=== PATIENT | male | born 1935 | race Two or more races ===

== ENCOUNTER → 2018-05-14 | Outpatient (CLI) | payer OTHER ==
[2018-01-17 15:00] VITALS: BP 114/70
[~2018-05-14] MED LIST: APIX5TAB PO; ATOR10TA60 PO; DIGO125T PO; ERGO500027 PO; FLUT9.9S NS; FURO-68 PO; FURO-69 PO; FURO40TA4 PO; LEVO25TA55 PO; LISI-338 PO; LORA10TA3 PO; METO-239 PO; METO-247 PO; METO50TA6 PO; POTA10TA12 PO; SACU1TAB PO
--- NOTE | 2018-05-14 10:28 | CARD ---
MR#: [id number] Date of Study: 05/14/2018 Ordering Physician: FARIDA THOMPSON, Referring Physician: FARIDA THOMPSON Tech: Annmarie Ogden RDCS APPROVED REPORT EXAM: Two-dimensional and M-mode echocardiogram with Doppler and color Doppler. Other Information Quality : Fair INDICATION Chronic Systolic Heart Failure 2D DIMENSIONS RVDd2.7 (2.9-3.5cm)Left Atrium(2D)4.0 (1.6-4.0cm) IVSd1.0 (0.7-1.1cm)Aortic Root(2D)3.0 (2.0-3.7cm) LVDd5.8 (3.9-5.9cm)LVOT Diameter2.4 (1.8-2.4cm) PWd1.0 (0.7-1.1cm)LVDs5.4 (2.5-4.0cm) FS (%) 7.8 %SV29.1 ml LVEF(%)17.1 (>50%) Aortic Valve AoV Peak Feliz.125.6cm/sAoV VTI17.6cm AO Peak GR.6.3mmHgLVOT Peak Feliz.81.9cm/s AO Mean GR.4mmHgAVA (VMAX)2.91cm2 RUDY (VTI)3.52uq7ZY P 1/2 Kqmd893kx Tricuspid Valve TR P. Wlrlpmuy252vq/sRAP SFFLOQBD7tgJi TR Peak Gr.45suYnYOZS17eqCh LEFT VENTRICLE The left ventricle is normal size. There is normal left ventricular wall thickness. Left ventricle ej ection fraction is severely impaired. The Ejection Fraction is 10-15%. There is severe global hypokin esis of the left ventricle. RIGHT VENTRICLE The right ventricle is normal size. The right ventricular systolic function is normal. ATRIA The left atrium is mildly dilated. The right atrium is mildly dilated. The interatrial septum is inta ct with no evidence for an atrial septal defect or patent foramen ovale as noted on 2-D or Doppler im aging. AORTIC VALVE The aortic valve is calcified but opens well. Doppler and Color Flow revealed mild aortic regurgitati on. There is no significant aortic valvular stenosis. MITRAL VALVE The mitral valve is calcified but opens well. There is no evidence of mitral valve prolapse. There is no mitral valve stenosis. Doppler and Color-flow revealed mild mitral regurgitation. TRICUSPID VALVE The tricuspid valve is normal in structure and function. Doppler and Color Flow revealed mild tricusp id regurgitation. There is moderate pulmonary hypertension. The PA pressure was estimated at 45 mmHg. There is no tricuspid valve stenosis. PULMONIC VALVE The pulmonic valve is not well visualized. Doppler and Color Flow revealed mild pulmonic valvular reg urgitation. There is no pulmonic valvular stenosis. GREAT VESSELS The aortic root is normal in size. The ascending aorta is not well seen. The IVC is normal in size an d collapses >50% with inspiration. PERICARDIAL EFFUSION There is no evidence of significant pericardial effusion. Critical Notification Critical Value: No <Conclusion> Left ventricle ejection fraction is severely impaired. The Ejection Fraction is 10-15%. Mild aortic regurgitation. Mild mitral regurgitation. Mild tricuspid regurgitation. There is moderate pulmonary hypertension. The PA pressure was estimated at 45 mmHg. There is no evidence of significant pericardial effusion. Signed by : Farida Thompson, Electronically Approved : 05/14/2018 10:27:05
== END | disposition home or self-care (01) ==
LOC: ECHO 08:53
PROVIDERS: ATTEND Internal Medicine Cardiovascular Disease
DX: I08.8 Other rheumatic multiple valve diseases (principal); I27.20 Pulmonary hypertension, unspecified; I11.0 Hypertensive heart disease with heart failure; I50.22 Chronic systolic (congestive) heart failure
CPT/HCPCS: 93306

== ENCOUNTER 2018-06-06 10:28 | Observation (INO) | payer OTHER ==
[~2018-06-06] VITALS: Ht 157.5 cm; Wt 76.4 kg
[~2018-06-06 10:28] MED LIST changes: +HYDROmorphone 2 MG/ML VIAL IV PRN; +IV RINGERS,LACTATED 1000ML 1,000 ML IV SCH; +LIDOCAINE 1% PF 2 ML VIAL. ID PRN; +MORPHINE SULFATE 4 MG/ML VIAL. IV PRN; +ONDANSETRON PF 4 MG/2 ML VIAL. IV PRN; +PROCHLORPERAZINE 10 MG/2 ML VIAL. IV PRN; +fentaNYL PF VIAL 100 MCG/2 ML VIAL IV PRN
[2018-06-06] MEDS ORDERED: BACITRACIN 50,000 UNIT in IV NORMAL SALINE 250ML 250 ML IRR ONE (10:45)
[2018-06-06 11:07] VITALS: BP 119/71
--- NOTE | 2018-06-06 11:20 | EKG ---
[facility] [address] [place] [address] Test Date: 2018-06-06 Test Time: 11:14:41 Pat Name: ELOY PHELPS Department: Patient ID: [facility]-[id number] Room: Gender: M Celluloid Trimmer: [facility] : 1935 Requested By: FARIDA THOMPSON Order Number: [id number] Reading MD: Farhan Liu Measurements Intervals [place] Rate: 95 P: [place]: QRS: -46 QRSD: 134 T: 112 QT: 364 QTc: 461 Interpretive Statements ATRIAL FIBRILLATION WITH rvr. VENTRICULAR PREMATURE COMPLEX(ES) ABNORMAL LEFT AXIS DEVIATION NON SPECIFIC INTRAVENTRICULAR BLOCK ABNORMAL ECG Electronically Signed On 06-09-2018 9:48:00 MORTAR MAKER by Farhan Liu
[2018-06-06] MEDS ORDERED: FURO40TA4 PO (11:21)
[2018-06-06] MEDS ORDERED: ERGO500027 PO (11:21)
[2018-06-06] MEDS ORDERED: LISI-338 PO ×2 (11:21→23:48)
[2018-06-06 11:26] LABS: HEMATOCRIT 47.7 % (39.0-53.0); HEMOGLOBIN 15.8 g/dL (13.0-17.5); RED BLOOD COUNT 5.92 x10^6/uL (4.30-5.70); RED CELL DISTRIBUTION WIDTH 15.5 % (11.5-14.5); WHITE BLOOD COUNT 9.2 x10^3/uL (4.0-11.0)
[2018-06-06 11:27] LABS: CALCIUM 8.9 mg/dL (8.5-10.1); CREATININE 1.1 mg/dL (0.7-1.3); GFR 64.4; POTASSIUM 4.1 mmol/L (3.5-5.1)
[2018-06-06 11:37] LABS: PROTHROMBIN TIME PATIENT 16.6 SEC (11.7-14.0)
[2018-06-06] MEDS ORDERED: PROPOFOL 20 ML IV ONE (11:42)
[2018-06-06] MEDS ORDERED: KETAMINE HCL IN NACL, ISO-OSM 50 MG/5 ML SYRINGE ONE (11:43)
[2018-06-06] MEDS ORDERED: MIDAZOLAM HCL/PF 2 MG/2 ML VIAL. ONE (11:43)
[2018-06-06] MEDS ORDERED: PROPOFOL 100 ML IV ONE (11:44)
[2018-06-06] MEDS ORDERED: IODIXANOL 320 MG/ML 100 ML VIAL. ONE (12:11)
[2018-06-06] MEDS ORDERED: LIDOCAINE 2%/EPI 1:100,000 20 ML VIAL. ONE (12:11)
[2018-06-06] MEDS ORDERED: LIDOCAINE 2%/EPI 1:100,000 20 ML VIAL. IJ ONE (13:00)
[2018-06-06] MEDS ORDERED: fentaNYL PF VIAL 100 MCG/2 ML VIAL ONE (13:21)
[2018-06-06] MEDS ORDERED: IODIXANOL 320 MG/ML 100 ML VIAL. IV ONE (14:00)
[2018-06-06] MEDS ORDERED: CONTRAST GIVEN. MC PRN (14:00)
[2018-06-06] MEDS ORDERED: oxyCODONE/APAP 5/325 1 TAB TABLET PO PRN (15:15)
[2018-06-06] MEDS ORDERED: NO ANTICOAGULANT THERAPY. MC PRN (15:15)
[2018-06-06] MEDS ORDERED: AMIODARONE 900 MG in IV DEXTROSE 5% 500 ML IV PRN (15:15)
[2018-06-06] MEDS ORDERED: AMIODARONE 150 MG in IV DEXTROSE 5% 100ML 100 ML IV ONE (15:15)
--- NOTE | 2018-06-06 15:57 | CARD ---
MR#: [id number] Date of Study: 06/06/2018 Ordering Physician: FARIDA ELIAS, Referring Physician: FARIDA ELIAS, Tech: APPROVED REPORT EXAM Successful implantation of Biotronik biventricular implantable cardioverter defibrillator/cardiac res ynchronization therapy-defibrillation Defibrillation threshold measurement of the time of implantation INDICATIONS Primary prevention of sudden cardiac and cardiac resynchronization therapy in a patient with se yazmin nonischemic cardio myopathy, LVEF 10-15% and cardiac dyssynchrony as evidenced by prolonged QRS interval of 144 ms. PROCEDURE After explaining the risks, benefits, and alternative options, informed consent was obtained from the patient. The patient was brought to the cardiac catheterization lab and the left chest and shoulder were prepp ed and draped in the usual fashion. 30 mL of 2% lidocaine was infiltrated into the skin and subcutaneous tissues for local anesthesia. An incision was made over the left infraclavicular fossa and using blunt dissection and cautery a pocke t was created. After initial attempts to obtain venous access using radiological landmarks were unsuc cessful, a venogram was obtained and venous access successfully obtained. A 9 Grenadian coronary sinus s theresa was inserted. Contrast injections were performed within the right atrium using CASS2 catheter and coronary sinus os tium was engaged. A 0.035 inch Glidewire was advanced followed by advancement of the CS sheath. With the balloontipped catheter inflated, a coronary sinus venogram was obtained to identify the appropria te posterolateral vein for left ventricular lead placement. A Biotronik quadripolar left ventricular lead model Sentus ProMRI QP L-85, serial #[id number] was advan alexy under fluoroscopy guidance and the tip was positioned in the posterolateral vein. Venous access w as again obtained in the left subclavian vein and 8 Grenadian sheath inserted. A Biotronik bipolar activ e fixation right ventricular lead with right atrial sensing capability model Plexa ProMRI DF-1 DX 65, serial #[id number] was positioned in the right ventricular apex under fluoroscopy guidance. The leads were secured into place and attached to a Biotronik biventricular ICD/HANDTOOLS REPAIRER-D generator model Intica 7 HF-T QP, serial #[id number]. This was placed in the pocket was subsequently closed in 3 layer s. Hemostasis was secured. Ventricular fibrillation was then induced to check the defibrillation thre shold. After initial unsuccessful attempt at converting with 25 J shock therapy, patient successfully converted with 30 J for defibrillation threshold. At the end of procedure, the left ventricular lead showed a sensing amplitude of 9.5 mV, impedance of 855 ohms and a threshold of 0.4 V. The right ventricular lead showed a sensing amplitude of 16.9 mV, impedance of 783 ohms and a threshold of 0.9 V. Of note, patient was thought to be having permanent atrial fibrillation successfully converted to sinus rhythm during the defibrillation threshold measur ement. The atrial sensing from the RV lead was at 3.0 mV. Patient tolerated the procedure well. There were no immediate complications. CONCLUSION Successful implantation of Biotronik biventricular ICD/HANDTOOLS REPAIRER-D for primary prevention of sudden cardiac and cardiac recent progression therapy in a patient with severe nonischemic artery myopathy wi th EF 10-15% and prolonged QRS interval of 144 ms. Defibrillation thresholds were measured at the lynnette e of implantation. Signed by : Farida Elias, Electronically Approved : 06/06/2018 15:54:59
[2018-06-06 16:00] VITALS: BP 126/71
--- NOTE | 2018-06-06 16:19 | RAD ---
Single view chest dated 06/06/2018. Comparison made to 05/16/2018. Clinical data indication: Post pacemaker placement. FINDINGS: Single upright exam performed. Heart size moderately enlarged, stable. Interval placement of a dual lead left subclavian pacer/AICD with leads projected to the right ventricle and coronary sinus. Lung volumes are low, limiting evaluation. No consolidation or pleural effusion. No pneumothorax. IMPRESSION: 1. Interval placement of dual lead left subclavian pacer with no evidence of pneumothorax. Electronically signed by: Vineet Sullivan MD (06/06/2018 4:15 PM) [facility]
[2018-06-06] MEDS: APIXABAN 5 MG TABLET. PO SCH (18:21)
[2018-06-06] MEDS: FUROSEMIDE 40 MG TABLET. PO SCH (18:30)
[2018-06-06] MEDS ORDERED: ANTI-COAG MONITOR BY PHARMACY. MC PRN (18:30)
[2018-06-06 19:00] VITALS: BP 108/67
[2018-06-06] MEDS: SACUBITRIL/VALSARTAN 24/26MG TABLET. PO SCH (20:47)
[2018-06-06] MEDS ORDERED: ATORVASTATIN CALCIUM 10 MG TABLET. PO SCH (21:00)
[2018-06-06 23:17] VITALS: BP 103/64
[2018-06-06] MEDS ORDERED: LEVO25TA4 PO (23:45)
[2018-06-07 03:02] VITALS: BP 107/67
[2018-06-07] MEDS: FUROSEMIDE 40 MG TABLET. PO SCH (05:32)
[2018-06-07] MEDS ORDERED: LEVOTHYROXINE 25 MCG TABLET. PO SCH (06:00)
[2018-06-07] MEDS ORDERED: POTASSIUM CHLORIDE 10 MEQ TABLET.ER. PO SCH (08:00)
[2018-06-07] MEDS: APIXABAN 5 MG TABLET. PO SCH (08:41)
[2018-06-07] MEDS ORDERED: METOPROLOL SUCC 24HR ER 100 MG TAB.ER.24H. PO SCH (09:00)
[2018-06-07] MEDS ORDERED: AMIODARONE HCL 200 MG TABLET. PO SCH (09:00)
[2018-06-07] MEDS ORDERED: NON FORMULARY ITEM (Lisinopril 1 TAB) PO SCH (09:00)
[2018-06-07] MEDS ORDERED: DIGOXIN 125 MCG TABLET. PO SCH (09:00)
--- NOTE | 2018-06-07 09:13 | RAD ---
EXAM: PA and Lateral Views of the Chest DATE: 06/07/2018 8:25 AM INDICATION: 1 DAY POST PACEMAKER COMPARISON: 06/06/2018, 05/16/2018 FINDINGS: Cardiac generator pack obscures a portion left chest with leads in stable position. Mild cardiomegaly. Aorta is tortuous. Patchy airspace opacities and interstitial prominence, may be seen with pulmonary edema. No pleural effusion or pneumothorax. IMPRESSION: 1. Pacemaker device is in stable position. No pneumothorax. 2. Patchy opacities bilaterally, nonspecific possibly pulmonary edema or regions of consolidation. Electronically signed by: Valente Trevizo MD (06/07/2018 9:08 AM) [facility]
[2018-06-07] MEDS: SACUBITRIL/VALSARTAN 24/26MG TABLET. PO SCH (09:16)
[2018-06-07 11:08] VITALS: BP 114/57
--- NOTE | 2018-06-07 11:25 | PDOC3 ---
Discharge Summary Visit Information Date of Admission: Jun 06, 2018 Date of Discharge: Jun 07, 2018 Admitting Diagnosis: severe nonischemic cardiomyopathy Final Diagnosis Severe nonischemic cardiomyopathy Chronic systolic heart failure Atrial fibrillation Brief Hospital Course Allergies Allergies Coded Allergies Type Severity Reaction Last Updated Verified No Known Drug Allergies 01/23/18 No Vital Signs Vital Signs Date Time Temp Pulse Resp B/P (MAP) Pulse Ox O2 Delivery O2 Flow Rate FiO2 06/07/18 11:08 97.6 69 32 114/57 (76) 97 Room Air 97.6 06/07/18 07:37 2.0 Lab Results Laboratory Tests Test 06/06/18 11:05 White Blood Count 9.2 x10^3/uL (4.0-11.0) Red Blood Count 5.92 x10^6/uL (4.30-5.70) Hemoglobin 15.8 g/dL (13.0-17.5) Hematocrit 47.7 % (39.0-53.0) Mean Corpuscular Volume 81 fL (79-100) Mean Corpuscular Hemoglobin 27 pg (25-35) Mean Corpuscular Hemoglobin Concent 33 g/dL (31-37) Red Cell Distribution Width 15.5 % (11.5-14.5) Platelet Count 209 x10^3/uL (140-400) Prothrombin Time 16.6 SEC (11.7-14.0) Prothromb Time International Ratio 1.4 (0.8-1.1) Sodium Level 136 mmol/L (136-145) Potassium Level 4.1 mmol/L (3.5-5.1) Chloride Level 101 mmol/L (98-107) Carbon Dioxide Level 24 mmol/L (21-32) Anion Gap 11 (6-14) Blood Urea Nitrogen 25 mg/dL (8-26) Creatinine 1.1 mg/dL (0.7-1.3) Estimated GFR (Cockcroft-Gault) 64.4 Glucose Level 147 mg/dL (70-99) Calcium Level 8.9 mg/dL (8.5-10.1) Brief Hospital Course Mr. Bergeron is a 82 old with severe nonischemic cardiomyopathy, LVEF 10-15% and prolonged QRS interval of 144 ms successfully underwent Biotronik biventricular ICD/[employer]ANT ENGINEER-D implantation 06/06/18 for primary prevention of sudden cardiac and cardiac resynchronization therapy. He converted to sinus rhythm during defibrillation threshold measurement. He was started on amiodarone infusion during his hospital stay for antiarrhythmic therapy. His incision looked good. Chest x-ray did not show any pneumothorax. Device interrogation prior to discharge showed normal function. He was hemodynamically stable during his hospital stay. He will follow-up with our office for wound check in 2 weeks. Discharge Information Condition at Discharge: Stable Follow Up: Weeks (2) Disposition/Orders: D/C to Home Scheduled Apixaban (Eliquis) 5 Mg Tablet, 5 MG PO BID for a fib for 30 Days, #60 Prescribed by: HO TREJO MD on 05/16/18 1410 Last Taken: Unknown Dose on 06/05/18 Last Action: Continued on 06/06/181753 by HENRIQUE MULLER Atorvastatin Calcium (Atorvastatin Calcium) 10 Mg Tablet, 10 MG PO HS for FOR CHOLESTEROL, #30 Ref 0 (Reported) Entered as Reported by: ELIZA UMAÑA on 01/15/18 0853 Last Taken: Unknown Dose on 06/05/18 Last Action: Continued on 06/06/181753 by HENRIQUE MULLER Digoxin (Digoxin) 125 Mcg Tablet, 1 TAB PO DAILY, #30 Ref 5 (Reported) Entered as Reported by: CAREN SANTOS on 01/17/18 1704 Last Taken: Unknown Dose on 06/05/18 Last Action: Continued on 06/06/181753 by HENRIQUE MULLER Ergocalciferol (Vitamin D2) (Vitamin D2) 50,000 Unit Capsule, 1 CAP PO WEEKLY for supplement, #4 Ref 5 (Reported) Entered as Reported by: FLOR HARLEY on 06/06/181120 Last Taken: Unknown Dose on Unknown Date & Time Last Action: Continued on 06/06/181753 by HENRIQUE MULLER Furosemide (Furosemide) 40 Mg Tablet, 1 TAB PO BID for fluid retention, #30 Ref 5 (Reported) Entered as Reported by: FLOR HARLEY on 06/06/181120 Last Taken: Unknown Dose on 06/05/18 Last Action: Continued on 06/06/181753 by HENRIQUE MULLER Levothyroxine Sodium (Synthroid) 25 Mcg Tablet, 1 TAB PO DAILY for thyroid dz for 30 Days, #30 Ref 5 Prescribed by: HO TREJO MD on 05/16/18 160 Last Taken: Unknown Dose on 06/05/18 Last Action: Converted on 06/06/181753 by HENRIQUE MULLER Levothyroxine Sodium (Levothyroxine Sodium) 25 Mcg Tablet, 1 TAB PO DAILY, #30 Ref 5 (Reported) Entered as Reported by: Belle Nunez on 06/06/182344 Last Action: New Order on 06/06/182344 by Belle Nunez Lisinopril (Lisinopril) 5 Mg Tablet, 1 TAB PO DAILY, #30 Ref 5 (Reported) Entered as Reported by: Belle Nunez on 06/06/182347 Last Action: New Order on 06/06/182347 by Belle Nunez Metoprolol Succinate (Metoprolol Succinate ( Xl )) 100 Mg Tab.er.24h, 100 MG PO DAILY for chf for 30 Days, #30 Prescribed by: HO TREJO MD on 05/16/181605 Last Taken: Unknown Dose on 06/05/18 Last Action: Continued on 06/06/181753 by HENRIQUE MULLER Potassium Chloride (Klor-Con 10) 10 Meq Tablet.er, 10 MEQ PO DAILYWBKFT for chf for 30 Days, #30 Prescribed by: HO TREJO MD on 05/16/181605 Last Taken: Unknown Dose on 06/05/18 Last Action: Continued on 06/06/181753 by HENRIQUE MULLER Sacubitril/Valsartan (Entresto 24 mg-26 mg Tablet) 1 Each Tablet, 1 TAB PO BID for chf for 30 Days, #60 Prescribed by: HO TREJO MD on 05/16/181605 Last Taken: Unknown Dose on 06/05/18 Last Action: Converted on 06/06/181753 by HENRIQUE MULLER Discontinued Medications Lisinopril (Lisinopril) 5 Mg Tablet, 1 TAB PO DAILY for blood pressure, #30 Ref 5 (Reported) Discontinued Reason: DC Entered as Reported by: FLOR HARLEY on 06/06/18 112 Last Taken: Unknown Dose on 06/05/18 Last Action: Discontinued on 06/06/181819 by OLY HERNANDEZ, [facility] FARIDA THOMPSON MD Jun 07, 2018 11:25
[2018-06-07] MEDS ORDERED: AMIO200T4 PO (12:26)
--- NOTE | 2018-06-07 15:13 | NUR ---
Pt discharged to home with family. Incision to Left upper chest with steri-strips intact. Family and pt education, precautions, new medications reviewed. Family/pt deny any further questions. IV x2 d/c'd without complications, tele monitor off.
--- NOTE | 2018-06-07 16:07 | NUR ---
Robin called to notify this nurse that pt taking PO Amiodarone and PO digoxin increases chance of toxicity, Dr. Elias notified, Digoxin d/c'd, family and pt aware, state understanding.
[2018-06-13] MEDS ORDERED: ERGOCALCIFEROL (VITAMIN D2) 50,000 UNIT CAPSULE. PO SCH (09:00)
== END 2018-06-07 16:08 | disposition home or self-care (01) ==
LOC: SURG 10:28 → 2 NORTH 11:00
PROVIDERS: ADMIT Internal Medicine Cardiovascular Disease; ATTEND Internal Medicine Cardiovascular Disease
DX: I42.9 Cardiomyopathy, unspecified (principal); I48.91 Unspecified atrial fibrillation; I50.22 Chronic systolic (congestive) heart failure
CPT/HCPCS: 33225; 33249; 36415; 71045; 71046; 80048; 85027; 85610; 93005; 93566; 93641; 96365; 96366; 96368; C1769; C1882; C1895; C1900; G0378; G0379; J0282; J0690; J0696; J2250; J2704; J3490; J7050; 96367; J7030

== ENCOUNTER 2018-09-04 01:26 | Inpatient (IN) | payer OTHER ==
[~2018-09-04] VITALS: Ht 165.1 cm; Wt 77.8 kg
[2018-09-04] VITALS (10 sets, daily range): BP systolic 80–111; BP diastolic 54–82
[~2018-09-04 01:26] MED LIST changes: +AMIO200T4 PO; -HYDROmorphone 2 MG/ML VIAL IV PRN; -IV RINGERS,LACTATED 1000ML 1,000 ML IV SCH; +LEVO25TA4 PO; -LIDOCAINE 1% PF 2 ML VIAL. ID PRN; -MORPHINE SULFATE 4 MG/ML VIAL. IV PRN; -ONDANSETRON PF 4 MG/2 ML VIAL. IV PRN; -PROCHLORPERAZINE 10 MG/2 ML VIAL. IV PRN; -fentaNYL PF VIAL 100 MCG/2 ML VIAL IV PRN
[2018-09-04] MEDS ORDERED: IPRATRPIUM/ALBUTEROL 0.5/2.5MG 3 ML NEBU. ONE (01:30)
[2018-09-04] MEDS ORDERED: ALBUTEROL SULFATE 2.5 MG/3 ML NEBU. ONE (01:30)
[2018-09-04] MEDS ORDERED: IPRATRPIUM/ALBUTEROL 0.5/2.5MG 3 ML NEBU. NEB ONE (01:45)
[2018-09-04 01:46] LABS: BASO # 0.1 x10^3/uL (0.0-0.2); BASO % 1 % (0-3); EOS # 0.4 x10^3/uL (0.0-0.7); EOS % 3 % (0-3); HEMATOCRIT 50.8 % (39.0-53.0); HEMOGLOBIN 16.8 g/dL (13.0-17.5); LYMPH # 6.3 x10^3/uL (1.0-4.8); LYMPH % 55 % (24-48); MEAN CORPUSCULAR HEMOGLOBIN 28 pg (25-35); MEAN CORPUSCULAR HGB CONC 33 g/dL (31-37); MEAN CORPUSCULAR VOLUME 83 fL (79-100); MONO % 8 % (0-9); NEUT # 3.7 x10^3uL (1.8-7.7); NEUT % 33 % (31-73); PLATELET COUNT 228 x10^3/uL (140-400); RED BLOOD COUNT 6.11 x10^6/uL (4.30-5.70); RED CELL DISTRIBUTION WIDTH 16.2 % (11.5-14.5); WHITE BLOOD COUNT 11.4 x10^3/uL (4.0-11.0)
[2018-09-04] MEDS ORDERED: ENALAPRILAT 1.25 MG/ML VIAL. IVP ONE ×2 (01:58→02:00)
[2018-09-04 02:00] LABS: CALCIUM 9.3 mg/dL (8.5-10.1); CREATININE 1.3 mg/dL (0.7-1.3); POTASSIUM 3.3 mmol/L (3.5-5.1)
[2018-09-04] MEDS ORDERED: FUROSEMIDE 40 MG/4 ML VIAL. IVP ONE (02:00)
[2018-09-04] MEDS ORDERED: FUROSEMIDE 40 MG TABLET. PO ONE (02:00)
[2018-09-04 02:05] LABS: ALBUMIN/GLOBULIN RATIO 0.9 (1.0-1.7); TOTAL BILIRUBIN 0.5 mg/dL (0.2-1.0); TOTAL PROTEIN 8.4 g/dL (6.4-8.2)
[2018-09-04 02:18] LABS: % EOS 1 % (0-5); % LYMPHS 47 % (24-48); % MONOS 7 % (0-10); % SEGS 45 % (35-66); PLT ESTIMATE ADEQUATE (ADEQUATE)
[2018-09-04] MEDS ORDERED: PIPERACILLIN/TAZOBACTAM 3.375 GM in IV NORMAL SALINE 50ML 50 ML IV ONE (03:15)
--- NOTE | 2018-09-04 03:18 | PHYS DOC ---
Past Medical History Past Medical History: A-Fib, CHF, High Cholesterol, Hypertension, Hypothyroid Past Surgical History: Other Additional Past Surgical Histo: "head" , PACEMAKER Alcohol Use: Occasionally Drug Use: None Adult General Chief Complaint Chief Complaint: SHORTNESS OF BREATH HPI HPI Patient is a 83 year old who presents to the ED with a chief complaint of shortness of breath. Son states that the symptoms started 1-2 hours prior to arrival. Stone states that patient had pacemaker placed in June 2018.Pt denies cough, fever, chills, nausea, vomiting, diarrhea, chest pain, dysuria. Review of Systems Review of Systems Patient denies fever, chills, nausea, vomiting, diarrhea, dysuria, chest pain. Patient complains assurance of breath. Current Medications Current Medications Current Medications Medications (Trade) Dose Ordered Sig/Arthur Start Time Stop Time Status Last Admin Dose Admin Albuterol Sulfate (Ventolin Neb Soln) 2.5 mg STK-MED ONCE 09/04/18 01:30 09/04/18 01:31 DC Albuterol/ Ipratropium (Duoneb) 3 ml 1X ONCE 09/04/18 01:45 09/04/18 01:47 DC 09/04/18 01:45 3 ML Enalaprilat (Vasotec Inj) 1.25 mg STK-MED ONCE 09/04/18 01:58 09/04/18 01:59 DC Furosemide (Lasix) 40 mg 1X ONCE 09/04/18 02:00 09/04/18 02:01 Cancel Piperacillin Sod/ Tazobactam Sod 3.375 gm/Sodium Chloride 50 ml @ 100 mls/hr 1X ONCE 09/04/18 03:15 09/04/18 03:44 DC 09/04/18 03:11 100 MLS/HR Allergies Allergies Allergies Coded Allergies Type Severity Reaction Last Updated Verified No Known Drug Allergies 01/23/18 No Physical Exam Physical Exam Constitutional: Well developed, well nourished, no acute distress, non-toxic appearance. HENT: Normocephalic, atraumatic, normocaphalic Eyes: EOMI Neck: Normal range of motion, no tenderness, supple Cardiovascular:Heart rate regular rhythm, no murmur Resp: Mild respiratory distress, bilateral rales Abdomen: Soft, no tenderness, no distension Skin: Warm, dry, no erythema, no rash. Back: No tenderness, no CVA tenderness. Extremities: No tenderness, ROM intact, no edema. Psychologic: Affect normal, judgement normal, mood normal. Current Patient Data Vital Signs Vital Signs Date Time Temp Pulse Resp B/P (MAP) Pulse Ox O2 Delivery O2 Flow Rate FiO2 09/04/18 04:39 62 18 109/49 (69) 100 NonRebreather Mask 15.0 09/04/18 01:30 96.8 96.8 Lab Values Laboratory Tests Test 09/04/18 01:30 09/04/18 02:54 White Blood Count 11.4 x10^3/uL (4.0-11.0) H Red Blood Count 6.11 x10^6/uL (4.30-5.70) H Hemoglobin 16.8 g/dL (13.0-17.5) Hematocrit 50.8 % (39.0-53.0) Mean Corpuscular Volume 83 fL (79-100) Mean Corpuscular Hemoglobin 28 pg (25-35) Mean Corpuscular Hemoglobin Concent 33 g/dL (31-37) Red Cell Distribution Width 16.2 % (11.5-14.5) H Platelet Count 228 x10^3/uL (140-400) Neutrophils (%) (Auto) 33 % (31-73) Lymphocytes (%) (Auto) 55 % (24-48) H Monocytes (%) (Auto) 8 % (0-9) Eosinophils (%) (Auto) 3 % (0-3) Basophils (%) (Auto) 1 % (0-3) Neutrophils # (Auto) 3.7 x10^3uL (1.8-7.7) Lymphocytes # (Auto) 6.3 x10^3/uL (1.0-4.8) H Monocytes # (Auto) 1.0 x10^3/uL (0.0-1.1) Eosinophils # (Auto) 0.4 x10^3/uL (0.0-0.7) Basophils # (Auto) 0.1 x10^3/uL (0.0-0.2) Segmented Neutrophils % 45 % (35-66) Lymphocytes % 47 % (24-48) Monocytes % 7 % (0-10) Eosinophils % 1 % (0-5) Platelet Estimate Adequate (ADEQUATE) Sodium Level 140 mmol/L (136-145) Potassium Level 3.3 mmol/L (3.5-5.1) L Chloride Level 102 mmol/L (98-107) Carbon Dioxide Level 27 mmol/L (21-32) Anion Gap 11 (6-14) Blood Urea Nitrogen 13 mg/dL (8-26) Creatinine 1.3 mg/dL (0.7-1.3) Estimated GFR (Cockcroft-Gault) 53.0 BUN/Creatinine Ratio 10 (6-20) Glucose Level 196 mg/dL (70-99) H Lactic Acid Level 2.9 mmol/L (0.4-2.0) H Calcium Level 9.3 mg/dL (8.5-10.1) Total Bilirubin 0.5 mg/dL (0.2-1.0) Aspartate Amino Transferase (AST) 17 U/L (15-37) Alanine Aminotransferase (ALT) 17 U/L (16-63) Alkaline Phosphatase 101 U/L (46-116) Troponin I Quantitative < 0.017 ng/mL (0.000-0.055) RZ-Bdc-N-Type Natriuretic Peptide 2529 pg/mL (0-449) H Total Protein 8.4 g/dL (6.4-8.2) H Albumin 4.0 g/dL (3.4-5.0) Albumin/Globulin Ratio 0.9 (1.0-1.7) L Glucose (Fingerstick) 228 mg/dL (70-99) H Laboratory Tests 09/04/18 01:30 Laboratory Tests 09/04/18 01:30 EKG EKG EKG interpretation: 1:35 AM on 09/04/2018 HR: 85 Sinus rhythm with aberrant IV conduction Regular intervals Normal axis Nonspecific ST changes No STEMI No acute changes from 06/06/2018 Repeat EKG interpretation: 2:55 AM on 09/04/2018 HR: 67 Sinus rhythm with nonspecific IV lock Regular intervals Left axis deviation nonspecific ST changes No STEMI No acute changes from previous EKG Radiology/Procedures Radiology/Procedures Chest x-ray one view portable Increased vascular congestion and bilateral lungs. Underlying opacity is not ruled out. Course & Med Decision Making Course & Med Decision Making Pertinent Labs and Imaging studies reviewed. (See chart for details) Ordered labs, chest x-ray, EKG, the, BiPAP. Most likely fluid overload so patient will be placed on BiPAP. Patient states that he takes Lasix by mouth Patient is doing better on the BiPAP. Patient was also given a DuoNeb breathing treatment. Labs are within normal limits. Troponin is negative. EKG shows no acute changes. BNP is 2500 Ordered 4 mg IV Lasix. Also ordered 0.625 mg IV Vasotec Patient will be admitted to the ICU for further evaluation and treatment for acute CHF exacerbation. I also started patient on aggressive IV antibiotics in case there is opacity in the lungs. Nurse, to the room as patient became diaphoretic. Patient's blood pressure dropped to 98/60. I ordered 250 mL of IV fluids. After IV fluids and given patient is feeling much better. Patient states that his breathing is improved on BiPAP. Dose of IV abx given in ED. he was able to speak in full sentences. Pt requests that he be taken off BiPAP. Will place him on 15 L non-rebreather. Discussed case with Dr Silvestre who accepts admission. Pt will be placed in ICU. Dragon Disclaimer Dragon Disclaimer This electronic medical record was generated, in whole or in part, using a voice recognition dictation system. Departure Departure Referrals: NARESH HE MD (PCP) ROMMEL ANDINO DO September 04, 2018 03:17
--- NOTE | 2018-09-04 03:41 | RAD ---
Indication:cough, soa TECHNIQUE:Portable AP chest X-ray COMPARISON:06/07/2018 FINDINGS: Heart is moderately enlarged in size. Stable position of left chest wall cardiac pacer with leads projecting over the heart. Diffuse bilateral interstitial opacities are seen. No pneumothorax. Visualized bony thorax within normal limits. IMPRESSION: Pulmonary edema or multifocal infection. Electronically signed by: Cuauhtemoc Medina DO (09/04/2018 3:38 AM) [facility]
[2018-09-04] MEDS ORDERED: SACU1TAB7 PO (06:22)
[2018-09-04] MEDS ORDERED: LORA10TA3 PO (06:22)
--- NOTE | 2018-09-04 07:01 | EKG ---
[facility] [address] [place] [address] Test Date: 2018-09-04 Test Time: 01:35:39 Pat Name: ELOY PHELPS Department: Room: 102 1 Gender: M Summer Sessions Director: : 1935 Requested By: ROMMEL ANDINO Order Number: [id number] Reading MD: Farhan Liu Measurements Intervals [place] Rate: 85 P: 16 [place]: 162 QRS: -92 QRSD: 168 T: 43 QT: 434 QTc: 517 Interpretive Statements V PACED RHYTHM Electronically Signed On 09-05-2018 10:05:26 CDT by Farhan Liu
--- NOTE | 2018-09-04 07:47 | PDOC1 ---
History and Physical Date of Admission Date of Admission DATE: 09/04/18 TIME: 07:39 Identification/Chief Complaint Chief Complaint Shortness of breath History of Present Illness History of Present Illness 83 yo azeri-speaking only Male w/ PMHx Afib, reduced EF CHF s/p BiV AICD, chronic LBPwho presents to the ED with a chief complaint of shortness of breath. Son states that the symptoms started 1-2 hours prior to arrival. Pt denies cough, fever, chills, nausea, vomiting, diarrhea, chest pain, dysuria. No recent sick contacts. CXR reveals pulmonary edema vs multifocal infectious process. EKG - left axis deviation, aberrant AV harika conduction Past Medical History Cardiovascular: AFIB, CHF, HTN, Hyperlipidemia CENTRAL NERVOUS SYSTEM: Other Musculoskeletal: low back pain, Osteoarthritis Endocrine: Hyperthyroidism Past Surgical History Past Surgical History: Other Family History Family History: Family History Unknown Social History Smoke: No ALCOHOL: none Drugs: None Current Problem List Problem List Problems Medical Problems: (1) Acute exacerbation of CHF (congestive heart failure) Status: Acute Current Medications Current Medications Current Medications Albuterol Sulfate (Ventolin Neb Soln) 2.5 mg STK-MED ONCE .ROUTE ; Start 09/04/18 at 01:30; Stop 09/04/18 at 01:31; Status DC Albuterol/ Ipratropium (Duoneb) 3 ml STK-MED ONCE .ROUTE ; Start 09/04/18 at 01:30; Stop 09/04/18 at 01:31; Status DC Albuterol/ Ipratropium (Duoneb) 3 ml 1X ONCE NEB Last administered on 09/04/18at 01:45; Start 09/04/18 at 01:45; Stop 09/04/18 at 01:47; Status DC Furosemide (Lasix) 40 mg 1X ONCE IVP Last administered on 09/04/18at 02:01; Start 09/04/18 at 02:00; Stop 09/04/18 at 02:01; Status DC Furosemide (Lasix) 40 mg 1X ONCE PO ; Start 09/04/18 at 02:00; Stop 09/04/18 at 02:01; Status Cancel Enalaprilat (Vasotec Inj) 0.625 mg 1X ONCE IVP Last administered on 09/04/18at 02:05; Start 09/04/18 at 02:00; Stop 09/04/18 at 02:01; Status DC Enalaprilat (Vasotec Inj) 1.25 mg STK-MED ONCE IVP ; Start 09/04/18 at 01:58; Stop 09/04/18 at 01:59; Status DC Piperacillin Sod/ Tazobactam Sod 3.375 gm/Sodium Chloride 50 ml @ 100 mls/hr 1X ONCE IV Last administered on 09/04/18at 03:11; Start 09/04/18 at 03:15; Stop 09/04/18 at 03:44; Status DC Active Scripts Active Amiodarone Hcl 200 Mg Tablet 200 Mg PO DAILY 30 Days Metoprolol Succinate ( Xl ) (Metoprolol Succinate) 100 Mg Tab.er.24h 100 Mg PO DAILY 30 Days Eliquis (Apixaban) 5 Mg Tablet 5 Mg PO BID 30 Days Reported Loratadine 10 Mg Tablet 1 Tab PO DAILY Loratadine 10 Mg Tablet 1 Tab PO DAILY Entresto 49 mg-51 mg Tablet (Sacubitril/Valsartan) 1 Each Tablet 1 Each PO BID Levothyroxine Sodium 25 Mcg Tablet 1 Tab PO DAILY Furosemide 40 Mg Tablet 1 Tab PO BID Atorvastatin Calcium 10 Mg Tablet 10 Mg PO HS Allergies Allergies: Coded Allergies: No Known Drug Allergies (Unverified , 01/23/18) ROS General: YES: Fatigue, Malaise; No: Chills, Night Sweats, Appetite, Other PSYCHOLOGICAL ROS: No: Anxiety, Behavioral Disorder, Concentration difficultie, Decreased libido, Depression, Disorientation, Hallucinations, Hostility, Irritablity, Memory difficulties, Mood Swings, Obsessive thoughts, Physical abuse, Sexual abuse, Sleep disturbances, Suicidal ideation, Other Eyes: No Blurry vision, No Decreased vision, No Double vision, No Dry eyes, No Excessive tearing, No Eye Pain, No Itchy Eyes, No Loss of vision, No Photophobia, No Scotomata, No Uses contacts, No Uses glasses, No Other HEENT: No: Heacaches, Visual Changes, Hearing change, Nasal congestion, Nasal discharge, Oral lesions, Sinus pain, Sore Throat, Epistaxis, Sneezing, Snoring, Tinnitus, Vertigo, Vocal changes, Other ALLERGY AND IMMUNOLOGY: No: Hives, Insect Bite Sensitivity, Itchy/Watery Eyes, Nasal Congestion, Post Nasal Drip, Seasonal Allergies, Other Hematological and Lymphatic: No: Bleeding Problems, Blood Clots, Blood Transfusions, Brusing, Night Sweats, Pallor, Swollen Lymph Nodes, Other ENDOCRINE: No: Breast Changes, Galactorrhea, Hair Pattern Changes, Hot Flashes, Malaise/lethargy, Mood Swings, Palpitations, Polydipsia/polyuria, Skin Changes, Temperature Intolerance, Unexpected Weight Changes, Other Breast: No New/Changing Breast Lumps, No Nipple changes, No Nipple discharge, No Other Respiratory: YES: Cough, Orthopnea, Shortness of breath, SOB with excertion, Wheezing; No: Hemoptysis, Pleuritic Pain, Sputum Changes, Stridor, Tachypnea, Other Cardiovascular: yes Palpitations, yes Orthopnea, yes Paroxysmal Noc. Dyspnea, yes Edema; No Chest Pain, No Lt Headedness, No Other Gastrointestinal: No Nausea, No Vomiting, No Abdominal Pain, No Diarrhea, No Constipation, No Melena, No Hematochezia, No Other Genitourinary: No Dysuria, No Frequency, No Incontinence, No Hematuria, No Retention, No Discharge, No Urgency, No Pain, No Flank Pain, No Other, No , No , No , No , No , No , No Musculoskeletal: No Gait Disturbance, No Joint Pain, No Joint Stiffness, No Joint Swelling, No Muscle Pain, No Muscular Weakness, No Pain In:, No Swelling In:, No Other Neurological: No Behavorial Changes, No Bowel/Bladder ControlChng, No Confusion, No Dizziness, No Gait Disturbance, No Headaches, No Impaired Coord/balance, No Memory Loss, No Numbness/Tingling, No Seizures, No Speech Problems, No Tremors, No Visual Changes, No Weakness, No Other Skin: No Dry Skin, No Eczema, No Hair Changes, No Lumps, No Mole Changes, No Mottling, No Nail Changes, No Pruritus, No Rash, No Skin Lesion Changes, No Other, No Acne Physical Exam General: Alert, Cooperative, mild distress HEENT: Atraumatic, PERRLA, EOMI, Mucous membr. moist/pink Lungs: Other (Bilateral rales) Heart: S1S2, irregularly irregular Rectal Exam: not examined Extremities: No clubbing, No cyanosis, Normal pulses, No tenderness/swelling, Other (1+ edema) Neuro: Normal speech, Strength at 5/5 X4 ext, Normal tone, Sensation intact, Cranial nerves 3-12 NL, Reflexes 2+ Psych/Mental Status: Mental status NL, Mood NL Vitals Vitals Vital Signs Date Time Temp Pulse Resp B/P (MAP) Pulse Ox O2 Delivery O2 Flow Rate FiO2 09/04/18 07:30 95 Nasal Cannula 4.0 09/04/18 06:15 70 27 92/60 (71) 09/04/18 05:45 97.7 97.7 Labs Labs Laboratory Tests Test 09/04/18 01:30 09/04/18 02:54 White Blood Count 11.4 x10^3/uL (4.0-11.0) Red Blood Count 6.11 x10^6/uL (4.30-5.70) Hemoglobin 16.8 g/dL (13.0-17.5) Hematocrit 50.8 % (39.0-53.0) Mean Corpuscular Volume 83 fL (79-100) Mean Corpuscular Hemoglobin 28 pg (25-35) Mean Corpuscular Hemoglobin Concent 33 g/dL (31-37) Red Cell Distribution Width 16.2 % (11.5-14.5) Platelet Count 228 x10^3/uL (140-400) Neutrophils (%) (Auto) 33 % (31-73) Lymphocytes (%) (Auto) 55 % (24-48) Monocytes (%) (Auto) 8 % (0-9) Eosinophils (%) (Auto) 3 % (0-3) Basophils (%) (Auto) 1 % (0-3) Neutrophils # (Auto) 3.7 x10^3uL (1.8-7.7) Lymphocytes # (Auto) 6.3 x10^3/uL (1.0-4.8) Monocytes # (Auto) 1.0 x10^3/uL (0.0-1.1) Eosinophils # (Auto) 0.4 x10^3/uL (0.0-0.7) Basophils # (Auto) 0.1 x10^3/uL (0.0-0.2) Segmented Neutrophils % 45 % (35-66) Lymphocytes % 47 % (24-48) Monocytes % 7 % (0-10) Eosinophils % 1 % (0-5) Platelet Estimate Adequate (ADEQUATE) Sodium Level 140 mmol/L (136-145) Potassium Level 3.3 mmol/L (3.5-5.1) Chloride Level 102 mmol/L (98-107) Carbon Dioxide Level 27 mmol/L (21-32) Anion Gap 11 (6-14) Blood Urea Nitrogen 13 mg/dL (8-26) Creatinine 1.3 mg/dL (0.7-1.3) Estimated GFR (Cockcroft-Gault) 53.0 BUN/Creatinine Ratio 10 (6-20) Glucose Level 196 mg/dL (70-99) Lactic Acid Level 2.9 mmol/L (0.4-2.0) Calcium Level 9.3 mg/dL (8.5-10.1) Total Bilirubin 0.5 mg/dL (0.2-1.0) Aspartate Amino Transf (AST/SGOT) 17 U/L (15-37) Alanine Aminotransferase (ALT/SGPT) 17 U/L (16-63) Alkaline Phosphatase 101 U/L (46-116) Troponin I Quantitative < 0.017 ng/mL (0.000-0.055) GB-Vzb-G-Type Natriuretic Peptide 2529 pg/mL (0-449) Total Protein 8.4 g/dL (6.4-8.2) Albumin 4.0 g/dL (3.4-5.0) Albumin/Globulin Ratio 0.9 (1.0-1.7) Glucose (Fingerstick) 228 mg/dL (70-99) Laboratory Tests Test 09/04/18 01:30 09/04/18 02:54 White Blood Count 11.4 x10^3/uL (4.0-11.0) Red Blood Count 6.11 x10^6/uL (4.30-5.70) Hemoglobin 16.8 g/dL (13.0-17.5) Hematocrit 50.8 % (39.0-53.0) Mean Corpuscular Volume 83 fL (79-100) Mean Corpuscular Hemoglobin 28 pg (25-35) Mean Corpuscular Hemoglobin Concent 33 g/dL (31-37) Red Cell Distribution Width 16.2 % (11.5-14.5) Platelet Count 228 x10^3/uL (140-400) Neutrophils (%) (Auto) 33 % (31-73) Lymphocytes (%) (Auto) 55 % (24-48) Monocytes (%) (Auto) 8 % (0-9) Eosinophils (%) (Auto) 3 % (0-3) Basophils (%) (Auto) 1 % (0-3) Neutrophils # (Auto) 3.7 x10^3uL (1.8-7.7) Lymphocytes # (Auto) 6.3 x10^3/uL (1.0-4.8) Monocytes # (Auto) 1.0 x10^3/uL (0.0-1.1) Eosinophils # (Auto) 0.4 x10^3/uL (0.0-0.7) Basophils # (Auto) 0.1 x10^3/uL (0.0-0.2) Segmented Neutrophils % 45 % (35-66) Lymphocytes % 47 % (24-48) Monocytes % 7 % (0-10) Eosinophils % 1 % (0-5) Platelet Estimate Adequate (ADEQUATE) Sodium Level 140 mmol/L (136-145) Potassium Level 3.3 mmol/L (3.5-5.1) Chloride Level 102 mmol/L (98-107) Carbon Dioxide Level 27 mmol/L (21-32) Anion Gap 11 (6-14) Blood Urea Nitrogen 13 mg/dL (8-26) Creatinine 1.3 mg/dL (0.7-1.3) Estimated GFR (Cockcroft-Gault) 53.0 BUN/Creatinine Ratio 10 (6-20) Glucose Level 196 mg/dL (70-99) Lactic Acid Level 2.9 mmol/L (0.4-2.0) Calcium Level 9.3 mg/dL (8.5-10.1) Total Bilirubin 0.5 mg/dL (0.2-1.0) Aspartate Amino Transf (AST/SGOT) 17 U/L (15-37) Alanine Aminotransferase (ALT/SGPT) 17 U/L (16-63) Alkaline Phosphatase 101 U/L (46-116) Troponin I Quantitative < 0.017 ng/mL (0.000-0.055) TL-Lmt-F-Type Natriuretic Peptide 2529 pg/mL (0-449) Total Protein 8.4 g/dL (6.4-8.2) Albumin 4.0 g/dL (3.4-5.0) Albumin/Globulin Ratio 0.9 (1.0-1.7) Glucose (Fingerstick) 228 mg/dL (70-99) Images Images CXR - Pulmonary edema or multifocal infection. VTE Prophylaxis Ordered VTE Prophylaxis Devices: Yes VTE Pharmacological Prophylaxi: Yes Assessment/Plan Assessment/Plan A/P: Shortness of breath - with Acute hypoxia - will wean O2 as tolerated. This looks to be a mixed picture of pulmonary infection, likely gram negative, will screen for MRSA as it is bilateral, definitely an element of CHF exacerbation as well Acute on chronic systolic CHF - possibly 2/2 underlying AFIB vs infectious etiology, has leukocytosis. Consulted cardiology. Cont toprol xl, entresto, statin AFIB - Paroxysmal by hx with chronic LBBB. Rate now controlled on toprol XL, stopped diltiazem a few visits ago NICM - ischemic w/u negative january 2018 on cath. EF currently at 10-15% s/p BiV AICD placement June 2018 HTN - controlled well HLD - needs statin for his CHF Hx of cranial bleed with craniotomy 7 yrs ago - was traumatic, should continue on eliquis, has no falls recently FEN - Cardiac diet PPX - eliquis FULL CODE Dispo - admit to [facility] for acute CHF exacerbation LESLY CASTANEDA MD September 04, 2018 07:47
--- NOTE | 2018-09-04 08:01 | EKG ---
[facility] [address] [place] [address] Test Date: 2018-09-04 Test Time: 02:55:49 Pat Name: ELOY PHELPS Department: Room: 102 1 Gender: M Financial Advisor: : 1935 Requested By: LESLY CASTANEDA Order Number: [id number] Reading MD: Farhan Liu Measurements Intervals [place] Rate: 67 P: 36 ID: [id number] QRS: -82 QRSD: 158 T: 42 QT: 492 QTc: 523 Interpretive Statements V PACED RHYTHM Electronically Signed On 09-05-2018 10:05:48 CDT by Farhan Liu
[2018-09-04] MEDS: LEVOTHYROXINE 25 MCG TABLET. PO SCH (08:40)
[2018-09-04] MEDS: APIXABAN 5 MG TABLET. PO SCH ×2 (08:40→21:09)
[2018-09-04] MEDS: CETIRIZINE HCL 10 MG TABLET. PO SCH (08:41)
[2018-09-04] MEDS: METOPROLOL SUCC 24HR ER 25 MG TAB.ER.24H. PO SCH (08:41)
[2018-09-04] MEDS: AMIODARONE HCL 200 MG TABLET. PO SCH (08:43)
--- NOTE | 2018-09-04 08:50 | PDOC2 ---
LEW MORRIS [employer] MANAGER 09/04/18 0850: CARDIAC CONSULT DATE OF CONSULT Date of Consult DATE: 09/04/18 TIME: 08:40 REASON FOR CONSULT Reason for Consult: CHF exac REFERRING PHYSICIAN Referring Physician: Konrad SOURCE Source: Caregiver (son), Chart review, Patient HISTORY OF PRESENT ILLNESS HISTORY OF PRESENT ILLNESS This is a pleasant 83 yo male admitted for complains of shortness of breath. Reports that in the last week, he has been coughing more, no productive cough. Since yesterday he has been feeling more SOA and last night noted with appears to be described as chills. Denies any chest pain but was having left subcostal ribcage pain last night. No recent pneumonia or any respiratory infection or any recent use of antibiotics. Denies any frequent dizziness or palpitations. No significant leg edema and has been compliant with his medications except that he is not compliant with salt restrictions. Presently he feels better. PAST MEDICAL HISTORY Cardiovascular: AFIB, CHF, HTN, Hyperlipidemia, Other (NICM) Pulmonary: No pertinent hx CENTRAL NERVOUS SYSTEM: Other (head trauma requiring craniotomy remotely) GI: No pertinent hx Heme/Onc: No pertinent hx, Other (chronic anticoagulation) Hepatobiliary: No pertinent hx Psych: No pertinent hx Musculoskeletal: Osteoarthritis Rheumatologic: No pertinent hx Infectious disease: No pertinent hx ENT: No pertinent hx Renal/: No pertinent hx Endocrine: Hypothyroidism Dermatology: No pertinent hx PAST SURGICAL HISTORY Past Surgical History: Pacemaker (G[employer] MATE M-d), Other (craniotomy) FAMILY HISTORY Family History noncontributory to CV SOCIAL HISTORY Smoke: No ALCOHOL: none Drugs: None Lives: with Family CURRENT MEDICATIONS CURRENT MEDICATIONS Current Medications Medications (Trade) Dose Ordered Sig/Arthur Route PRN Reason Start Time Stop Time Status Last Admin Dose Admin Albuterol/ Ipratropium (Duoneb) 3 ml 1X ONCE NEB 09/04/18 01:45 09/04/18 01:47 DC 09/04/18 01:45 Furosemide (Lasix) 40 mg 1X ONCE IVP 09/04/18 02:00 09/04/18 02:01 DC 09/04/18 02:01 Enalaprilat (Vasotec Inj) 0.625 mg 1X ONCE IVP 09/04/18 02:00 09/04/18 02:01 DC 09/04/18 02:05 Piperacillin Sod/ Tazobactam Sod 3.375 gm/Sodium Chloride 50 ml @ 100 mls/hr 1X ONCE IV 09/04/18 03:15 09/04/18 03:44 DC 09/04/18 03:11 ALLERGIES ALLERGIES: Coded Allergies: No Known Drug Allergies (Unverified , 01/23/18) ROS Review of System limited HPI, language barrier, discussed with son PHYSICAL EXAM General: Alert, Oriented X3, Cooperative, No acute distress HEENT: Atraumatic, Mucous membr. moist/pink Lungs: Other (basilar crackles) Heart: Regular rate (Paced), Other (2/6 systolic murmur to LLS border) Abdomen: Soft Extremities: No cyanosis, Other (trace LE edema) Skin: No breakdown, No significant lesion Neuro: Normal speech, Sensation intact Psych/Mental Status: Mental status NL, Mood NL MUSCULOSKELETAL: Osteoarthritic changes both hands VITALS VITALS Vital Signs Date Time Temp Pulse Resp B/P (MAP) Pulse Ox O2 Delivery O2 Flow Rate FiO2 09/04/18 08:00 98.0 69 21 102/60 (74) 95 Nasal Cannula 4.0 98.0 LABS Lab: Laboratory Tests Test 09/04/18 01:30 09/04/18 02:54 White Blood Count 11.4 x10^3/uL (4.0-11.0) Red Blood Count 6.11 x10^6/uL (4.30-5.70) Hemoglobin 16.8 g/dL (13.0-17.5) Hematocrit 50.8 % (39.0-53.0) Mean Corpuscular Volume 83 fL (79-100) Mean Corpuscular Hemoglobin 28 pg (25-35) Mean Corpuscular Hemoglobin Concent 33 g/dL (31-37) Red Cell Distribution Width 16.2 % (11.5-14.5) Platelet Count 228 x10^3/uL (140-400) Neutrophils (%) (Auto) 33 % (31-73) Lymphocytes (%) (Auto) 55 % (24-48) Monocytes (%) (Auto) 8 % (0-9) Eosinophils (%) (Auto) 3 % (0-3) Basophils (%) (Auto) 1 % (0-3) Neutrophils # (Auto) 3.7 x10^3uL (1.8-7.7) Lymphocytes # (Auto) 6.3 x10^3/uL (1.0-4.8) Monocytes # (Auto) 1.0 x10^3/uL (0.0-1.1) Eosinophils # (Auto) 0.4 x10^3/uL (0.0-0.7) Basophils # (Auto) 0.1 x10^3/uL (0.0-0.2) Segmented Neutrophils % 45 % (35-66) Lymphocytes % 47 % (24-48) Monocytes % 7 % (0-10) Eosinophils % 1 % (0-5) Platelet Estimate Adequate (ADEQUATE) Sodium Level 140 mmol/L (136-145) Potassium Level 3.3 mmol/L (3.5-5.1) Chloride Level 102 mmol/L (98-107) Carbon Dioxide Level 27 mmol/L (21-32) Anion Gap 11 (6-14) Blood Urea Nitrogen 13 mg/dL (8-26) Creatinine 1.3 mg/dL (0.7-1.3) Estimated GFR (Cockcroft-Gault) 53.0 BUN/Creatinine Ratio 10 (6-20) Glucose Level 196 mg/dL (70-99) Lactic Acid Level 2.9 mmol/L (0.4-2.0) Calcium Level 9.3 mg/dL (8.5-10.1) Total Bilirubin 0.5 mg/dL (0.2-1.0) Aspartate Amino Transf (AST/SGOT) 17 U/L (15-37) Alanine Aminotransferase (ALT/SGPT) 17 U/L (16-63) Alkaline Phosphatase 101 U/L (46-116) Troponin I Quantitative < 0.017 ng/mL (0.000-0.055) QW-Swv-J-Type Natriuretic Peptide 2529 pg/mL (0-449) Total Protein 8.4 g/dL (6.4-8.2) Albumin 4.0 g/dL (3.4-5.0) Albumin/Globulin Ratio 0.9 (1.0-1.7) Glucose (Fingerstick) 228 mg/dL (70-99) ECHOCARDIOGRAM ECHOCARDIOGRAM <Conclusion> Left ventricle ejection fraction is severely impaired. The Ejection Fraction is 10-15%. Mild aortic regurgitation. Mild mitral regurgitation. Mild tricuspid regurgitation. There is moderate pulmonary hypertension. The PA pressure was estimated at 45 mmHg. There is no evidence of significant pericardial effusion. DATE: 05/14/18 1027 STRESS TEST STRESS TEST Conclusion 1. Abnormal baseline EKG but no EKG evidence of stress-induced ischemia. 2. Nuclear imaging shows no reversible ischemia but does show a prior inferior infarct. 3. Left ventricular systolic function is severely decreased with global hypokinesis and inferior akinesis. Ejection fraction is 23%. 4. Moderate risk Lexiscan nuclear stress test with no reversible ischemia but a prior infarct and an ejection fraction of 23%. DATE: 01/16/18 1233 HEART CATH HEART CATH Conclusion No significant coronary artery disease Recommendations Optimization of medical therapy for severe nonischemic cardiomyopathy and repeat 2-D echo in 3 months to evaluate the need for AICD implantation. DATE: 01/17/18 0938 ASSESSMENT/PLAN ASSESSMENT/PLAN 1. Dyspnea: pneumonia? 2. NICM 3. PAFIB: currently Paced 4. HTN: Controlled 5. HLP 6. GUNNER[employer] MATE M-D: Biotronik, occasional NSVT but normal function othersie with 0 AFIB burden. Impedance revealed no fluid overload. 7. Hypothyroidism: TSH not on goal 8. Hyperglycemia: suspect DM2. Recommendations Limited TTE and note EF, CT chest noncontrast. Will check A1C. Continue home amiodarone, toprol, eliquis, statin, and entresto Lasix therapy Will need to clarify when he takes his thyroid replacement and will educate accordingly FARIDA THOMPSON MD 09/04/18 2004: CARDIAC CONSULT ASSESSMENT/PLAN ASSESSMENT/PLAN Patient seen and examined. Agree with SPIRITUAL CARE COORDINATOR's assessment and plan. Dyspnea probably secondary to combination of pneumonia and mild acute on chronic systolic HF Continue diuretics 2D echo showed EF 20%. Tele showed demand V pacing. Continue current meds including eliquis and entresto Thank you for your consultation LEW MORRIS APRN September 04, 2018 08:50 FARIDA THOMPSON MD September 04, 2018 20:04
[2018-09-04] MEDS ORDERED: SACUBITRIL/VALSARTAN 49/51MG TABLET. PO SCH (09:00)
[2018-09-04] MEDS ORDERED: FUROSEMIDE 40 MG/4 ML VIAL. IVP SCH (09:00)
[2018-09-04] MEDS ORDERED: DEXTROSE 50% 25 GM / 50ML DISP.SYRIN. IV PRN (09:15)
[2018-09-04] MEDS: ANTI-COAG MONITOR BY PHARMACY. MC PRN (10:19)
[2018-09-04] MEDS: cefTRIAXone IV Push 1 GM VIAL. IVP SCH (10:30)
[2018-09-04] MEDS: DOXYCYCLINE HYCLATE 100 MG TABLET PO SCH ×2 (10:30→21:09)
[2018-09-04] MEDS: INSULIN LISPRO 300 UNITS/3 ML INSULN.PEN. SQ SCH ×4 (10:32→21:00)
--- NOTE | 2018-09-04 10:37 | RAD ---
Examination: CT chest without contrast HISTORY: History of congestive heart failure, pneumonia COMPARISON: 09/04/2018 TECHNIQUE: Axial CT images of chest were performed without contrast. Coronal and sagittal reformats are performed Exposure: One or more of the following individualized dose reduction techniques were utilized for this examination: 1. Automated exposure control 2. Adjustment of the mA and/or kV according to patient size 3. Use of iterative reconstruction technique FINDINGS: The central airways are patent. Moderate cardiomegaly. Left-sided cardiac pacer is identified. Diffuse bilateral lung airspace opacities identified with prominent appearing diffuse interstitial lung markings. Small bilateral pleural effusions identified. Mild bibasilar lung airspace opacities. The visualized noncontrasted liver, spleen, adrenals grossly appears unremarkable Moderate degenerative changes thoracic spine. IMPRESSION: 1. Diffuse groundglass airspace opacities identified in the bilateral lungs could be diffuse infiltrates or edema with patchy bibasilar lung airspace opacities likely atelectasis or infiltrates. Other possibility includes hypersensitivity pneumonitis. 2. Minimal bilateral pleural effusions. Electronically signed by: Greg Colin MD (09/04/2018 10:34 AM) [facility]
--- NOTE | 2018-09-04 11:51 | CARD ---
MR#: [id number] Date of Study: 09/04/2018 Ordering Physician: LEW MORRIS, Referring Physician: LESLY CASTANEDA, Tech: Annmarie Ogden JERRY APPROVED REPORT EXAM: LIMITED Two-dimensional echocardiogram Other Information Quality : Good INDICATION NICM Surgery/Intervention ICD/Pacemaker: 2D DIMENSIONS RVDd3.3 (2.9-3.5cm)Left Atrium(2D)4.4 (1.6-4.0cm) IVSd1.3 (0.7-1.1cm)Aortic Root(2D)3.4 (2.0-3.7cm) LVDd5.6 (3.9-5.9cm)PWd1.2 (0.7-1.1cm) LVDs4.9 (2.5-4.0cm)FS (%) 11.5 % SV37.5 mlLVEF(%)20.0 (>50%) Tricuspid Valve TR P. [id number] TR Peak Gr.[id number] LEFT VENTRICLE Limited ECHO. The Left Ventricle is moderately dilated. There is mild concentric left ventricular hyp ertrophy. Left ventricular systolic function is severely impaired. LV ejection fraction is estimated at 20%. There is severe global hypokinesis of the left ventricle. RIGHT VENTRICLE The right ventricle is normal size. The right ventricular systolic function is normal. There are terrell ce leads in the right ventricle and atrium. ATRIA The left atrium is mildly dilated. The right atrium is mildly dilated. A device lead is seen in the r ight atrium consistent with history. The interatrial septum is intact with no evidence for an atrial septal defect or patent foramen ovale as noted on 2-D or Doppler imaging. TRICUSPID VALVE The tricuspid valve is normal in structure and function. Doppler and Color Flow revealed mild tricusp id regurgitation. The PA pressure was estimated at 40 mmHg. There is no tricuspid valve stenosis. GREAT VESSELS The aortic root is normal in size. The IVC is normal in size and collapses >50% with inspiration. PERICARDIAL EFFUSION There is no evidence of significant pericardial effusion. Critical Notification Critical Value: No <Conclusion> Limited ECHO. The Left Ventricle is moderately dilated. Left ventricular systolic function is severely impaired. LV ejection fraction is estimated at 20%. There is severe global hypokinesis of the left ventricle. There is mild concentric left ventricular hypertrophy. There are device leads in the right ventricle and atrium. Doppler and Color Flow revealed mild tricuspid regurgitation. The PA pressure was estimated at 40 mmHg. Signed by : Farhan Liu MD Electronically Approved : 09/04/2018 11:50:42
[2018-09-04] MEDS ORDERED: IV NORMAL SALINE 500ML BAG 250 ML IV ONE (15:30)
[2018-09-04] MEDS ORDERED: IV NORMAL SALINE 250ML 250 ML IV ONE (15:30)
--- NOTE | 2018-09-04 16:54 | NUR ---
SS following for discharge planning. SS reviewed pt chart. Pt is from home with spouse and is currently requiring oxygen. No discharge needs noted at this time. SS will continue to follow for discharge planning.
[2018-09-04] MEDS ORDERED: DOXYCYCLINE HYCLATE 100 MG in IV DEXTROSE 5% 100ML 100 ML IV SCH (21:00)
[2018-09-04] MEDS: LACTOBACILLUS RHAMNOSUS GG 1 CAPSULE. PO SCH (21:09)
[2018-09-04] MEDS: ATORVASTATIN CALCIUM 10 MG TABLET. PO SCH (21:09)
[2018-09-05 03:00] VITALS: BP 93/70
[2018-09-05] MEDS: LEVOTHYROXINE 25 MCG TABLET. PO SCH (05:33)
[2018-09-05] MEDS: INSULIN LISPRO 300 UNITS/3 ML INSULN.PEN. SQ SCH ×4 (08:00→21:03)
[2018-09-05 08:10] VITALS: BP 156/90
[2018-09-05 08:10] LABS: BASO # 0.1 x10^3/uL (0.0-0.2); BASO % 1 % (0-3); EOS # 0.2 x10^3/uL (0.0-0.7); EOS % 2 % (0-3); HEMATOCRIT 43.4 % (39.0-53.0); HEMOGLOBIN 14.7 g/dL (13.0-17.5); LYMPH # 2.5 x10^3/uL (1.0-4.8); LYMPH % 25 % (24-48); MEAN CORPUSCULAR HEMOGLOBIN 28 pg (25-35); MEAN CORPUSCULAR HGB CONC 34 g/dL (31-37); MEAN CORPUSCULAR VOLUME 82 fL (79-100); MONO % 10 % (0-9); NEUT # 6.3 x10^3uL (1.8-7.7); NEUT % 63 % (31-73); PLATELET COUNT 157 x10^3/uL (140-400); RED BLOOD COUNT 5.28 x10^6/uL (4.30-5.70)
[2018-09-05 08:17] LABS: CALCIUM 9.2 mg/dL (8.5-10.1); CREATININE 1.1 mg/dL (0.7-1.3); GFR 64.2; POTASSIUM 3.5 mmol/L (3.5-5.1)
[2018-09-05] MEDS: APIXABAN 5 MG TABLET. PO SCH ×2 (08:23→21:03)
[2018-09-05] MEDS: DOXYCYCLINE HYCLATE 100 MG TABLET PO SCH ×2 (08:23→21:03)
[2018-09-05] MEDS: FUROSEMIDE 40 MG TABLET. PO SCH (08:23)
[2018-09-05] MEDS: LACTOBACILLUS RHAMNOSUS GG 1 CAPSULE. PO SCH ×2 (08:23→21:03)
[2018-09-05] MEDS: AMIODARONE HCL 200 MG TABLET. PO SCH (08:23)
[2018-09-05] MEDS: CETIRIZINE HCL 10 MG TABLET. PO SCH (08:23)
[2018-09-05] MEDS: METOPROLOL SUCC 24HR ER 25 MG TAB.ER.24H. PO SCH (08:24)
--- NOTE | 2018-09-05 08:44 | PDOC ---
PROGRESS NOTES Chief Complaint Chief Complaint A/P: Shortness of breath - with Acute hypoxia - weaned O2 as tolerated. This looks to be a mixed picture of pulmonary infection, likely gram negative, will screen for MRSA as it is bilateral, definitely an element of CHF exacerbation as well - likely can transition to doxycycline oral. Hypersensitivity pneumonitis is on the read as well, could be 2/2 amiodarone use, will consult pulmonology Acute on chronic systolic CHF - possibly 2/2 underlying AFIB vs infectious etiology, has leukocytosis. Consulted cardiology. Cont toprol xl, entresto, stat in AFIB - Paroxysmal by hx with chronic LBBB. Rate now controlled on toprol XL, stopped diltiazem a few visits ago NICM - ischemic w/u negative January 2018 on cath. EF currently at 10-15% s/p BiV AICD placement June 2018 HTN - controlled well HLD - needs statin for his CHF Hx of cranial bleed with craniotomy 7 yrs ago - was traumatic, should continue on eliquis, has no falls recently Elevated TSH - possibly 2/2 amio toxicity, states he has been compliant with thyroid meds FEN - Cardiac diet PPX - eliquis FULL CODE Dispo - admitted to [facility] for acute CHF exacerbation - feeling much better, can likely d/c home if ok with cardiology History of Present Illness History of Present Illness 83 yo , fijian-speaking only Male w/ PMHx Afib, reduced EF CHF s/p BiV AICD, chronic LBPwho presents to the ED with a chief complaint of shortness of breath. Son states that the symptoms started 1-2 hours prior to arrival. Pt denies cough, fever, chills, nausea, vomiting, diarrhea, chest pain, dysuria. No recent sick contacts. CXR reveals pulmonary edema vs multifocal infectious process. EKG - left axis deviation, aberrant AV harika conduction. CT Chest - diffuse groundglass airspace opacities and minimal bilateral pleural effusions He is feeling much better today, eating well. Wishes to go home soon. Vitals Vitals Vital Signs Date Time Temp Pulse Resp B/P (MAP) Pulse Ox O2 Delivery O2 Flow Rate FiO2 09/05/18 08:24 68 156/90 09/05/18 03:00 98.6 20 95 Nasal Cannula 2.0 98.6 Physical Exam General: Alert, Oriented X3, Cooperative, No acute distress Heart: Regular rate (Paced), Other (2/6 systolic murmur to LLS border) Lungs: Crackles Abdomen: Soft Extremities: No cyanosis, Other (trace LE edema) Skin: No breakdown, No significant lesion Labs LABS Laboratory Tests Test 09/04/18 10:29 09/04/18 17:11 09/04/18 21:08 09/05/18 08:00 Glucose (Fingerstick) 235 mg/dL (70-99) 123 mg/dL (70-99) 157 mg/dL (70-99) White Blood Count 10.0 x10^3/uL (4.0-11.0) Red Blood Count 5.28 x10^6/uL (4.30-5.70) Hemoglobin 14.7 g/dL (13.0-17.5) Hematocrit 43.4 % (39.0-53.0) Mean Corpuscular Volume 82 fL (79-100) Mean Corpuscular Hemoglobin 28 pg (25-35) Mean Corpuscular Hemoglobin Concent 34 g/dL (31-37) Red Cell Distribution Width 16.0 % (11.5-14.5) Platelet Count 157 x10^3/uL (140-400) Neutrophils (%) (Auto) 63 % (31-73) Lymphocytes (%) (Auto) 25 % (24-48) Monocytes (%) (Auto) 10 % (0-9) Eosinophils (%) (Auto) 2 % (0-3) Basophils (%) (Auto) 1 % (0-3) Neutrophils # (Auto) 6.3 x10^3uL (1.8-7.7) Lymphocytes # (Auto) 2.5 x10^3/uL (1.0-4.8) Monocytes # (Auto) 1.0 x10^3/uL (0.0-1.1) Eosinophils # (Auto) 0.2 x10^3/uL (0.0-0.7) Basophils # (Auto) 0.1 x10^3/uL (0.0-0.2) Sodium Level 140 mmol/L (136-145) Potassium Level 3.5 mmol/L (3.5-5.1) Chloride Level 104 mmol/L (98-107) Carbon Dioxide Level 26 mmol/L (21-32) Anion Gap 10 (6-14) Blood Urea Nitrogen 15 mg/dL (8-26) Creatinine 1.1 mg/dL (0.7-1.3) Estimated GFR (Cockcroft-Gault) 64.2 Glucose Level 152 mg/dL (70-99) Calcium Level 9.2 mg/dL (8.5-10.1) Magnesium Level 1.9 mg/dL (1.8-2.4) Test 09/05/18 08:13 Glucose (Fingerstick) 137 mg/dL (70-99) Assessment and Plan Assessmemt and Plan Problems Medical Problems: (1) Acute exacerbation of CHF (congestive heart failure) Status: Acute Comment Review of Relevant I have reviewed the following items issa (where applicable) has been applied. Labs Laboratory Tests Test 09/04/18 01:30 09/04/18 02:54 09/04/18 08:10 09/04/18 10:29 White Blood Count 11.4 x10^3/uL (4.0-11.0) Red Blood Count 6.11 x10^6/uL (4.30-5.70) Hemoglobin 16.8 g/dL (13.0-17.5) Hematocrit 50.8 % (39.0-53.0) Mean Corpuscular Volume 83 fL (79-100) Mean Corpuscular Hemoglobin 28 pg (25-35) Mean Corpuscular Hemoglobin Concent 33 g/dL (31-37) Red Cell Distribution Width 16.2 % (11.5-14.5) Platelet Count 228 x10^3/uL (140-400) Neutrophils (%) (Auto) 33 % (31-73) Lymphocytes (%) (Auto) 55 % (24-48) Monocytes (%) (Auto) 8 % (0-9) Eosinophils (%) (Auto) 3 % (0-3) Basophils (%) (Auto) 1 % (0-3) Neutrophils # (Auto) 3.7 x10^3uL (1.8-7.7) Lymphocytes # (Auto) 6.3 x10^3/uL (1.0-4.8) Monocytes # (Auto) 1.0 x10^3/uL (0.0-1.1) Eosinophils # (Auto) 0.4 x10^3/uL (0.0-0.7) Basophils # (Auto) 0.1 x10^3/uL (0.0-0.2) Segmented Neutrophils % 45 % (35-66) Lymphocytes % 47 % (24-48) Monocytes % 7 % (0-10) Eosinophils % 1 % (0-5) Platelet Estimate Adequate (ADEQUATE) Sodium Level 140 mmol/L (136-145) Potassium Level 3.3 mmol/L (3.5-5.1) Chloride Level 102 mmol/L (98-107) Carbon Dioxide Level 27 mmol/L (21-32) Anion Gap 11 (6-14) Blood Urea Nitrogen 13 mg/dL (8-26) Creatinine 1.3 mg/dL (0.7-1.3) Estimated GFR (Cockcroft-Gault) 53.0 BUN/Creatinine Ratio 10 (6-20) Glucose Level 196 mg/dL (70-99) Hemoglobin A1c 7.0 % (4.8-5.6) Lactic Acid Level 2.9 mmol/L (0.4-2.0) 1.9 mmol/L (0.4-2.0) Calcium Level 9.3 mg/dL (8.5-10.1) Total Bilirubin 0.5 mg/dL (0.2-1.0) Aspartate Amino Transf (AST/SGOT) 17 U/L (15-37) Alanine Aminotransferase (ALT/SGPT) 17 U/L (16-63) Alkaline Phosphatase 101 U/L (46-116) Troponin I Quantitative < 0.017 ng/mL (0.000-0.055) LV-Lxh-V-Type Natriuretic Peptide 2529 pg/mL (0-449) Total Protein 8.4 g/dL (6.4-8.2) Albumin 4.0 g/dL (3.4-5.0) Albumin/Globulin Ratio 0.9 (1.0-1.7) Glucose (Fingerstick) 228 mg/dL (70-99) 235 mg/dL (70-99) Procalcitonin < 0.10 ng/mL (0.00-0.10) Thyroid Stimulating Hormone (TSH) 8.684 uIU/mL (0.358-3.74) Test 09/04/18 17:11 09/04/18 21:08 09/05/18 08:00 09/05/18 08:13 Glucose (Fingerstick) 123 mg/dL (70-99) 157 mg/dL (70-99) 137 mg/dL (70-99) White Blood Count 10.0 x10^3/uL (4.0-11.0) Red Blood Count 5.28 x10^6/uL (4.30-5.70) Hemoglobin 14.7 g/dL (13.0-17.5) Hematocrit 43.4 % (39.0-53.0) Mean Corpuscular Volume 82 fL (79-100) Mean Corpuscular Hemoglobin 28 pg (25-35) Mean Corpuscular Hemoglobin Concent 34 g/dL (31-37) Red Cell Distribution Width 16.0 % (11.5-14.5) Platelet Count 157 x10^3/uL (140-400) Neutrophils (%) (Auto) 63 % (31-73) Lymphocytes (%) (Auto) 25 % (24-48) Monocytes (%) (Auto) 10 % (0-9) Eosinophils (%) (Auto) 2 % (0-3) Basophils (%) (Auto) 1 % (0-3) Neutrophils # (Auto) 6.3 x10^3uL (1.8-7.7) Lymphocytes # (Auto) 2.5 x10^3/uL (1.0-4.8) Monocytes # (Auto) 1.0 x10^3/uL (0.0-1.1) Eosinophils # (Auto) 0.2 x10^3/uL (0.0-0.7) Basophils # (Auto) 0.1 x10^3/uL (0.0-0.2) Sodium Level 140 mmol/L (136-145) Potassium Level 3.5 mmol/L (3.5-5.1) Chloride Level 104 mmol/L (98-107) Carbon Dioxide Level 26 mmol/L (21-32) Anion Gap 10 (6-14) Blood Urea Nitrogen 15 mg/dL (8-26) Creatinine 1.1 mg/dL (0.7-1.3) Estimated GFR (Cockcroft-Gault) 64.2 Glucose Level 152 mg/dL (70-99) Calcium Level 9.2 mg/dL (8.5-10.1) Magnesium Level 1.9 mg/dL (1.8-2.4) Laboratory Tests Test 09/04/18 10:29 09/04/18 17:11 09/04/18 21:08 09/05/18 08:00 Glucose (Fingerstick) 235 mg/dL (70-99) 123 mg/dL (70-99) 157 mg/dL (70-99) White Blood Count 10.0 x10^3/uL (4.0-11.0) Red Blood Count 5.28 x10^6/uL (4.30-5.70) Hemoglobin 14.7 g/dL (13.0-17.5) Hematocrit 43.4 % (39.0-53.0) Mean Corpuscular Volume 82 fL (79-100) Mean Corpuscular Hemoglobin 28 pg (25-35) Mean Corpuscular Hemoglobin Concent 34 g/dL (31-37) Red Cell Distribution Width 16.0 % (11.5-14.5) Platelet Count 157 x10^3/uL (140-400) Neutrophils (%) (Auto) 63 % (31-73) Lymphocytes (%) (Auto) 25 % (24-48) Monocytes (%) (Auto) 10 % (0-9) Eosinophils (%) (Auto) 2 % (0-3) Basophils (%) (Auto) 1 % (0-3) Neutrophils # (Auto) 6.3 x10^3uL (1.8-7.7) Lymphocytes # (Auto) 2.5 x10^3/uL (1.0-4.8) Monocytes # (Auto) 1.0 x10^3/uL (0.0-1.1) Eosinophils # (Auto) 0.2 x10^3/uL (0.0-0.7) Basophils # (Auto) 0.1 x10^3/uL (0.0-0.2) Sodium Level 140 mmol/L (136-145) Potassium Level 3.5 mmol/L (3.5-5.1) Chloride Level 104 mmol/L (98-107) Carbon Dioxide Level 26 mmol/L (21-32) Anion Gap 10 (6-14) Blood Urea Nitrogen 15 mg/dL (8-26) Creatinine 1.1 mg/dL (0.7-1.3) Estimated GFR (Cockcroft-Gault) 64.2 Glucose Level 152 mg/dL (70-99) Calcium Level 9.2 mg/dL (8.5-10.1) Magnesium Level 1.9 mg/dL (1.8-2.4) Test 09/05/18 08:13 Glucose (Fingerstick) 137 mg/dL (70-99) Microbiology 09/04/18 Blood Culture - Preliminary, Resulted NO GROWTH AFTER 1 DAY Medications Current Medications Albuterol Sulfate (Ventolin Neb Soln) 2.5 mg STK-MED ONCE .ROUTE ; Start 09/04/18 at 01:30; Stop 09/04/18 at 01:31; Status DC Albuterol/ Ipratropium (Duoneb) 3 ml STK-MED ONCE .ROUTE ; Start 09/04/18 at 01:30; Stop 09/04/18 at 01:31; Status DC Albuterol/ Ipratropium (Duoneb) 3 ml 1X ONCE NEB Last administered on 09/04/18at 01:45; Start 09/04/18 at 01:45; Stop 09/04/18 at 01:47; Status DC Furosemide (Lasix) 40 mg 1X ONCE IVP Last administered on 09/04/18at 02:01; Start 09/04/18 at 02:00; Stop 09/04/18 at 02:01; Status DC Furosemide (Lasix) 40 mg 1X ONCE PO ; Start 09/04/18 at 02:00; Stop 09/04/18 at 02:01; Status Cancel Enalaprilat (Vasotec Inj) 0.625 mg 1X ONCE IVP Last administered on 09/04/18at 02:05; Start 09/04/18 at 02:00; Stop 09/04/18 at 02:01; Status DC Enalaprilat (Vasotec Inj) 1.25 mg STK-MED ONCE IVP ; Start 09/04/18 at 01:58; Stop 09/04/18 at 01:59; Status DC Piperacillin Sod/ Tazobactam Sod 3.375 gm/Sodium Chloride 50 ml @ 100 mls/hr 1X ONCE IV Last administered on 09/04/18at 03:11; Start 09/04/18 at 03:15; Stop at 03:44; Status DC Amiodarone HCl (Cordarone) 200 mg DAILY PO Last administered on 09/05/18 08:23; Start 09/04/18 at 09:00 Apixaban (Eliquis) 5 mg BID PO Last administered on 09/05/18 08:23; Start 09/04/18 at 09:00 Atorvastatin Calcium (Lipitor) 10 mg HS PO Last administered on 09/04/18 21:09; Start 09/04/18 at 21:00 Metoprolol Succinate (Toprol Xl) 25 mg DAILY PO Last administered on 09/05/18 08:24; Start 09/04/18 at 09:00 Levothyroxine Sodium (Synthroid) 25 mcg DAILY06 PO Last administered on 09/05 05:33; Start 09/04/18 at 08:00 Cetirizine HCl (ZyrTEC) 10 mg DAILY PO Last administered on 09/05/18 08:23; Start 09/04/18 at 09:00 Sacubitril/ Valsartan (Entresto 49 Mg-51 Mg) 1 tab BID PO Last administered on 09/04/18 08:41; Start 09/04/18 at 09:00; Stop 09/04/18 at 15:45; Status DC Furosemide (Lasix) 40 mg DAILY IVP Last administered on 09/04/18 08:42; Start 09/04/18 at 09:00; Stop 09/04/18 at 15:19; Status DC Ceftriaxone Sodium (Rocephin) 1 gm Q24H IVP Last administered on 09/04/18 10:30; Start 09/04/18 at 10:00 Doxycycline Hyclate 100 mg/ Dextrose 100 ml @ 50 mls/hr Q12HR IV ; Start 09/04/18 at 21:00; Status UNV Insulin Human Lispro (HumaLOG) 0-5 UNITS [id number] SQ Last administered on 09/04/18 10:32; Start 09/04/18 at 09:30 Dextrose (Dextrose 50%-Water Syringe) 12.5 gm PRN Q15MIN PRN IV SEE COMMENTS; Start 09/04/18 at 09:15 Doxycycline Hyclate (Vibra-Tab) 100 mg BID PO Last administered on 09/05/18 08:23; Start 09/04/18 at 10:00 Info (Anti-Coagulation Monitoring By Pharmacy) 1 each PRN DAILY PRN MC SEE COMMENTS Last administered on 09/04/18at 10:19; Start 09/04/18 at 10:15 Lactobacillus Rhamnosus (Culturelle) 1 cap BID PO Last administered on 09/05/18 08:23; Start 09/04/18 at 21:00 Sodium Chloride 250 ml @ 250 mls/hr 1X ONCE IV Last administered on 09/04/18at 17:09; Start 09/04/18 at 15:30; Stop 09/04/18 at 16:29; Status DC Furosemide (Lasix) 40 mg DAILY PO Last administered on 09/05/18at 08:23; Start 09/05/18 at 09:00 Sodium Chloride 250 ml @ 500 mls/hr 1X ONCE IV ; Start 09/04/18 at 15:30; Stop 09/04/18 at 15:59; Status DC Sacubitril/ Valsartan (Entresto 49 Mg-51 Mg) 1 tab BID PO ; Start 09/05/18 at 09:00; Stop 09/05/18 at 09:00; Status DC Sacubitril/ Valsartan (Entresto 49 Mg-51 Mg) 1 tab BID PO ; Start 09/06/18 at 09:00 Active Scripts Active Amiodarone Hcl 200 Mg Tablet 200 Mg PO DAILY 30 Days Metoprolol Succinate ( Xl ) (Metoprolol Succinate) 100 Mg Tab.er.24h 100 Mg PO DAILY 30 Days Eliquis (Apixaban) 5 Mg Tablet 5 Mg PO BID 30 Days Reported Loratadine 10 Mg Tablet 1 Tab PO DAILY Loratadine 10 Mg Tablet 1 Tab PO DAILY Entresto 49 mg-51 mg Tablet (Sacubitril/Valsartan) 1 Each Tablet 1 Each PO BID Levothyroxine Sodium 25 Mcg Tablet 1 Tab PO DAILY Furosemide 40 Mg Tablet 1 Tab PO BID Atorvastatin Calcium 10 Mg Tablet 10 Mg PO HS Vitals/I & O Vital Sign - Last 24 Hours 09/04/18 09/04/18 09/04/18 09/04/18 08:41 08:41 08:43 09:00 Pulse 76 76 76 68 Resp 29 B/P (MAP) 146/83 146/83 146/83 105/63 (77) Pulse Ox 96 O2 Delivery Nasal Cannula O2 Flow Rate 3.0 09/04/18 09/04/18 09/04/18 09/04/18 11:00 12:00 12:00 16:00 Temp 97.8 98.2 97.8 98.2 Pulse 60 76 76 Resp 26 20 21 B/P (MAP) 98/54 (69) 107/82 (90) 80/56 (64) Pulse Ox 92 95 96 O2 Delivery Nasal Cannula Nasal Cannula Nasal Cannula Nasal Cannula O2 Flow Rate 3.0 3.0 3.0 3.0 09/04/18 09/04/18 09/04/18 09/04/18 16:00 17:00 20:00 20:00 Temp 98.7 98.7 Pulse 75 60 Resp 25 20 B/P (MAP) 86/58 (67) 100/56 (71) Pulse Ox 94 95 O2 Delivery Nasal Cannula Nasal Cannula Nasal Cannula Nasal Cannula O2 Flow Rate 3.0 3.0 3.0 3.0 09/04/18 09/05/18 09/05/18 09/05/18 23:00 03:00 08:23 08:24 Temp 98.4 98.6 98.4 98.6 Pulse 61 63 68 68 Resp 22 20 B/P (MAP) 91/58 (69) 93/70 (78) 156/90 156/90 Pulse Ox 93 95 O2 Delivery Nasal Cannula Nasal Cannula O2 Flow Rate 2.0 2.0 Intake and Output 09/04/18 09/04/18 09/05/18 15:00 23:00 07:00 Intake Total 900 ml Output Total 200 ml 150 ml 300 ml Balance -200 ml 750 ml -[address] Chest - 1. Diffuse groundglass airspace opacities identified in the bilateral lungs could be diffuse infiltrates or edema with patchy bibasilar lung airspace opacities likely atelectasis or infiltrates. Other possibility includes hypersensitivity pneumonitis. 2. Minimal bilateral pleural effusions. LESLY CASTANEDA MD September 05, 2018 08:44
[2018-09-05] MEDS ORDERED: SACUBITRIL/VALSARTAN 49/51MG TABLET. PO SCH (09:00)
[2018-09-05] MEDS: cefTRIAXone IV Push 1 GM VIAL. IVP SCH (10:24)
[2018-09-05 11:00] VITALS: BP 119/76
[2018-09-05] MEDS: ANTI-COAG MONITOR BY PHARMACY. MC PRN (13:48)
--- NOTE | 2018-09-05 14:05 | PDOC ---
CARDIO Progress Notes Date and Time Date of Service 09/05/2018 Time of Evaluation 1340 Subjective Subjective: No Chest Pain, No shortness of breath, No Palpitations Vitals Vitals Vital Signs Date Time Temp Pulse Resp B/P (MAP) Pulse Ox O2 Delivery O2 Flow Rate FiO2 09/05/18 11:00 97.6 68 18 119/76 (90) 94 Nasal Cannula 2.0 97.6 Weight Weight [ ] Input and Output Intake and Output Intake and Output0 09/05/18 06:59 Intake Total 900 ml Output Total 850 ml Balance 50 ml Intake Oral 900 ml Output Urine Total 850 ml # Bowel Movements 3 Laboratory Labs Laboratory Tests Test 09/04/18 17:11 09/04/18 21:08 09/05/18 08:00 09/05/18 08:13 Glucose (Fingerstick) 123 mg/dL (70-99) 157 mg/dL (70-99) 137 mg/dL (70-99) White Blood Count 10.0 x10^3/uL (4.0-11.0) Red Blood Count 5.28 x10^6/uL (4.30-5.70) Hemoglobin 14.7 g/dL (13.0-17.5) Hematocrit 43.4 % (39.0-53.0) Mean Corpuscular Volume 82 fL (79-100) Mean Corpuscular Hemoglobin 28 pg (25-35) Mean Corpuscular Hemoglobin Concent 34 g/dL (31-37) Red Cell Distribution Width 16.0 % (11.5-14.5) Platelet Count 157 x10^3/uL (140-400) Neutrophils (%) (Auto) 63 % (31-73) Lymphocytes (%) (Auto) 25 % (24-48) Monocytes (%) (Auto) 10 % (0-9) Eosinophils (%) (Auto) 2 % (0-3) Basophils (%) (Auto) 1 % (0-3) Neutrophils # (Auto) 6.3 x10^3uL (1.8-7.7) Lymphocytes # (Auto) 2.5 x10^3/uL (1.0-4.8) Monocytes # (Auto) 1.0 x10^3/uL (0.0-1.1) Eosinophils # (Auto) 0.2 x10^3/uL (0.0-0.7) Basophils # (Auto) 0.1 x10^3/uL (0.0-0.2) Sodium Level 140 mmol/L (136-145) Potassium Level 3.5 mmol/L (3.5-5.1) Chloride Level 104 mmol/L (98-107) Carbon Dioxide Level 26 mmol/L (21-32) Anion Gap 10 (6-14) Blood Urea Nitrogen 15 mg/dL (8-26) Creatinine 1.1 mg/dL (0.7-1.3) Estimated GFR (Cockcroft-Gault) 64.2 Glucose Level 152 mg/dL (70-99) Calcium Level 9.2 mg/dL (8.5-10.1) Magnesium Level 1.9 mg/dL (1.8-2.4) Test 09/05/18 11:16 Glucose (Fingerstick) 161 mg/dL (70-99) Microbiology Micro Microbiology 09/04/18 Blood Culture - Preliminary, Resulted NO GROWTH AFTER 1 DAY Physical Exam HEENT: Neck Supple W Full Motion Chest: Symmetric LUNGS: Other (basilar crackles) Heart: RRR (V paced) Abdomen: Soft N/T Extremities: No Edema, No Calf Tenderness Neurology: alert, oriented, follow commands Assessment Assessment 1. Dyspnea: likely atypical PNA vs amiodarone induced pneumonitis 2. NICM/chronic systolic CHF: EF at 20%, compensated 3. PAFIB: currently V paced, no AFIB 4. HTN: Controlled. Hypotension episode yesterday but better overnight with fluid bolus. 5. HLP 6. [employer]-D: Biotronik, occasional NSVT but normal function othersie with 0 AFIB burden. Impedance revealed no fluid overload. 7. Hypothyroidism: TSH not on goal 8. DM2: new A1C 7.0 defer to PCP Recommendations Continue home amiodarone, toprol, eliquis, statin, and restart entresto tomorrow pending BP trend Lasix therapy. Consider pulmonary consult. Follow up in office in 4 weeks. LEW MORRIS APRN September 05, 2018 14:05
[2018-09-05 15:00] VITALS: BP 119/68
[2018-09-05] MEDS ORDERED: FUROSEMIDE 40 MG/4 ML VIAL. IVP ONE (15:30)
--- NOTE | 2018-09-05 15:36 | CONS ---
DATE OF CONSULTATION: ATTENDING PHYSICIAN: Dr. Silvestre. REASON FOR CONSULTATION: Possible amiodarone toxicity, dyspnea. HISTORY OF PRESENT ILLNESS: The patient is an 83-year-old male who does not speak Occitan, but his son was available for interpretation. He has history of severe cardiomyopathy with an EF of 20%, history of chronic systolic heart failure, history of AICD. The patient came to the hospital with rather sudden onset of shortness of breath. Symptoms were 1-2 hours prior to arrival. He has no cough, no fever, no chills, no chest pains. No nausea or vomiting, no diarrhea. He has no chronicity of dyspnea. His chest x-ray was reviewed dated 09/04/2018 and it shows diffuse interstitial infiltrates, more of them appear to be peripheral in location, but they were central as well. He had a CT chest, which was also reviewed by me. He has diffuse ground glass and interstitial infiltrates. They were more peripheral appearing in the upper lobes and then diffuse in the lower lobes. There were small bilateral pleural effusions. After review of the records, it seems like he was started on amiodarone in June. However, his chest x-ray in May looked pretty much the same as the one from yesterday. PAST MEDICAL HISTORY: Significant for atrial fibrillation, history of severe cardiomyopathy, history of chronic systolic heart failure, history of hypertension, hyperlipidemia, osteoarthritis, low back pain, hyperthyroidism. PAST SURGICAL HISTORY: No recent surgery. ALLERGIES: None. MEDICATIONS: Reviewed as listed in the MRAD including Lasix. REVIEW OF SYSTEMS: Twelve-point system obtained. Pertinent positives discussed in my history of present illness, otherwise noncontributory. All systems that were negative were reviewed as well. SOCIAL HISTORY: Nonsmoker. PHYSICAL EXAMINATION: VITAL SIGNS: Reviewed. Blood pressure was on the high side earlier today, but it is stable. It was low on admission. Afebrile, pulse ox 94% on 2 liters. HEENT: Sclerae nonicteric. NECK: Supple. LUNGS: With crackles prison up both the lungs. CARDIOVASCULAR: Regular rate. ABDOMEN: Soft, nontender. EXTREMITIES: With trace pitting edema. LABORATORY DATA: Reviewed. His BUN 15, creatinine 1.1. Magnesium 1.9. His TSH is 8.6. ProBNP is 2529. Lactic acid was 2.9. IMPRESSION: 1. Acute onset of dyspnea with development of bilateral worsening interstitial infiltrates, which were predominantly in the periphery. The patient has been taking amiodarone since June according to our records. His chest x-ray in May appeared to be similar than the one from yesterday, which suggests that he probably has ongoing congestive heart failure. His chest x-ray did look better in June. His CT chest shows diffuse ground glass and interstitial infiltrates, again suggesting congestive heart failure. Overall, my impression is that this radiographic and clinical presentation is more suggestive of congestive heart failure; however, the possibility of amiodarone toxicity cannot be completely ruled out .If the patient does not respond radiographically with diuresis, then one has to consider that etiology. 2. No significant history of tobacco use. 3. Acute hypoxic respiratory failure related to acute on chronic systolic heart failure. RECOMMENDATIONS: 1. Continue diuresis. 2. Follow up chest x-ray in 24-48 hours post-aggressive diuresis. 3. Obtain sedimentation rate. 4. If chest x-ray does not improve, then consider possible amiodarone inducing lung injury. 5. Discussed with RN and discussed with the patient's son. SHARYN MACE MD DR: BERTRAND/betty JOB#: [id number] / [id number] ANNABELLA
[2018-09-05 19:00] VITALS: BP 129/79
--- NOTE | 2018-09-05 19:10 | NUR ---
Pt family at bedside, assessment completed vss poc explained to son. Pt denies pain call light placed in reach bed alarm in place will resume care and continue to monitor pt.
[2018-09-05] MEDS: ATORVASTATIN CALCIUM 10 MG TABLET. PO SCH (21:03)
[2018-09-05 22:43] VITALS: BP 97/53
[2018-09-06 03:00] VITALS: BP 102/46
[2018-09-06] MEDS: LEVOTHYROXINE 25 MCG TABLET. PO SCH (05:50)
[2018-09-06 07:02] VITALS: BP 119/69
[2018-09-06] MEDS: INSULIN LISPRO 300 UNITS/3 ML INSULN.PEN. SQ SCH ×2 (07:57→13:14)
[2018-09-06] MEDS: FUROSEMIDE 40 MG TABLET. PO SCH (08:52)
[2018-09-06] MEDS: LACTOBACILLUS RHAMNOSUS GG 1 CAPSULE. PO SCH (08:52)
[2018-09-06] MEDS: APIXABAN 5 MG TABLET. PO SCH (08:52)
[2018-09-06] MEDS: DOXYCYCLINE HYCLATE 100 MG TABLET PO SCH (08:52)
[2018-09-06 08:53] VITALS: BP 119/69
[2018-09-06] MEDS: METOPROLOL SUCC 24HR ER 25 MG TAB.ER.24H. PO SCH (08:53)
[2018-09-06] MEDS: CETIRIZINE HCL 10 MG TABLET. PO SCH (08:53)
[2018-09-06] MEDS: cefTRIAXone IV Push 1 GM VIAL. IVP SCH (08:53)
[2018-09-06] MEDS: AMIODARONE HCL 200 MG TABLET. PO SCH (08:53)
[2018-09-06] MEDS ORDERED: SACUBITRIL/VALSARTAN 49/51MG TABLET. PO SCH (09:00)
--- NOTE | 2018-09-06 10:18 | PDOC ---
PULMONARY PROGRESS NOTES Subjective FEELS MUCH BETTER Vitals Vital Signs Date Time Temp Pulse Resp B/P (MAP) Pulse Ox O2 Delivery O2 Flow Rate FiO2 09/06/18 08:53 119/69 09/06/18 07:59 Room Air 09/06/18 07:02 97.8 62 18 98 2.0 97.8 General: Alert, No acute distress Lungs: Crackles (much better) Cardiovascular: S1, S2 Abdomen: Soft Neuro Exam: Alert Extremities: No Edema Skin: Warm Labs Laboratory Tests Test 09/04/18 10:29 09/04/18 16:30 09/04/18 17:11 09/04/18 21:08 Glucose (Fingerstick) 235 mg/dL (70-99) 123 mg/dL (70-99) 157 mg/dL (70-99) Nasal Screen MRSA (PCR) Negative (Negative) Test 09/05/18 08:00 09/05/18 08:13 09/05/18 11:16 09/05/18 16:24 White Blood Count 10.0 x10^3/uL (4.0-11.0) Red Blood Count 5.28 x10^6/uL (4.30-5.70) Hemoglobin 14.7 g/dL (13.0-17.5) Hematocrit 43.4 % (39.0-53.0) Mean Corpuscular Volume 82 fL (79-100) Mean Corpuscular Hemoglobin 28 pg (25-35) Mean Corpuscular Hemoglobin Concent 34 g/dL (31-37) Red Cell Distribution Width 16.0 % (11.5-14.5) Platelet Count 157 x10^3/uL (140-400) Neutrophils (%) (Auto) 63 % (31-73) Lymphocytes (%) (Auto) 25 % (24-48) Monocytes (%) (Auto) 10 % (0-9) Eosinophils (%) (Auto) 2 % (0-3) Basophils (%) (Auto) 1 % (0-3) Neutrophils # (Auto) 6.3 x10^3uL (1.8-7.7) Lymphocytes # (Auto) 2.5 x10^3/uL (1.0-4.8) Monocytes # (Auto) 1.0 x10^3/uL (0.0-1.1) Eosinophils # (Auto) 0.2 x10^3/uL (0.0-0.7) Basophils # (Auto) 0.1 x10^3/uL (0.0-0.2) Sodium Level 140 mmol/L (136-145) Potassium Level 3.5 mmol/L (3.5-5.1) Chloride Level 104 mmol/L (98-107) Carbon Dioxide Level 26 mmol/L (21-32) Anion Gap 10 (6-14) Blood Urea Nitrogen 15 mg/dL (8-26) Creatinine 1.1 mg/dL (0.7-1.3) Estimated GFR (Cockcroft-Gault) 64.2 Glucose Level 152 mg/dL (70-99) Calcium Level 9.2 mg/dL (8.5-10.1) Magnesium Level 1.9 mg/dL (1.8-2.4) Glucose (Fingerstick) 137 mg/dL (70-99) 161 mg/dL (70-99) 117 mg/dL (70-99) Test 09/05/18 20:38 09/06/18 07:05 Glucose (Fingerstick) 130 mg/dL (70-99) 137 mg/dL (70-99) Laboratory Tests Test 09/05/18 11:16 09/05/18 16:24 09/05/18 20:38 09/06/18 07:05 Glucose (Fingerstick) 161 mg/dL (70-99) 117 mg/dL (70-99) 130 mg/dL (70-99) 137 mg/dL (70-99) Medications Active Scripts Medications Dose Route/Sig Max Daily Dose Days Date Category Loratadine 10 Mg Tablet 1 Tab PO DAILY 09/04/18 Reported Loratadine 10 Mg Tablet 1 Tab PO DAILY 09/04/18 Reported Entresto 49 mg-51 mg Tablet (Sacubitril/Valsartan) 1 Each Tablet 1 Each PO BID 09/04/18 Reported Amiodarone Hcl 200 Mg Tablet 200 Mg PO DAILY 30 06/07/18 Rx Levothyroxine Sodium 25 Mcg Tablet 1 Tab PO DAILY 06/06/18 Reported Furosemide 40 Mg Tablet 1 Tab PO BID 06/06/18 Reported Metoprolol Succinate ( Xl ) (Metoprolol Succinate) 100 Mg Tab.er.24h 100 Mg PO DAILY 30 05/16/18 Rx Eliquis (Apixaban) 5 Mg Tablet 5 Mg PO BID 30 05/16/18 Rx Atorvastatin Calcium 10 Mg Tablet 10 Mg PO HS 01/15/18 Reported Impression . 1. Acute onset of dyspnea with development of bilateral worsening interstitial infiltrates, which were predominantly in the periphery. The patient has been taking amiodarone since June according to our records. His chest x-ray in May appeared to be similar than the one from yesterday, which suggests that he probably has ongoing congestive heart failure. His CT chest shows diffuse ground glass and interstitial infiltrates, again suggesting congestive heart failure. Overall, my impression is that this radiographic and clinical presentation is more suggestive of congestive heart failure; however, the possibility of amiodarone toxicity cannot be completely ruled out and if the patient does not respond radiographically with diuresis, 2. No significant history of tobacco use. 3. Acute hypoxic respiratory failure related to acute on chronic systolic heart failure. Plan . 1. Continue diuresis. 2. Follow up chest x-ray today shows complete clearing of CHF. post diuresis. 3. dc home today 5. Discussed with RN and discussed with the patient's family SHARYN MACE MD September 06, 2018 10:18
[2018-09-06] MEDS: ANTI-COAG MONITOR BY PHARMACY. MC PRN (10:27)
--- NOTE | 2018-09-06 10:32 | RAD ---
EXAM: Chest, single view. HISTORY: Congestive heart failure. COMPARISON: CT dated 09/04/2018. FINDINGS: A frontal view of the chest obtained. There is mild diffuse increased interstitial opacity likely due to interstitial infiltrate. There is cardiomegaly. There is a cardiac pacemaker with leads overlying expected position. No pleural effusion or pneumothorax is seen. There is a small nodular opacity overlying the right mid thorax. IMPRESSION: 1. Diffuse interstitial infiltrate. 2. Cardiomegaly. 3. Small nodular opacity overlying the right mid thorax. Radiographic follow-up is recommended to exclude a noncalcified nodule in this location. There is no clear correlate for this finding on the prior CT. Electronically signed by: Trudy Love MD (09/06/2018 10:29 AM) [facility]
[2018-09-06] MEDS ORDERED: DOXY100T PO (13:16)
--- NOTE | 2018-09-06 13:18 | PDOC3 ---
Discharge Summary Visit Information Date of Admission: September 04, 2018 Date of Discharge: September 06, 2018 Admitting Diagnosis: Acute CHF exacerbation Final Diagnosis Problems Medical Problems: (1) Acute exacerbation of CHF (congestive heart failure) Status: Acute Brief Hospital Course Allergies Allergies Coded Allergies Type Severity Reaction Last Updated Verified No Known Drug Allergies 01/23/18 No Vital Signs Vital Signs Date Time Temp Pulse Resp B/P (MAP) Pulse Ox O2 Delivery O2 Flow Rate FiO2 09/06/18 08:53 119/69 09/06/18 07:59 Room Air 09/06/18 07:02 97.8 62 18 98 2.0 97.8 Lab Results Laboratory Tests Test 09/04/18 16:30 09/04/18 17:11 09/04/18 21:08 09/05/18 08:00 Nasal Screen MRSA (PCR) Negative (Negative) Glucose (Fingerstick) 123 mg/dL (70-99) 157 mg/dL (70-99) White Blood Count 10.0 x10^3/uL (4.0-11.0) Red Blood Count 5.28 x10^6/uL (4.30-5.70) Hemoglobin 14.7 g/dL (13.0-17.5) Hematocrit 43.4 % (39.0-53.0) Mean Corpuscular Volume 82 fL (79-100) Mean Corpuscular Hemoglobin 28 pg (25-35) Mean Corpuscular Hemoglobin Concent 34 g/dL (31-37) Red Cell Distribution Width 16.0 % (11.5-14.5) Platelet Count 157 x10^3/uL (140-400) Neutrophils (%) (Auto) 63 % (31-73) Lymphocytes (%) (Auto) 25 % (24-48) Monocytes (%) (Auto) 10 % (0-9) Eosinophils (%) (Auto) 2 % (0-3) Basophils (%) (Auto) 1 % (0-3) Neutrophils # (Auto) 6.3 x10^3uL (1.8-7.7) Lymphocytes # (Auto) 2.5 x10^3/uL (1.0-4.8) Monocytes # (Auto) 1.0 x10^3/uL (0.0-1.1) Eosinophils # (Auto) 0.2 x10^3/uL (0.0-0.7) Basophils # (Auto) 0.1 x10^3/uL (0.0-0.2) Sodium Level 140 mmol/L (136-145) Potassium Level 3.5 mmol/L (3.5-5.1) Chloride Level 104 mmol/L (98-107) Carbon Dioxide Level 26 mmol/L (21-32) Anion Gap 10 (6-14) Blood Urea Nitrogen 15 mg/dL (8-26) Creatinine 1.1 mg/dL (0.7-1.3) Estimated GFR (Cockcroft-Gault) 64.2 Glucose Level 152 mg/dL (70-99) Calcium Level 9.2 mg/dL (8.5-10.1) Magnesium Level 1.9 mg/dL (1.8-2.4) Test 09/05/18 08:13 09/05/18 11:16 09/05/18 16:24 09/05/18 20:38 Glucose (Fingerstick) 137 mg/dL (70-99) 161 mg/dL (70-99) 117 mg/dL (70-99) 130 mg/dL (70-99) Test 09/06/18 07:05 09/06/18 11:51 Glucose (Fingerstick) 137 mg/dL (70-99) 162 mg/dL (70-99) Laboratory Tests Test 09/05/18 16:24 09/05/18 20:38 09/06/18 07:05 09/06/18 11:51 Glucose (Fingerstick) 117 mg/dL (70-99) 130 mg/dL (70-99) 137 mg/dL (70-99) 162 mg/dL (70-99) Brief Hospital Course 83 yo , burkinan-speaking only Male w/ PMHx Afib, reduced EF CHF s/p BiV AICD, chronic LBP who presents to the ED with a chief complaint of shortness of breath. Son states that the symptoms started 1-2 hours prior to arrival. Pt denies cough, fever, chills, nausea, vomiting, diarrhea, chest pain, dysuria. No recent sick contacts. CXR reveals pulmonary edema vs multifocal infectious process. EKG - left axis deviation, aberrant AV harika conduction. CT Chest - diffuse gr oundglass airspace opacities and minimal bilateral pleural effusions Seen by cardiology, started on aggressive diuresis. He is feeling much better today, eating well. Wishes to go home soon. CXR improved by Day 3, seen by pulmonology initially for possible concern for amio toxicity, but his CXR looked the same prior to Amio dosing, and it improved with diuresis, so less concern for Amio as cause. He was seen bedside with family prior to d/c feeling much better. A/P: Shortness of breath - with Acute hypoxia - weaned O2 as tolerated. This looks to be a mixed picture of pulmonary infection, likely gram negative, will screen for MRSA as it is bilateral, definitely an element of CHF exacerbation as well - likely can transition to doxycycline oral. Hypersensitivity pneumonitis is ruled out after consult from pulmonology Acute on chronic systolic CHF - possibly 2/2 underlying AFIB vs infectious etiology, has leukocytosis. Consulted cardiology. Cont toprol xl, entresto, statin AFIB - Paroxysmal by hx with chronic LBBB. Rate now controlled on toprol XL, stopped diltiazem a few visits ago NICM - ischemic w/u negative January 2018 on cath. EF currently at 10-15% s/p BiV AICD placement June 2018 HTN - controlled well HLD - needs statin for his CHF Hx of cranial bleed with craniotomy 7 yrs ago - was traumatic, should continue on eliquis, has no falls recently Elevated TSH - possibly 2/2 compliance issues, not amio toxicity, states he has been compliant with thyroid meds FEN - Cardiac diet PPX - eliquis FULL CODE Dispo - admitted to [facility] for acute CHF exacerbation - feeling much better, can likely d/c home if ok with cardiology Greater than 30 minutes spent on discharge. Vitals Vitals Vital Signs Date Time Temp Pulse Resp B/P (MAP) Pulse Ox O2 Delivery O2 Flow Rate FiO2 09/05/18 08:24 68 156/90 09/05/18 03:00 98.6 20 95 Nasal Cannula 2.0 98.6 Physical Exam General: Alert, Oriented X3, Cooperative, No acute distress Heart: Regular rate (Paced), Other (2/6 systolic murmur to LLS border) Lungs: Crackles Abdomen: Soft Extremities: No cyanosis, Other (trace LE edema) Skin: No breakdown, No significant lesion Discharge Information Condition at Discharge: Improved Follow Up: Weeks (2) Disposition/Orders: D/C to Home Scheduled Amiodarone Hcl (Amiodarone Hcl) 200 Mg Tablet, 200 MG PO DAILY for atrial fib for 30 Days, #30 Ref 3 Prescribed by: FARIDA THOMPSON on 06/07/18 1226 Last Action: Continued on 09/04/18745 by LESLY CASTANEDA MD Apixaban (Eliquis) 5 Mg Tablet, 5 MG PO BID for a fib for 30 Days, #60 Prescribed by: HO TREJO MD on 05/16/18 1410 Last Action: Continued on 09/04/18745 by LESLY CASTANEDA MD Atorvastatin Calcium (Atorvastatin Calcium) 10 Mg Tablet, 10 MG PO HS for FOR CHOLESTEROL, #30 Ref 0 (Reported) Entered as Reported by: ELIZA UMAÑA on 01/15/18 0853 Last Action: Continued on 09/04/18745 by LESLY CASTANEDA MD Furosemide (Furosemide) 40 Mg Tablet, 1 TAB PO BID for fluid retention, #30 Ref 5 (Reported) Entered as Reported by: FLOR HARLEY on 06/06/18 1121 Last Action: Reviewed on 09/04/18621 by RIVKA WALLACE Levothyroxine Sodium (Levothyroxine Sodium) 25 Mcg Tablet, 1 TAB PO DAILY, #30 Ref 5 (Reported) Entered as Reported by: Belle Nunez on 06/06/18 2345 Last Action: Converted on 09/04/18745 by LESLY CASTANEDA MD Loratadine (Loratadine) 10 Mg Tablet, 1 TAB PO DAILY for allergies, #30 Ref 5 (Reported) Entered as Reported by: RIVKA WALLACE on 09/04/18621 Last Action: Converted on 09/04/18745 by LESLY CASTANEDA MD Loratadine (Loratadine) 10 Mg Tablet, 1 TAB PO DAILY for allergies, #30 Ref 5 (Reported) Entered as Reported by: RIVKA WALLACE on 09/04/18621 Last Action: New Order on 09/04/18621 by RIVKA WALLACE Metoprolol Succinate (Metoprolol Succinate ( Xl )) 100 Mg Tab.er.24h, 100 MG PO DAILY for chf for 30 Days, #30 Prescribed by: HO TREJO MD on 05/16/18 1606 Last Action: Continued on 09/04/18745 by LESLY CASTANEDA MD Sacubitril/Valsartan (Entresto 49 mg-51 mg Tablet) 1 Each Tablet, 1 EACH PO BID for unknown, (Reported) Entered as Reported by: RIVKA WALLACE on 09/04/18621 Last Action: Converted on 09/04/18745 by LESLY CATSANEDA MD Discontinued Medications Ergocalciferol (Vitamin D2) (Vitamin D2) 50,000 Unit Capsule, 1 CAP PO WEEKLY for supplement, #4 Ref 5 (Reported) Entered as Reported by: FLOR HARLEY on 06/06/18 1121 Last Action: Discontinued on 09/04/18621 by RIVKA WALLACE Lisinopril (Lisinopril) 5 Mg Tablet, 1 TAB PO DAILY, #30 Ref 5 (Reported) Entered as Reported by: Belle Nunez on 06/06/18 2348 Last Action: Discontinued on 09/04/18621 by LESLY DURAN MD September 06, 2018 13:18
--- NOTE | 2018-09-06 15:02 | NUR ---
Pt discharge reviewed with pt and family, all education, scripts, follow ups reviewed-printed in bhutanese. Pt and family state understanding. IV d/c'd x2 without complications. Pt denies further needs. Assisted to car via wheelchair with staff and family.
== END 2018-09-06 15:03 | disposition home or self-care (01) | DRG 177 ==
LOC: ER 01:26 → 1 WEST ICU 04:50 → 2 NORTH 09-05 08:15
PROVIDERS: ADMIT Internal Medicine; ATTEND Internal Medicine
PROC: 5A09357 Assistance with Respiratory Ventilation, Less than 24 Consecutive Hours, Continuous Positive Airway Pressure (ICD-10-PCS; principal; 2018-09-04)
DX: J15.6 Pneumonia due to other Gram-negative bacteria (principal); J96.01 Acute respiratory failure with hypoxia; I50.23 Acute on chronic systolic (congestive) heart failure; I47.2 Ventricular tachycardia; I42.9 Cardiomyopathy, unspecified; I11.0 Hypertensive heart disease with heart failure; E78.00 Pure hypercholesterolemia, unspecified; E03.9 Hypothyroidism, unspecified; G89.29 Other chronic pain; E78.5 Hyperlipidemia, unspecified; M19.90 Unspecified osteoarthritis, unspecified site; I48.0 Paroxysmal atrial fibrillation; I44.7 Left bundle-branch block, unspecified; E11.65 Type 2 diabetes mellitus with hyperglycemia; Z95.0 Presence of cardiac pacemaker; Z79.01 Long term (current) use of anticoagulants
CPT/HCPCS: 36415; 71045; 71250; 80048; 80053; 82962; 83036; 83605; 83735; 83880; 84145; 84443; 84484; 85007; 85025; 87040; 87641; 93005; 93308; 93320; 93325; 94640; 94660; 96361; 96374; 96375; J0696; J1815; J1940; J2543; J7050; J7620; 99285-25; J7030

== ENCOUNTER 2019-03-04 02:40 | Inpatient (IN) | payer OTHER, MEDICAID ==
[~2019-03-04] VITALS: Ht 165.1 cm; Wt 77.2 kg
[2019-03-04] VITALS (17 sets, daily range): BP systolic 83–119; BP diastolic 54–85
[~2019-03-04 02:40] MED LIST changes: +DOXY100T PO; +SACU1TAB7 PO
[2019-03-04] MEDS ORDERED: FUROSEMIDE 40 MG/4 ML VIAL. ONE (02:45)
[2019-03-04 02:57] LABS: BASO # 0.1 x10^3/uL (0.0-0.2); BASO % 1 % (0-3); EOS # 0.2 x10^3/uL (0.0-0.7); EOS % 2 % (0-3); HEMATOCRIT 46.7 % (39.0-53.0); HEMOGLOBIN 15.5 g/dL (13.0-17.5); LYMPH # 3.4 x10^3/uL (1.0-4.8); LYMPH % 35 % (24-48); MEAN CORPUSCULAR HEMOGLOBIN 28 pg (25-35); MEAN CORPUSCULAR HGB CONC 33 g/dL (31-37); MEAN CORPUSCULAR VOLUME 84 fL (79-100); MONO # 0.7 x10^3/uL (0.0-1.1); MONO % 8 % (0-9); NEUT # 5.4 x10^3/uL (1.8-7.7); NEUT % 55 % (31-73); PLATELET COUNT 183 x10^3/uL (140-400); RED BLOOD COUNT 5.56 x10^6/uL (4.30-5.70); RED CELL DISTRIBUTION WIDTH 16.9 % (11.5-14.5); WHITE BLOOD COUNT 9.9 x10^3/uL (4.0-11.0)
[2019-03-04 03:06] LABS: CALCIUM 9.3 mg/dL (8.5-10.1); CREATININE 1.1 mg/dL (0.7-1.3); GFR 64.2; POTASSIUM 3.8 mmol/L (3.5-5.1)
[2019-03-04 03:11] LABS: ALBUMIN 3.9 g/dL (3.4-5.0); ALBUMIN/GLOBULIN RATIO 0.8 (1.0-1.7); TOTAL BILIRUBIN 0.8 mg/dL (0.2-1.0); TOTAL PROTEIN 8.5 g/dL (6.4-8.2)
--- NOTE | 2019-03-04 03:11 | RAD ---
PORTABLE CHEST 1V Clinical History: Technique: AP view of the chest was obtained at 03/04/2019 2:46 AM. Comparison: September 06, 2018. Findings: The heart is moderately enlarged. There is linear and reticular opacities in the peripheral lungs. There is blunting of left costophrenic angle. Left-sided pacemaker is again seen. Impression: 1. Mild left effusion. 2. Bilateral infiltrates likely atypical pneumonia. Electronically signed by: Fidel Mcclure III, MD (03/04/2019 3:08 AM) [id number]
[2019-03-04] MEDS ORDERED: FUROSEMIDE 40 MG/4 ML VIAL. IVP ONE (03:15)
[2019-03-04 03:31] LABS: BASE EXCESS COOX -2 mmol/L (-3-3); HCO3 COOX 22 mmol/L (21-28); METHEMOGLOBIN 0.6 % (0.0-1.9); OXYHEMOGLOBIN 94.8 %; PCO2 COOX 35 mmHg (35-46); PO2 COOX 82 mmHg (65-108); SAT O2 COOX 96 % (92-99)
[2019-03-04] MEDS ORDERED: AZITHROMYCIN 500 MG in IV NORMAL SALINE 250ML 250 ML IV SCH (04:00)
[2019-03-04] MEDS ORDERED: cefTRIAXone IV Push 1 GM VIAL. IVP ONE (04:00)
[2019-03-04] MEDS ORDERED: AZITHRMYCN 500MG IVPB FOR OMNI 250 ML IV ONE (04:00)
--- NOTE | 2019-03-04 04:19 | PHYS DOC ---
Past Medical History Past Medical History: CAD, CHF, Heart Disease, Hypertension Past Surgical History: Pacemaker Additional Past Surgical Histo: "head" , PACEMAKER Alcohol Use: None Drug Use: None Adult General Chief Complaint Chief Complaint: SHORTNESS OF BREATH HPI HPI Patient is a 83 year old male presenting to the due to chief complaint of shortness of breath. Family states that the patient had a cough for the last 1 week but got worse last night. Family states that patient was gasping for air tonight and so they brought him to the ED. Patient denies chest pain. Family states that patient took his medications today. They also stated that patient uses 2 L of oxygen at home. Review of Systems Review of Systems Constitutional: Denies fever or chills [] Eyes: Denies change in visual acuity, redness, or eye pain [] HENT: Denies nasal congestion or sore throat [] Respiratory: Complains of shortness of breath[] Cardiovascular: Patient denies chest pain[] GI: Denies abdominal pain, nausea, vomiting, bloody stools or diarrhea [] : Denies dysuria or hematuria [] Musculoskeletal: Denies back pain or joint pain [] All other systems were reviewed and found to be within normal limits, except as documented in this note. Current Medications Current Medications Current Medications Medications (Trade) Dose Ordered Sig/Arthur Start Time Stop Time Status Last Admin Dose Admin Azithromycin 250 ml @ 250 mls/hr 1X ONCE 03/04/19 04:00 03/04/19 04:59 03/04/19 04:05 250 MLS/HR Azithromycin 500 mg/Sodium Chloride 250 ml @ 250 mls/hr Q24H 03/04/19 04:00 Cancel Ceftriaxone Sodium (Rocephin) 1 gm 1X ONCE 03/04/19 04:00 03/04/19 04:01 DC 03/04/19 03:59 1 GM Furosemide (Lasix) 40 mg 1X ONCE 03/04/19 03:15 03/04/19 03:16 DC 03/04/19 03:15 40 MG Allergies Allergies Allergies Coded Allergies Type Severity Reaction Last Updated Verified No Known Drug Allergies 01/23/18 No Physical Exam Physical Exam Constitutional: Patient is in mild respiratory distress. [] HENT: Normocephalic, atraumatic, bilateral external ears normal, oropharynx moist, no oral exudates, nose normal. [] Neck: Normal range of motion, no tenderness, supple [] Cardiovascular:Heart rate regular rhythm[] Lungs & Thorax: Bilateral rales patient has mild respiratory distress[] Abdomen: Bowel sounds normal, soft, no tenderness [] Extremities: No tenderness, ROM intact[] Neurologic: Alert and oriented X 3 [] Current Patient Data Vital Signs Vital Signs Date Time Temp Pulse Resp B/P (MAP) Pulse Ox O2 Delivery O2 Flow Rate FiO2 03/04/19 04:00 98 38 137/83 (101) 96 BiPAP/CPAP 03/04/19 02:52 97.8 5.0 97.8 Lab Values Laboratory Tests Test 03/04/19 02:45 03/04/19 03:32 White Blood Count 9.9 x10^3/uL (4.0-11.0) Red Blood Count 5.56 x10^6/uL (4.30-5.70) Hemoglobin 15.5 g/dL (13.0-17.5) Hematocrit 46.7 % (39.0-53.0) Mean Corpuscular Volume 84 fL (79-100) Mean Corpuscular Hemoglobin 28 pg (25-35) Mean Corpuscular Hemoglobin Concent 33 g/dL (31-37) Red Cell Distribution Width 16.9 % (11.5-14.5) H Platelet Count 183 x10^3/uL (140-400) Neutrophils (%) (Auto) 55 % (31-73) Lymphocytes (%) (Auto) 35 % (24-48) Monocytes (%) (Auto) 8 % (0-9) Eosinophils (%) (Auto) 2 % (0-3) Basophils (%) (Auto) 1 % (0-3) Neutrophils # (Auto) 5.4 x10^3/uL (1.8-7.7) Lymphocytes # (Auto) 3.4 x10^3/uL (1.0-4.8) Monocytes # (Auto) 0.7 x10^3/uL (0.0-1.1) Eosinophils # (Auto) 0.2 x10^3/uL (0.0-0.7) Basophils # (Auto) 0.1 x10^3/uL (0.0-0.2) Sodium Level 143 mmol/L (136-145) Potassium Level 3.8 mmol/L (3.5-5.1) Chloride Level 108 mmol/L (98-107) H Carbon Dioxide Level 24 mmol/L (21-32) Anion Gap 11 (6-14) Blood Urea Nitrogen 19 mg/dL (8-26) Creatinine 1.1 mg/dL (0.7-1.3) Estimated GFR (Cockcroft-Gault) 64.2 BUN/Creatinine Ratio 17 (6-20) Glucose Level 176 mg/dL (70-99) H Lactic Acid Level 2.8 mmol/L (0.4-2.0) H Calcium Level 9.3 mg/dL (8.5-10.1) Total Bilirubin 0.8 mg/dL (0.2-1.0) Aspartate Amino Transferase (AST) 16 U/L (15-37) Alanine Aminotransferase (ALT) 14 U/L (16-63) L Alkaline Phosphatase 95 U/L (46-116) Troponin I Quantitative < 0.017 ng/mL (0.000-0.055) RG-Bbd-U-Type Natriuretic Peptide 7337 pg/mL (0-449) H Total Protein 8.5 g/dL (6.4-8.2) H Albumin 3.9 g/dL (3.4-5.0) Albumin/Globulin Ratio 0.8 (1.0-1.7) L O2 Saturation 96 % (92-99) Arterial Blood pH 7.41 (7.35-7.45) Arterial Blood pCO2 at Patient Temp 35 mmHg (35-46) Arterial Blood pO2 at Patient Temp 82 mmHg (65-108) Arterial Blood HCO3 22 mmol/L (21-28) Arterial Blood Base Excess -2 mmol/L (-3-3) Oxyhemoglobin 94.8 % Methemoglobin 0.6 % (0.0-1.9) Carbon Monoxide, Quantitative 0.5 % (0.0-1.9) FiO2 40 Laboratory Tests 03/04/19 02:45 Laboratory Tests 03/04/19 02:45 EKG EKG EKG #1 interpretation HR: 112 Sinus tachycardia Regular intervals Normal axis Nonspecific ST changes EKG #2 interpretation HR: 117 Wide-complex supraventricular rhythm Regular intervals Normal axis Nonspecific ST changes Radiology/Procedures Radiology/Procedures Ordered chest x-ray Impressions: Chest x-ray shows pulmonary vascular congestion. Also bilateral infiltrates are seen Course & Med Decision Making Course & Med Decision Making Pertinent Labs and Imaging studies reviewed. (See chart for details) Patient has rails on the physical examination. Initially patient was placed on nonrebreather. Decision was made to place patient on BiPAP. Ordered 40 mg IV Lasix. Ordered labs and chest x-ray. Chest x-ray shows pulmonary vascular congestion with bilateral infiltrates IV antibiotic started in the ED. BNP is elevated. Patient states that breathing is much better on the BiPAP. Patient had a very short duration of supraventricular tachycardia on his cardiac rhythm. Once patient's oxygenation was getting better his heart rhythm showed a sinus rhythm. Discussed results and plan of care patient and family. Due to the change in rhythm I have admitted the patient to the ICU. We'll discuss with hospitalist service as patient will be admitted for further evaluation and treatment. Dragon Disclaimer Dragon Disclaimer This electronic medical record was generated, in whole or in part, using a voice recognition dictation system. Departure Departure Impression: Primary Impression: Acute CHF Additional Impression: Pneumonia Disposition: ADMITTED INPATIENT Condition: GUARDED Referrals: NARESH HE MD (PCP) Problem Qualifiers ROMMEL ANDINO DO Mar 04, 2019 04:19
--- NOTE | 2019-03-04 05:28 | NUR ---
Patient arrived to ICU via gurney accompanied by ED RN and RT at 0450. Patient attached to ICU monitors. Patient central african speaking only, A&Ox4, pacing on monitor, currently on NC but will be placed on bipap once settled, urinal placed at bedside, IVx2 patent with abx running, and son is in waiting room. Patient not complaining of any pain at the moment and states he has felt like this for a couple of days. Patient oriented to unit routines, call light, tv controls, bed controls, visiting policies, and bipap. VSS at this time, will continue to monitor. Reassessment of antibiotic not completed by ED RN. Documented as "not done" by this RN.
--- NOTE | 2019-03-04 06:49 | EKG ---
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
--- NOTE | 2019-03-04 08:51 | PDOC1 ---
History and Physical Date of Admission Date of Admission DATE: 03/04/19 TIME: 08:42 Source Source: Patient History of Present Illness History of Present Illness Mr Mistry is an 83 year old male w/ PMHx CAD, CHF, S/p PPM, Hypertension who came to ED c/o shortness of breath. Family states that the patient had a cough for the last 1 week but got worse last night. Family states that patient was ga sping for air tonight and so they brought him to the ED. Patient denies chest pain. Family states that patient took his medications today. They also stated that patient uses 2 L of oxygen at home, though he denies this on ammonia distiller phone. He was hypoxic into the low 80s, placed on 5L NCO2 but continued to have respiratory distress and was then noted with HR was 114, RR 33. CXR reveals pulmonary edema vs multifocal infectious process. He was given 40mg IV lasix and placed on BIPAP for his respiratory distress and admitted to ICU. Pt denies cough, fever, chills, nausea, vomiting, diarrhea, chest pain, dysuria. No recent sick contacts. Feels improved after BIPAP for a few hours. EKG showed wide complex SVT, left axis deviation, aberrant AV harika conduction BNP notably 7337, lactate 2.8, ABG 7.41/35/82 after BIPAP. Past Medical History Cardiovascular: AFIB, CHF, HTN, Hyperlipidemia, Other Pulmonary: No pertinent hx CENTRAL NERVOUS SYSTEM: Other GI: No pertinent hx Heme/Onc: No pertinent hx, Other Hepatobiliary: No pertinent hx Psych: No pertinent hx Musculoskeletal: Osteoarthritis Rheumatologic: No pertinent hx Infectious disease: No pertinent hx Renal/: No pertinent hx Endocrine: Hypothyroidism Past Surgical History Past Surgical History: Pacemaker, Other Social History ALCOHOL: none Drugs: None Current Medications Current Medications Current Medications Furosemide (Lasix) 40 mg STK-MED ONCE .ROUTE ; Start 03/04/19 at 02:45; Stop 03/04/19 at 02:45; Status DC Furosemide (Lasix) 40 mg 1X ONCE IVP Last administered on 03/04/19at 03:15; Start 03/04/19 at 03:15; Stop 03/04/19 at 03:16; Status DC Ceftriaxone Sodium (Rocephin) 1 gm 1X ONCE IVP Last administered on 03/04/19at 03:59; Start 03/04/19 at 04:00; Stop 03/04/19 at 04:01; Status DC Azithromycin 500 mg/Sodium Chloride 250 ml @ 250 mls/hr Q24H IV ; Start 03/04/19 at 04:00; Status Cancel Azithromycin 250 ml @ 250 mls/hr 1X ONCE IV Last administered on 03/04/19at 04:05; Start 03/04/19 at 04:00; Stop 03/04/19 at 04:59; Status DC Active Scripts Active Doxycycline Hyclate 100 Mg Tablet 100 Mg PO BID 7 Days Amiodarone Hcl 200 Mg Tablet 200 Mg PO DAILY 30 Days Metoprolol Succinate ( Xl ) (Metoprolol Succinate) 100 Mg Tab.er.24h 100 Mg PO DAILY 30 Days Eliquis (Apixaban) 5 Mg Tablet 5 Mg PO BID 30 Days Reported Loratadine 10 Mg Tablet 1 Tab PO DAILY Entresto 49 mg-51 mg Tablet (Sacubitril/Valsartan) 1 Each Tablet 1 Each PO BID Levothyroxine Sodium 25 Mcg Tablet 1 Tab PO DAILY Furosemide 40 Mg Tablet 1 Tab PO BID Atorvastatin Calcium 10 Mg Tablet 10 Mg PO HS Allergies Allergies: Coded Allergies: No Known Drug Allergies (Unverified , 01/23/18) Vitals Vitals Vital Signs Date Time Temp Pulse Resp B/P (MAP) Pulse Ox O2 Delivery O2 Flow Rate FiO2 03/04/19 08:00 83 20 113/70 (84) 94 BiPAP/CPAP 03/04/19 07:00 98.1 2.0 98.1 Labs Labs Laboratory Tests Test 03/04/19 02:45 03/04/19 03:32 03/04/19 07:06 White Blood Count 9.9 x10^3/uL (4.0-11.0) Red Blood Count 5.56 x10^6/uL (4.30-5.70) Hemoglobin 15.5 g/dL (13.0-17.5) Hematocrit 46.7 % (39.0-53.0) Mean Corpuscular Volume 84 fL (79-100) Mean Corpuscular Hemoglobin 28 pg (25-35) Mean Corpuscular Hemoglobin Concent 33 g/dL (31-37) Red Cell Distribution Width 16.9 % (11.5-14.5) Platelet Count 183 x10^3/uL (140-400) Neutrophils (%) (Auto) 55 % (31-73) Lymphocytes (%) (Auto) 35 % (24-48) Monocytes (%) (Auto) 8 % (0-9) Eosinophils (%) (Auto) 2 % (0-3) Basophils (%) (Auto) 1 % (0-3) Neutrophils # (Auto) 5.4 x10^3/uL (1.8-7.7) Lymphocytes # (Auto) 3.4 x10^3/uL (1.0-4.8) Monocytes # (Auto) 0.7 x10^3/uL (0.0-1.1) Eosinophils # (Auto) 0.2 x10^3/uL (0.0-0.7) Basophils # (Auto) 0.1 x10^3/uL (0.0-0.2) Sodium Level 143 mmol/L (136-145) Potassium Level 3.8 mmol/L (3.5-5.1) Chloride Level 108 mmol/L (98-107) Carbon Dioxide Level 24 mmol/L (21-32) Anion Gap 11 (6-14) Blood Urea Nitrogen 19 mg/dL (8-26) Creatinine 1.1 mg/dL (0.7-1.3) Estimated GFR (Cockcroft-Gault) 64.2 BUN/Creatinine Ratio 17 (6-20) Glucose Level 176 mg/dL (70-99) Lactic Acid Level 2.8 mmol/L (0.4-2.0) 2.1 mmol/L (0.4-2.0) Calcium Level 9.3 mg/dL (8.5-10.1) Total Bilirubin 0.8 mg/dL (0.2-1.0) Aspartate Amino Transf (AST/SGOT) 16 U/L (15-37) Alanine Aminotransferase (ALT/SGPT) 14 U/L (16-63) Alkaline Phosphatase 95 U/L (46-116) Troponin I Quantitative < 0.017 ng/mL (0.000-0.055) FZ-Zjt-E-Type Natriuretic Peptide 7337 pg/mL (0-449) Total Protein 8.5 g/dL (6.4-8.2) Albumin 3.9 g/dL (3.4-5.0) Albumin/Globulin Ratio 0.8 (1.0-1.7) O2 Saturation 96 % (92-99) Arterial Blood pH 7.41 (7.35-7.45) Arterial Blood pCO2 at Patient Temp 35 mmHg (35-46) Arterial Blood pO2 at Patient Temp 82 mmHg (65-108) Arterial Blood HCO3 22 mmol/L (21-28) Arterial Blood Base Excess -2 mmol/L (-3-3) Oxyhemoglobin 94.8 % Methemoglobin 0.6 % (0.0-1.9) Carbon Monoxide, Quantitative 0.5 % (0.0-1.9) FiO2 40 Laboratory Tests Test 03/04/19 02:45 03/04/19 03:32 03/04/19 07:06 White Blood Count 9.9 x10^3/uL (4.0-11.0) Red Blood Count 5.56 x10^6/uL (4.30-5.70) Hemoglobin 15.5 g/dL (13.0-17.5) Hematocrit 46.7 % (39.0-53.0) Mean Corpuscular Volume 84 fL (79-100) Mean Corpuscular Hemoglobin 28 pg (25-35) Mean Corpuscular Hemoglobin Concent 33 g/dL (31-37) Red Cell Distribution Width 16.9 % (11.5-14.5) Platelet Count 183 x10^3/uL (140-400) Neutrophils (%) (Auto) 55 % (31-73) Lymphocytes (%) (Auto) 35 % (24-48) Monocytes (%) (Auto) 8 % (0-9) Eosinophils (%) (Auto) 2 % (0-3) Basophils (%) (Auto) 1 % (0-3) Neutrophils # (Auto) 5.4 x10^3/uL (1.8-7.7) Lymphocytes # (Auto) 3.4 x10^3/uL (1.0-4.8) Monocytes # (Auto) 0.7 x10^3/uL (0.0-1.1) Eosinophils # (Auto) 0.2 x10^3/uL (0.0-0.7) Basophils # (Auto) 0.1 x10^3/uL (0.0-0.2) Sodium Level 143 mmol/L (136-145) Potassium Level 3.8 mmol/L (3.5-5.1) Chloride Level 108 mmol/L (98-107) Carbon Dioxide Level 24 mmol/L (21-32) Anion Gap 11 (6-14) Blood Urea Nitrogen 19 mg/dL (8-26) Creatinine 1.1 mg/dL (0.7-1.3) Estimated GFR (Cockcroft-Gault) 64.2 BUN/Creatinine Ratio 17 (6-20) Glucose Level 176 mg/dL (70-99) Lactic Acid Level 2.8 mmol/L (0.4-2.0) 2.1 mmol/L (0.4-2.0) Calcium Level 9.3 mg/dL (8.5-10.1) Total Bilirubin 0.8 mg/dL (0.2-1.0) Aspartate Amino Transf (AST/SGOT) 16 U/L (15-37) Alanine Aminotransferase (ALT/SGPT) 14 U/L (16-63) Alkaline Phosphatase 95 U/L (46-116) Troponin I Quantitative < 0.017 ng/mL (0.000-0.055) IM-Zfx-V-Type Natriuretic Peptide 7337 pg/mL (0-449) Total Protein 8.5 g/dL (6.4-8.2) Albumin 3.9 g/dL (3.4-5.0) Albumin/Globulin Ratio 0.8 (1.0-1.7) O2 Saturation 96 % (92-99) Arterial Blood pH 7.41 (7.35-7.45) Arterial Blood pCO2 at Patient Temp 35 mmHg (35-46) Arterial Blood pO2 at Patient Temp 82 mmHg (65-108) Arterial Blood HCO3 22 mmol/L (21-28) Arterial Blood Base Excess -2 mmol/L (-3-3) Oxyhemoglobin 94.8 % Methemoglobin 0.6 % (0.0-1.9) Carbon Monoxide, Quantitative 0.5 % (0.0-1.9) FiO2 40 Images Images CXR - The heart is moderately enlarged. There is linear and reticular opacities in the peripheral lungs. There is blunting of left costophrenic angle. Left- sided pacemaker is again seen. Impression: 1. Mild left effusion. 2. Bilateral infiltrates likely atypical pneumonia. VTE Prophylaxis Ordered VTE Prophylaxis Devices: No VTE Pharmacological Prophylaxi: Yes Assessment/Plan Assessment/Plan A/P: Shortness of breath - with Acute hypoxia - will wean O2 as tolerated. This looks to be a mixed picture of pulmonary infection, likely gram negative, will treat as it is bilateral, definitely an element of CHF exacerbation as well Acute on chronic systolic CHF - possibly 2/2 underlying AFIB vs infectious etiology. Consulted cardiology. Cont toprol xl, entresto, statin AFIB - Paroxysmal by hx with chronic LBBB. Rate now controlled on toprol XL, stopped diltiazem a few visits ago SIRS - unclear if there is infection, though empirically treating for pneumonia. Check procalcitonin NICM - ischemic w/u negative january 2018 on cath. EF currently at 10-15% s/p BiV AICD placement June 2018 HTN - controlled well HLD - needs statin for his CHF Hx of cranial bleed with craniotomy 7 yrs ago - was traumatic, should continue on eliquis, has no falls recently DM2 - A1c 7 in September 2018. basal bolus plus insulin while in house. With his age metformin is contraindicated to initiate. FEN - Cardiac diet PPX - eliquis FULL CODE Dispo - admit to [facility] for acute CHF exacerbation LESLY CASTANEDA MD Mar 04, 2019 08:51
[2019-03-04] MEDS: IPRATRPIUM/ALBUTEROL 0.5/2.5MG 3 ML NEBU. NEB SCH ×3 (11:00→19:59)
[2019-03-04] MEDS ORDERED: DOXYCYCLINE HYCLATE 100 MG TABLET PO SCH (11:00)
[2019-03-04] MEDS ORDERED: DEXTROSE 50% 25 GM / 50ML DISP.SYRIN. IV PRN (11:00)
[2019-03-04] MEDS: SACUBITRIL/VALSARTAN 49/51MG TABLET. PO SCH ×2 (11:57→21:43)
[2019-03-04] MEDS: FUROSEMIDE 40 MG/4 ML VIAL. IVP SCH (11:57)
[2019-03-04] MEDS: METOPROLOL SUCC 24HR ER 100 MG TAB.ER.24H. PO SCH (11:58)
[2019-03-04] MEDS: CETIRIZINE HCL 10 MG TABLET. PO SCH (11:58)
[2019-03-04] MEDS: AMIODARONE HCL 200 MG TABLET. PO SCH (11:58)
[2019-03-04] MEDS: APIXABAN 5 MG TABLET. PO SCH ×2 (11:58→21:43)
[2019-03-04] MEDS: LEVOTHYROXINE 25 MCG TABLET. PO SCH (11:59)
[2019-03-04] MEDS: INSULIN LISPRO 300 UNITS/3 ML VIAL. SQ SCH ×3 (12:13→21:00)
--- NOTE | 2019-03-04 12:41 | PDOC2 ---
LEW MORRIS FIELD SERVICE ENGINEER 03/04/19 1241: CARDIAC CONSULT DATE OF CONSULT Date of Consult DATE: 03/04/19 TIME: 12:33 REASON FOR CONSULT Reason for Consult: CHF exacerbation REFERRING PHYSICIAN Referring Physician: Konrad SOURCE Source: Chart review, Patient HISTORY OF PRESENT ILLNESS HISTORY OF PRESENT ILLNESS This is a pleasant 83 yo male admitted for complains of shortness of breath. Reports that this has been going on in the last 2-3 days. He was seen in our office on 02/25 and was doing well at that time He has been coughing and has been expectorating whitish sputum. Has been having some shaking but no recorded fever. No complains of chest pain or palpitations. Reports that his wt has been stable per his son being weighed everyday. Also he has been complaint with his fluid intake 1-1.5 L daily. No leg edema, denies any orthopnea. He does not use O2 at home. He continues to use eliquis, entresto and amiodarone. PAST MEDICAL HISTORY Past Medical History Cardiovascular: AFIB, CHF, HTN, Hyperlipidemia, Other (NICM) Pulmonary: No pertinent hx CENTRAL NERVOUS SYSTEM: Other (head trauma requiring craniotomy remotely) GI: No pertinent hx Heme/Onc: No pertinent hx, Other (chronic anticoagulation) Hepatobiliary: No pertinent hx Psych: No pertinent hx Musculoskeletal: Osteoarthritis, osteoporosis Rheumatologic: No pertinent hx Infectious disease: No pertinent hx ENT: No pertinent hx Renal/: No pertinent hx Endocrine: Hypothyroidism, DM2 Dermatology: No pertinent hx PAST SURGICAL HISTORY Past Surgical History Pacemaker (PRODUCTION CONTROL COORDINATING CLERK-d), Other (craniotomy) FAMILY HISTORY Family History noncontributory to CV SOCIAL HISTORY Smoke: No ALCOHOL: none Drugs: None Lives: with Family CURRENT MEDICATIONS CURRENT MEDICATIONS Current Medications Medications (Trade) Dose Ordered Sig/Arthur Route PRN Reason Start Time Stop Time Status Last Admin Dose Admin Furosemide (Lasix) 40 mg 1X ONCE IVP 03/04/19 03:15 03/04/19 03:16 DC 03/04/19 03:15 Ceftriaxone Sodium (Rocephin) 1 gm 1X ONCE IVP 03/04/19 04:00 03/04/19 04:01 DC 03/04/19 03:59 Azithromycin 250 ml @ 250 mls/hr 1X ONCE IV 03/04/19 04:00 03/04/19 04:59 DC 03/04/19 04:05 Amiodarone HCl (Cordarone) 200 mg DAILY PO 03/04/19 11:00 03/04/19 11:58 Apixaban (Eliquis) 5 mg BID PO 03/04/19 11:00 03/04/19 11:58 Doxycycline Hyclate (Vibra-Tab) 100 mg BID PO 03/04/19 11:00 03/04/19 11:58 Levothyroxine Sodium (Synthroid) 25 mcg DAILY06 PO 03/04/19 11:00 03/04/19 11:59 Metoprolol Succinate (Toprol Xl) 100 mg DAILY PO 03/04/19 11:00 03/04/19 11:58 Sacubitril/ Valsartan (Entresto 49 Mg-51 Mg) 1 tab BID PO 03/04/19 11:00 03/04/19 11:57 Cetirizine HCl (ZyrTEC) 10 mg DAILY PO 03/04/19 11:00 03/04/19 11:58 Furosemide (Lasix) 40 mg DAILY IVP 03/04/19 11:00 03/04/19 11:57 Insulin Human Lispro (HumaLOG) 0-7 UNITS TIDACHC SQ 03/04/19 11:30 03/04/19 12:13 ALLERGIES ALLERGIES: Coded Allergies: No Known Drug Allergies (Unverified , 01/23/18) ROS Review of System 14 point ROS evaluated with pertinent positives noted per HPI PHYSICAL EXAM General: Alert, Oriented X3, Cooperative, No acute distress HEENT: Atraumatic, Mucous membr. moist/pink Lungs: Other (diffuse faint wheeze, bibasilar crackles) Heart: Regular rate (Paced), Normal S1, Normal S2, Other (2/6 systolic murmur to LLS border) Abdomen: Soft, No tenderness Extremities: No cyanosis, No edema Skin: No breakdown, No significant lesion Neuro: Normal speech, Sensation intact Psych/Mental Status: Mental status NL, Mood NL MUSCULOSKELETAL: Osteoarthritic changes both hands VITALS/I&O VITALS/I&O: Vital Signs Date Time Temp Pulse Resp B/P (MAP) Pulse Ox O2 Delivery O2 Flow Rate FiO2 03/04/19 11:58 76 102/61 03/04/19 10:00 24 96 Nasal Cannula 2.0 03/04/19 07:00 98.1 98.1 I & O 03/03/19 03/03/19 03/04/19 15:00 23:00 07:00 Intake Total 250 ml Output Total 1050 ml Balance -800 ml LABS Lab: Laboratory Tests Test 03/04/19 02:45 03/04/19 03:32 03/04/19 07:06 White Blood Count 9.9 x10^3/uL (4.0-11.0) Red Blood Count 5.56 x10^6/uL (4.30-5.70) Hemoglobin 15.5 g/dL (13.0-17.5) Hematocrit 46.7 % (39.0-53.0) Mean Corpuscular Volume 84 fL (79-100) Mean Corpuscular Hemoglobin 28 pg (25-35) Mean Corpuscular Hemoglobin Concent 33 g/dL (31-37) Red Cell Distribution Width 16.9 % (11.5-14.5) H Platelet Count 183 x10^3/uL (140-400) Neutrophils (%) (Auto) 55 % (31-73) Lymphocytes (%) (Auto) 35 % (24-48) Monocytes (%) (Auto) 8 % (0-9) Eosinophils (%) (Auto) 2 % (0-3) Basophils (%) (Auto) 1 % (0-3) Neutrophils # (Auto) 5.4 x10^3/uL (1.8-7.7) Lymphocytes # (Auto) 3.4 x10^3/uL (1.0-4.8) Monocytes # (Auto) 0.7 x10^3/uL (0.0-1.1) Eosinophils # (Auto) 0.2 x10^3/uL (0.0-0.7) Basophils # (Auto) 0.1 x10^3/uL (0.0-0.2) Sodium Level 143 mmol/L (136-145) Potassium Level 3.8 mmol/L (3.5-5.1) Chloride Level 108 mmol/L (98-107) H Carbon Dioxide Level 24 mmol/L (21-32) Anion Gap 11 (6-14) Blood Urea Nitrogen 19 mg/dL (8-26) Creatinine 1.1 mg/dL (0.7-1.3) Estimated GFR (Cockcroft-Gault) 64.2 BUN/Creatinine Ratio 17 (6-20) Glucose Level 176 mg/dL (70-99) H Lactic Acid Level 2.8 mmol/L (0.4-2.0) H 2.1 mmol/L (0.4-2.0) H Calcium Level 9.3 mg/dL (8.5-10.1) Total Bilirubin 0.8 mg/dL (0.2-1.0) Aspartate Amino Transferase (AST) 16 U/L (15-37) Alanine Aminotransferase (ALT) 14 U/L (16-63) L Alkaline Phosphatase 95 U/L (46-116) Troponin I Quantitative < 0.017 ng/mL (0.000-0.055) TV-Nuu-O-Type Natriuretic Peptide 7337 pg/mL (0-449) H Total Protein 8.5 g/dL (6.4-8.2) H Albumin 3.9 g/dL (3.4-5.0) Albumin/Globulin Ratio 0.8 (1.0-1.7) L Procalcitonin < 0.10 ng/mL (0.00-0.10) O2 Saturation 96 % (92-99) Arterial Blood pH 7.41 (7.35-7.45) Arterial Blood pCO2 at Patient Temp 35 mmHg (35-46) Arterial Blood pO2 at Patient Temp 82 mmHg (65-108) Arterial Blood HCO3 22 mmol/L (21-28) Arterial Blood Base Excess -2 mmol/L (-3-3) Oxyhemoglobin 94.8 % Methemoglobin 0.6 % (0.0-1.9) Carbon Monoxide, Quantitative 0.5 % (0.0-1.9) FiO2 40 Laboratory Tests 03/04/19 02:45 Laboratory Tests 03/04/19 02:45 ECHOCARDIOGRAM ECHOCARDIOGRAM <Conclusion> Limited ECHO. The Left Ventricle is moderately dilated. Left ventricular systolic function is severely impaired. LV ejection fraction is estimated at 20%. There is severe global hypokinesis of the left ventricle. There is mild concentric left ventricular hypertrophy. There are device leads in the right ventricle and atrium. Doppler and Color Flow revealed mild tricuspid regurgitation. The PA pressure was estimated at 40 mmHg. DATE: 09/04/18 1150 ASSESSMENT/PLAN ASSESSMENT/PLAN 1. Dyspnea: differentials are pneumonia, pneumonitis with associated CHF 2. Acute on chronic systolic CHF: Possibly induced by pulmonary issues 3. PAFIB: currently V paced. on eliquis 4. HTN: Controlled 5. HLP 6. PRODUCTION CONTROL COORDINATING CLERK-D: Biotronik. Recent device interrogation showed normal function, AFIB burden 0 and impedances is trending towards fluid overload. Adequate battery life and 100% BiV pacing. No episodes of VT/VF recorded. 7. Hypothyroidism 8. DM2 9. NICM: EF at 20% on entresto. Recommendations 1. Continue current CHF regimen. Lasix therapy 2. Consult pulmonary. May stop amiodarone if strong suspicion for pulmonary toxicity 3. Supportive care. FARIDA THOMPSON MD 03/04/19 1638: CARDIAC CONSULT ASSESSMENT/PLAN ASSESSMENT/PLAN Patient seen and examined. Agree with CONCRETER's assessment and plan. Continue diuresis for mild acute on chronic systolic heart failure Recent device check showed normal function PAF currently V paced Agree with HRCT to rule out amiodarone-induced pulmonary toxicity Pulmonary team following Thank you for your consultation LEW MORRIS APRN Mar 04, 2019 12:41 FARIDA THOMPSON MD Mar 04, 2019 16:38
--- NOTE | 2019-03-04 13:56 | PDOC ---
PULMONARY PROGRESS NOTES Vitals Vital Signs Date Time Temp Pulse Resp B/P (MAP) Pulse Ox O2 Delivery O2 Flow Rate FiO2 03/04/19 11:58 76 102/61 03/04/19 10:00 24 96 Nasal Cannula 2.0 03/04/19 07:00 98.1 98.1 General: Alert, No acute distress Lungs: Crackles Cardiovascular: S1, S2 Abdomen: Soft Extremities: No Edema Labs Laboratory Tests Test 03/04/19 02:45 03/04/19 03:32 03/04/19 07:06 03/04/19 12:06 White Blood Count 9.9 x10^3/uL (4.0-11.0) Red Blood Count 5.56 x10^6/uL (4.30-5.70) Hemoglobin 15.5 g/dL (13.0-17.5) Hematocrit 46.7 % (39.0-53.0) Mean Corpuscular Volume 84 fL (79-100) Mean Corpuscular Hemoglobin 28 pg (25-35) Mean Corpuscular Hemoglobin Concent 33 g/dL (31-37) Red Cell Distribution Width 16.9 % (11.5-14.5) Platelet Count 183 x10^3/uL (140-400) Neutrophils (%) (Auto) 55 % (31-73) Lymphocytes (%) (Auto) 35 % (24-48) Monocytes (%) (Auto) 8 % (0-9) Eosinophils (%) (Auto) 2 % (0-3) Basophils (%) (Auto) 1 % (0-3) Neutrophils # (Auto) 5.4 x10^3/uL (1.8-7.7) Lymphocytes # (Auto) 3.4 x10^3/uL (1.0-4.8) Monocytes # (Auto) 0.7 x10^3/uL (0.0-1.1) Eosinophils # (Auto) 0.2 x10^3/uL (0.0-0.7) Basophils # (Auto) 0.1 x10^3/uL (0.0-0.2) Sodium Level 143 mmol/L (136-145) Potassium Level 3.8 mmol/L (3.5-5.1) Chloride Level 108 mmol/L (98-107) Carbon Dioxide Level 24 mmol/L (21-32) Anion Gap 11 (6-14) Blood Urea Nitrogen 19 mg/dL (8-26) Creatinine 1.1 mg/dL (0.7-1.3) Estimated GFR (Cockcroft-Gault) 64.2 BUN/Creatinine Ratio 17 (6-20) Glucose Level 176 mg/dL (70-99) Lactic Acid Level 2.8 mmol/L (0.4-2.0) 2.1 mmol/L (0.4-2.0) Calcium Level 9.3 mg/dL (8.5-10.1) Total Bilirubin 0.8 mg/dL (0.2-1.0) Aspartate Amino Transf (AST/SGOT) 16 U/L (15-37) Alanine Aminotransferase (ALT/SGPT) 14 U/L (16-63) Alkaline Phosphatase 95 U/L (46-116) Troponin I Quantitative < 0.017 ng/mL (0.000-0.055) FB-Yux-X-Type Natriuretic Peptide 7337 pg/mL (0-449) Total Protein 8.5 g/dL (6.4-8.2) Albumin 3.9 g/dL (3.4-5.0) Albumin/Globulin Ratio 0.8 (1.0-1.7) Procalcitonin < 0.10 ng/mL (0.00-0.10) O2 Saturation 96 % (92-99) Arterial Blood pH 7.41 (7.35-7.45) Arterial Blood pCO2 at Patient Temp 35 mmHg (35-46) Arterial Blood pO2 at Patient Temp 82 mmHg (65-108) Arterial Blood HCO3 22 mmol/L (21-28) Arterial Blood Base Excess -2 mmol/L (-3-3) Oxyhemoglobin 94.8 % Methemoglobin 0.6 % (0.0-1.9) Carbon Monoxide, Quantitative 0.5 % (0.0-1.9) FiO2 40 Glucose (Fingerstick) 186 mg/dL (70-99) Laboratory Tests Test 03/04/19 02:45 03/04/19 03:32 03/04/19 07:06 03/04/19 12:06 White Blood Count 9.9 x10^3/uL (4.0-11.0) Red Blood Count 5.56 x10^6/uL (4.30-5.70) Hemoglobin 15.5 g/dL (13.0-17.5) Hematocrit 46.7 % (39.0-53.0) Mean Corpuscular Volume 84 fL (79-100) Mean Corpuscular Hemoglobin 28 pg (25-35) Mean Corpuscular Hemoglobin Concent 33 g/dL (31-37) Red Cell Distribution Width 16.9 % (11.5-14.5) Platelet Count 183 x10^3/uL (140-400) Neutrophils (%) (Auto) 55 % (31-73) Lymphocytes (%) (Auto) 35 % (24-48) Monocytes (%) (Auto) 8 % (0-9) Eosinophils (%) (Auto) 2 % (0-3) Basophils (%) (Auto) 1 % (0-3) Neutrophils # (Auto) 5.4 x10^3/uL (1.8-7.7) Lymphocytes # (Auto) 3.4 x10^3/uL (1.0-4.8) Monocytes # (Auto) 0.7 x10^3/uL (0.0-1.1) Eosinophils # (Auto) 0.2 x10^3/uL (0.0-0.7) Basophils # (Auto) 0.1 x10^3/uL (0.0-0.2) Sodium Level 143 mmol/L (136-145) Potassium Level 3.8 mmol/L (3.5-5.1) Chloride Level 108 mmol/L (98-107) Carbon Dioxide Level 24 mmol/L (21-32) Anion Gap 11 (6-14) Blood Urea Nitrogen 19 mg/dL (8-26) Creatinine 1.1 mg/dL (0.7-1.3) Estimated GFR (Cockcroft-Gault) 64.2 BUN/Creatinine Ratio 17 (6-20) Glucose Level 176 mg/dL (70-99) Lactic Acid Level 2.8 mmol/L (0.4-2.0) 2.1 mmol/L (0.4-2.0) Calcium Level 9.3 mg/dL (8.5-10.1) Total Bilirubin 0.8 mg/dL (0.2-1.0) Aspartate Amino Transf (AST/SGOT) 16 U/L (15-37) Alanine Aminotransferase (ALT/SGPT) 14 U/L (16-63) Alkaline Phosphatase 95 U/L (46-116) Troponin I Quantitative < 0.017 ng/mL (0.000-0.055) WT-Jpd-G-Type Natriuretic Peptide 7337 pg/mL (0-449) Total Protein 8.5 g/dL (6.4-8.2) Albumin 3.9 g/dL (3.4-5.0) Albumin/Globulin Ratio 0.8 (1.0-1.7) Procalcitonin < 0.10 ng/mL (0.00-0.10) O2 Saturation 96 % (92-99) Arterial Blood pH 7.41 (7.35-7.45) Arterial Blood pCO2 at Patient Temp 35 mmHg (35-46) Arterial Blood pO2 at Patient Temp 82 mmHg (65-108) Arterial Blood HCO3 22 mmol/L (21-28) Arterial Blood Base Excess -2 mmol/L (-3-3) Oxyhemoglobin 94.8 % Methemoglobin 0.6 % (0.0-1.9) Carbon Monoxide, Quantitative 0.5 % (0.0-1.9) FiO2 40 Glucose (Fingerstick) 186 mg/dL (70-99) Medications Active Scripts Medications Dose Route/Sig Max Daily Dose Days Date Category Doxycycline Hyclate 100 Mg Tablet 100 Mg PO BID 7 09/06/18 Rx Loratadine 10 Mg Tablet 1 Tab PO DAILY 09/04/18 Reported Entresto 49 mg-51 mg Tablet (Sacubitril/Valsartan) 1 Each Tablet 1 Each PO BID 09/04/18 Reported Amiodarone Hcl 200 Mg Tablet 200 Mg PO DAILY 30 06/07/18 Rx Levothyroxine Sodium 25 Mcg Tablet 1 Tab PO DAILY 06/06/18 Reported Furosemide 40 Mg Tablet 1 Tab PO BID 06/06/18 Reported Metoprolol Succinate ( Xl ) (Metoprolol Succinate) 100 Mg Tab.er.24h 100 Mg PO DAILY 30 05/16/18 Rx Eliquis (Apixaban) 5 Mg Tablet 5 Mg PO BID 30 05/16/18 Rx Atorvastatin Calcium 10 Mg Tablet 10 Mg PO HS 01/15/18 Reported Impression . full note dictated will check HRCT FOR POSSIBLE AMIO INDUCED LUNG INJURY CONTINUE TO DIURESE TREAT ACUTE BRONCHITIS DASH GARRETT MD Mar 04, 2019 13:56
--- NOTE | 2019-03-04 13:57 | NUR ---
SS following for discharge planning. SS reviewed pt chart. Pt is from home with family and is currently requiring oxygen. SS will continue to follow for discharge planning.
--- NOTE | 2019-03-04 14:38 | NUR ---
Patient to CT scan via wheelchair accompanied by transportation.
--- NOTE | 2019-03-04 15:15 | CONS ---
DATE OF CONSULTATION: 03/04/2019 ATTENDING PHYSICIAN: Dr. Silvestre REASON FOR CONSULTATION: The patient seen in pulmonary consultation at the request of Dr. Silvestre for acute hypoxemic respiratory failure, abnormal chest x-ray. HISTORY OF PRESENT ILLNESS: The patient is an 83-year-old with underlying cardiomyopathy, ejection fraction 30%. At home, he was being treated with Entresto. He has a prior history of coronary artery disease, CHF, he is status post pacemaker implantation, presented with shortness of air to the Emergency Room, had a cough, mostly nonproductive for approximately a week. I spoke with his . He has had a cough, mostly nonproductive. No fever, chills or night sweats. He does not utilize oxygen at home. In the Emergency Room, he had O2 saturations in the 80s. He was placed on 5 liters of oxygen supplementation. Chest x-ray was reviewed by me, revealing bilateral pulmonary infiltrates compatible with acute pulmonary edema. The patient was placed on noninvasive ventilation, was given IV Lasix and placed in the intensive care unit. He denies nausea, vomiting, diarrhea. He has been seen in consultation by extruder operator multiple. He is currently being treated for CHF and acute bronchitis. PAST MEDICAL HISTORY: Remarkable for cardiomyopathy, ejection fraction 20-30%, AFib, history of hypertension, chronic systolic heart failure, hyperlipidemia, osteoarthritis, low back pain. No history of COPD. Status post defibrillator. He has had no other surgeries. ALLERGIES: None. SOCIAL HISTORY: He has never smoked. REVIEW OF SYSTEMS: As indicated above, otherwise, a 10-point system was reviewed and negative. MEDICATIONS: List was reviewed at home. He was utilizing amiodarone, atorvastatin, apixaban, doxycycline, loratadine, Entresto, furosemide and levothyroxine along with metoprolol. PHYSICAL EXAMINATION: VITAL SIGNS: On examination, the patient was in the intensive care unit, currently on 2 liters of oxygen supplementation. Since admission, his T-max is 97.1. HEENT: Eyes, the sclerae were nonicteric. NECK: Jugular venous distention was not elevated. No lymphadenopathy. CHEST: Full expansion. LUNGS: Crackles throughout both lung gómez. CARDIOVASCULAR: Regular rate and rhythm with S1, S2. No S3. ABDOMEN: Soft, nontender, nondistended. EXTREMITIES: No clubbing, cyanosis or edema. NEUROLOGIC: The patient was awake, alert, following commands. A detailed neuro exam was not performed. LABORATORY DATA: Reviewed. White count was normal. Hemoglobin and hematocrit were noted. Electrolytes were noted. BNP was elevated. Troponin was not elevated. Blood gas: pH is 7.41, PaCO2 of 35, pO2 of 82. IMPRESSION: 1. Acute hypoxemic respiratory failure. 2. [id number] systolic heart failure. 3. Abnormal chest x-ray revealing bilateral pulmonary infiltrates. 4. Previously abnormal CT chest dated 09/04/2018 revealing evidence of ground glass opacities. 5. Ischemic cardiomyopathy. 6. Chronic atrial fibrillation. 7. Other comorbidities including hyperlipidemia, osteoarthritis. PLAN: 1. Recommend to continue p.r.n. BiPAP. 2. Diurese. 3. Treat acute bronchitis. 4. Repeat CT chest. Consider possibility of amiodarone-induced lung injury/hypersensitivity pneumonitis. I do appreciate the privilege in sharing in the patient's care. DASH GARRETT MD DR: DEMETRI/betty JOB#: [id number] / [id number]
--- NOTE | 2019-03-04 17:28 | RAD ---
High-resolution chest CT without contrast Clinical indications: Shortness of breath. History of lung infiltrates seen on chest x-ray. Possible hypersensitivity pneumonitis. TECHNIQUE: High-resolution noncontrast CT scanning of the chest was performed including inspiration and expiration. PQRS compliance Statement One or more of the following individualized dose reduction techniques were utilized for this study: 1. Automated exposure control 2. Adjustment of the mA and/or kV according to patient size 3. Use of iterative reconstruction technique COMPARISON: September 04, 2018. FINDINGS: Small mediastinal lymph nodes are stable. No enlarging mediastinal lymphadenopathy is evident. Evaluation for hilar lymphadenopathy is difficult without IV contrast but the morphologic appearance of both andres is stable. No enlarged axillary lymphadenopathy is seen. No focal aneurysmal dilatation of the thoracic aorta is seen. The heart size is mildly enlarged. No pericardial effusion is seen. Small bilateral pleural effusions are seen which are chronic and have increased from the prior study. No pneumothorax is evident. The proximal bronchial tree is patent. No bronchiectasis is evident. Chronic groundglass lung infiltrates are seen bilaterally. These have not improved and if anything there has been an increase in groundglass infiltrate within the left upper lobe. There are lower lobe small nodular lung infiltrates which appear more prominent than the previous study. No air trapping is evident. No adrenal mass is evident. Old healed posterior right rib cage fractures are evident. No new compression fracture is evident. No lytic process is evident. IMPRESSION: Chronic bilateral groundglass lung infiltrates and nodular lung infiltrates. There has been an increase in groundglass lung infiltrates within the left upper lobe and an increase in nodular lung infiltrates within both lower lobes. This has occurred in association with a mild increase in chronic bilateral pleural effusions. Findings could reflect pulmonary edema and CHF or could also be seen with distal airway infectious or inflammatory disease. Electronically signed by: Jesús Marrero MD (03/04/2019 5:25 PM) [id number]
[2019-03-04] MEDS: ATORVASTATIN CALCIUM 10 MG TABLET. PO SCH (21:43)
[2019-03-04] MEDS: DOXYCYCLINE HYCLATE 100 MG TABLET PO SCH (21:44)
[2019-03-04] MEDS: LACTOBACILLUS RHAMNOSUS GG 1 CAPSULE. PO SCH (21:44)
[2019-03-04] MEDS: INSULIN GLARGINE SYRINGE. SQ SCH (21:45)
[2019-03-05] VITALS (7 sets, daily range): BP systolic 83–115; BP diastolic 55–71
[2019-03-05] MEDS: LEVOTHYROXINE 25 MCG TABLET. PO SCH (05:48)
[2019-03-05] MEDS: cefTRIAXone IV Push 1 GM VIAL. IVP SCH (05:48)
[2019-03-05] MEDS: INSULIN LISPRO 300 UNITS/3 ML VIAL. SQ SCH ×4 (07:30→21:00)
--- NOTE | 2019-03-05 07:33 | NUR ---
PATIENT ARRIVED ON UNIT PER BED, PRIMARILY SPEAKS TAJIK BUT RESPONDS TO COMMANDS APPROIPATLY, COMFORT MEASURES GIVEN, VITALS TO BE OBTAINED PER FIRST LINE PRODUCTION SUPERVISOR., WILL MONITOR.
[2019-03-05 07:51] LABS: CALCIUM 8.5 mg/dL (8.5-10.1); GFR 71.7; MAGNESIUM 1.9 mg/dL (1.8-2.4); POTASSIUM 3.6 mmol/L (3.5-5.1)
[2019-03-05] MEDS: IPRATRPIUM/ALBUTEROL 0.5/2.5MG 3 ML NEBU. NEB SCH ×4 (08:34→19:49)
[2019-03-05] MEDS: FUROSEMIDE 40 MG/4 ML VIAL. IVP SCH (10:00)
[2019-03-05] MEDS: SACUBITRIL/VALSARTAN 49/51MG TABLET. PO SCH ×2 (10:00→21:09)
[2019-03-05] MEDS: CETIRIZINE HCL 10 MG TABLET. PO SCH (10:01)
[2019-03-05] MEDS: APIXABAN 5 MG TABLET. PO SCH ×2 (10:01→21:08)
[2019-03-05] MEDS: DOXYCYCLINE HYCLATE 100 MG TABLET PO SCH ×2 (10:01→21:08)
[2019-03-05] MEDS: LACTOBACILLUS RHAMNOSUS GG 1 CAPSULE. PO SCH ×2 (10:01→21:08)
[2019-03-05] MEDS: METOPROLOL SUCC 24HR ER 100 MG TAB.ER.24H. PO SCH (10:01)
[2019-03-05] MEDS: AMIODARONE HCL 200 MG TABLET. PO SCH (10:02)
--- NOTE | 2019-03-05 10:50 | PDOC ---
PULMONARY PROGRESS NOTES Subjective PT FELLS BETTER LESS SOA Vitals Vital Signs Date Time Temp Pulse Resp B/P (MAP) Pulse Ox O2 Delivery O2 Flow Rate FiO2 03/05/19 10:02 61 115/61 03/05/19 08:35 98 Nasal Cannula 3.0 03/05/19 08:00 97.4 26 97.4 ROS: No Nausea, No Chest Pain, No Abdominal Pain, No Increase Cough General: Alert, No acute distress Lungs: Crackles Cardiovascular: S1, S2 Abdomen: Soft Neuro Exam: Alert Extremities: No Edema Skin: Warm Labs Laboratory Tests Test 03/04/19 02:45 03/04/19 03:32 03/04/19 07:06 03/04/19 12:06 White Blood Count 9.9 x10^3/uL (4.0-11.0) Red Blood Count 5.56 x10^6/uL (4.30-5.70) Hemoglobin 15.5 g/dL (13.0-17.5) Hematocrit 46.7 % (39.0-53.0) Mean Corpuscular Volume 84 fL (79-100) Mean Corpuscular Hemoglobin 28 pg (25-35) Mean Corpuscular Hemoglobin Concent 33 g/dL (31-37) Red Cell Distribution Width 16.9 % (11.5-14.5) Platelet Count 183 x10^3/uL (140-400) Neutrophils (%) (Auto) 55 % (31-73) Lymphocytes (%) (Auto) 35 % (24-48) Monocytes (%) (Auto) 8 % (0-9) Eosinophils (%) (Auto) 2 % (0-3) Basophils (%) (Auto) 1 % (0-3) Neutrophils # (Auto) 5.4 x10^3/uL (1.8-7.7) Lymphocytes # (Auto) 3.4 x10^3/uL (1.0-4.8) Monocytes # (Auto) 0.7 x10^3/uL (0.0-1.1) Eosinophils # (Auto) 0.2 x10^3/uL (0.0-0.7) Basophils # (Auto) 0.1 x10^3/uL (0.0-0.2) Sodium Level 143 mmol/L (136-145) Potassium Level 3.8 mmol/L (3.5-5.1) Chloride Level 108 mmol/L (98-107) Carbon Dioxide Level 24 mmol/L (21-32) Anion Gap 11 (6-14) Blood Urea Nitrogen 19 mg/dL (8-26) Creatinine 1.1 mg/dL (0.7-1.3) Estimated GFR (Cockcroft-Gault) 64.2 BUN/Creatinine Ratio 17 (6-20) Glucose Level 176 mg/dL (70-99) Lactic Acid Level 2.8 mmol/L (0.4-2.0) 2.1 mmol/L (0.4-2.0) Calcium Level 9.3 mg/dL (8.5-10.1) Total Bilirubin 0.8 mg/dL (0.2-1.0) Aspartate Amino Transf (AST/SGOT) 16 U/L (15-37) Alanine Aminotransferase (ALT/SGPT) 14 U/L (16-63) Alkaline Phosphatase 95 U/L (46-116) Troponin I Quantitative < 0.017 ng/mL (0.000-0.055) C-Reactive Protein, Quantitative 5.8 mg/L (0-3.3) QD-Lrw-Q-Type Natriuretic Peptide 7337 pg/mL (0-449) Total Protein 8.5 g/dL (6.4-8.2) Albumin 3.9 g/dL (3.4-5.0) Albumin/Globulin Ratio 0.8 (1.0-1.7) Procalcitonin < 0.10 ng/mL (0.00-0.10) O2 Saturation 96 % (92-99) Arterial Blood pH 7.41 (7.35-7.45) Arterial Blood pCO2 at Patient Temp 35 mmHg (35-46) Arterial Blood pO2 at Patient Temp 82 mmHg (65-108) Arterial Blood HCO3 22 mmol/L (21-28) Arterial Blood Base Excess -2 mmol/L (-3-3) Oxyhemoglobin 94.8 % Methemoglobin 0.6 % (0.0-1.9) Carbon Monoxide, Quantitative 0.5 % (0.0-1.9) FiO2 40 Glucose (Fingerstick) 186 mg/dL (70-99) Test 03/04/19 15:10 03/04/19 16:00 03/04/19 21:43 03/05/19 07:20 Erythrocyte Sedimentation Rate 0 (0-15) Glucose (Fingerstick) 156 mg/dL (70-99) 137 mg/dL (70-99) Sodium Level 144 mmol/L (136-145) Potassium Level 3.6 mmol/L (3.5-5.1) Chloride Level 107 mmol/L (98-107) Carbon Dioxide Level 27 mmol/L (21-32) Anion Gap 10 (6-14) Blood Urea Nitrogen 17 mg/dL (8-26) Creatinine 1.0 mg/dL (0.7-1.3) Estimated GFR (Cockcroft-Gault) 71.7 Glucose Level 118 mg/dL (70-99) Calcium Level 8.5 mg/dL (8.5-10.1) Magnesium Level 1.9 mg/dL (1.8-2.4) Test 03/05/19 08:05 Glucose (Fingerstick) 130 mg/dL (70-99) Laboratory Tests Test 03/04/19 12:06 03/04/19 15:10 03/04/19 16:00 03/04/19 21:43 Glucose (Fingerstick) 186 mg/dL (70-99) 156 mg/dL (70-99) 137 mg/dL (70-99) Erythrocyte Sedimentation Rate 0 (0-15) Test 03/05/19 07:20 03/05/19 08:05 Sodium Level 144 mmol/L (136-145) Potassium Level 3.6 mmol/L (3.5-5.1) Chloride Level 107 mmol/L (98-107) Carbon Dioxide Level 27 mmol/L (21-32) Anion Gap 10 (6-14) Blood Urea Nitrogen 17 mg/dL (8-26) Creatinine 1.0 mg/dL (0.7-1.3) Estimated GFR (Cockcroft-Gault) 71.7 Glucose Level 118 mg/dL (70-99) Calcium Level 8.5 mg/dL (8.5-10.1) Magnesium Level 1.9 mg/dL (1.8-2.4) Glucose (Fingerstick) 130 mg/dL (70-99) Medications Active Scripts Medications Dose Route/Sig Max Daily Dose Days Date Category Doxycycline Hyclate 100 Mg Tablet 100 Mg PO BID 7 09/06/18 Rx Loratadine 10 Mg Tablet 1 Tab PO DAILY 09/04/18 Reported Entresto 49 mg-51 mg Tablet (Sacubitril/Valsartan) 1 Each Tablet 1 Each PO BID 09/04/18 Reported Amiodarone Hcl 200 Mg Tablet 200 Mg PO DAILY 30 06/07/18 Rx Levothyroxine Sodium 25 Mcg Tablet 1 Tab PO DAILY 06/06/18 Reported Furosemide 40 Mg Tablet 1 Tab PO BID 06/06/18 Reported Metoprolol Succinate ( Xl ) (Metoprolol Succinate) 100 Mg Tab.er.24h 100 Mg PO DAILY 30 05/16/18 Rx Eliquis (Apixaban) 5 Mg Tablet 5 Mg PO BID 30 05/16/18 Rx Atorvastatin Calcium 10 Mg Tablet 10 Mg PO HS 01/15/18 Reported Impression . IMPRESSION: 1. Acute hypoxemic respiratory failure. 2. [id number] systolic heart failure. 3. Abnormal chest x-ray revealing bilateral pulmonary infiltrates. 4. Previously abnormal CT chest dated 09/04/2018 revealing evidence of ground glass opacities. 5. Ischemic cardiomyopathy. 6. Chronic atrial fibrillation. 7. Other comorbidities including hyperlipidemia, osteoarthritis. IMPRESSION: Chronic bilateral groundglass lung infiltrates and nodular lung infiltrates. There has been an increase in groundglass lung infiltrates within the left upper lobe and an increase in nodular lung infiltrates within both lower lobes. This has occurred in association with a mild increase in chronic bilateral pleural effusions. Findings could reflect pulmonary edema and CHF or could also be seen with distal airway infectious or inflammatory disease. Plan . HRCT REVIEWED SLIGHTLY WORSE WILL D/W CARD ON POSSIBILTY OF DC AMIODARONE 1. Recommend to continue p.r.n. BiPAP. 2. Diurese. 3. Treat acute bronchitis. 4. ct report noted DASH GARRETT MD Mar 05, 2019 10:50
--- NOTE | 2019-03-05 12:42 | PDOC ---
PROGRESS NOTES Chief Complaint Chief Complaint A/P: Shortness of breath - with Acute hypoxia - will wean O2 as tolerated. This looks to be a mixed picture of pulmonary infection, likely gram negative, will treat as it is bilateral, definitely an element of CHF exacerbation as well Acute on chronic systolic CHF - possibly 2/2 underlying AFIB vs infectious etiology. Consulted cardiology. Cont toprol xl, entresto, statin AFIB - Paroxysmal by hx with chronic LBBB. Rate now controlled on toprol XL, stopped diltiazem a few visits ago SIRS - unclear if there is infection, though empirically treating for pneumonia. Check procalcitonin NICM - ischemic w/u negative january 2018 on cath. EF currently at 10-15% s/p BiV AICD placement June 2018 HTN - controlled well HLD - needs statin for his CHF Hx of cranial bleed with craniotomy 7 yrs ago - was traumatic, should continue on eliquis, has no falls recently DM2 - A1c 7 in September 2018. basal bolus plus insulin while in house. With his age metformin is contraindicated to initiate. FEN - Cardiac diet PPX - eliquis FULL CODE Dispo - admit to [facility] for acute CHF exacerbation History of Present Illness History of Present Illness Mr Mistry is an 83 year old male w/ PMHx CAD, CHF, S/p PPM, Hypertension who came to ED c/o shortness of breath. Family states that the patient had a cough for the last 1 week but got worse last night. Family states that patient was gasping for air tonight and so they brought him to the ED. Patient denies chest pain. Family states that patient took his medications today. 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 He was hypoxic into the low 80s, placed on 5L NCO2 but continued to have respiratory distress and was then noted with HR was 114, RR 33. CXR reveals pulmonary edema vs multifocal infectious process. He was given 40mg IV lasix and placed on BIPAP for his respiratory distress and admitted to ICU. Pt denies cough, fever, chills, nausea, vomiting, diarrhea, chest pain, dysuria. No recent sick contacts. Feels improved after BIPAP for a few hours. EKG showed wide complex SVT, left axis deviation, aberrant AV hraika conduction BNP notably 7337, lactate 2.8, ABG 7.41/35/[address] chest shows - Chronic bilateral groundglass lung infiltrates and nodular lung infiltrates. There has been an increase in groundglass lung infiltrates within the left upper lobe and an increase in nodular lung infiltrates within both lower lobes. This has occurred in association with a mild increase in chronic bilateral pleural effusions. Findings could reflect pulmonary edema and CHF or could also be seen with distal airway infectious or inflammatory disease. He is eating a bit of lunch. Still on O2 currently. Denies CP or abdominal pain. Vitals Vitals Vital Signs Date Time Temp Pulse Resp B/P (MAP) Pulse Ox O2 Delivery O2 Flow Rate FiO2 03/05/19 12:01 98 Nasal Cannula 2.0 03/05/19 11:00 97.9 62 26 112/62 (79) 97.9 Physical Exam General: Alert, Oriented X3, Cooperative, No acute distress Heart: Regular rate (Paced), Normal S1, Normal S2, Other (2/6 systolic murmur to LLS border) Lungs: Crackles Abdomen: Soft, No tenderness Extremities: No cyanosis, No edema Skin: No breakdown, No significant lesion Labs LABS Laboratory Tests Test 03/04/19 15:10 03/04/19 16:00 03/04/19 21:43 03/05/19 07:20 Erythrocyte Sedimentation Rate 0 (0-15) Glucose (Fingerstick) 156 mg/dL (70-99) 137 mg/dL (70-99) Sodium Level 144 mmol/L (136-145) Potassium Level 3.6 mmol/L (3.5-5.1) Chloride Level 107 mmol/L (98-107) Carbon Dioxide Level 27 mmol/L (21-32) Anion Gap 10 (6-14) Blood Urea Nitrogen 17 mg/dL (8-26) Creatinine 1.0 mg/dL (0.7-1.3) Estimated GFR (Cockcroft-Gault) 71.7 Glucose Level 118 mg/dL (70-99) Calcium Level 8.5 mg/dL (8.5-10.1) Magnesium Level 1.9 mg/dL (1.8-2.4) Test 03/05/19 08:05 03/05/19 11:36 Glucose (Fingerstick) 130 mg/dL (70-99) 187 mg/dL (70-99) Assessment and Plan Assessmemt and Plan Problems Medical Problems: (1) Acute CHF Status: Acute (2) Acute on chronic systolic CHF (congestive heart failure) Status: Acute (3) Atrial fibrillation Status: Chronic (4) DM2 (diabetes mellitus, type 2) Status: Chronic (5) HLD (hyperlipidemia) Status: Chronic (6) HTN (hypertension) Status: Chronic (7) NICM (nonischemic cardiomyopathy) Status: Chronic (8) Non-ischemic cardiomyopathy Status: Chronic (9) Shortness of breath Status: Acute (10) SIRS (systemic inflammatory response syndrome) Status: Acute Comment Review of Relevant I have reviewed the following items issa (where applicable) has been applied. Labs Laboratory Tests Test 03/04/19 02:45 03/04/19 03:32 03/04/19 07:06 03/04/19 12:06 White Blood Count 9.9 x10^3/uL (4.0-11.0) Red Blood Count 5.56 x10^6/uL (4.30-5.70) Hemoglobin 15.5 g/dL (13.0-17.5) Hematocrit 46.7 % (39.0-53.0) Mean Corpuscular Volume 84 fL (79-100) Mean Corpuscular Hemoglobin 28 pg (25-35) Mean Corpuscular Hemoglobin Concent 33 g/dL (31-37) Red Cell Distribution Width 16.9 % (11.5-14.5) Platelet Count 183 x10^3/uL (140-400) Neutrophils (%) (Auto) 55 % (31-73) Lymphocytes (%) (Auto) 35 % (24-48) Monocytes (%) (Auto) 8 % (0-9) Eosinophils (%) (Auto) 2 % (0-3) Basophils (%) (Auto) 1 % (0-3) Neutrophils # (Auto) 5.4 x10^3/uL (1.8-7.7) Lymphocytes # (Auto) 3.4 x10^3/uL (1.0-4.8) Monocytes # (Auto) 0.7 x10^3/uL (0.0-1.1) Eosinophils # (Auto) 0.2 x10^3/uL (0.0-0.7) Basophils # (Auto) 0.1 x10^3/uL (0.0-0.2) Sodium Level 143 mmol/L (136-145) Potassium Level 3.8 mmol/L (3.5-5.1) Chloride Level 108 mmol/L (98-107) Carbon Dioxide Level 24 mmol/L (21-32) Anion Gap 11 (6-14) Blood Urea Nitrogen 19 mg/dL (8-26) Creatinine 1.1 mg/dL (0.7-1.3) Estimated GFR (Cockcroft-Gault) 64.2 BUN/Creatinine Ratio 17 (6-20) Glucose Level 176 mg/dL (70-99) Lactic Acid Level 2.8 mmol/L (0.4-2.0) 2.1 mmol/L (0.4-2.0) Calcium Level 9.3 mg/dL (8.5-10.1) Total Bilirubin 0.8 mg/dL (0.2-1.0) Aspartate Amino Transf (AST/SGOT) 16 U/L (15-37) Alanine Aminotransferase (ALT/SGPT) 14 U/L (16-63) Alkaline Phosphatase 95 U/L (46-116) Troponin I Quantitative < 0.017 ng/mL (0.000-0.055) C-Reactive Protein, Quantitative 5.8 mg/L (0-3.3) FM-Smb-J-Type Natriuretic Peptide 7337 pg/mL (0-449) Total Protein 8.5 g/dL (6.4-8.2) Albumin 3.9 g/dL (3.4-5.0) Albumin/Globulin Ratio 0.8 (1.0-1.7) Procalcitonin < 0.10 ng/mL (0.00-0.10) O2 Saturation 96 % (92-99) Arterial Blood pH 7.41 (7.35-7.45) Arterial Blood pCO2 at Patient Temp 35 mmHg (35-46) Arterial Blood pO2 at Patient Temp 82 mmHg (65-108) Arterial Blood HCO3 22 mmol/L (21-28) Arterial Blood Base Excess -2 mmol/L (-3-3) Oxyhemoglobin 94.8 % Methemoglobin 0.6 % (0.0-1.9) Carbon Monoxide, Quantitative 0.5 % (0.0-1.9) FiO2 40 Glucose (Fingerstick) 186 mg/dL (70-99) Test 03/04/19 15:10 03/04/19 16:00 03/04/19 21:43 03/05/19 07:20 Erythrocyte Sedimentation Rate 0 (0-15) Glucose (Fingerstick) 156 mg/dL (70-99) 137 mg/dL (70-99) Sodium Level 144 mmol/L (136-145) Potassium Level 3.6 mmol/L (3.5-5.1) Chloride Level 107 mmol/L (98-107) Carbon Dioxide Level 27 mmol/L (21-32) Anion Gap 10 (6-14) Blood Urea Nitrogen 17 mg/dL (8-26) Creatinine 1.0 mg/dL (0.7-1.3) Estimated GFR (Cockcroft-Gault) 71.7 Glucose Level 118 mg/dL (70-99) Calcium Level 8.5 mg/dL (8.5-10.1) Magnesium Level 1.9 mg/dL (1.8-2.4) Test 03/05/19 08:05 03/05/19 11:36 Glucose (Fingerstick) 130 mg/dL (70-99) 187 mg/dL (70-99) Laboratory Tests Test 03/04/19 15:10 03/04/19 16:00 03/04/19 21:43 03/05/19 07:20 Erythrocyte Sedimentation Rate 0 (0-15) Glucose (Fingerstick) 156 mg/dL (70-99) 137 mg/dL (70-99) Sodium Level 144 mmol/L (136-145) Potassium Level 3.6 mmol/L (3.5-5.1) Chloride Level 107 mmol/L (98-107) Carbon Dioxide Level 27 mmol/L (21-32) Anion Gap 10 (6-14) Blood Urea Nitrogen 17 mg/dL (8-26) Creatinine 1.0 mg/dL (0.7-1.3) Estimated GFR (Cockcroft-Gault) 71.7 Glucose Level 118 mg/dL (70-99) Calcium Level 8.5 mg/dL (8.5-10.1) Magnesium Level 1.9 mg/dL (1.8-2.4) Test 03/05/19 08:05 03/05/19 11:36 Glucose (Fingerstick) 130 mg/dL (70-99) 187 mg/dL (70-99) Microbiology 03/04/19 Blood Culture - Preliminary, Resulted NO GROWTH AFTER 1 DAY Medications Current Medications Furosemide (Lasix) 40 mg STK-MED ONCE .ROUTE ; Start 03/04/19 at 02:45; Stop 03/04/19 at 02:45; Status DC Furosemide (Lasix) 40 mg 1X ONCE IVP Last administered on 03/04/19at 03:15; Start 03/04/19 at 03:15; Stop 03/04/19 at 03:16; Status DC Ceftriaxone Sodium (Rocephin) 1 gm 1X ONCE IVP Last administered on 03/04/19at 03:59; Start 03/04/19 at 04:00; Stop 03/04/19 at 04:01; Status DC Azithromycin 500 mg/Sodium Chloride 250 ml @ 250 mls/hr Q24H IV ; Start 03/04/19 at 04:00; Status Cancel Azithromycin 250 ml @ 250 mls/hr 1X ONCE IV Last administered on 03/04/19at 04:05; Start 03/04/19 at 04:00; Stop 03/04/19 at 04:59; Status DC Amiodarone HCl (Cordarone) 200 mg DAILY PO Last administered on 03/05/19at 10:02; Start 03/04/19 at 11:00 Apixaban (Eliquis) 5 mg BID PO Last administered on 03/05/19at 10:01; Start 03/04/19 at 11:00 Atorvastatin Calcium (Lipitor) 10 mg HS PO Last administered on 03/04/19at 21:43; Start 03/04/19 at 21:00 Doxycycline Hyclate (Vibra-Tab) 100 mg BID PO Last administered on 03/04/19at 11:58; Start 03/04/19 at 11:00; Stop 03/04/19 at 13:59; Status DC Levothyroxine Sodium (Synthroid) 25 mcg DAILY06 PO Last administered on 03/05/19at 05:48; Start 03/04/19 at 11:00 Metoprolol Succinate (Toprol Xl) 100 mg DAILY PO Last administered on 03/05/19at 10:01; Start 03/04/19 at 11:00 Sacubitril/ Valsartan (Entresto 49 Mg-51 Mg) 1 tab BID PO Last administered on 03/05/19 10:00; Start 03/04/19 at 11:00 Cetirizine HCl (ZyrTEC) 10 mg DAILY PO Last administered on 03/05/19 10:01; Start 03/04/19 at 11:00 Furosemide (Lasix) 40 mg DAILY IVP Last administered on 03/05/19 10:00; Star t 03/04/19 at 11:00 Ceftriaxone Sodium (Rocephin) 1 gm Q24H IVP Last administered on 03/05/19 05:48; Start 03/05/19 at 05:00 Albuterol/ Ipratropium (Duoneb) 3 ml RTQID NEB Last administered on 03/05/19 12:01; Start 03/04/19 at 11:00 Insulin Glargine (Lantus Syringe) 5 unit QHS SQ Last administered on 03/04/19 21:45; Start 03/04/19 at 21:00 Insulin Human Lispro (HumaLOG) 0-7 UNITS TIDACHC SQ Last administered on 03/05/19 12:33; Start 03/04/19 at 11:30 Dextrose (Dextrose 50%-Water Syringe) 12.5 gm PRN Q15MIN PRN IV SEE COMMENTS; Start 03/04/19 at 11:00 Doxycycline Hyclate (Vibra-Tab) 100 mg BID PO Last administered on 03/05/19 10:01; Start 03/04/19 at 21:00 Lactobacillus Rhamnosus (Culturelle) 1 cap BID PO Last administered on 03/05/19at 10:01; Start 03/04/19 at 21:00 Active Scripts Active Doxycycline Hyclate 100 Mg Tablet 100 Mg PO BID 7 Days Amiodarone Hcl 200 Mg Tablet 200 Mg PO DAILY 30 Days Metoprolol Succinate ( Xl ) (Metoprolol Succinate) 100 Mg Tab.er.24h 100 Mg PO DAILY 30 Days Eliquis (Apixaban) 5 Mg Tablet 5 Mg PO BID 30 Days Reported Loratadine 10 Mg Tablet 1 Tab PO DAILY Entresto 49 mg-51 mg Tablet (Sacubitril/Valsartan) 1 Each Tablet 1 Each PO BID Levothyroxine Sodium 25 Mcg Tablet 1 Tab PO DAILY Furosemide 40 Mg Tablet 1 Tab PO BID Atorvastatin Calcium 10 Mg Tablet 10 Mg PO HS Vitals/I & O Vital Sign - Last 24 Hours 03/04/19 03/04/19 03/04/19 03/04/19 13:00 14:00 15:00 15:40 Pulse 67 64 64 Resp 24 24 22 B/P (MAP) 111/70 (84) 83/61 (68) 88/55 (66) Pulse Ox 96 98 97 95 O2 Delivery Nasal Cannula Nasal Cannula Nasal Cannula Nasal Cannula O2 Flow Rate 2.0 2.0 2.0 5.0 03/04/19 03/04/19 03/04/19 03/04/19 16:00 16:00 17:00 19:00 Temp 97.6 98.3 97.6 98.3 Pulse 65 75 64 Resp 18 24 35 B/P (MAP) 95/54 (68) 84/54 (64) 96/54 (68) Pulse Ox 98 95 95 O2 Delivery Nasal Cannula Nasal Cannula Nasal Cannula Nasal Cannula O2 Flow Rate 2.0 2.0 2.0 2.0 03/04/19 03/04/19 03/04/19 03/04/19 20:00 20:00 20:01 21:43 Pulse 60 B/P (MAP) 96/54 Pulse Ox 97 O2 Delivery Nasal Cannula Nasal Cannula O2 Flow Rate 2.0 2.0 5.0 03/05/19 03/05/19 03/05/19 03/05/19 00:00 00:00 04:00 04:00 Temp 98.1 97.9 98.1 97.9 Pulse 67 78 Resp 26 26 B/P (MAP) 83/62 (69) 85/57 (66) Pulse Ox 98 97 O2 Delivery Nasal Cannula Nasal Cannula O2 Flow Rate 2.0 2.0 2.0 2.0 03/05/19 03/05/19 03/05/19 03/05/19 08:00 08:00 08:35 10:00 Temp 97.4 97.4 Pulse 61 61 Resp 26 B/P (MAP) 115/61 (79) 115/61 Pulse Ox 99 98 O2 Delivery Nasal Cannula Nasal Cannula Nasal Cannula O2 Flow Rate 2.0 2.0 3.0 03/05/19 03/05/19 03/05/19 03/05/19 10:01 10:02 11:00 12:01 Temp 97.9 97.9 Pulse 61 61 62 Resp 26 B/P (MAP) 115/61 115/61 112/62 (79) Pulse Ox 96 98 O2 Delivery Nasal Cannula Nasal Cannula O2 Flow Rate 2.0 2.0 Intake and Output 03/04/19 03/04/19 03/05/19 15:00 23:00 07:00 Output Total 501 ml 200 ml 0 ml Balance -501 ml -200 ml 0 ml LESLY CASTANEDA MD Mar 05, 2019 12:42
[2019-03-05] MEDS: ATORVASTATIN CALCIUM 10 MG TABLET. PO SCH (21:08)
[2019-03-05] MEDS: INSULIN GLARGINE SYRINGE. SQ SCH (21:25)
[2019-03-06 03:00] VITALS: BP 104/61
[2019-03-06] MEDS: cefTRIAXone IV Push 1 GM VIAL. IVP SCH (05:37)
[2019-03-06] MEDS: LEVOTHYROXINE 25 MCG TABLET. PO SCH (05:37)
[2019-03-06] MEDS: INSULIN LISPRO 300 UNITS/3 ML VIAL. SQ SCH ×2 (07:30→11:30)
[2019-03-06] MEDS: IPRATRPIUM/ALBUTEROL 0.5/2.5MG 3 ML NEBU. NEB SCH ×3 (07:53→15:38)
[2019-03-06 08:00] VITALS: BP 94/66
--- NOTE | 2019-03-06 08:20 | PDOC ---
PROGRESS NOTES Chief Complaint Chief Complaint A/P: Shortness of breath - with Acute hypoxia - weaned O2 as tolerated. This looks to be a mixed picture of pulmonary toxicity, definitely an element of CHF exacerba tion as well. Stop amio on d/c Acute on chronic systolic CHF - possibly 2/2 underlying AFIB vs infectious etiology. Consulted cardiology. Cont toprol xl, entresto, statin AFIB - Paroxysmal by hx with chronic LBBB. Rate now controlled on toprol XL, stopped diltiazem a few visits ago SIRS - unclear if there is infection, though empirically treating for pneumonia. Check procalcitonin NICM - ischemic w/u negative january 2018 on cath. EF currently at 10-15% s/p BiV AICD placement June 2018 HTN - controlled well HLD - needs statin for his CHF Hx of cranial bleed with craniotomy 7 yrs ago - was traumatic, should continue on eliquis, has no falls recently DM2 - A1c 7 in September 2018. basal bolus plus insulin while in house. With his age metformin is contraindicated to initiate. FEN - Cardiac diet PPX - eliquis FULL CODE Dispo - admit to [facility] for acute CHF exacerbation History of Present Illness History of Present Illness Mr Mistry is an 83 year old male w/ PMHx CAD, CHF, S/p PPM, Hypertension who came to ED c/o shortness of breath. Family states that the patient had a cough for the last 1 week but got worse last night. Family states that patient was gasping for air tonight and so they brought him to the ED. Patient denies chest pain. Family states that patient took his medications today. 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 He was hypoxic into the low 80s, placed on 5L NCO2 but continued to have respiratory distress and was then noted with HR was 114, RR 33. CXR reveals pulmonary edema vs multifocal infectious process. He was given 40mg IV lasix and placed on BIPAP for his respiratory distress and admitted to ICU. Pt denies cough, fever, chills, nausea, vomiting, diarrhea, chest pain, dysuria. No recent sick contacts. Feels improved after BIPAP for a few hours. EKG showed wide complex SVT, left axis deviation, aberrant AV harika conduction BNP notably 7337, lactate 2.8, ABG 7.41/35/[address] chest shows - Chronic bilateral groundglass lung infiltrates and nodular lung infiltrates. There has been an increase in groundglass lung infiltrates within the left upper lobe and an increase in nodular lung infiltrates within both lower lobes. This has occurred in association with a mild increase in chronic bilateral pleural effusions. Findings could reflect pulmonary edema and CHF or could also be seen with distal airway infectious or inflammatory disease. Definite concern for amio toxicity He is eating a bit of breakfast. Off O2 currently. Denies CP or abdominal pain. plan for d/c home off amio. Vitals Vitals Vital Signs Date Time Temp Pulse Resp B/P (MAP) Pulse Ox O2 Delivery O2 Flow Rate FiO2 03/06/19 07:53 95 03/06/19 04:11 2.0 03/06/19 03:00 97.9 72 18 104/61 (75) Room Air 97.9 Physical Exam General: Alert, Oriented X3, Cooperative, No acute distress Heart: Regular rate (Paced), Normal S1, Normal S2, Other (2/6 systolic murmur to LLS border) Lungs: Crackles Abdomen: Soft, No tenderness Extremities: No cyanosis, No edema Skin: No breakdown, No significant lesion Labs LABS Laboratory Tests Test 03/05/19 11:36 03/05/19 16:42 03/05/19 20:48 03/06/19 07:20 Glucose (Fingerstick) 187 mg/dL (70-99) 97 mg/dL (70-99) 159 mg/dL (70-99) 103 mg/dL (70-99) Assessment and Plan Assessmemt and Plan Problems Medical Problems: (1) Acute CHF Status: Acute (2) Acute on chronic systolic CHF (congestive heart failure) Status: Acute (3) Afib Status: Acute (4) Atrial fibrillation Status: Chronic (5) DM2 (diabetes mellitus, type 2) Status: Chronic (6) HLD (hyperlipidemia) Status: Chronic (7) HTN (hypertension) Status: Chronic (8) NICM (nonischemic cardiomyopathy) Status: Chronic (9) Non-ischemic cardiomyopathy Status: Chronic (10) Shortness of breath Status: Acute (11) SIRS (systemic inflammatory response syndrome) Status: Acute Comment Review of Relevant I have reviewed the following items issa (where applicable) has been applied. Labs Laboratory Tests Test 03/04/19 12:06 03/04/19 15:10 03/04/19 16:00 03/04/19 21:43 Glucose (Fingerstick) 186 mg/dL (70-99) 156 mg/dL (70-99) 137 mg/dL (70-99) Erythrocyte Sedimentation Rate 0 (0-15) Test 03/05/19 07:20 03/05/19 08:05 03/05/19 11:36 03/05/19 16:42 Sodium Level 144 mmol/L (136-145) Potassium Level 3.6 mmol/L (3.5-5.1) Chloride Level 107 mmol/L (98-107) Carbon Dioxide Level 27 mmol/L (21-32) Anion Gap 10 (6-14) Blood Urea Nitrogen 17 mg/dL (8-26) Creatinine 1.0 mg/dL (0.7-1.3) Estimated GFR (Cockcroft-Gault) 71.7 Glucose Level 118 mg/dL (70-99) Calcium Level 8.5 mg/dL (8.5-10.1) Magnesium Level 1.9 mg/dL (1.8-2.4) Glucose (Fingerstick) 130 mg/dL (70-99) 187 mg/dL (70-99) 97 mg/dL (70-99) Test 03/05/19 20:48 03/06/19 07:20 Glucose (Fingerstick) 159 mg/dL (70-99) 103 mg/dL (70-99) Laboratory Tests Test 03/05/19 11:36 03/05/19 16:42 03/05/19 20:48 03/06/19 07:20 Glucose (Fingerstick) 187 mg/dL (70-99) 97 mg/dL (70-99) 159 mg/dL (70-99) 103 mg/dL (70-99) Microbiology 03/04/19 Blood Culture - Preliminary, Resulted NO GROWTH AFTER 2 DAYS Medications Current Medications Furosemide (Lasix) 40 mg STK-MED ONCE .ROUTE ; Start 03/04/19 at 02:45; Stop 03/04/19 at 02:45; Status DC Furosemide (Lasix) 40 mg 1X ONCE IVP Last administered on 03/04/19at 03:15; Start 03/04/19 at 03:15; Stop 03/04/19 at 03:16; Status DC Ceftriaxone Sodium (Rocephin) 1 gm 1X ONCE IVP Last administered on 03/04/19at 03:59; Start 03/04/19 at 04:00; Stop 03/04/19 at 04:01; Status DC Azithromycin 500 mg/Sodium Chloride 250 ml @ 250 mls/hr Q24H IV ; Start 03/04/19 at 04:00; Status Cancel Azithromycin 250 ml @ 250 mls/hr 1X ONCE IV Last administered on 03/04/19at 04:05; Start 03/04/19 at 04:00; Stop 03/04/19 at 04:59; Status DC Amiodarone HCl (Cordarone) 200 mg DAILY PO Last administered on 03/05/19at 10:02; Start 03/04/19 at 11:00; Stop 03/05/19 at 21:17; Status DC Apixaban (Eliquis) 5 mg BID PO Last administered on 03/05/19 21:08; Start 03/04/19 at 11:00 Atorvastatin Calcium (Lipitor) 10 mg HS PO Last administered on 03/05/19at 21:08; Start 03/04/19 at 21:00 Doxycycline Hyclate (Vibra-Tab) 100 mg BID PO Last administered on 03/04/19at 11:58; Start 03/04/19 at 11:00; Stop 03/04/19 at 13:59; Status DC Levothyroxine Sodium (Synthroid) 25 mcg DAILY06 PO Last administered on 03/06/19at 05:37; Start 03/04/19 at 11:00 Metoprolol Succinate (Toprol Xl) 100 mg DAILY PO Last administered on 03/05/19at 10:01; Start 03/04/19 at 11:00 Sacubitril/ Valsartan (Entresto 49 Mg-51 Mg) 1 tab BID PO Last administered on 03/05/19 21:09; Start 03/04/19 at 11:00 Cetirizine HCl (ZyrTEC) 10 mg DAILY PO Last administered on 03/05/19 10:01; Start 03/04/19 at 11:00 Furosemide (Lasix) 40 mg DAILY IVP Last administered on 03/05/19at 10:00; Start 03/04/19 at 11:00 Ceftriaxone Sodium (Rocephin) 1 gm Q24H IVP Last administered on 03/06/19at 05:37; Start 03/05/19 at 05:00 Albuterol/ Ipratropium (Duoneb) 3 ml RTQID NEB Last administered on 03/06/19at 07:53; Start 03/04/19 at 11:00 Insulin Glargine (Lantus Syringe) 5 unit QHS SQ Last administered on 03/05/19at 21:25; Start 03/04/19 at 21:00 Insulin Human Lispro (HumaLOG) 0-7 UNITS TIDACHC SQ Last administered on 03/05/19at 12:33; Start 03/04/19 at 11:30 Dextrose (Dextrose 50%-Water Syringe) 12.5 gm PRN Q15MIN PRN IV SEE COMMENTS; Start 03/04/19 at 11:00 Doxycycline Hyclate (Vibra-Tab) 100 mg BID PO Last administered on 03/05/19at 21:08; Start 03/04/19 at 21:00 Lactobacillus Rhamnosus (Culturelle) 1 cap BID PO Last administered on 03/05/19at 21:08; Start 03/04/19 at 21:00 Active Scripts Active Doxycycline Hyclate 100 Mg Tablet 100 Mg PO BID 7 Days Amiodarone Hcl 200 Mg Tablet 200 Mg PO DAILY 30 Days Metoprolol Succinate ( Xl ) (Metoprolol Succinate) 100 Mg Tab.er.24h 100 Mg PO DAILY 30 Days Eliquis (Apixaban) 5 Mg Tablet 5 Mg PO BID 30 Days Reported Loratadine 10 Mg Tablet 1 Tab PO DAILY Entresto 49 mg-51 mg Tablet (Sacubitril/Valsartan) 1 Each Tablet 1 Each PO BID Levothyroxine Sodium 25 Mcg Tablet 1 Tab PO DAILY Furosemide 40 Mg Tablet 1 Tab PO BID Atorvastatin Calcium 10 Mg Tablet 10 Mg PO HS Vitals/I & O Vital Sign - Last 24 Hours 03/05/19 03/05/19 03/05/19 03/05/19 08:35 10:00 10:01 10:02 Pulse 61 61 61 B/P (MAP) 115/61 115/61 115/61 Pulse Ox 98 O2 Delivery Nasal Cannula O2 Flow Rate 3.0 03/05/19 03/05/19 03/05/19 03/05/19 11:00 12:00 12:01 15:30 Temp 97.9 97.7 97.9 97.7 Pulse 62 76 Resp 26 26 B/P (MAP) 112/62 (79) 93/55 (68) Pulse Ox 96 98 95 O2 Delivery Nasal Cannula Nasal Cannula Nasal Cannula O2 Flow Rate 2.0 2.0 2.0 2.0 03/05/19 03/05/19 03/05/19 03/05/19 16:00 16:32 19:49 20:00 Pulse Ox 94 96 O2 Delivery Nasal Cannula O2 Flow Rate 2.0 2.0 03/05/19 03/05/19 03/05/19 03/05/19 20:00 20:00 21:09 23:00 Temp 98.2 98.7 98.2 98.7 Pulse 62 76 61 Resp 20 20 B/P (MAP) 98/62 (74) 93/55 114/71 (85) Pulse Ox 96 95 O2 Delivery Nasal Cannula Room Air O2 Flow Rate 2.0 2.0 03/06/19 03/06/19 03/06/19 03/06/19 00:01 03:00 04:11 07:53 Temp 97.9 97.9 Pulse 72 Resp 18 B/P (MAP) 104/61 (75) Pulse Ox 94 95 O2 Delivery Room Air O2 Flow Rate 2.0 2.0 Intake and Output 03/05/19 03/05/19 03/06/19 15:00 23:00 07:00 Intake Total 50 ml Balance 50 ml LESLY CASTANEDA MD Mar 06, 2019 08:20
[2019-03-06] MEDS: FUROSEMIDE 40 MG/4 ML VIAL. IVP SCH (09:43)
[2019-03-06] MEDS: CETIRIZINE HCL 10 MG TABLET. PO SCH (09:44)
[2019-03-06] MEDS: APIXABAN 5 MG TABLET. PO SCH (09:44)
[2019-03-06] MEDS: DOXYCYCLINE HYCLATE 100 MG TABLET PO SCH (09:44)
[2019-03-06] MEDS: LACTOBACILLUS RHAMNOSUS GG 1 CAPSULE. PO SCH (09:44)
[2019-03-06] MEDS: METOPROLOL SUCC 24HR ER 100 MG TAB.ER.24H. PO SCH (09:45)
[2019-03-06] MEDS: SACUBITRIL/VALSARTAN 49/51MG TABLET. PO SCH (09:46)
[2019-03-06 09:55] LABS: CALCIUM 8.8 mg/dL (8.5-10.1); CREATININE 1.1 mg/dL (0.7-1.3); GFR 64.2; POTASSIUM 3.4 mmol/L (3.5-5.1)
--- NOTE | 2019-03-06 10:13 | PDOC ---
PULMONARY PROGRESS NOTES Subjective PT FELLS BETTER LESS SOA Vitals Vital Signs Date Time Temp Pulse Resp B/P (MAP) Pulse Ox O2 Delivery O2 Flow Rate FiO2 03/06/19 09:46 73 119/64 03/06/19 08:00 97.4 18 96 Room Air 97.4 03/06/19 04:11 2.0 ROS: No Nausea, No Chest Pain, No Abdominal Pain, No Increase Cough General: Alert, No acute distress Lungs: Crackles Cardiovascular: S1, S2 Abdomen: Soft Neuro Exam: Alert Extremities: No Edema Skin: Warm Labs Laboratory Tests Test 03/04/19 12:06 03/04/19 15:10 03/04/19 16:00 03/04/19 21:43 Glucose (Fingerstick) 186 mg/dL (70-99) 156 mg/dL (70-99) 137 mg/dL (70-99) Erythrocyte Sedimentation Rate 0 (0-15) Test 03/05/19 07:20 03/05/19 08:05 03/05/19 11:36 03/05/19 16:42 Sodium Level 144 mmol/L (136-145) Potassium Level 3.6 mmol/L (3.5-5.1) Chloride Level 107 mmol/L (98-107) Carbon Dioxide Level 27 mmol/L (21-32) Anion Gap 10 (6-14) Blood Urea Nitrogen 17 mg/dL (8-26) Creatinine 1.0 mg/dL (0.7-1.3) Estimated GFR (Cockcroft-Gault) 71.7 Glucose Level 118 mg/dL (70-99) Calcium Level 8.5 mg/dL (8.5-10.1) Magnesium Level 1.9 mg/dL (1.8-2.4) Glucose (Fingerstick) 130 mg/dL (70-99) 187 mg/dL (70-99) 97 mg/dL (70-99) Test 03/05/19 20:48 03/06/19 07:20 03/06/19 09:05 Glucose (Fingerstick) 159 mg/dL (70-99) 103 mg/dL (70-99) Sodium Level 143 mmol/L (136-145) Potassium Level 3.4 mmol/L (3.5-5.1) Chloride Level 105 mmol/L (98-107) Carbon Dioxide Level 26 mmol/L (21-32) Anion Gap 12 (6-14) Blood Urea Nitrogen 22 mg/dL (8-26) Creatinine 1.1 mg/dL (0.7-1.3) Estimated GFR (Cockcroft-Gault) 64.2 Glucose Level 145 mg/dL (70-99) Calcium Level 8.8 mg/dL (8.5-10.1) Magnesium Level 2.0 mg/dL (1.8-2.4) Laboratory Tests Test 03/05/19 11:36 03/05/19 16:42 03/05/19 20:48 03/06/19 07:20 Glucose (Fingerstick) 187 mg/dL (70-99) 97 mg/dL (70-99) 159 mg/dL (70-99) 103 mg/dL (70-99) Test 03/06/19 09:05 Sodium Level 143 mmol/L (136-145) Potassium Level 3.4 mmol/L (3.5-5.1) Chloride Level 105 mmol/L (98-107) Carbon Dioxide Level 26 mmol/L (21-32) Anion Gap 12 (6-14) Blood Urea Nitrogen 22 mg/dL (8-26) Creatinine 1.1 mg/dL (0.7-1.3) Estimated GFR (Cockcroft-Gault) 64.2 Glucose Level 145 mg/dL (70-99) Calcium Level 8.8 mg/dL (8.5-10.1) Magnesium Level 2.0 mg/dL (1.8-2.4) Medications Active Scripts Medications Dose Route/Sig Max Daily Dose Days Date Category Doxycycline Hyclate 100 Mg Tablet 100 Mg PO BID 7 09/06/18 Rx Loratadine 10 Mg Tablet 1 Tab PO DAILY 09/04/18 Reported Entresto 49 mg-51 mg Tablet (Sacubitril/Valsartan) 1 Each Tablet 1 Each PO BID 09/04/18 Reported Amiodarone Hcl 200 Mg Tablet 200 Mg PO DAILY 30 06/07/18 Rx Levothyroxine Sodium 25 Mcg Tablet 1 Tab PO DAILY 06/06/18 Reported Furosemide 40 Mg Tablet 1 Tab PO BID 06/06/18 Reported Metoprolol Succinate ( Xl ) (Metoprolol Succinate) 100 Mg Tab.er.24h 100 Mg PO DAILY 30 1/11/19 Rx Eliquis (Apixaban) 5 Mg Tablet 5 Mg PO BID 30 05/16/18 Rx Atorvastatin Calcium 10 Mg Tablet 10 Mg PO HS 01/15/18 Reported Impression . IMPRESSION: 1. Acute hypoxemic respiratory failure. 2. Dpeqk-jh-nihopsv systolic heart failure. 3. Abnormal chest x-ray revealing bilateral pulmonary infiltrates. 4. Previously abnormal CT chest dated 09/04/2018 revealing evidence of ground glass opacities. 5. Ischemic cardiomyopathy. 6. Chronic atrial fibrillation. 7. Other comorbidities including hyperlipidemia, osteoarthritis. IMPRESSION: Chronic bilateral groundglass lung infiltrates and nodular lung infiltrates. There has been an increase in groundglass lung infiltrates within the left upper lobe and an increase in nodular lung infiltrates within both lower lobes. This has occurred in association with a mild increase in chronic bilateral pleural effusions. Findings could reflect pulmonary edema and CHF or could also be seen with distal airway infectious or inflammatory disease. Plan . HRCT REVIEWED SLIGHTLY WORSE WILL D/W CARD ON POSSIBILTY OF DC AMIODARONE 1. Recommend to continue p.r.n. BiPAP. 2. Diurese. 3. Treat acute bronchitis. 4. ct report noted DASH GARRETT MD Mar 06, 2019 10:13
[2019-03-06] MEDS ORDERED: POTASSIUM CHLORIDE 20 MEQ TABLET.ER. PO ONE (10:30)
--- NOTE | 2019-03-06 10:33 | PDOC3 ---
Discharge Summary Visit Information Date of Admission: Mar 04, 2019 Date of Discharge: Mar 06, 2019 Admitting Diagnosis: Acute hypoxic respiratory failure Final Diagnosis Problems Medical Problems: (1) Acute CHF Status: Acute (2) Acute on chronic systolic CHF (congestive heart failure) Status: Acute (3) Afib Status: Acute (4) Atrial fibrillation Status: Chronic (5) DM2 (diabetes mellitus, type 2) Status: Chronic (6) HLD (hyperlipidemia) Status: Chronic (7) HTN (hypertension) Status: Chronic (8) NICM (nonischemic cardiomyopathy) Status: Chronic (9) Non-ischemic cardiomyopathy Status: Chronic (10) Shortness of breath Status: Acute (11) SIRS (systemic inflammatory response syndrome) Status: Acute Brief Hospital Course Allergies Allergies Coded Allergies Type Severity Reaction Last Updated Verified No Known Drug Allergies 01/23/18 No Vital Signs Vital Signs Date Time Temp Pulse Resp B/P (MAP) Pulse Ox O2 Delivery O2 Flow Rate FiO2 03/06/19 09:46 73 119/64 03/06/19 08:00 97.4 18 96 Room Air 97.4 03/06/19 08:00 2.0 Lab Results Laboratory Tests Test 03/04/19 12:06 03/04/19 15:10 03/04/19 16:00 03/04/19 21:43 Glucose (Fingerstick) 186 mg/dL (70-99) 156 mg/dL (70-99) 137 mg/dL (70-99) Erythrocyte Sedimentation Rate 0 (0-15) Test 03/05/19 07:20 03/05/19 08:05 03/05/19 11:36 03/05/19 16:42 Sodium Level 144 mmol/L (136-145) Potassium Level 3.6 mmol/L (3.5-5.1) Chloride Level 107 mmol/L (98-107) Carbon Dioxide Level 27 mmol/L (21-32) Anion Gap 10 (6-14) Blood Urea Nitrogen 17 mg/dL (8-26) Creatinine 1.0 mg/dL (0.7-1.3) Estimated GFR (Cockcroft-Gault) 71.7 Glucose Level 118 mg/dL (70-99) Calcium Level 8.5 mg/dL (8.5-10.1) Magnesium Level 1.9 mg/dL (1.8-2.4) Glucose (Fingerstick) 130 mg/dL (70-99) 187 mg/dL (70-99) 97 mg/dL (70-99) Test 03/05/19 20:48 03/06/19 07:20 03/06/19 09:05 Glucose (Fingerstick) 159 mg/dL (70-99) 103 mg/dL (70-99) Sodium Level 143 mmol/L (136-145) Potassium Level 3.4 mmol/L (3.5-5.1) Chloride Level 105 mmol/L (98-107) Carbon Dioxide Level 26 mmol/L (21-32) Anion Gap 12 (6-14) Blood Urea Nitrogen 22 mg/dL (8-26) Creatinine 1.1 mg/dL (0.7-1.3) Estimated GFR (Cockcroft-Gault) 64.2 Glucose Level 145 mg/dL (70-99) Calcium Level 8.8 mg/dL (8.5-10.1) Magnesium Level 2.0 mg/dL (1.8-2.4) Laboratory Tests Test 03/05/19 11:36 03/05/19 16:42 03/05/19 20:48 03/06/19 07:20 Glucose (Fingerstick) 187 mg/dL (70-99) 97 mg/dL (70-99) 159 mg/dL (70-99) 103 mg/dL (70-99) Test 03/06/19 09:05 Sodium Level 143 mmol/L (136-145) Potassium Level 3.4 mmol/L (3.5-5.1) Chloride Level 105 mmol/L (98-107) Carbon Dioxide Level 26 mmol/L (21-32) Anion Gap 12 (6-14) Blood Urea Nitrogen 22 mg/dL (8-26) Creatinine 1.1 mg/dL (0.7-1.3) Estimated GFR (Cockcroft-Gault) 64.2 Glucose Level 145 mg/dL (70-99) Calcium Level 8.8 mg/dL (8.5-10.1) Magnesium Level 2.0 mg/dL (1.8-2.4) Brief Hospital Course Mr Mistry is an 83 year old male w/ PMHx CAD, CHF, S/p PPM, Hypertension who came to ED c/o shortness of breath. Family states that the patient had a cough for the last 1 week but got worse last night. Family states that patient was gasping for air tonight and so they brought him to the ED. Patient denies chest pain. Family states that patient took his medications today. 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 He was hypoxic into the low 80s, placed on 5L NCO2 but continued to have respiratory distress and was then noted with HR was 114, RR 33. CXR reveals pulmonary edema vs multifocal infectious process. He was given 40mg IV lasix and placed on BIPAP for his respiratory distress and admitted to ICU. Pt denies cough, fever, chills, nausea, vomiting, diarrhea, chest pain, dysuria. No recent sick contacts. Feels improved after BIPAP for a few hours. EKG showed wide complex SVT, left axis deviation, aberrant AV harika conduction BNP notably 7337, lactate 2.8, ABG 7.41/35/82 after BIPAP. Seen by pulmonology for concern for amio toxicity, cardiology for mild CHF exacerbation. CT chest shows - Chronic bilateral groundglass lung infiltrates and nodular lung infiltrates. There has been an increase in groundglass lung infiltrates within the left upper lobe and an increase in nodular lung infiltrates within both low er lobes. This has occurred in association with a mild increase in chronic bilateral pleural effusions. Findings could reflect pulmonary edema and CHF or could also be seen with distal airway infectious or inflammatory disease. Definite concern for amio toxicity He is eating a bit of breakfast. Off O2 currently. Denies CP or abdominal pain. plan for d/c home off amio. A/P: Shortness of breath - with Acute hypoxia - weaned O2 as tolerated. This looks to be a mixed picture of pulmonary toxicity, definitely an element of CHF exacerbation as well. Stop amio on d/c Acute on chronic systolic CHF - possibly 2/2 underlying AFIB vs infectious etiology. Consulted cardiology. Cont toprol xl, entresto, statin AFIB - Paroxysmal by hx with chronic LBBB. Rate now controlled on toprol XL, stopped diltiazem a few visits ago SIRS - unclear if there is infection, though empirically treating for pneumonia. Check procalcitonin NICM - ischemic w/u negative january 2018 on cath. EF currently at 10-15% s/p BiV AICD placement June 2018 HTN - controlled well HLD - needs statin for his CHF Hx of cranial bleed with craniotomy 7 yrs ago - was traumatic, should continue on eliquis, has no falls recently DM2 - A1c 7 in September 2018. basal bolus plus insulin while in house. With his age metformin is contraindicated to initiate. Greater than 30 minutes spent on d/c Discharge Information Condition at Discharge: Improved Follow Up: Weeks (1) Disposition/Orders: D/C to Home Scheduled Apixaban (Eliquis) 5 Mg Tablet, 5 MG PO BID for a fib for 30 Days, #60 Prescribed by: HO TREJO MD on 05/16/18 1410 Last Action: Continued on 03/04/19 104 by LESLY CASTANEDA MD Atorvastatin Calcium (Atorvastatin Calcium) 10 Mg Tablet, 10 MG PO HS for FOR CHOLESTEROL, #30 Ref 0 (Reported) Entered as Reported by: ELIZA UMAÑA on 01/15/18 0853 Last Action: Continued on 03/04/19 104 by LESLY CASTANEDA MD Furosemide (Furosemide) 40 Mg Tablet, 1 TAB PO BID for fluid retention, #30 Ref 5 (Reported) Entered as Reported by: FLOR HARLEY on 06/06/18 1121 Last Action: Reviewed on 03/04/19 0540 by THANG DEVINE RN Levothyroxine Sodium (Levothyroxine Sodium) 25 Mcg Tablet, 1 TAB PO DAILY, #30 Ref 5 (Reported) Entered as Reported by: Belle Nunez on 06/06/18 2345 Last Action: Continued on 03/04/191045 by LESLY CASTANEDA MD Loratadine (Loratadine) 10 Mg Tablet, 1 TAB PO DAILY for allergies, #30 Ref 5 (Reported) Entered as Reported by: RIVKA WALLACE on 09/04/18 0622 Last Action: Converted on 03/04/19 104 by LESLY CASTANEDA MD Metoprolol Succinate (Metoprolol Succinate ( Xl )) 100 Mg Tab.er.24h, 100 MG PO DAILY for chf for 30 Days, #30 Prescribed by: HO TREJO MD on 05/16/18 1606 Last Action: Continued on 03/04/19 104 by LESLY CASTANEDA MD Sacubitril/Valsartan (Entresto 49 mg-51 mg Tablet) 1 Each Tablet, 1 EACH PO BID for unknown, (Reported) Entered as Reported by: RIVKA WALLACE on 09/04/18 0622 Last Action: Continued on 03/04/19 1046 by LESLY CASTANEDA MD Discontinued Medications Amiodarone Hcl (Amiodarone Hcl) 200 Mg Tablet, 200 MG PO DAILY for atrial fib for 30 Days, #30 Ref 3 Prescribed by: FARIDA THOMPSON on 06/07/18 1226 Last Action: Continued on 03/04/19 1048 by LESLY CASTANEDA MD Doxycycline Hyclate (Doxycycline Hyclate) 100 Mg Tablet, 100 MG PO BID for pneumonia for 7 Days, #14 Prescribed by: LESLY CASTANEDA MD on 09/06/18 1316 Last Action: Continued on 03/04/19 1046 by MD TONYA OLIVEIRA CHRISTOPHER S MD Mar 06, 2019 10:33
[2019-03-06 11:30] VITALS: BP 118/69
[2019-03-06] MEDS ORDERED: PRED20TA PO (12:59)
--- NOTE | 2019-03-06 14:47 | PDOC ---
LEW MORRIS [employer]RA[employer]ER 03/06/19 1447: CARDIO Progress Notes Date and Time Date of Service 03/06/2019 Time of Evaluation 1430 Subjective Subjective: No Chest Pain, No shortness of breath, No Palpitations Vitals Vitals Vital Signs Date Time Temp Pulse Resp B/P (MAP) Pulse Ox O2 Delivery O2 Flow Rate FiO2 03/06/19 12:00 2.0 03/06/19 11:30 97.5 73 18 118/69 (85) 96 Room Air 97.5 Weight Weight [ ] Input and Output Intake and Output Intake and Output 03/06/19 07:00 Intake Total 50 ml Balance 50 ml Intake Oral 50 ml # Voids 1 Laboratory Labs Laboratory Tests Test 03/05/19 16:42 03/05/19 20:48 03/06/19 07:20 03/06/19 09:05 Glucose (Fingerstick) 97 mg/dL (70-99) 159 mg/dL (70-99) 103 mg/dL (70-99) Sodium Level 143 mmol/L (136-145) Potassium Level 3.4 mmol/L (3.5-5.1) Chloride Level 105 mmol/L (98-107) Carbon Dioxide Level 26 mmol/L (21-32) Anion Gap 12 (6-14) Blood Urea Nitrogen 22 mg/dL (8-26) Creatinine 1.1 mg/dL (0.7-1.3) Estimated GFR (Cockcroft-Gault) 64.2 Glucose Level 145 mg/dL (70-99) Calcium Level 8.8 mg/dL (8.5-10.1) Magnesium Level 2.0 mg/dL (1.8-2.4) Test 03/06/19 11:51 Glucose (Fingerstick) 108 mg/dL (70-99) Microbiology Micro Microbiology 03/04/19 Blood Culture - Preliminary, Resulted NO GROWTH AFTER 2 DAYS Physical Exam HEENT: Neck Supple W Full Motion Chest: Symmetric LUNGS: Other (diffuse crackles) Heart: S1S2, RRR (off monitor) Abdomen: Soft N/T Extremities: No Calf Tenderness Neurology: alert, oriented, follow commands Assessment Assessment 1. Dyspnea: differentials are pneumonia, pneumonitis possible amio related 2. Acute on chronic systolic CHF: compensated 3. PAFIB: currently V paced. on eliquis 4. HTN: Controlled 5. HLP 6. 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 Recent device interrogation showed normal function, AFIB burden 0 and impedances is trending towards fluid overload. Adequate battery life and 100% BiV pacing. No episodes of VT/VF recorded. 7. Hypothyroidism 8. DM2 9. NICM: EF at 20% on entresto. Recommendations 1. Continue current CHF regimen. Lasix therapy 2. Will stop amiodarone. Follow up in office and will note afib burden. Could consider future tikosyn 3. Supportive care. FARIDA THOMPSON MD 03/06/19 2217: CARDIO Progress Notes Assessment Assessment Patient seen and examined. Agree with SOLE LEVELER's assessment and plan. Agree with stopping amiodarone Ac on chr systolic HF compensated Plan for outpatient event monitor to assess AF burden LEW MORRIS APRN Mar 06, 2019 14:47 FARIDA THOMPSON MD Mar 06, 2019 22:17
--- NOTE | 2019-03-06 16:16 | NUR ---
Discharge Note: [facility] Discharge instructions and discharge home medications reviewed with Patient and a copy given. All questions have been answered and understanding verbalized. Son at bedside and verbalized understanding.
== END 2019-03-06 16:06 | disposition home or self-care (01) | DRG 871 ==
LOC: ER 02:40 → 1 WEST ICU 04:00 → 2 SOUTH 03-05 07:49
PROVIDERS: ADMIT Internal Medicine; ATTEND Internal Medicine
PROC: 5A09357 Assistance with Respiratory Ventilation, Less than 24 Consecutive Hours, Continuous Positive Airway Pressure (ICD-10-PCS; principal; 2019-03-04)
DX: A41.9 Sepsis, unspecified organism (principal); J18.9 Pneumonia, unspecified organism; J96.01 Acute respiratory failure with hypoxia; I50.23 Acute on chronic systolic (congestive) heart failure; I47.1 Supraventricular tachycardia; I42.8 Other cardiomyopathies; I11.0 Hypertensive heart disease with heart failure; E11.9 Type 2 diabetes mellitus without complications; I44.7 Left bundle-branch block, unspecified; I48.0 Paroxysmal atrial fibrillation; M81.0 Age-related osteoporosis without current pathological fracture; E78.5 Hyperlipidemia, unspecified; J20.9 Acute bronchitis, unspecified; I25.5 Ischemic cardiomyopathy; E03.9 Hypothyroidism, unspecified; I25.10 Atherosclerotic heart disease of native coronary artery without angina pectoris; M19.90 Unspecified osteoarthritis, unspecified site; Z95.0 Presence of cardiac pacemaker; Z79.899 Other long term (current) drug therapy; Z79.01 Long term (current) use of anticoagulants
CPT/HCPCS: 36415; 36600; 71045; 71250; 80048; 80053; 82805; 82962; 83605; 83735; 83880; 84145; 84484; 85025; 85651; 86140; 87040; 93005; 94640; 94660; 94760; 96365; 96375; J0456; J0696; J1815; J1940; J7620; 99285-25; G0378

== ENCOUNTER 2020-04-23 00:03 | Inpatient (IN) | payer OTHER, MEDICAID ==
[~2020-04-23] VITALS: Ht 170.2 cm; Wt 80.3 kg
[~2020-04-23 00:03] MED LIST changes: -AMIO200T4 PO; +AMIO200T6 PO; -DIGO125T PO; +DIGO125T3 PO; +PRED20TA PO
--- NOTE | 2020-04-23 00:22 | PHYS DOC ---
Past Medical History Past Medical History: CAD, CHF, Heart Disease, Hypertension Past Surgical History: Pacemaker Additional Past Surgical Histo: "head" , PACEMAKER Smoking Status: Never Smoker Alcohol Use: None Drug Use: None General Adult EDM: Chief Complaint: SHORTNESS OF BREATH HPI: HPI: 84-year-old male past medical history significant for CHF w/AICD, atrial fibrillation on Eliquis, CAD, hypertension, hyperlipidemia, and hypothyroidism, presents to the ED with complaints of worsening shortness of breath and difficulties breathing. Tested positive for Covid within the past 2 weeks. Review of Systems: Review of Systems: Constitutional: Denies fever or chills. [] Eyes: Denies change in visual acuity. [] HENT: Denies nasal congestion or sore throat. [] Respiratory: Denies hemoptysis or syncope Cardiovascular: Denies chest pain or edema. [] GI: Denies abdominal pain, nausea, vomiting, bloody stools or diarrhea. [] : Denies dysuria Musculoskeletal: Denies back pain or joint pain. [] Integument: Denies rash. [] Neurologic: Denies headache, focal weakness or sensory changes. [] Endocrine: Denies polyuria or polydipsia. [] Lymphatic: Denies swollen glands. [] Psychiatric: Denies depression or anxiety. [] Heart Score: Risk Factors: Risk Factors: DM, Current or recent (<one month) smoker, HTN, HLP, family history of CAD, obesity. Risk Scores: Score 0 - 3: 2.5% MACE over next 6 weeks - Discharge Home Score 4 - 6: 20.3% MACE over next 6 weeks - Admit for Clinical Observation Score 7 - 10: 72.7% MACE over next 6 weeks - Early Invasive Strategies Current Medications: Current Medications Medications (Trade) Dose Ordered Sig/Arthur Start Time Stop Time Status Last Admin Dose Admin Sodium Chloride 1,000 ml @ 1,000 mls/hr Q1H 04/23/20 00:30 04/23/20 01:29 Allergies: Allergies: Allergies Coded Allergies Type Severity Reaction Last Updated Verified No Known Drug Allergies 01/23/18 No Physical Exam: PE: Constitutional: Well developed, well nourished, no acute distress, non-toxic appearance. HENT: Normocephalic, atraumatic, Eyes: EOMI, conjunctiva normal, no discharge. Neck: Normal range of motion, supple, Cardiovascular: S1/2 present, regular rhythm Lungs & Thorax: Speaking in 1-2 word sentences, bilateral equal chest rise, tachypneic on arrival, 82% RA, sternal/subcostal retractions, no wheezing, diffuse rales Abdomen: soft, no tenderness, Skin: Warm, dry, no erythema, no rash. [] Back: No tenderness, no CVA tenderness. [] Extremities: No tenderness, no cyanosis, no edema Neurologic: Alert and oriented X 3, normal motor function, normal sensory function, no focal deficits noted. [] Psychologic: Affect normal, judgement normal, mood normal. [] EKG: EK bpm, left axis deviation, QRS 158, QTC 513, ventricular paced rhythm, lbbb, no elevations or ST depressions Radiology/Procedures: Radiology/Procedures: []IMAGING REPORT Signed PATIENT: ELOY PHELPS ACCOUNT: [id number] : 1935 LOCATION: ER AGE: 84 SEX: M EXAM STATUS: PRE ER ORD. PHYSICIAN: SONG URIAS DO REASON: soa PROCEDURE: PORTABLE CHEST 1V INDICATION: Reason: soa / Spl. Instructions: / History: COMPARISON: February 2019 FINDINGS: Single view of chest obtained. Enlarged cardiomediastinal silhouette with AICD. Multifocal interstitial and groundglass opacities bilaterally. IMPRESSION: * Interstitial and groundglass opacities are seen bilaterally. A portion of this appears chronic in nature but superimposed edema or bilateral infiltrate may be present as well given that this does appear increased from remote prior. * Enlarged cardiac silhouette. Electronically signed by: Modesto Levy MD (04/23/2020 12:53 AM) DESKTOP- [id number] DICTATED and SIGNED BY: MODESTO LEVY MD DATE: 04/23/20 [id number] Course & Med Decision Making: Course & Med Decision Making Pertinent Labs and Imaging studies reviewed. (See chart for details) Concern for tachypnea and hypoxic respiratory failure requiring BiPAP on arrival. Will cover for community-acquired pneumonia in the setting of Covid. Will admit for further medical management. Patient stable at time of admission and agrees with this plan. Dragon Disclaimer: Dragon Disclaimer: This electronic medical record was generated, in whole or in part, using a voice recognition dictation system. Departure Departure Impression: Primary Impression: Acute respiratory failure with hypoxia Additional Impression: COVID-19 Disposition: 09 ADMITTED INPT THIS HOSP Admitting Physician: SUAD (Dr. Diaz) Condition: STABLE Referrals: NARESH HE MD (PCP) [facility] DO Apr 23, 2020 00:22
[2020-04-23] MEDS ORDERED: IV NORMAL SALINE 1000ML BAG 1,000 ML IV SCH (00:30)
[2020-04-23 00:45] LABS: BASO # 0.1 x10^3/uL (0.0-0.2); BASO % 1 % (0-3); EOS # 0.3 x10^3/uL (0.0-0.7); EOS % 3 % (0-3); HEMOGLOBIN 15.9 g/dL (13.0-17.5); LYMPH # 2.8 x10^3/uL (1.0-4.8); LYMPH % 30 % (24-48); MEAN CORPUSCULAR HEMOGLOBIN 28 pg (25-35); MEAN CORPUSCULAR HGB CONC 34 g/dL (31-37); MEAN CORPUSCULAR VOLUME 82 fL (79-100); MONO # 0.6 x10^3/uL (0.0-1.1); MONO % 6 % (0-9); NEUT # 5.7 x10^3/uL (1.8-7.7); NEUT % 60 % (31-73); PLATELET COUNT 194 x10^3/uL (140-400); RED BLOOD COUNT 5.71 x10^6/uL (4.30-5.70); RED CELL DISTRIBUTION WIDTH 15.3 % (11.5-14.5); WHITE BLOOD COUNT 9.4 x10^3/uL (4.0-11.0)
[2020-04-23 00:55] LABS: CALCIUM 9.1 mg/dL (8.5-10.1); CREATININE 0.7 mg/dL (0.7-1.3); POTASSIUM 4.5 mmol/L (3.5-5.1); PROTHROMBIN TIME PATIENT 18.1 SEC (11.7-14.0)
--- NOTE | 2020-04-23 00:55 | RAD ---
INDICATION: Reason: soa / Spl. Instructions: / History: COMPARISON: February 2019 FINDINGS: Single view of chest obtained. Enlarged cardiomediastinal silhouette with AICD. Multifocal interstitial and groundglass opacities bi laterally. IMPRESSION: * Interstitial and groundglass opacities are seen bilaterally. A portion of this appears chronic in nature but superimposed edema or bilateral infiltrate may be present as well given that this does radha ear increased from remote prior. * Enlarged cardiac silhouette. Electronically signed by: Tashi Doty MD (04/23/2020 12:53 AM) [id number]
[2020-04-23 01:00] LABS: ALBUMIN 3.8 g/dL (3.4-5.0); DIRECT BILIRUBIN 0.1 mg/dL (0.0-0.2); TOTAL BILIRUBIN 0.7 mg/dL (0.2-1.0); TOTAL PROTEIN 7.4 g/dL (6.4-8.2)
[2020-04-23] MEDS ORDERED: cefTRIAXone IV Push 1 GM VIAL. IVP ONE (01:00)
[2020-04-23] MEDS ORDERED: AZITHRMYCN 500MG IVPB FOR OMNI 250 ML IV ONE (01:00)
[2020-04-23 01:18] LABS: INFLUENZA A PATIENT NEGATIVE (NEGATIVE); INFLUENZA B PATIENT NEGATIVE (NEGATIVE)
[2020-04-23 02:14] LABS: BASE EXCESS ABG -3 mmol/L (-3-3); HCO3 ABG 21 mmol/L (21-28); PCO2 ABG 31 mmHg (35-46); PO2 ABG 288 mmHg (65-108); SAT O2 ABG 99 % (92-99)
[2020-04-23 02:30] LABS: FIO2 ABG 70
[2020-04-23 05:25] VITALS: BP 133/72
[2020-04-23] MEDS ORDERED: ALEN70TA60 PO (06:29)
[2020-04-23] MEDS ORDERED: LEVO125T5 PO (06:29)
[2020-04-23] MEDS ORDERED: ERGO500027 PO (06:33)
[2020-04-23 07:00] VITALS: BP 115/61
[2020-04-23] MEDS: SACUBITRIL/VALSARTAN 49/51MG TABLET. PO SCH ×2 (08:18→21:30)
[2020-04-23] MEDS: APIXABAN 5 MG TABLET. PO SCH ×2 (08:18→21:30)
[2020-04-23] MEDS: LEVOTHYROXINE 125 MCG TABLET PO SCH (08:19)
[2020-04-23] MEDS: METOPROLOL SUCC 24HR ER 100 MG TAB.ER.24H. PO SCH (08:19)
[2020-04-23] MEDS: FUROSEMIDE 40 MG TABLET. PO SCH ×2 (08:19→14:11)
[2020-04-23] MEDS ORDERED: NON FORMULARY ITEM (Alendronate Sodium 1 TAB) PO SCH (09:00)
[2020-04-23] MEDS ORDERED: guaiFENesin/CODEINE 100mg/10mg 5 ML LIQUID PO PRN (10:15)
--- NOTE | 2020-04-23 10:38 | HP ---
ADMIT DATE: 04/23/2020 CHIEF COMPLAINT: Shortness of breath. HISTORY OF PRESENT ILLNESS: The patient is a pleasant 84-year-old male who presents with shortness of breath that has been occurring for several weeks. In fact, he tested positive for COVID-19 two weeks ago. While in the ER, he was noted to be in respiratory failure. I have discussed the case with the ER physician. We are going to admit the patient and consult Infectious Disease. PAST MEDICAL HISTORY: CHF, CAD, hypertension, pacemaker, recent COVID-19 infection. ALLERGIES: None. FAMILY HISTORY: Diabetes. SOCIAL HISTORY: He does not drink, smoke or take drugs. MEDICATIONS: Reviewed, please refer to the MRAD. REVIEW OF SYSTEMS: GENERAL: No history of weight change, weakness or fevers. SKIN: No bruising, hair changes or rashes. EYES: No blurred, double or loss of vision. NOSE AND THROAT: No history of nosebleeds, hoarseness or sore throat. HEART: No history of palpitations, chest pain or shortness of breath on exertion. LUNGS: He complains of shortness of breath. GASTROINTESTINAL: Denies changes in appetite, nausea, vomiting, diarrhea or constipation. GENITOURINARY: No history of frequency, urgency, hesitancy or nocturia. NEUROLOGIC: Denies history of numbness, tingling, tremor or weakness. PSYCHIATRIC: No history of panic, anxiety or depression. ENDOCRINE: No history of heat or cold intolerance, polyuria or polydipsia. EXTREMITIES: Denies muscle weakness, joint pain, pain on walking or stiffness. PHYSICAL EXAMINATION: VITALS: Within normal limits and are stable. GENERAL: No apparent distress. Alert and oriented. HEENT: Normal cephalic atraumatic, external auditory canals are patent. EYES: Extraocular muscles are intact, pupils are equally round and reactive to light and accommodation. MUSCULOSKELETAL: Well developed, well nourished, good range of motion. ENDOCRINE: No thyromegaly was palpated. LYMPHATICS: No cervical chain or axillary nodes were noted. HEMATOPOIETIC: No bruising. NECK: Supple, no JVD, no thyromegaly was noted. LUNGS: He has bibasilar crackles. HEART: He has a paced rhythm with a distant S1, S2. ABDOMEN: Soft, nontender. Positive bowel sounds no organomegaly, normal bowel sounds. EXTREMITIES: Without any cyanosis, clubbing, or edema. Pedal pulses intact, Homans sign is negative. NEUROLOGIC: Normal speech, normal tone. A and O x 3, moves all extremities, no obvious focal deficits. PSYCHIATRIC: Normal affect, normal mood. Stable. SKIN: No ulcerations or rashes, good skin turgor, no jaundice. VASCULAR: Good capillary refill, neurovascular bundle appears to be intact. LABORATORY DATA: White count is 9. Electrolytes are normal. Chest x-ray shows ground glass opacities. ASSESSMENT AND PLAN: COVID-19 respiratory failure. The patient has been admitted. We are starting the COVID-19 protocol including IV Rocephin, doxycycline, and vitamins with minerals, oxygen, codeine cough syrup, aspirin. Consult Infectious Disease. Home meds. DVT prophylaxis. Full code. KEISHA ALTMAN DO DR: NIKKO/betty JOB#: [id number] / [id number]
[2020-04-23 11:00] VITALS: BP 104/59
[2020-04-23] MEDS: ASPIRIN CHEWABLE 81 MG TABLET. PO SCH (12:07)
[2020-04-23] MEDS: DOXYCYCLINE HYCLATE 100 MG TABLET PO SCH ×2 (12:07→21:30)
[2020-04-23] MEDS: MULTIVITAMIN with MINERAL TABLET. PO SCH (12:07)
[2020-04-23] MEDS: methylPREDNISolone SOD SUCC PF 40 MG/ML VIAL. IV SCH ×2 (12:08→21:29)
--- NOTE | 2020-04-23 13:10 | EKG ---
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
[2020-04-23 15:00] VITALS: BP 103/59
--- NOTE | 2020-04-23 18:00 | NUR ---
Pt HR anywhere from 80-130 and irregular. Pt is asymptomatic. BP 112/61. Dr. Tierney notified and orders received for Metoprolol 5mg IVP x1 and to consult Cardiology to see patient in the morning. Will continue to monitor.
[2020-04-23] MEDS ORDERED: METOPROLOL TARTRATE 5 MG/5 ML VIAL. IVP ONE (18:45)
[2020-04-23 19:50] VITALS: BP 112/60
[2020-04-23] MEDS: ATORVASTATIN CALCIUM 10 MG TABLET. PO SCH (21:29)
[2020-04-23] MEDS: cefTRIAXone IV Push 1 GM VIAL. IVP SCH (21:30)
[2020-04-23 23:22] VITALS: BP 118/66
[2020-04-24 03:34] VITALS: BP 101/53
[2020-04-24] MEDS: LEVOTHYROXINE 125 MCG TABLET PO SCH ×2 (06:35→09:04)
[2020-04-24 07:00] VITALS: BP 127/69
[2020-04-24 08:07] LABS: BASO % 0 % (0-3); EOS % 0 % (0-3); HEMATOCRIT 44.9 % (39.0-53.0); LYMPH # 1.3 x10^3/uL (1.0-4.8); LYMPH % 9 % (24-48); MEAN CORPUSCULAR HEMOGLOBIN 28 pg (25-35); MEAN CORPUSCULAR HGB CONC 34 g/dL (31-37); MEAN CORPUSCULAR VOLUME 82 fL (79-100); MONO # 0.4 x10^3/uL (0.0-1.1); MONO % 3 % (0-9); NEUT # 11.6 x10^3/uL (1.8-7.7); NEUT % 87 % (31-73); PLATELET COUNT 174 x10^3/uL (140-400); RED BLOOD COUNT 5.47 x10^6/uL (4.30-5.70); RED CELL DISTRIBUTION WIDTH 15.1 % (11.5-14.5); WHITE BLOOD COUNT 13.3 x10^3/uL (4.0-11.0)
[2020-04-24 08:34] LABS: CALCIUM 8.9 mg/dL (8.5-10.1); CREATININE 0.8 mg/dL (0.7-1.3); GFR 92.5; POTASSIUM 3.7 mmol/L (3.5-5.1)
[2020-04-24] MEDS: SACUBITRIL/VALSARTAN 49/51MG TABLET. PO SCH ×2 (09:03→21:04)
[2020-04-24] MEDS: MULTIVITAMIN with MINERAL TABLET. PO SCH (09:03)
[2020-04-24] MEDS: FUROSEMIDE 40 MG TABLET. PO SCH ×2 (09:04→14:08)
[2020-04-24] MEDS: ASPIRIN CHEWABLE 81 MG TABLET. PO SCH (09:04)
[2020-04-24] MEDS: APIXABAN 5 MG TABLET. PO SCH ×2 (09:04→21:04)
[2020-04-24] MEDS: METOPROLOL SUCC 24HR ER 100 MG TAB.ER.24H. PO SCH (09:04)
[2020-04-24] MEDS: DOXYCYCLINE HYCLATE 100 MG TABLET PO SCH ×2 (09:04→21:04)
[2020-04-24] MEDS: methylPREDNISolone SOD SUCC PF 40 MG/ML VIAL. IV SCH ×2 (09:05→21:05)
[2020-04-24 09:47] LABS: % BANDS 5 % (0-9); % LYMPHS 5 % (24-48); % MONOS 2 % (0-10); % SEGS 88 % (35-66)
[2020-04-24 09:48] LABS: PLT ESTIMATE ADEQUATE (ADEQUATE)
--- NOTE | 2020-04-24 10:23 | CONS ---
DATE OF CONSULTATION: 04/24/2020 REQUESTING PHYSICIAN: Dr. Devante Diaz. REASON FOR CONSULTATION: Possible COVID. HISTORY OF PRESENT ILLNESS: This is an 84-year-old gentleman who came in with shortness of breath. This has been occurring for at least 2 weeks or so. The patient had been tested positive for COVID-19 two weeks ago. The patient has not had any fever. White count on admission was 9.4 and this went up to 13.3. Lactic acid up to 3.0. The patient has been put on Rocephin, doxy and steroids and consult has been requested. The patient is comfortable. The patient is on 6 liters of O2. The patient denies any nausea, vomiting, diarrhea, chest pain, shortness of breath, fever or chills. PAST MEDICAL HISTORY: Positive for: 1. Congestive heart failure. 2. Cardiomyopathy. Pacemaker is in place with a defibrillator. 3. Hyperlipidemia. 4. Atrial fibrillation. 5. Hypertension. 6. Osteoarthritis. 7. Hypothyroidism. SOCIAL HISTORY: Negative for smoking, alcohol or illicit drug use. ALLERGIES: No known drug allergies. CURRENT MEDICATIONS: Reviewed. REVIEW OF SYSTEMS: As per HPI, all other systems reviewed are negative. PHYSICAL EXAMINATION: GENERAL: Alert, oriented gentleman, not in any distress. VITAL SIGNS: Stable, afebrile. HEENT: NAD. NECK: Supple, no JVP, no lymphadenopathy. LUNGS: Clear. HEART: S1, S2 regular. ABDOMEN: Soft, nontender. No organomegaly. EXTREMITIES: No edema, cyanosis. SKIN: Unremarkable. NEUROLOGIC: The patient is neurologically alert, awake and appropriate. LABORATORY DATA: Influenza screen is negative. Blood culture is negative. Chest x-ray is showing bilateral pulmonary infiltrate. IMPRESSION: 1. COVID-19 positive, recent. 2. Shortness of breath, most likely from congestive heart failure. 3. Coronary artery disease. 4. Hypertension. 5. 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 6. Leukocytosis, now from steroids. RECOMMENDATIONS: No need for remdesivir. Steroid can be tapered quickly. Actually, oxygenation improved probably from diuresis. He needs a cardiac adjustment to improve the CHF and then hopefully the patient can be discharged soon and antibiotic can be discontinued soon. Thank you very much, Dr. Diaz, for giving me the opportunity to participate in this patient's care. SYEDA WOO MD DR: ANTONY/betty JOB#: [id number] / [id number]
[2020-04-24 11:00] VITALS: BP 119/58
--- NOTE | 2020-04-24 11:09 | PDOC ---
[facility] PROGRESS NOTE Date of Service DOS: DATE: 04/24/20 TIME: 11:08 Chief Complaint Chief Complaint COVID-19 respiratory failure CHF, CAD, hypertension, pacemaker, recent COVID-19 infection. History of Present Illness History of Present Illness 04/24/2020 Patient resting with NAD Chart reviewed Vitals/I&O Vitals/I&O: Vital Signs Date Time Temp Pulse Resp B/P (MAP) Pulse Ox O2 Delivery O2 Flow Rate FiO2 04/24/20 11:00 96.9 74 21 119/58 (78) 96 BiPAP/CPAP 6.0 96.9 I & O 04/23/20 04/23/20 04/24/20 15:00 23:00 07:00 Intake Total 800 ml 400 ml Output Total 300 ml 350 ml 250 ml Balance 500 ml 50 ml -250 ml Physical Exam General: Other (Resting with NAD) Heart: Normal S1, Normal S2 Lungs: Crackles Abdomen: Soft Extremities: No clubbing Skin: No rashes, No breakdown Labs Labs: Laboratory Tests Test 04/24/20 07:30 04/24/20 07:53 White Blood Count 13.3 x10^3/uL (4.0-11.0) Red Blood Count 5.47 x10^6/uL (4.30-5.70) Hemoglobin 15.0 g/dL (13.0-17.5) Hematocrit 44.9 % (39.0-53.0) Mean Corpuscular Volume 82 fL (79-100) Mean Corpuscular Hemoglobin 28 pg (25-35) Mean Corpuscular Hemoglobin Concent 34 g/dL (31-37) Red Cell Distribution Width 15.1 % (11.5-14.5) Platelet Count 174 x10^3/uL (140-400) Neutrophils (%) (Auto) 87 % (31-73) Lymphocytes (%) (Auto) 9 % (24-48) Monocytes (%) (Auto) 3 % (0-9) Eosinophils (%) (Auto) 0 % (0-3) Basophils (%) (Auto) 0 % (0-3) Neutrophils # (Auto) 11.6 x10^3/uL (1.8-7.7) Lymphocytes # (Auto) 1.3 x10^3/uL (1.0-4.8) Monocytes # (Auto) 0.4 x10^3/uL (0.0-1.1) Eosinophils # (Auto) 0.0 x10^3/uL (0.0-0.7) Basophils # (Auto) 0.0 x10^3/uL (0.0-0.2) Segmented Neutrophils % 88 % (35-66) Band Neutrophils % 5 % (0-9) Lymphocytes % 5 % (24-48) Monocytes % 2 % (0-10) Platelet Estimate Adequate (ADEQUATE) Sodium Level 138 mmol/L (136-145) Potassium Level 3.7 mmol/L (3.5-5.1) Chloride Level 104 mmol/L (98-107) Carbon Dioxide Level 23 mmol/L (21-32) Anion Gap 11 (6-14) Blood Urea Nitrogen 15 mg/dL (8-26) Creatinine 0.8 mg/dL (0.7-1.3) Estimated GFR (Cockcroft-Gault) 92.5 Glucose Level 191 mg/dL (70-99) Calcium Level 8.9 mg/dL (8.5-10.1) Assessment and Plan Assessmemt and Plan Problems Medical Problems: (1) Acute respiratory failure with hypoxia Status: Acute (2) COVID-19 Status: Acute COVID-19 respiratory failure CHF, CAD, hypertension, pacemaker, recent COVID-19 infection. Plan Covid protocol Steroids Oxygen Antibiotics Aspirin Codeine cough syrup Vitamins with minerals Trend labs Respiratory isolation Appreciate ID input Comment Review of Relevant I have reviewed the following items issa (where applicable) has been applied. Medications: Current Medications Medications (Trade) Dose Ordered Sig/Arthur Route PRN Reason Start Time Stop Time Status Last Admin Dose Admin Atorvastatin Calcium (Lipitor) 10 mg HS PO 04/23/20 21:00 04/23/20 21:29 Ceftriaxone Sodium (Rocephin) 1 gm Q24H IVP 04/23/20 21:00 04/23/20 21:30 Justifications for Admission Other Justification KEISHA ALTMAN III DO Apr 24, 2020 11:09
--- NOTE | 2020-04-24 13:52 | PDOC2 ---
CARDIOLOGY CONSULT NOTE DATE OF SERVICE: DATE: 04/24/20 TIME: 13:48 CHIEF COMPLAINT: Shortness of breath HPI: 84-year-old male with past medical history as noted below who presents to the hospital in setting of shortness of breath. He was diagnosed with coronavirus a couple weeks ago. He has been admitted for further treatment of his hypoxia. He has not been seen in the office for several months. He does have a known ICD in place. He is currently on BiPAP therapy. No chest pain. PMHX: As noted below in the assessment section SOCHX: Unable to be obtained FAMHX: Noncontributory CURRENT MEDS: Current Medications Medications (Trade) Dose Ordered Sig/Arthur Route PRN Reason Start Time Stop Time Status Last Admin Dose Admin Atorvastatin Calcium (Lipitor) 10 mg HS PO 04/23/20 21:00 04/23/20 21:29 Ceftriaxone Sodium (Rocephin) 1 gm Q24H IVP 04/23/20 21:00 04/23/20 21:30 ALLERGIES: Allergies Coded Allergies Type Severity Reaction Last Updated Verified No Known Drug Allergies 01/23/18 No ROS: Unable to be obtained PHYSICAL EXAM: Vital Signs/I&O: Vital Signs Date Time Temp Pulse Resp B/P (MAP) Pulse Ox O2 Delivery O2 Flow Rate FiO2 04/24/20 11:00 96.9 74 21 119/58 (78) 96 BiPAP/CPAP 6.0 96.9 I & O 04/23/20 04/23/20 04/24/20 15:00 23:00 07:00 Intake Total 800 ml 400 ml Output Total 300 ml 350 ml 250 ml Balance 500 ml 50 ml -250 ml Physical Exam: Deferred due to Covid pandemic DIAGNOSTIC TESTING: Extensive chart review completed. EKG reviewed. Paced rhythm. Chest x-ray reviewed Lab Laboratory Tests Test 04/24/20 07:30 04/24/20 07:53 White Blood Count 13.3 x10^3/uL (4.0-11.0) H Red Blood Count 5.47 x10^6/uL (4.30-5.70) Hemoglobin 15.0 g/dL (13.0-17.5) Hematocrit 44.9 % (39.0-53.0) Mean Corpuscular Volume 82 fL (79-100) Mean Corpuscular Hemoglobin 28 pg (25-35) Mean Corpuscular Hemoglobin Concent 34 g/dL (31-37) Red Cell Distribution Width 15.1 % (11.5-14.5) H Platelet Count 174 x10^3/uL (140-400) Neutrophils (%) (Auto) 87 % (31-73) H Lymphocytes (%) (Auto) 9 % (24-48) L Monocytes (%) (Auto) 3 % (0-9) Eosinophils (%) (Auto) 0 % (0-3) Basophils (%) (Auto) 0 % (0-3) Neutrophils # (Auto) 11.6 x10^3/uL (1.8-7.7) H Lymphocytes # (Auto) 1.3 x10^3/uL (1.0-4.8) Monocytes # (Auto) 0.4 x10^3/uL (0.0-1.1) Eosinophils # (Auto) 0.0 x10^3/uL (0.0-0.7) Basophils # (Auto) 0.0 x10^3/uL (0.0-0.2) Segmented Neutrophils % 88 % (35-66) H Band Neutrophils % 5 % (0-9) Lymphocytes % 5 % (24-48) L Monocytes % 2 % (0-10) Platelet Estimate Adequate (ADEQUATE) Sodium Level 138 mmol/L (136-145) Potassium Level 3.7 mmol/L (3.5-5.1) Chloride Level 104 mmol/L (98-107) Carbon Dioxide Level 23 mmol/L (21-32) Anion Gap 11 (6-14) Blood Urea Nitrogen 15 mg/dL (8-26) Creatinine 0.8 mg/dL (0.7-1.3) Estimated GFR (Cockcroft-Gault) 92.5 Glucose Level 191 mg/dL (70-99) H Calcium Level 8.9 mg/dL (8.5-10.1) Laboratory Tests 04/24/20 07:30 04/24/20 07:53 ASSESSMENT: 1. Hypoxic resp failure 2. Acute on chronic systolic CHF: Moderately decompensated due to coronavirus pneumonia 3. PAFIB: currently V paced. on eliquis 4. HTN: Controlled 5. 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 Recent device interrogation showed normal function, AFIB burden 0 and impedances is trending towards fluid overload. Adequate battery life and 100% BiV pacing. No episodes of VT/VF recorded. 7. Hypothyroidism 8. DM2 9. NICM: EF at 20% on entresto. PLAN: 1. Continue current medical therapy. Will defer aggressive diuresis given the setting of infection and high oxygenation requirements. Supportive care. Arrhythmias on telemetry likely related to his hypoxia issues. We will follow along ARSH SIMPSON MD Apr 24, 2020 13:52
[2020-04-24 15:00] VITALS: BP 120/58
[2020-04-24 19:00] VITALS: BP 125/61
[2020-04-24] MEDS: ATORVASTATIN CALCIUM 10 MG TABLET. PO SCH (21:04)
[2020-04-24] MEDS: cefTRIAXone IV Push 1 GM VIAL. IVP SCH (21:07)
[2020-04-24 23:50] VITALS: BP 115/72
[2020-04-25 03:00] VITALS: BP 115/56
[2020-04-25 04:58] LABS: BASO % 0 % (0-3); EOS % 0 % (0-3); HEMATOCRIT 43.2 % (39.0-53.0); HEMOGLOBIN 14.5 g/dL (13.0-17.5); LYMPH # 1.1 x10^3/uL (1.0-4.8); LYMPH % 7 % (24-48); MEAN CORPUSCULAR HEMOGLOBIN 28 pg (25-35); MEAN CORPUSCULAR HGB CONC 34 g/dL (31-37); MEAN CORPUSCULAR VOLUME 83 fL (79-100); MONO # 0.6 x10^3/uL (0.0-1.1); MONO % 4 % (0-9); NEUT # 13.8 x10^3/uL (1.8-7.7); NEUT % 89 % (31-73); PLATELET COUNT 181 x10^3/uL (140-400); RED BLOOD COUNT 5.24 x10^6/uL (4.30-5.70); RED CELL DISTRIBUTION WIDTH 15.2 % (11.5-14.5); WHITE BLOOD COUNT 15.4 x10^3/uL (4.0-11.0)
[2020-04-25 05:34] LABS: CALCIUM 8.5 mg/dL (8.5-10.1); GFR 71.5; POTASSIUM 3.5 mmol/L (3.5-5.1)
[2020-04-25] MEDS: LEVOTHYROXINE 125 MCG TABLET PO SCH (06:33)
[2020-04-25 07:00] VITALS: BP 93/70
[2020-04-25] MEDS: FUROSEMIDE 40 MG TABLET. PO SCH ×2 (09:00→14:13)
[2020-04-25] MEDS: ASPIRIN CHEWABLE 81 MG TABLET. PO SCH (09:03)
[2020-04-25] MEDS: MULTIVITAMIN with MINERAL TABLET. PO SCH (09:03)
[2020-04-25] MEDS: APIXABAN 5 MG TABLET. PO SCH ×2 (09:04→21:20)
[2020-04-25] MEDS: methylPREDNISolone SOD SUCC PF 40 MG/ML VIAL. IV SCH (09:04)
[2020-04-25] MEDS: DOXYCYCLINE HYCLATE 100 MG TABLET PO SCH ×2 (09:04→21:20)
--- NOTE | 2020-04-25 10:45 | PDOC ---
Infectious Disease Note Subjective: Subjective Patient feels better Currently on 5 L O2 by nasal cannula Less shortness of breath and cough Denies fever, nausea, vomiting, diarrhea, abdominal pain Vital Signs: Vital Signs Vital Signs Date Time Temp Pulse Resp B/P (MAP) Pulse Ox O2 Delivery O2 Flow Rate FiO2 04/25/20 07:00 98.7 128 22 93/70 (78) 98 Nasal Cannula 5.0 98.7 Physical Exam: PHYSICAL EXAM GENERAL: Alert, oriented gentleman, not in any distress. HEENT: Normocephalic atraumatic NECK: Supple, no JVP, no lymphadenopathy. LUNGS: Clear. HEART: S1, S2 regular. ABDOMEN: Soft, nontender. No organomegaly. EXTREMITIES: No edema, cyanosis. SKIN: Unremarkable. NEUROLOGIC: The patient is neurologically alert, awake and appropriate. Medications: Inpatient Meds: Current Medications Medications (Trade) Dose Ordered Sig/Arthur Start Time Stop Time Status Last Admin Dose Admin Apixaban (Eliquis) 5 mg BID 04/23/20 09:00 04/25/20 09:04 5 MG Aspirin (Aspirin Chewable) 81 mg [id number] 04/23/20 11:00 04/25/20 09:03 81 MG Atorvastatin Calcium (Lipitor) 10 mg HS 04/23/20 21:00 04/24/20 21:04 10 MG Azithromycin 250 ml @ 250 mls/hr 1X ONCE 04/23/20 01:00 04/23/20 01:59 DC 04/23/20 00:55 250 MLS/HR Ceftriaxone Sodium (Rocephin) 1 gm Q24H 04/23/20 21:00 04/24/20 21:07 1 GM Doxycycline Hyclate (Vibra-Tab) 100 mg BID 04/23/20 11:00 04/25/20 09:04 100 MG Ergocalciferol (Vitamin D2) 50,000 unit WEEKLY 04/30/20 09:00 04/23/20 10:15 DC Furosemide (Lasix) 40 mg BID92 04/23/20 09:00 04/24/20 14:08 40 MG Guaifenesin/ Codeine Phosphate (Robitussin Ac) 5 ml PRN Q6HRS PRN 04/23/20 10:15 Levothyroxine Sodium (Synthroid) 125 mcg DAILY06 04/23/20 09:00 04/25/20 06:33 125 MCG Methylprednisolone Sodium Succinate (SOLU-Medrol 40MG VIAL) 40 mg BID 04/23/20 11:00 04/25/20 09:04 40 MG Metoprolol Succinate (Toprol Xl) 100 mg DAILY 04/23/20 09:00 04/24/20 09:04 100 MG Metoprolol Tartrate (Lopressor Vial) 5 mg 1X ONCE 04/23/20 18:45 04/23/20 18:46 DC Multivitamins (Thera M Plus) 1 tab DAILY 04/23/20 11:00 04/25/20 09:03 1 TAB Non-Formulary Medication (Alendronate Sodium ) 1 tab WEEKLY 04/23/20 09:00 UNV Sacubitril/ Valsartan (Entresto 49 Mg-51 Mg) 1 tab BID 04/23/20 09:00 04/24/20 21:04 1 TAB Sodium Chloride 1,000 ml @ 1,000 mls/hr Q1H 04/23/20 00:30 04/23/20 01:29 DC Labs: Lab Laboratory Tests Test 04/25/20 04:20 White Blood Count 15.4 x10^3/uL (4.0-11.0) Red Blood Count 5.24 x10^6/uL (4.30-5.70) Hemoglobin 14.5 g/dL (13.0-17.5) Hematocrit 43.2 % (39.0-53.0) Mean Corpuscular Volume 83 fL (79-100) Mean Corpuscular Hemoglobin 28 pg (25-35) Mean Corpuscular Hemoglobin Concent 34 g/dL (31-37) Red Cell Distribution Width 15.2 % (11.5-14.5) Platelet Count 181 x10^3/uL (140-400) Neutrophils (%) (Auto) 89 % (31-73) Lymphocytes (%) (Auto) 7 % (24-48) Monocytes (%) (Auto) 4 % (0-9) Eosinophils (%) (Auto) 0 % (0-3) Basophils (%) (Auto) 0 % (0-3) Neutrophils # (Auto) 13.8 x10^3/uL (1.8-7.7) Lymphocytes # (Auto) 1.1 x10^3/uL (1.0-4.8) Monocytes # (Auto) 0.6 x10^3/uL (0.0-1.1) Eosinophils # (Auto) 0.0 x10^3/uL (0.0-0.7) Basophils # (Auto) 0.0 x10^3/uL (0.0-0.2) Sodium Level 140 mmol/L (136-145) Potassium Level 3.5 mmol/L (3.5-5.1) Chloride Level 105 mmol/L (98-107) Carbon Dioxide Level 23 mmol/L (21-32) Anion Gap 12 (6-14) Blood Urea Nitrogen 16 mg/dL (8-26) Creatinine 1.0 mg/dL (0.7-1.3) Estimated GFR (Cockcroft-Gault) 71.5 Glucose Level 225 mg/dL (70-99) Calcium Level 8.5 mg/dL (8.5-10.1) Objective: Assessment: 1. COVID-19 positive, recent. 2. Shortness of breath, most likely from congestive heart failure. 3. Coronary artery disease. 4. Hypertension. 5. 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 6. Leukocytosis, now from steroids. Plan: Plan of Care Continue supportive care continue ceftriaxone and doxycycline no need for remdesivir as oxygenation improved likely with diuresis. Steroid can be tapered quickly. We will de-escalate antibiotics soon DAKOTA WOO MD Apr 25, 2020 10:44
[2020-04-25 10:58] VITALS: BP 113/61
[2020-04-25] MEDS: SACUBITRIL/VALSARTAN 49/51MG TABLET. PO SCH ×2 (11:26→21:20)
[2020-04-25] MEDS: METOPROLOL SUCC 24HR ER 100 MG TAB.ER.24H. PO SCH (11:27)
--- NOTE | 2020-04-25 12:30 | NUR ---
SW following for discharge planning. Spoke with RN and reviewed chart. Pt NAM negative, cardiac diet, IV Rocephin, 5l 02. Pt does not have home 02. SW requested 6 min walk to determine home 02 needs. SW following. Addendum: 04/26/20 at 1324 by FLORENTINO THOMAS Pt transferred to [facility]ccain to follow.
--- NOTE | 2020-04-25 13:05 | PDOC ---
[facility] [facility] PROGRESS NOTE Date of Service DOS: DATE: 04/25/20 TIME: 12:54 Chief Complaint Chief Complaint COVID-19 respiratory failure CHF, CAD, hypertension, pacemaker, recent COVID-19 infection. History of Present Illness History of Present Illness 04/25/2020 Patient seen and evaluated bedside. Currently breathing on 5 L nasal cannula. His COVID-19 has been negative. Continue antibiotic coverage with Rocephin and doxy, per ID. Steroids changed to oral prednisone 40 daily. 04/24/2020 Patient resting with NAD Chart reviewed Vitals/I&O Vitals/I&O: Vital Signs Date Time Temp Pulse Resp B/P (MAP) Pulse Ox O2 Delivery O2 Flow Rate FiO2 04/25/20 11:27 109 113/61 04/25/20 10:58 98.2 24 96 Nasal Cannula 5.0 98.2 I & O 04/24/20 04/24/20 04/25/20 15:00 23:00 07:00 Intake Total 700 ml 300 ml Output Total 200 ml 900 ml 550 ml Balance 500 ml -600 ml -550 ml Physical Exam Physical Exam: GENERAL: Alert, oriented gentleman, not in any distress. HEENT: Normocephalic atraumatic NECK: Supple, no JVP, no lymphadenopathy. LUNGS: Clear. HEART: S1, S2 regular. ABDOMEN: Soft, nontender. No organomegaly. EXTREMITIES: No edema, cyanosis. SKIN: Unremarkable. NEUROLOGIC: The patient is neurologically alert, awake and appropriate. General: Other (Resting with NAD) Heart: Normal S1, Normal S2 Lungs: Crackles Abdomen: Soft Extremities: No clubbing Skin: No rashes, No breakdown Labs Labs: Laboratory Tests Test 04/25/20 04:20 White Blood Count 15.4 x10^3/uL (4.0-11.0) Red Blood Count 5.24 x10^6/uL (4.30-5.70) Hemoglobin 14.5 g/dL (13.0-17.5) Hematocrit 43.2 % (39.0-53.0) Mean Corpuscular Volume 83 fL (79-100) Mean Corpuscular Hemoglobin 28 pg (25-35) Mean Corpuscular Hemoglobin Concent 34 g/dL (31-37) Red Cell Distribution Width 15.2 % (11.5-14.5) Platelet Count 181 x10^3/uL (140-400) Neutrophils (%) (Auto) 89 % (31-73) Lymphocytes (%) (Auto) 7 % (24-48) Monocytes (%) (Auto) 4 % (0-9) Eosinophils (%) (Auto) 0 % (0-3) Basophils (%) (Auto) 0 % (0-3) Neutrophils # (Auto) 13.8 x10^3/uL (1.8-7.7) Lymphocytes # (Auto) 1.1 x10^3/uL (1.0-4.8) Monocytes # (Auto) 0.6 x10^3/uL (0.0-1.1) Eosinophils # (Auto) 0.0 x10^3/uL (0.0-0.7) Basophils # (Auto) 0.0 x10^3/uL (0.0-0.2) Sodium Level 140 mmol/L (136-145) Potassium Level 3.5 mmol/L (3.5-5.1) Chloride Level 105 mmol/L (98-107) Carbon Dioxide Level 23 mmol/L (21-32) Anion Gap 12 (6-14) Blood Urea Nitrogen 16 mg/dL (8-26) Creatinine 1.0 mg/dL (0.7-1.3) Estimated GFR (Cockcroft-Gault) 71.5 Glucose Level 225 mg/dL (70-99) Calcium Level 8.5 mg/dL (8.5-10.1) Review of Systems Review of Systems: Denies chest pain, denies fever, denies nausea Assessment and Plan Assessmemt and Plan Problems Medical Problems: (1) Acute respiratory failure with hypoxia Status: Acute (2) COVID-19 Status: Acute Comment Review of Relevant I have reviewed the following items issa (where applicable) has been applied. Justifications for Admission Other Justification ELLA CHAUHAN MD Apr 25, 2020 13:05
[2020-04-25 14:47] VITALS: BP 129/61
--- NOTE | 2020-04-25 15:35 | PDOC ---
KATELYNN JOHNSON MARINE INSURANCE CLAIM EXAMINER 04/25/20 1535: CARDIO Progress Notes Date and Time Date of Service 04/25/20 Time of Evaluation 1210 Subjective Subjective: No Chest Pain, No shortness of breath, Other (sitting up at bedside eating lunch ) Vitals Vitals Vital Signs Date Time Temp Pulse Resp B/P (MAP) Pulse Ox O2 Delivery O2 Flow Rate FiO2 04/25/20 14:47 98.5 69 20 129/61 (83) 100 Nasal Cannula 5.0 98.5 Weight Weight [ ] Input and Output Intake and Output Intake and Output 04/25/20 07:00 Intake Total 1000 ml Output Total 1650 ml Balance -650 ml Intake Oral 1000 ml Output Urine Total 1650 ml # Bowel Movements 1 Laboratory Labs Laboratory Tests Test 04/25/20 04:20 White Blood Count 15.4 x10^3/uL (4.0-11.0) Red Blood Count 5.24 x10^6/uL (4.30-5.70) Hemoglobin 14.5 g/dL (13.0-17.5) Hematocrit 43.2 % (39.0-53.0) Mean Corpuscular Volume 83 fL (79-100) Mean Corpuscular Hemoglobin 28 pg (25-35) Mean Corpuscular Hemoglobin Concent 34 g/dL (31-37) Red Cell Distribution Width 15.2 % (11.5-14.5) Platelet Count 181 x10^3/uL (140-400) Neutrophils (%) (Auto) 89 % (31-73) Lymphocytes (%) (Auto) 7 % (24-48) Monocytes (%) (Auto) 4 % (0-9) Eosinophils (%) (Auto) 0 % (0-3) Basophils (%) (Auto) 0 % (0-3) Neutrophils # (Auto) 13.8 x10^3/uL (1.8-7.7) Lymphocytes # (Auto) 1.1 x10^3/uL (1.0-4.8) Monocytes # (Auto) 0.6 x10^3/uL (0.0-1.1) Eosinophils # (Auto) 0.0 x10^3/uL (0.0-0.7) Basophils # (Auto) 0.0 x10^3/uL (0.0-0.2) Sodium Level 140 mmol/L (136-145) Potassium Level 3.5 mmol/L (3.5-5.1) Chloride Level 105 mmol/L (98-107) Carbon Dioxide Level 23 mmol/L (21-32) Anion Gap 12 (6-14) Blood Urea Nitrogen 16 mg/dL (8-26) Creatinine 1.0 mg/dL (0.7-1.3) Estimated GFR (Cockcroft-Gault) 71.5 Glucose Level 225 mg/dL (70-99) Calcium Level 8.5 mg/dL (8.5-10.1) Microbiology Micro Microbiology 04/23/20 Blood Culture - Preliminary, Resulted NO GROWTH AFTER 2 DAYS Physical Exam HEENT: Neck Supple W Full Motion Chest: Symmetric LUNGS: Other (on 4L NC) Heart: other (v-paced ) Abdomen: Soft N/T Extremities: Other (trace bilateral LE edema ) Neurology: alert, follow commands Assessment Assessment 1. Acute hypoxic resp failure; multifactorial. tested + for COVID 2 weeks ago. Negative PCR here 2. Acute on chronic systolic CHF 3. PAFIB: currently V paced. on Eliquis 4. Leukocytosis, lactic acidosis 5. HTN: Controlled 6. HLP; statin 7. NICM; LVEF at 20% per echo 09/21. 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 Device interrogation 03/17/20 showed normal function, AFIB burden 0.1% and stable lead impedances. Adequate battery life and 100% BiV pacing. No episodes of VT/VF recorded. 8. Hypothyroidism 9. Diabetes, II Recommendations Mild diuresis HF optimization with Lasix, Toprol, Entresto Rate controlled with metoprolol Eliquis for stroke prophylaxis Outpatient echo Lung optimization Supportive care Justicifation of Admission Dx: Justifications for Admission: Justification of Admission Dx: Yes Comments: Acute on chronic respiratory failure Acute on chronic systolic CHF Severe cardiomyopathy FARIDA THOMPSON MD 04/25/20 2004: CARDIO Progress Notes Assessment Assessment Patient seen and examined. Agree with YEAST FERMENTATION ATTENDANT's assessment and plan. Continue diuresis for ac on chr systolic HF PAF currently V-paced rhythm Continue eliquis for stroke prophylaxis Recent device check showed normal function KATELYNN JOHNSON APRN Apr 25, 2020 15:35 FARIDA THOMPSON MD Apr 25, 2020 20:04
[2020-04-25] MEDS ORDERED: FUROSEMIDE 40 MG/4 ML VIAL. IVP ONE (15:45)
[2020-04-25] MEDS ORDERED: POTASSIUM CHLORIDE 20 MEQ TABLET.ER. PO ONE (15:45)
[2020-04-25 18:35] VITALS: BP 126/64
[2020-04-25] MEDS: ATORVASTATIN CALCIUM 10 MG TABLET. PO SCH (21:20)
[2020-04-25] MEDS: cefTRIAXone IV Push 1 GM VIAL. IVP SCH (21:22)
[2020-04-25 23:00] VITALS: BP 117/85
[2020-04-26 03:00] VITALS: BP 117/70
[2020-04-26 04:05] VITALS: BP 118/99
[2020-04-26] MEDS: LEVOTHYROXINE 125 MCG TABLET PO SCH (06:15)
[2020-04-26 07:19] VITALS: BP 123/75
[2020-04-26] MEDS ORDERED: DEXTROSE 50% 25 GM / 50ML DISP.SYRIN. IV PRN (07:30)
--- NOTE | 2020-04-26 07:37 | PDOC ---
[facility] [facility] PROGRESS NOTE Date of Service DOS: DATE: 04/26/20 TIME: 07:32 Chief Complaint Chief Complaint A/P: Acute Hypoxic respiratory failure - covid 19 with decompensated CHF COVID-19 respiratory failure - convalescing from COVID 19 Acute on chronic systolic CHF - EF 20%, is decompensated due to coronavirus pneumonia Paroxysmal AFIB - V paced. on eliquis and metoprolol HTN - Controlled with BB HLD - goal LDL < 70mg/dL, cont statin Cardiomyopathy - non-ischemic by history with EF 20% on entresto s/p AICD Biotronik. Recent device interrogation normal Hypothyroidism - cont levothyroxine DM2 - sliding scale FEN - ADA cardiac diet PPX - eliquis FULL CODE Dispo - inpatient History of Present Illness History of Present Illness Mr Mistry is an 84 year old male w/ PMHx CAD, CHF, S/p PPM, Hypertension, DM2 who was admitted for worsening shortness of breath. Recently diagnosed with COVID 19 2 weeks prior to admission. 04/24: Cardiology and ID consultation 04/25: Currently breathing on 5 L nasal cannula. His COVID-19 has been negative. Continue antibiotic coverage with Rocephin and doxy, per ID. Steroids changed to oral prednisone Afebrile. On room air. Cough improved. Potassium is 2.8 this morning after IV Lasix administration. Vitals/I&O Vitals/I&O: Vital Signs Date Time Temp Pulse Resp B/P (MAP) Pulse Ox O2 Delivery O2 Flow Rate FiO2 04/26/20 07:19 97.5 70 18 123/75 (91) 98 Nasal Cannula 2.0 97.5 I & O 04/25/20 04/25/20 04/26/20 15:00 23:00 07:00 Intake Total 600 ml 480 ml Output Total 400 ml 1000 ml 200 ml Balance 200 ml -520 ml -200 ml Physical Exam Physical Exam: GENERAL: Alert, oriented gentleman, not in any distress. HEENT: Normocephalic atraumatic NECK: Supple, no JVP, no lymphadenopathy. LUNGS: Clear. HEART: S1, S2 regular. ABDOMEN: Soft, nontender. No organomegaly. EXTREMITIES: No edema, cyanosis. SKIN: Unremarkable. NEUROLOGIC: The patient is neurologically alert, awake and appropriate. General: Other (Resting with NAD) Heart: Normal S1, Normal S2 Lungs: Crackles Abdomen: Soft Extremities: No clubbing Skin: No rashes, No breakdown Assessment and Plan Assessmemt and Plan Problems Medical Problems: (1) Acute respiratory failure with hypoxia Status: Acute (2) COVID-19 Status: Acute Comment Review of Relevant I have reviewed the following items issa (where applicable) has been applied. Medications: Current Medications Medications (Trade) Dose Ordered Sig/Arthur Route PRN Reason Start Time Stop Time Status Last Admin Dose Admin Furosemide (Lasix) 40 mg 1X ONCE IVP 04/25/20 15:45 04/25/20 15:46 DC 04/25/20 15:58 Potassium Chloride (Klor-Con) 20 meq 1X ONCE PO 04/25/20 15:45 04/25/20 15:46 DC 04/25/20 15:57 Justifications for Admission Other Justification LESLY CASTANEDA MD Apr 26, 2020 07:37
[2020-04-26] MEDS: INSULIN LISPRO 300 UNITS/3 ML VIAL. SQ SCH ×3 (08:00→17:09)
[2020-04-26] MEDS: MULTIVITAMIN with MINERAL TABLET. PO SCH (08:12)
[2020-04-26] MEDS: SACUBITRIL/VALSARTAN 49/51MG TABLET. PO SCH (08:12)
[2020-04-26] MEDS: ASPIRIN CHEWABLE 81 MG TABLET. PO SCH (08:12)
[2020-04-26] MEDS: FUROSEMIDE 40 MG TABLET. PO SCH ×2 (08:12→14:05)
[2020-04-26] MEDS: METOPROLOL SUCC 24HR ER 100 MG TAB.ER.24H. PO SCH (08:13)
[2020-04-26] MEDS: DOXYCYCLINE HYCLATE 100 MG TABLET PO SCH (08:13)
[2020-04-26] MEDS: APIXABAN 5 MG TABLET. PO SCH (08:13)
--- NOTE | 2020-04-26 08:47 | PDOC ---
Infectious Disease Note Subjective: Subjective Patient feels better Currently on 2 L O2 by nasal cannula Vital Signs: Vital Signs Vital Signs Date Time Temp Pulse Resp B/P (MAP) Pulse Ox O2 Delivery O2 Flow Rate FiO2 04/26/20 08:13 70 123/75 04/26/20 07:19 97.5 18 98 Nasal Cannula 2.0 97.5 Physical Exam: PHYSICAL EXAM GENERAL: Alert, oriented gentleman, not in any distress. HEENT: Normocephalic atraumatic NECK: Supple, no JVP, no lymphadenopathy. LUNGS: Clear. HEART: S1, S2 regular. ABDOMEN: Soft, nontender. No organomegaly. EXTREMITIES: No edema, cyanosis. SKIN: Unremarkable. NEUROLOGIC: The patient is neurologically alert, awake and appropriate. Medications: Inpatient Meds: Current Medications Medications (Trade) Dose Ordered Sig/Arthur Start Time Stop Time Status Last Admin Dose Admin Apixaban (Eliquis) 5 mg BID 04/23/20 09:00 04/26/20 08:13 5 MG Aspirin (Aspirin Chewable) 81 mg DAILYWBKFT 04/23/20 11:00 04/26/20 08:12 81 MG Atorvastatin Calcium (Lipitor) 10 mg HS 04/23/20 21:00 04/25/20 21:20 10 MG Azithromycin 250 ml @ 250 mls/hr 1X ONCE 04/23/20 01:00 04/23/20 01:59 DC 04/23/20 00:55 250 MLS/HR Ceftriaxone Sodium (Rocephin) 1 gm Q24H 04/23/20 21:00 04/25/20 21:22 1 GM Dextrose (Dextrose 50%-Water Syringe) 12.5 gm PRN Q15MIN PRN 04/26/20 07:30 Doxycycline Hyclate (Vibra-Tab) 100 mg BID 04/23/20 11:00 04/26/20 08:13 100 MG Ergocalciferol (Vitamin D2) 50,000 unit WEEKLY 04/30/20 09:00 04/23/20 10:15 DC Furosemide (Lasix) 40 mg 1X ONCE 04/25/20 15:45 04/25/20 15:46 DC 04/25/20 15:58 40 MG Guaifenesin/ Codeine Phosphate (Robitussin Ac) 5 ml PRN Q6HRS PRN 04/23/20 10:15 04/25/20 16:12 5 ML Insulin Human Lispro (HumaLOG) 0-7 UNITS TIDWMEALS 04/26/20 08:00 Levothyroxine Sodium (Synthroid) 125 mcg DAILY06 04/23/20 09:00 04/26/20 06:15 125 MCG Methylprednisolone Sodium Succinate (SOLU-Medrol 40MG VIAL) 40 mg BID 04/23/20 11:00 04/25/20 12:59 DC 04/25/20 09:04 40 MG Metoprolol Succinate (Toprol Xl) 100 mg DAILY 04/23/20 09:00 04/26/20 08:13 100 MG Metoprolol Tartrate (Lopressor Vial) 5 mg 1X ONCE 04/23/20 18:45 04/23/20 18:46 DC Multivitamins (Thera M Plus) 1 tab DAILY 04/23/20 11:00 04/26/20 08:12 1 TAB Non-Formulary Medication (Alendronate Sodium ) 1 tab WEEKLY 04/23/20 09:00 UNV Potassium Chloride (Klor-Con) 20 meq 1X ONCE 04/25/20 15:45 04/25/20 15:46 DC 04/25/20 15:57 20 MEQ Prednisone (Prednisone) 40 mg DAILY 04/26/20 09:00 04/30/20 09:01 04/26/20 08:13 40 MG Sacubitril/ Valsartan (Entresto 49 Mg-51 Mg) 1 tab BID 04/23/20 09:00 04/26/20 08:12 1 TAB Sodium Chloride 1,000 ml @ 1,000 mls/hr Q1H 04/23/20 00:30 04/23/20 01:29 DC Objective: Assessment: 1. COVID-19 positive POA, recent. 2. Shortness of breath, most likely from congestive heart failure.Improving 3. Coronary artery disease. 4. Hypertension. 5. 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 6. Leukocytosis, now from steroids. Plan: Plan of Care Continue supportive care continue ceftriaxone Dc Doxy Steroid can be tapered quickly. DAKOTA WOO MD Apr 26, 2020 08:47
[2020-04-26] MEDS ORDERED: predniSONE 20 MG TABLET PO SCH (09:00)
[2020-04-26 09:18] LABS: BASO % 0 % (0-3); EOS % 0 % (0-3); HEMOGLOBIN 15.5 g/dL (13.0-17.5); LYMPH # 2.1 x10^3/uL (1.0-4.8); LYMPH % 14 % (24-48); MEAN CORPUSCULAR HEMOGLOBIN 27 pg (25-35); MEAN CORPUSCULAR HGB CONC 33 g/dL (31-37); MEAN CORPUSCULAR VOLUME 82 fL (79-100); MONO # 1.2 x10^3/uL (0.0-1.1); MONO % 8 % (0-9); NEUT # 11.3 x10^3/uL (1.8-7.7); NEUT % 78 % (31-73); PLATELET COUNT 212 x10^3/uL (140-400); RED CELL DISTRIBUTION WIDTH 15.4 % (11.5-14.5); WHITE BLOOD COUNT 14.6 x10^3/uL (4.0-11.0)
[2020-04-26] MEDS ORDERED: POTASSIUM BICARB 20 MEQ EFFERVESCENT TABLET. PO ONE ×3 (09:45→12:00)
[2020-04-26 10:08] LABS: CREATININE 0.9 mg/dL (0.7-1.3); GFR 80.8
[2020-04-26 10:09] LABS: POTASSIUM 2.8 mmol/L (3.5-5.1)
[2020-04-26 10:35] VITALS: BP 119/68
[2020-04-26] MEDS: POTASSIUM CHLORIDE 10MEQ 100 ML IV SCH ×2 (10:54→12:34)
--- NOTE | 2020-04-26 12:32 | NUR ---
SS following for discharge planning. SS reviewed pt chart and discussed with pt RN. Pt is from home with family and is currently on room air. Pt passed six minute walk. COVID19 negative. Pt on IV Rocephin. Potassium being replaced. Possible discharge to home tomorrow. SS will continue to follow for discharge planning.
--- NOTE | 2020-04-26 13:06 | PDOC ---
LEW MORRIS MAMMOGRAPHY SUPERVISOR 04/26/20 1306: CARDIO Progress Notes Date and Time Date of Service 04/26/2020 Time of Evaluation 0910 Subjective Subjective: No Chest Pain, No shortness of breath Vitals Vitals Vital Signs Date Time Temp Pulse Resp B/P (MAP) Pulse Ox O2 Delivery O2 Flow Rate FiO2 04/26/20 10:35 97.4 70 16 119/68 (85) 95 Room Air 97.4 04/26/20 07:19 2.0 Weight Weight [ ] Input and Output Intake and Output Intake and Output 04/26/20 07:00 Intake Total 1080 ml Output Total 1600 ml Balance -520 ml Intake Oral 1080 ml Output Urine Total 1600 ml # Voids 1 # Bowel Movements 1 Laboratory Labs Laboratory Tests Test 04/26/20 08:50 04/26/20 11:20 White Blood Count 14.6 x10^3/uL (4.0-11.0) Red Blood Count 5.70 x10^6/uL (4.30-5.70) Hemoglobin 15.5 g/dL (13.0-17.5) Hematocrit 47.0 % (39.0-53.0) Mean Corpuscular Volume 82 fL (79-100) Mean Corpuscular Hemoglobin 27 pg (25-35) Mean Corpuscular Hemoglobin Concent 33 g/dL (31-37) Red Cell Distribution Width 15.4 % (11.5-14.5) Platelet Count 212 x10^3/uL (140-400) Neutrophils (%) (Auto) 78 % (31-73) Lymphocytes (%) (Auto) 14 % (24-48) Monocytes (%) (Auto) 8 % (0-9) Eosinophils (%) (Auto) 0 % (0-3) Basophils (%) (Auto) 0 % (0-3) Neutrophils # (Auto) 11.3 x10^3/uL (1.8-7.7) Lymphocytes # (Auto) 2.1 x10^3/uL (1.0-4.8) Monocytes # (Auto) 1.2 x10^3/uL (0.0-1.1) Eosinophils # (Auto) 0.0 x10^3/uL (0.0-0.7) Basophils # (Auto) 0.0 x10^3/uL (0.0-0.2) Sodium Level 142 mmol/L (136-145) Potassium Level 2.8 mmol/L (3.5-5.1) Chloride Level 103 mmol/L (98-107) Carbon Dioxide Level 27 mmol/L (21-32) Anion Gap 12 (6-14) Blood Urea Nitrogen 22 mg/dL (8-26) Creatinine 0.9 mg/dL (0.7-1.3) Estimated GFR (Cockcroft-Gault) 80.8 Glucose Level 214 mg/dL (70-99) Calcium Level 8.0 mg/dL (8.5-10.1) Magnesium Level 2.2 mg/dL (1.8-2.4) Procalcitonin < 0.10 ng/mL (0.00-0.10) Glucose (Fingerstick) 220 mg/dL (70-99) Microbiology Micro Microbiology 04/23/20 Blood Culture - Preliminary, Resulted NO GROWTH AFTER 3 DAYS Physical Exam HEENT: Neck Supple W Full Motion Chest: Symmetric LUNGS: Other (diminished bases) Heart: RRR (V paced), other (v-paced ) Abdomen: Soft N/T Extremities: Other (trace bilateral LE edema ) Neurology: alert, oriented, follow commands Assessment Assessment 1. Acute hypoxic resp failure; multifactorial. tested + for COVID 2 weeks ago. Negative PCR here 2. Acute on chronic systolic CHF: compensated. SOA possibly more from covid. appears euvolemic 3. PAFIB: currently V paced. on Eliquis 4. Leukocytosis, lactic acidosis 5. HTN: Controlled 6. HLP; statin 7. NICM; LVEF at 20% per echo 09/21. S/p DENTAL PROFESSIONAL-D (Biotronik). Device interrogation 03/17/20 showed normal function, AFIB burden 0.1% and stable lead impedances. Adequate battery life and 100% BiV pacing. No episodes of VT/VF recorded. 8. Hypothyroidism 9. Diabetes, II Recommendations Could not ascertain recent impedances from automatic download that should occur nightly as I suspect pt device transmitter is either unplug or he has not been sleeping with it since no downloads in the last 21 days Also would need to further reinforce fluid restriction and Na restriction and daily wt. Discuss with RN will further discuss with pt and son. HF optimization with Lasix, Toprol, Entresto Rate controlled with metoprolol Eliquis for stroke prophylaxis Outpatient echo Lung optimization per pulmonary Supportive care Justicifation of Admission Dx: Justifications for Admission: Justification of Admission Dx: Yes FARIDA THOMPSON MD 04/27/20 0904: CARDIO Progress Notes Assessment Assessment Patient seen and examined 04/26/20 (late entry). Agree with CHIEF GUARD's assessment and plan. Acute on chronic systolic heart failure better compensated. PAF, currently V paced. Continue current medical regimen and follow-up with our office as scheduled. LEW MORRIS APRN Apr 26, 2020 13:06 FARIDA THOMPSON MD Apr 27, 2020 09:04
[2020-04-26] MEDS ORDERED: ANTI-COAG MONITOR BY PHARMACY. MC PRN (14:15)
[2020-04-26 15:11] VITALS: BP 111/67
[2020-04-26] MEDS ORDERED: PRED20TA PO (18:38)
[2020-04-26] MEDS ORDERED: AMOX1TAB58 PO (18:38)
--- NOTE | 2020-04-26 19:42 | NUR ---
Discharge Note: BAN PHELPS MORA Discharge instructions and discharge home medications reviewed with Patient and a copy given. All questions have been answered and understanding verbalized. The following instructions and handouts were given: sodium/fluid restriction, CHF booklet, cardiac and ADA diet, patient needing to be sure his unit for his PPM is plugged in and he is sleeping near it at night, medications and meds returned from our pharmacy. His son Jam and his [id number] helped with the discharge and I answered all of the patient questions as well as the families questions. discharge printed in Urdu and Yoruba. Discontinued lines IV removed, no lines present at discharge. Patient discharged to home. left by wheelchair to his sones private vehicle.
[2020-04-26] MEDS ORDERED: LACTOBACILLUS RHAMNOSUS GG 1 CAPSULE. PO SCH (21:00)
[2020-04-30] MEDS ORDERED: ERGOCALCIFEROL (VITAMIN D2) 50,000 UNIT CAPSULE. PO SCH (09:00)
== END 2020-04-26 19:30 | disposition home or self-care (01) | DRG 291 ==
LOC: ER 00:03 → 6 SOUTH 03:38 → 2 NORTH 04-26 04:11
PROVIDERS: ADMIT Internal Medicine; ATTEND Internal Medicine
PROC: 5A09357 Assistance with Respiratory Ventilation, Less than 24 Consecutive Hours, Continuous Positive Airway Pressure (ICD-10-PCS; principal; 2020-04-23)
PROC: 5A09357 Assistance with Respiratory Ventilation, Less than 24 Consecutive Hours, Continuous Positive Airway Pressure (ICD-10-PCS; 2020-04-24)
DX: I11.0 Hypertensive heart disease with heart failure (principal); J96.01 Acute respiratory failure with hypoxia; E87.2 Acidosis; I50.23 Acute on chronic systolic (congestive) heart failure; I42.8 Other cardiomyopathies; E03.9 Hypothyroidism, unspecified; E11.9 Type 2 diabetes mellitus without complications; E78.5 Hyperlipidemia, unspecified; I25.10 Atherosclerotic heart disease of native coronary artery without angina pectoris; I48.0 Paroxysmal atrial fibrillation; M19.90 Unspecified osteoarthritis, unspecified site; Z20.828 Contact with and (suspected) exposure to other viral communicable diseases; T38.0X5A Adverse effect of glucocorticoids and synthetic analogues, initial encounter; D72.829 Elevated white blood cell count, unspecified; Y92.239 Unspecified place in hospital as the place of occurrence of the external cause; Z83.3 Family history of diabetes mellitus; Z86.19 Personal history of other infectious and parasitic diseases; Z95.810 Presence of automatic (implantable) cardiac defibrillator; Z79.899 Other long term (current) drug therapy
CPT/HCPCS: 36415; 36600; 71045; 80048; 80076; 82550; 82805; 82962; 83605; 83735; 83880; 84132; 84145; 84484; 85007; 85025; 85379; 85610; 85730; 87040; 87804; 93005; 94618; 94660; 96365; 96375; 99285; J0456; J0696; J1815; J1940; J2920; J3480; J7512; U0003; G0378

== ENCOUNTER 2020-11-13 13:55 | Observation (INO) | payer OTHER, MEDICAID ==
[~2020-11-13] VITALS: Ht 162.6 cm; Wt 77.6 kg
[~2020-11-13 13:55] MED LIST changes: +ALEN70TA71 PO; +AMOX1TAB58 PO; +DOCU-153 PO; +ERGO500089 PO; +LACT1CAP19 PO; +LEVO100T5 PO; +LEVO125T5 PO; -LISI-338 PO; +LISI-517 PO; +METO50TA4 PO
[2020-11-13 14:47] LABS: BASO # 0.1 x10^3/uL (0.0-0.2); BASO % 1 % (0-3); EOS # 0.2 x10^3/uL (0.0-0.7); EOS % 2 % (0-3); HEMATOCRIT 45.5 % (39.0-53.0); HEMOGLOBIN 15.3 g/dL (13.0-17.5); LYMPH % 25 % (24-48); MEAN CORPUSCULAR HEMOGLOBIN 28 pg (25-35); MEAN CORPUSCULAR HGB CONC 34 g/dL (31-37); MEAN CORPUSCULAR VOLUME 82 fL (79-100); MONO # 0.6 x10^3/uL (0.0-1.1); MONO % 8 % (0-9); NEUT # 5.1 x10^3/uL (1.8-7.7); NEUT % 64 % (31-73); PLATELET COUNT 204 x10^3/uL (140-400); RED BLOOD COUNT 5.58 x10^6/uL (4.30-5.70); RED CELL DISTRIBUTION WIDTH 15.3 % (11.5-14.5); WHITE BLOOD COUNT 7.9 x10^3/uL (4.0-11.0)
--- NOTE | 2020-11-13 15:12 | RAD ---
Exam Date: 11/13/2020 2:40 PM XR ABDOMEN COMP ACUTE Indication: Reason: ABDOMINAL PAIN / Spl. Instructions: / History: . COMPARISON: October 01, 2020 FINDINGS/ IMPRESSION: CHEST: Cardiac pacemaker remains in place. Cardiac silhouette remains enlarged with mild congestion. Diffu se bilateral interstitial infiltrates are slightly improved compared to the prior exam. No appreciab le pleural effusion or pneumothorax. ABDOMEN AND PELVIS: The stomach is distended with air. There is a non-dilated, non-obstructed bowel gas pattern. Air and fecal matter is seen within the co camron. Degenerative changes are seen in the spine and pelvis. Electronically signed by: Alan Carrera MD (11/13/2020 3:09 PM) [facility]
[2020-11-13] MEDS ORDERED: IV NORMAL SALINE 500ML BAG 500 ML IV ONE (15:30)
[2020-11-13 15:32] LABS: CALCIUM 8.3 mg/dL (8.5-10.1); CREATININE 0.9 mg/dL (0.7-1.3); GFR 80.6; POTASSIUM 3.7 mmol/L (3.5-5.1)
[2020-11-13 15:36] LABS: ALBUMIN 3.2 g/dL (3.4-5.0); ALBUMIN/GLOBULIN RATIO 0.9 (1.0-1.7); DIG < 0.2 ng/mL (0.9-2.0); TOTAL BILIRUBIN 0.6 mg/dL (0.2-1.0); TOTAL PROTEIN 6.9 g/dL (6.4-8.2)
--- NOTE | 2020-11-13 15:38 | EKG ---
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
[2020-11-13] MEDS ORDERED: CONTRAST GIVEN. MC PRN (16:00)
[2020-11-13] MEDS ORDERED: IOHEXOL 300 MG/ML 100ML VIAL. IV ONE (16:00)
[2020-11-13 16:03] LABS: BILIRUBIN,URINE NEGATIVE (NEG); CLARITY,URINE CLEAR; COLOR,URINE YELLOW; NITRITE,URINE NEGATIVE (NEG); PH,URINE 5.5 (<5.0-8.0); PROTEIN,URINE NEGATIVE (NEG-TRACE); UROBILINOGEN,URINE 0.2 mg/dL (0.2 mg/dL)
[2020-11-13 16:09] LABS: BACTERIA,URINE 0 /HPF (0-FEW); RBC,URINE 0 /HPF (0-2); WBC,URINE 0 /HPF (0-4)
--- NOTE | 2020-11-13 16:29 | PHYS DOC ---
Past Medical History Past Medical History: A-Fib, CAD, CHF, Heart Disease, Hypertension, Other Additional Past Medical Histor: AFIB RVR Past Surgical History: Pacemaker Additional Past Surgical Histo: "head" , BIOTRONIC PACEMAKER Smoking Status: Never Smoker Alcohol Use: None Drug Use: None General Adult EDM: Chief Complaint: ABDOMINAL PAIN HPI: HPI: Patient is a 85 year old male who presented to ER due to abnormal abdominal wall muscle spasm that started 2 days ago. Patient denies any nausea vomiting, no chest pain, no trouble breathing. Patient felt like his anterior abdominal area moving in a wave, causing some cramping sensation. Patient denies any cough or fever. Patient denies any constipation or diarrhea problem. Review of Systems: Review of Systems: Constitutional: Denies fever or chills. [] Eyes: Denies change in visual acuity. [] HENT: Denies nasal congestion or sore throat. [] Respiratory: Denies cough or shortness of breath. [] Cardiovascular: Denies chest pain or edema. [] GI: Positive for abdominal pain, No nausea, vomiting, bloody stools or diarrhea. [] : Denies dysuria. [] Musculoskeletal: Denies back pain or joint pain. [] Integument: Denies rash. [] Neurologic: Denies headache, focal weakness or sensory changes. [] Endocrine: Denies polyuria or polydipsia. [] Lymphatic: Denies swollen glands. [] Psychiatric: Denies depression or anxiety. [] Heart Score: C/O Chest Pain: N/A Risk Factors: Risk Factors: DM, Current or recent (<one month) smoker, HTN, HLP, family history of CAD, obesity. Risk Scores: Score 0 - 3: 2.5% MACE over next 6 weeks - Discharge Home Score 4 - 6: 20.3% MACE over next 6 weeks - Admit for Clinical Observation Score 7 - 10: 72.7% MACE over next 6 weeks - Early Invasive Strategies Current Medications: Current Medications Medications (Trade) Dose Ordered Sig/Arthur Start Time Stop Time Status Last Admin Dose Admin Diltiazem HCl (Cardizem Iv Push) 20 mg 1X ONCE 11/13/20 15:15 11/13/20 15:18 DC 11/13/20 15:50 20 MG Info (CONTRAST GIVEN -- Rx MONITORING) 1 each PRN DAILY PRN 11/13/20 16:00 7/13/21 15:59 Iohexol (Omnipaque 300 Mg/ml) 75 ml 1X ONCE 11/13/20 16:00 11/13/20 16:01 DC 11/13/20 16:06 75 ML Sodium Chloride 500 ml @ 500 mls/hr 1X ONCE 11/13/20 15:30 11/13/20 16:29 11/13/20 15:49 500 MLS/HR Allergies: Allergies: Allergies Coded Allergies Type Severity Reaction Last Updated Verified No Known Drug Allergies 01/23/18 No Physical Exam: PE: Constitutional: Well developed, well nourished, no acute distress, non-toxic appearance. [] HENT: Normocephalic, atraumatic, bilateral external ears normal, oropharynx moist, no oral exudates, nose normal. [] Eyes: PERRLA, EOMI, conjunctiva normal, no discharge. [] Neck: Normal range of motion, no tenderness, supple, no stridor. [] Cardiovascular: irregular rhythm, tachycardia, no murmur [] Lungs & Thorax: Bilateral breath sounds clear to auscultation [] Abdomen: Bowel sounds normal, soft, no tenderness, no masses, no pulsatile masses. [] Skin: Warm, dry, no erythema, no rash. [] Back: No tenderness, no CVA tenderness. [] Extremities: No tenderness, no cyanosis, no clubbing, ROM intact, no edema. [] Neurologic: Alert and oriented X 3, normal motor function, normal sensory func tion, no focal deficits noted. [] Psychologic: Affect normal, judgement normal, mood normal. [] Current Patient Data: Labs: Laboratory Tests Test 11/13/20 14:35 11/13/20 15:10 11/13/20 15:54 White Blood Count 7.9 x10^3/uL (4.0-11.0) Red Blood Count 5.58 x10^6/uL (4.30-5.70) Hemoglobin 15.3 g/dL (13.0-17.5) Hematocrit 45.5 % (39.0-53.0) Mean Corpuscular Volume 82 fL (79-100) Mean Corpuscular Hemoglobin 28 pg (25-35) Mean Corpuscular Hemoglobin Concent 34 g/dL (31-37) Red Cell Distribution Width 15.3 % (11.5-14.5) H Platelet Count 204 x10^3/uL (140-400) Neutrophils (%) (Auto) 64 % (31-73) Lymphocytes (%) (Auto) 25 % (24-48) Monocytes (%) (Auto) 8 % (0-9) Eosinophils (%) (Auto) 2 % (0-3) Basophils (%) (Auto) 1 % (0-3) Neutrophils # (Auto) 5.1 x10^3/uL (1.8-7.7) Lymphocytes # (Auto) 2.0 x10^3/uL (1.0-4.8) Monocytes # (Auto) 0.6 x10^3/uL (0.0-1.1) Eosinophils # (Auto) 0.2 x10^3/uL (0.0-0.7) Basophils # (Auto) 0.1 x10^3/uL (0.0-0.2) Sodium Level 141 mmol/L (136-145) Potassium Level 3.7 mmol/L (3.5-5.1) Chloride Level 107 mmol/L (98-107) Carbon Dioxide Level 24 mmol/L (21-32) Anion Gap 10 (6-14) Blood Urea Nitrogen 17 mg/dL (8-26) Creatinine 0.9 mg/dL (0.7-1.3) Estimated GFR (Cockcroft-Gault) 80.6 BUN/Creatinine Ratio 19 (6-20) Glucose Level 193 mg/dL (70-99) H Calcium Level 8.3 mg/dL (8.5-10.1) L Magnesium Level 2.0 mg/dL (1.8-2.4) Total Bilirubin 0.6 mg/dL (0.2-1.0) Aspartate Amino Transferase (AST) 19 U/L (15-37) Alanine Aminotransferase (ALT) 20 U/L (16-63) Alkaline Phosphatase 82 U/L (46-116) Troponin I Quantitative < 0.017 ng/mL (0.000-0.055) ER-Vym-J-Type Natriuretic Peptide 5841 pg/mL (0-449) H Total Protein 6.9 g/dL (6.4-8.2) Albumin 3.2 g/dL (3.4-5.0) L Albumin/Globulin Ratio 0.9 (1.0-1.7) L Lipase 30 U/L (73-393) L Digoxin Level < 0.2 ng/mL (0.9-2.0) L Digoxin Last Dose Date Unk Digoxin Last Dose Time Unk Urine Collection Type Unknown Urine Color Yellow Urine Clarity Clear Urine pH 5.5 (<5.0-8.0) Urine Specific [place] 1.010 (1.000-1.030) Urine Protein Negative mg/dL (NEG-TRACE) Urine Glucose (UA) Negative mg/dL (NEG) Urine Ketones (Stick) Negative mg/dL (NEG) Urine Blood Negative (NEG) Urine Nitrite Negative (NEG) Urine Bilirubin Negative (NEG) Urine Urobilinogen Dipstick 0.2 mg/dL (0.2 mg/dL) Urine Leukocyte Esterase Negative (NEG) Urine RBC 0 /HPF (0-2) Urine WBC 0 /HPF (0-4) Urine Squamous Epithelial Cells Occ /LPF Urine Bacteria 0 /HPF (0-FEW) Laboratory Tests 11/13/20 14:35 Laboratory Tests 11/13/20 15:10 Vital Signs: Vital Signs Date Time Temp Pulse Resp B/P (MAP) Pulse Ox O2 Delivery O2 Flow Rate FiO2 11/13/20 15:50 128 108/64 11/13/20 14:15 97.4 20 96 Room Air 97.4 EKG: EKG: EKG was done at 1419, heart rate 131 bpm, atrial fibrillation left bundle branch block Radiology/Procedures: Radiology/Procedures: [facility] [address] [place] [address] IMAGING REPORT Signed PATIENT: ELOY PHELPS ACCOUNT: [id number] : 1935 LOCATION: ER AGE: 85 SEX: M EXAM STATUS: REG ER ORD. PHYSICIAN: LUKE ANN DO REASON: abdominal pain PROCEDURE: CT ABD PELV W/ IV CONTRST ONLY Exam: CT of abdomen and pelvis with contrast INDICATION: Abdominal pain TECHNIQUE: Sequential axial images through the abdomen and pelvis obtained following the administration of 75 mL of Isovue-370 IV contrast. Sagittal and coronal reformatted images were reconstructed from the axial data and reviewed. Exposure: One or more of the following in the visualized dose reduction techniques were utilized for this examination: 1. Automated exposure control 2. Adjustment of the MA and/or KV according to patient size 3. Use of iterative of reconstructive technique Comparisons: Radiograph same day FINDINGS: Heart is mildly enlarged. Pacer with leads terminating the right heart. No pericardial small bilateral pleural effusions. There is strandy opacities dependent portion lungs likely representing atelectasis. Liver, spleen, pancreas, gallbladder and adrenals are unremarkable. No perinephric inflammation or hydronephrosis. No renal or ureteral calculi are identified. Bladder is partially distended and not well evaluated. Prostate is not enlarged. Diverticulosis noted at the sigmoid colon without evidence of acute diverticulitis. Appendix is is not identified. No free abdominal air or fluid. No obstruction. Abdominal aorta has a normal course and caliber. Abdominal vasculature is patent. No enlarged abdominal lymph nodes are identified. Compression fracture of the L2 vertebral body with approximately 25% height loss. IMPRESSION: 1. Mild compression fracture of the L2 vertebral body with approximately 25% height loss. This is age indeterminate. Correlate with point tenderness. 2. Diverticulosis without evidence of acute diverticulitis. 3. Small bilateral pleural effusions. Adjacent airspace disease may relate to pulmonary edema or atelectasis. Developing infectious process is difficult to exclude. Electronically signed by: Deborah Donald MD (11/13/2020 4:33 PM) [facility] DICTATED and SIGNED BY: DEBORAH DONALD MD DATE: 11/13/20 [id number] 0 Course & Med Decision Making: Course & Med Decision Making Pertinent Labs and Imaging studies reviewed. (See chart for details) Patient is an 85-year-old male who present to ER due to abdominal wall muscle twisting, spasm, most likely related to the pacemaker. Patient was in atrial fibrillation with RVR, patient was given a bolus of Cardizem 20 mg IV, his heart rate slowed down. Patient will be admitted for observation. Dragon Disclaimer: Dragon Disclaimer: This electronic medical record was generated, in whole or in part, using a voice recognition dictation system. Departure Departure Impression: Primary Impression: Atrial fibrillation with RVR Disposition: ADMITTED INPATIENT Admitting Physician: SUAD (Dr. Silvestre) Condition: IMPROVED Referrals: NARESH HE MD (PCP) LUKE ANN DO Nov 13, 2020 16:29
--- NOTE | 2020-11-13 16:36 | RAD ---
Exam: CT of abdomen and pelvis with contrast INDICATION: Abdominal pain TECHNIQUE: Sequential axial images through the abdomen and pelvis obtained following the administrati on of 75 mL of Isovue-370 IV contrast. Sagittal and coronal reformatted images were reconstructed fro m the axial data and reviewed. Exposure: One or more of the following in the visualized dose reduction techniques were utilized for this examination: 1. Automated exposure control 2. Adjustment of the MA and/or KV according to patient size 3. Use of iterative of reconstructive technique Comparisons: Radiograph same day FINDINGS: Heart is mildly enlarged. Pacer with leads terminating the right heart. No pericardial small bilatera l pleural effusions. There is strandy opacities dependent portion lungs likely representing atelectas is. Liver, spleen, pancreas, gallbladder and adrenals are unremarkable. No perinephric inflammation or hydronephrosis. No renal or ureteral calculi are identified. Bladder is partially distended and not well evaluated. Prostate is not enlarged. Diverticulosis noted at the sigmoid colon without evidence of acute diverticulitis. Appendix is is no t identified. No free abdominal air or fluid. No obstruction. Abdominal aorta has a normal course and caliber. Abdominal vasculature is patent. No enlarged abdominal lymph nodes are identified. Compression fracture of the L2 vertebral body with approximately 25% height loss. IMPRESSION: 1. Mild compression fracture of the L2 vertebral body with approximately 25% height loss. This is ag e indeterminate. Correlate with point tenderness. 2. Diverticulosis without evidence of acute diverticulitis. 3. Small bilateral pleural effusions. Adjacent airspace disease may relate to pulmonary edema or ate lectasis. Developing infectious process is difficult to exclude. Electronically signed by: Deborah Mayo MD (11/13/2020 4:33 PM) [facility]
--- NOTE | 2020-11-13 17:29 | PDOC1 ---
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 No fevers, vomiting, diarrhea. Patient stated states that he has been compliant with his medications. He is notably in accelerated tachcardia with no p-waves, looks like afib RVR, given cardizem ordered by Dr. Rob in ED and HR slows into the 80s, has visible diaphragmatic spasms that look associated with some pacer spikes on telemetry. It doesn't cause patient any severe distress, just occasional spasms and pain. Abdominal radiograph with cardiomegaly and mild left effusion and moderate bilateral infiltrates and left-sided AICD pacemaker noted. CT abdomen pelvis with incidental finding of L2 compression fracture though he has no back pain. Diverticulosis no other acute abdominal findings. Labs with WBC 7.9, Hb 15.3, platelets 2 4, NA 141, K3.7, BUN 17, CR 0.9, glucose 193, mag 2, albumin 3.2, troponin 0, NT proBNP 5841 Admitted for further care. Past Medical History Cardiovascular: AFIB, CHF, HTN, Hyperlipidemia Pulmonary: No pertinent hx CENTRAL NERVOUS SYSTEM: Other GI: No pertinent hx Heme/Onc: No pertinent hx, Other Hepatobiliary: No pertinent hx Psych: No pertinent hx Musculoskeletal: Osteoarthritis Rheumatologic: No pertinent hx Infectious disease: No pertinent hx Renal/: No pertinent hx Endocrine: Hypothyroidism Past Surgical History Past Surgical History: Other Family History Family History: Hypertension Social History Smoke: No ALCOHOL: none Drugs: None Current Medications Current Medications Current Medications Diltiazem HCl (Cardizem Iv Push) 20 mg 1X ONCE IVP Last administered on 11/13/20at 15:50; Start 11/13/20 at 15:15; Stop 11/13/20 at 15:18; Status DC Sodium Chloride 500 ml @ 500 mls/hr 1X ONCE IV Last administered on 11/13/20at 15:49; Start 11/13/20 at 15:30; Stop 11/13/20 at 16:29; Status DC Iohexol (Omnipaque 300 Mg/ml) 75 ml 1X ONCE IV Last administered on 11/13/20at 16:06; Start 11/13/20 at 16:00; Stop 11/13/20 at 16:01; Status DC Info (CONTRAST GIVEN -- Rx MONITORING) 1 each PRN DAILY PRN MC SEE COMMENTS; Start 11/13/20 at 16:00; Stop 11/15/20 at 15:59 Active Scripts Active Digoxin 125 Mcg Tablet 125 Mcg PO DAILY 30 Days Culturelle (Lactobacillus Rhamnosus Gg) 1 Each Cap.sprink 1 Cap PO BID 30 Days Furosemide 40 Mg Tablet 40 Mg PO DAILY 30 Days Entresto 24 mg-26 mg Tablet (Sacubitril/Valsartan) 1 Each Tablet 1 Tab PO BID 30 Days Dok (Docusate Sodium) 100 Mg Capsule 100 Mg PO PRN DAILY PRN 30 Days Klor-Con 10 (Potassium Chloride) 10 Meq Tablet.er 10 Meq PO DAILYWBKFT 30 Days Eliquis (Apixaban) 5 Mg Tablet 5 Mg PO BID 30 Days Reported Levothyroxine Sodium 100 Mcg Tablet 1 Tab PO DAILY Vitamin D2 (Ergocalciferol (Vitamin D2)) 1,250 Mcg Capsule 1,250 Mcg PO WEEKLY Alendronate Sodium 70 Mg Tablet 1 Tab PO WEEKLY Atorvastatin Calcium 10 Mg Tablet 10 Mg PO HS Allergies Allergies: Coded Allergies: No Known Drug Allergies (Unverified , 01/23/18) ROS General: YES: Fatigue, Malaise; No: Chills, Night Sweats, Appetite, Other PSYCHOLOGICAL ROS: No: Anxiety, Behavioral Disorder, Concentration difficultie, Decreased libido, Depression, Disorientation, Hallucinations, Hostility, Irritablity, Memory difficulties, Mood Swings, Obsessive thoughts, Physical abuse, Sexual abuse, Sleep disturbances, Suicidal ideation, Other Eyes: No Blurry vision, No Decreased vision, No Double vision, No Dry eyes, No Excessive tearing, No Eye Pain, No Itchy Eyes, No Loss of vision, No Photophobia, No Scotomata, No Uses contacts, No Uses glasses, No Other HEENT: No: Heacaches, Visual Changes, Hearing change, Nasal congestion, Nasal discharge, Oral lesions, Sinus pain, Sore Throat, Epistaxis, Sneezing, Snoring, Tinnitus, Vertigo, Vocal changes, Other ALLERGY AND IMMUNOLOGY: No: Hives, Insect Bite Sensitivity, Itchy/Watery Eyes, Nasal Congestion, Post Nasal Drip, Seasonal Allergies, Other Hematological and Lymphatic: No: Bleeding Problems, Blood Clots, Blood Transfusions, Brusing, Night Sweats, Pallor, Swollen Lymph Nodes, Other ENDOCRINE: No: Breast Changes, Galactorrhea, Hair Pattern Changes, Hot Flashes, Malaise/lethargy, Mood Swings, Palpitations, Polydipsia/polyuria, Skin Changes, Temperature Intolerance, Unexpected Weight Changes, Other Breast: No New/Changing Breast Lumps, No Nipple changes, No Nipple discharge, No Other Respiratory: No: Cough, Hemoptysis, Orthopnea, Pleuritic Pain, Shortness of breath, SOB with excertion, Sputum Changes, Stridor, Tachypnea, Wheezing, Other Cardiovascular: No Chest Pain, No Palpitations, No Orthopnea, No Paroxysmal Noc. Dyspnea, No Edema, No Lt Headedness, No Other Gastrointestinal: Yes Abdominal Pain; No Nausea, No Vomiting, No Diarrhea, No Constipation, No Melena, No Hematochezia, No Other Genitourinary: No Dysuria, No Frequency, No Incontinence, No Hematuria, No Retention, No Discharge, No Urgency, No Pain, No Flank Pain, No Other, No , No , No , No , No , No , No Musculoskeletal: No Gait Disturbance, No Joint Pain, No Joint Stiffness, No Joint Swelling, No Muscle Pain, No Muscular Weakness, No Pain In:, No Swelling In:, No Other Neurological: No Behavorial Changes, No Bowel/Bladder ControlChng, No Confusion, No Dizziness, No Gait Disturbance, No Headaches, No Impaired Coord/balance, No Memory Loss, No Numbness/Tingling, No Seizures, No Speech Problems, No Tremors, No Visual Changes, No Weakness, No Other Skin: No Dry Skin, No Eczema, No Hair Changes, No Lumps, No Mole Changes, No Mottling, No Nail Changes, No Pruritus, No Rash, No Skin Lesion Changes, No Other, No Acne Physical Exam General: Alert, Oriented X3, Cooperative, mild distress HEENT: Atraumatic, PERRLA, EOMI, Mucous membr. moist/pink Lungs: Clear to auscultation, Normal air movement Heart: irregularly irregular Abdomen: Normal bowel sounds, Soft, No tenderness, No hepatosplenomegaly, No masses, Other (Visible twitching) Vitals Vitals Vital Signs Date Time Temp Pulse Resp B/P (MAP) Pulse Ox O2 Delivery O2 Flow Rate FiO2 11/13/20 15:50 128 108/64 11/13/20 14:15 97.4 20 96 Room Air 97.4 Labs Labs Laboratory Tests Test 11/13/20 14:35 11/13/20 15:10 11/13/20 15:54 White Blood Count 7.9 x10^3/uL (4.0-11.0) Red Blood Count 5.58 x10^6/uL (4.30-5.70) Hemoglobin 15.3 g/dL (13.0-17.5) Hematocrit 45.5 % (39.0-53.0) Mean Corpuscular Volume 82 fL (79-100) Mean Corpuscular Hemoglobin 28 pg (25-35) Mean Corpuscular Hemoglobin Concent 34 g/dL (31-37) Red Cell Distribution Width 15.3 % (11.5-14.5) Platelet Count 204 x10^3/uL (140-400) Neutrophils (%) (Auto) 64 % (31-73) Lymphocytes (%) (Auto) 25 % (24-48) Monocytes (%) (Auto) 8 % (0-9) Eosinophils (%) (Auto) 2 % (0-3) Basophils (%) (Auto) 1 % (0-3) Neutrophils # (Auto) 5.1 x10^3/uL (1.8-7.7) Lymphocytes # (Auto) 2.0 x10^3/uL (1.0-4.8) Monocytes # (Auto) 0.6 x10^3/uL (0.0-1.1) Eosinophils # (Auto) 0.2 x10^3/uL (0.0-0.7) Basophils # (Auto) 0.1 x10^3/uL (0.0-0.2) Sodium Level 141 mmol/L (136-145) Potassium Level 3.7 mmol/L (3.5-5.1) Chloride Level 107 mmol/L (98-107) Carbon Dioxide Level 24 mmol/L (21-32) Anion Gap 10 (6-14) Blood Urea Nitrogen 17 mg/dL (8-26) Creatinine 0.9 mg/dL (0.7-1.3) Estimated GFR (Cockcroft-Gault) 80.6 BUN/Creatinine Ratio 19 (6-20) Glucose Level 193 mg/dL (70-99) Calcium Level 8.3 mg/dL (8.5-10.1) Magnesium Level 2.0 mg/dL (1.8-2.4) Total Bilirubin 0.6 mg/dL (0.2-1.0) Aspartate Amino Transf (AST/SGOT) 19 U/L (15-37) Alanine Aminotransferase (ALT/SGPT) 20 U/L (16-63) Alkaline Phosphatase 82 U/L (46-116) Troponin I Quantitative < 0.017 ng/mL (0.000-0.055) ON-Zml-N-Type Natriuretic Peptide 5841 pg/mL (0-449) Total Protein 6.9 g/dL (6.4-8.2) Albumin 3.2 g/dL (3.4-5.0) Albumin/Globulin Ratio 0.9 (1.0-1.7) Lipase 30 U/L (73-393) Digoxin Level < 0.2 ng/mL (0.9-2.0) Digoxin Last Dose Date Unk Digoxin Last Dose Time Unk Urine Collection Type Unknown Urine Color Yellow Urine Clarity Clear Urine pH 5.5 (<5.0-8.0) Urine Specific [place] 1.010 (1.000-1.030) Urine Protein Negative mg/dL (NEG-TRACE) Urine Glucose (UA) Negative mg/dL (NEG) Urine Ketones (Stick) Negative mg/dL (NEG) Urine Blood Negative (NEG) Urine Nitrite Negative (NEG) Urine Bilirubin Negative (NEG) Urine Urobilinogen Dipstick 0.2 mg/dL (0.2 mg/dL) Urine Leukocyte Esterase Negative (NEG) Urine RBC 0 /HPF (0-2) Urine WBC 0 /HPF (0-4) Urine Squamous Epithelial Cells Occ /LPF Urine Bacteria 0 /HPF (0-FEW) Laboratory Tests Test 11/13/20 14:35 11/13/20 15:10 11/13/20 15:54 White Blood Count 7.9 x10^3/uL (4.0-11.0) Red Blood Count 5.58 x10^6/uL (4.30-5.70) Hemoglobin 15.3 g/dL (13.0-17.5) Hematocrit 45.5 % (39.0-53.0) Mean Corpuscular Volume 82 fL (79-100) Mean Corpuscular Hemoglobin 28 pg (25-35) Mean Corpuscular Hemoglobin Concent 34 g/dL (31-37) Red Cell Distribution Width 15.3 % (11.5-14.5) Platelet Count 204 x10^3/uL (140-400) Neutrophils (%) (Auto) 64 % (31-73) Lymphocytes (%) (Auto) 25 % (24-48) Monocytes (%) (Auto) 8 % (0-9) Eosinophils (%) (Auto) 2 % (0-3) Basophils (%) (Auto) 1 % (0-3) Neutrophils # (Auto) 5.1 x10^3/uL (1.8-7.7) Lymphocytes # (Auto) 2.0 x10^3/uL (1.0-4.8) Monocytes # (Auto) 0.6 x10^3/uL (0.0-1.1) Eosinophils # (Auto) 0.2 x10^3/uL (0.0-0.7) Basophils # (Auto) 0.1 x10^3/uL (0.0-0.2) Sodium Level 141 mmol/L (136-145) Potassium Level 3.7 mmol/L (3.5-5.1) Chloride Level 107 mmol/L (98-107) Carbon Dioxide Level 24 mmol/L (21-32) Anion Gap 10 (6-14) Blood Urea Nitrogen 17 mg/dL (8-26) Creatinine 0.9 mg/dL (0.7-1.3) Estimated GFR (Cockcroft-Gault) 80.6 BUN/Creatinine Ratio 19 (6-20) Glucose Level 193 mg/dL (70-99) Calcium Level 8.3 mg/dL (8.5-10.1) Magnesium Level 2.0 mg/dL (1.8-2.4) Total Bilirubin 0.6 mg/dL (0.2-1.0) Aspartate Amino Transf (AST/SGOT) 19 U/L (15-37) Alanine Aminotransferase (ALT/SGPT) 20 U/L (16-63) Alkaline Phosphatase 82 U/L (46-116) Troponin I Quantitative < 0.017 ng/mL (0.000-0.055) KN-Yps-X-Type Natriuretic Peptide 5841 pg/mL (0-449) Total Protein 6.9 g/dL (6.4-8.2) Albumin 3.2 g/dL (3.4-5.0) Albumin/Globulin Ratio 0.9 (1.0-1.7) Lipase 30 U/L (73-393) Digoxin Level < 0.2 ng/mL (0.9-2.0) Digoxin Last Dose Date Unk Digoxin Last Dose Time Unk Urine Collection Type Unknown Urine Color Yellow Urine Clarity Clear Urine pH 5.5 (<5.0-8.0) Urine Specific [place] 1.010 (1.000-1.030) Urine Protein Negative mg/dL (NEG-TRACE) Urine Glucose (UA) Negative mg/dL (NEG) Urine Ketones (Stick) Negative mg/dL (NEG) Urine Blood Negative (NEG) Urine Nitrite Negative (NEG) Urine Bilirubin Negative (NEG) Urine Urobilinogen Dipstick 0.2 mg/dL (0.2 mg/dL) Urine Leukocyte Esterase Negative (NEG) Urine RBC 0 /HPF (0-2) Urine WBC 0 /HPF (0-4) Urine Squamous Epithelial Cells Occ /LPF Urine Bacteria 0 /HPF (0-FEW) Images Images CT abdomen/pelvis: Heart is mildly enlarged. Pacer with leads terminating the right heart. No pericardial small bilateral pleural effusions. There is strandy opacities dependent portion lungs likely representing atelectasis. Liver, spleen, pancreas, gallbladder and adrenals are unremarkable. No perinephric inflammation or hydronephrosis. No renal or ureteral calculi are identified. Bladder is partially distended and not well evaluated. Prostate is not enlarged. Diverticulosis noted at the sigmoid colon without evidence of acute diverticulitis. Appendix is is not identified. No free abdominal air or fluid. No obstruction. Abdominal aorta has a normal course and caliber. Abdominal vasculature is patent. No enlarged abdominal lymph nodes are identified. Compression fracture of the L2 vertebral body with approximately 25% height loss. IMPRESSION: 1. Mild compression fracture of the L2 vertebral body with approximately 25% height loss. This is age indeterminate. Correlate with point tenderness. 2. Diverticulosis without evidence of acute diverticulitis. 3. Small bilateral pleural effusions. Adjacent airspace disease may relate to pulmonary edema or atelectasis. Developing infectious process is difficult to exclude. Acute abdomen series: CHEST: Cardiac pacemaker remains in place. Cardiac silhouette remains enlarged with mild congestion. Diffuse bilateral interstitial infiltrates are slightly improved compared to the prior exam. No appreciable pleural effusion or pneumothorax. ABDOMEN AND PELVIS: The stomach is distended with air. There is a non-dilated, non-obstructed bowel gas pattern. Air and fecal matter is seen within the colon. Degenerative changes are seen in the spine and pelvis. Previously in july 2020: Echo: The left ventricular systolic function is severely impaired. The Ejection Fraction is 15-20%. Pacer lead noted RA/RV. Trace mitral regurgitation. Trace tricuspid regurgitation with an estimated PAP of 22 mmHg. There is no evidence of significant pericardial effusion. VTE Prophylaxis Ordered VTE Prophylaxis Devices: Yes VTE Pharmacological Prophylaxi: Yes Assessment/Plan Assessment/Plan A/P: Acute abdominal pain - really more abdominal wall spasms, looks like it may be associated with pacer diaphragm triggering. Needs device rep to see Acute on chronic systolic CHF - likely from acute afib with RVR. with his BP low after cardizem, may not be able to tolerate IV lasix and this is likely due to afib, once rate is controlled likely CHF will improve AFIB - Cardizem bolus helped.. occasionally vpaced. Will DC Cardizem in favor of metoprolol. 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 Cardiology consult. Hypertension - will cont BB if BP allows Hypothyroidism - cont levothyroxine DM2 -sliding scale insulin T2 fracture - incidental finding. No back pain FEN - ADA diet ppx - eliquis FULL CODE Dispo -[facility] Justifications for Admission Other Justification CHF exacerbation LESLY CASTANEDA MD Nov 13, 2020 17:29
[2020-11-13] MEDS ORDERED: METOPROLOL IV PUSH 5 MG/5 ML VIAL. IVP PRN (18:00)
[2020-11-13] MEDS ORDERED: DOCUSATE SODIUM 100 MG CAPSULE. PO PRN (18:00)
[2020-11-13] MEDS ORDERED: DEXTROSE 50% 25 GM / 50ML DISP.SYRIN. IV PRN (18:15)
[2020-11-13 20:15] VITALS: BP 128/78
[2020-11-13] MEDS: ATORVASTATIN CALCIUM 10 MG TABLET. PO SCH (22:03)
[2020-11-13] MEDS: APIXABAN 5 MG TABLET. PO SCH (22:03)
[2020-11-13] MEDS: SACUBITRIL/VALSARTAN 24/26MG TABLET. PO SCH (22:03)
[2020-11-13 22:50] VITALS: BP 124/61
[2020-11-14 03:19] VITALS: BP 122/73
[2020-11-14 06:26] VITALS: BP 104/67
[2020-11-14 07:38] LABS: CALCIUM 8.4 mg/dL (8.5-10.1); CREATININE 0.9 mg/dL (0.7-1.3); GFR 80.6; POTASSIUM 3.8 mmol/L (3.5-5.1)
[2020-11-14] MEDS: INSULIN LISPRO 300 UNITS/3 ML VIAL. SQ SCH ×3 (08:00→17:00)
[2020-11-14] MEDS ORDERED: ANTI-COAG MONITOR BY PHARMACY. MC PRN (08:00)
[2020-11-14] MEDS: LEVOTHYROXINE 100 MCG TABLET PO SCH (08:13)
--- NOTE | 2020-11-14 08:41 | PDOC ---
PROGRESS NOTES Date of Service: DATE: 11/14/20 TIME: 08:41 Chief Complaint Chief Complaint VTE Prophylaxis Ordered VTE Prophylaxis Devices: Yes VTE Pharmacological Prophylaxi: Yes Assessment/Plan Assessment/Plan A/P: Acute abdominal pain - really more abdominal wall spasms, looks like it may be associated with pacer diaphragm triggering. device rep to see Diaphragmatic contractions, stimulation. associated with pacer spikes on telemetry PAFIB; presenting with RVR. On dig for rate control. Dig level < 0.2. Amiodarone discontinued in past due to concerns for ILD. Acute on chronic systolic CHF - likely from acute afib with RVR. with his BP low after cardizem, may not be able to tolerate IV lasix and this is likely due to afib, once rate is controlled likely CHF will improve AFIB - Cardizem bolus helped.. occasionally vpaced. Will DC Cardizem in favor of metoprolol. Cont home eliquis Severe NICM with LVEF 15-20% - s/p HOME INSPECTOR-D (Biotronik). Cardiology consult. Hypertension - will cont BB if BP allows Hypothyroidism - cont levothyroxine DM2 -sliding scale insulin T2 fracture - incidental finding. No back pain FEN - ADA diet ppx - eliquis FULL CODE Dispo -CVC d/w rn History of Present Illness History of Present Illness dentification/Chief Complaint Chief Complaint Abdominal pain Source Source: Caregiver, Chart review, Patient History of Present Illness History of Present Illness Mr Bergeron is an 85 year old male w/ PMHx reduced EF 15-20% CHF s/p AICD (Biotronik), HTN, hypothyroidism, afib who comes to ED for abdominal wall spasms for the past 2 days that are concerning him and his son. No fevers, vomiting, diarrhea. Patient stated states that he has been compliant with his medications. He is notably in accelerated tachcardia with no p-waves, looks like afib RVR, given cardizem ordered by Dr. Rob in ED and HR slows into the 80s, has visible diaphragmatic spasms that look associated with some pacer spikes on telemetry. It doesn't cause patient any severe distress, just occasional spasms and pain. Abdominal radiograph with cardiomegaly and mild left effusion and moderate bilateral infiltrates and left-sided AICD pacemaker noted. CT abdomen pelvis with incidental finding of L2 compression fracture though he has no back pain. Diverticulosis no other acute abdominal findings. Labs with WBC 7.9, Hb 15.3, platelets 2 4, NA 141, K3.7, BUN 17, CR 0.9, glucose 193, mag 2, albumin 3.2, troponin 0, NT proBNP 5841 Admitted for further care. Past Medical History Cardiovascular: AFIB, CHF, HTN, Hyperlipidemia Pulmonary: No pertinent hx CENTRAL NERVOUS SYSTEM: Other GI: No pertinent hx Heme/Onc: No pertinent hx, Other Hepatobiliary: No pertinent hx Psych: No pertinent hx Musculoskeletal: Osteoarthritis Rheumatologic: No pertinent hx Infectious disease: No pertinent hx Renal/: No pertinent hx Endocrine: Hypothyroidism Past Surgical History Past Surgical History: Other Family History Family History: Hypertension Social History Smoke: No ALCOHOL: none Drugs: None Current Medications Current Medications Current Medications Diltiazem HCl (Cardizem Iv Push) 20 mg 1X ONCE IVP Last administered on 11/13/20at 15:50; Start 11/13/20 at 15:15; Stop 11/13/20 at 15:18; Status DC Sodium Chloride 500 ml @ 500 mls/hr 1X ONCE IV Last administered on 11/13/20at 15:49; Start 11/13/20 at 15:30; Stop 11/13/20 at 16:29; Status DC Iohexol (Omnipaque 300 Mg/ml) 75 ml 1X ONCE IV Last administered on 11/13/20at 16:06; Start 11/13/20 at 16:00; Stop 11/13/20 at 16:01; Status DC Info (CONTRAST GIVEN -- Rx MONITORING) 1 each PRN DAILY PRN MC SEE COMMENTS; Start 11/13/20 at 16:00; Stop 11/15/20 at 15:59 Active Scripts Active Digoxin 125 Mcg Tablet 125 Mcg PO DAILY 30 Days Culturelle (Lactobacillus Rhamnosus Gg) 1 Each Cap.sprink 1 Cap PO BID 30 Days Furosemide 40 Mg Tablet 40 Mg PO DAILY 30 Days Entresto 24 mg-26 mg Tablet (Sacubitril/Valsartan) 1 Each Tablet 1 Tab PO BID 30 Days Dok (Docusate Sodium) 100 Mg Capsule 100 Mg PO PRN DAILY PRN 30 Days Klor-Con 10 (Potassium Chloride) 10 Meq Tablet.er 10 Meq PO DAILYWBKFT 30 Days Eliquis (Apixaban) 5 Mg Tablet 5 Mg PO BID 30 Days Reported Levothyroxine Sodium 100 Mcg Tablet 1 Tab PO DAILY Vitamin D2 (Ergocalciferol (Vitamin D2)) 1,250 Mcg Capsule 1,250 Mcg PO WEEKLY Alendronate Sodium 70 Mg Tablet 1 Tab PO WEEKLY Atorvastatin Calcium 10 Mg Tablet 10 Mg PO HS Allergies Allergies: Coded Allergies: No Known Drug Allergies (Unverified , 01/23/18) ROS General: YES: Fatigue, Malaise; No: Chills, Night Sweats, Appetite, Other PSYCHOLOGICAL ROS: No: Anxiety, Behavioral Disorder, Concentration difficultie, Decreased libido, Depression, Disorientation, Hallucinations, Hostility, Irritablity, Memory difficulties, Mood Swings, Obsessive thoughts, Physical abuse, Sexual abuse, Sleep disturbances, Suicidal ideation, Other Eyes: No Blurry vision, No Decreased vision, No Double vision, No Dry eyes, No Excessive tearing, No Eye Pain, No Itchy Eyes, No Loss of vision, No Photophobia, No Scotomata, No Uses contacts, No Uses glasses, No Other HEENT: No: Heacaches, Visual Changes, Hearing change, Nasal congestion, Nasal discharge, Oral lesions, Sinus pain, Sore Throat, Epistaxis, Sneezing, Snoring, Tinnitus, Vertigo, Vocal changes, Other ALLERGY AND IMMUNOLOGY: No: Hives, Insect Bite Sensitivity, Itchy/Watery Eyes, Nasal Congestion, Post Nasal Drip, Seasonal Allergies, Other Hematological and Lymphatic: No: Bleeding Problems, Blood Clots, Blood Transfusions, Brusing, Night Sweats, Pallor, Swollen Lymph Nodes, Other ENDOCRINE: No: Breast Changes, Galactorrhea, Hair Pattern Changes, Hot Flashes, Malaise/lethargy, Mood Swings, Palpitations, Polydipsia/polyuria, Skin Changes, Temperature Intolerance, Unexpected Weight Changes, Other Breast: No New/Changing Breast Lumps, No Nipple changes, No Nipple discharge, No Other Respiratory: No: Cough, Hemoptysis, Orthopnea, Pleuritic Pain, Shortness of breath, SOB with excertion, Sputum Changes, Stridor, Tachypnea, Wheezing, Other Cardiovascular: No Chest Pain, No Palpitations, No Orthopnea, No Paroxysmal Noc. Dyspnea, No Edema, No Lt Headedness, No Other Gastrointestinal: Yes Abdominal Pain; No Nausea, No Vomiting, No Diarrhea, No Constipation, No Melena, No Hematochezia, No Other Genitourinary: No Dysuria, No Frequency, No Incontinence, No Hematuria, No Retention, No Discharge, No Urgency, No Pain, No Flank Pain, No Other, No , No , No , No , No , No , No Musculoskeletal: No Gait Disturbance, No Joint Pain, No Joint Stiffness, No Joint Swelling, No Muscle Pain, No Muscular Weakness, No Pain In:, No Swelling In:, No Other Neurological: No Behavorial Changes, No Bowel/Bladder ControlChng, No Confusion, No Dizziness, No Gait Disturbance, No Headaches, No Impaired Coord/balance, No Memory Loss, No Numbness/Tingling, No Seizures, No Speech Problems, No Tremors, No Visual Changes, No Weakness, No Other Skin: No Dry Skin, No Eczema, No Hair Changes, No Lumps, No Mole Changes, No Mottling, No Nail Changes, No Pruritus, No Rash, No Skin Lesion Changes, No Other, No Acne Vitals Vitals Vital Signs Date Time Temp Pulse Resp B/P (MAP) Pulse Ox O2 Delivery O2 Flow Rate FiO2 11/14/20 06:26 97.7 94 16 104/67 (79) 93 Room Air 97.7 Physical Exam General: Alert, Oriented X3, Cooperative, mild distress Heart: Regular rate Lungs: Crackles Abdomen: Normal bowel sounds, Soft, No tenderness, No hepatosplenomegaly, No masses, Other Extremities: No clubbing, No cyanosis Labs LABS It helps to think and talk about your own wishes for healthcare in case youre ever not able to tell your loved ones or healthcare team what your wishes are. If you became really sick tomorrow, would your loved ones or healthcare team know what your wishes were? Here are some examples of different sets of goals and health care directives for your conversations: My wish is to use all medical therapies including resuscitation (such as CPR) and artificial life- sustaining treatments (such as machines and medicine) in an intensive care unit, to keep me alive if at all possible. My wish is to live as long as possible, but I dont want attempts to bring me back to life if my heart and breathing stop. I would like full medical care but without using resuscitation or artificial life-sustaining intensive treatments, if these are unlikely to make me live longer or restore me to a certain quality of life. I will accept treatments that try to fix medical problems, but if Im not getting better or going to have a certain quality of life, I would want to switch to focusing only on my comfort and letting my happen naturally. My wish is for healthcare to focus on my comfort and lessen suffering. I would like medical care that focuses only on my quality of life and that allows me to naturally. Cons ider: What does a good quality of life mean for me? For many people, it is the ability to live independently and tell their own story. I may define it differently. Under what circumstances would I not want to be kept alive by medical treatments, resuscitation, or intensive care? What kind of changes to my health or life might make me change my mind? If I clearly am facing the last chapter of my life, how do I want the story to end? Who do I want to speak for me if I cant speak for myself? Do they understand my preferences? Are they willing to assume the role of my Durable Power of Radiation Monitor? Can I change my Goals of Care Designation? Yes, your Goals of Care Designation can be changed at any time. It should be reviewed if: your health condition changes your circumstances change (such as new understanding) you are transferred or admitted to another healthcare setting dpoa review, to pt portal 16 min and question review Laboratory Tests Test 11/13/20 14:35 11/13/20 15:10 11/13/20 15:54 11/13/20 20:29 White Blood Count 7.9 x10^3/uL (4.0-11.0) Red Blood Count 5.58 x10^6/uL (4.30-5.70) Hemoglobin 15.3 g/dL (13.0-17.5) Hematocrit 45.5 % (39.0-53.0) Mean Corpuscular Volume 82 fL (79-100) Mean Corpuscular Hemoglobin 28 pg (25-35) Mean Corpuscular Hemoglobin Concent 34 g/dL (31-37) Red Cell Distribution Width 15.3 % (11.5-14.5) Platelet Count 204 x10^3/uL (140-400) Neutrophils (%) (Auto) 64 % (31-73) Lymphocytes (%) (Auto) 25 % (24-48) Monocytes (%) (Auto) 8 % (0-9) Eosinophils (%) (Auto) 2 % (0-3) Basophils (%) (Auto) 1 % (0-3) Neutrophils # (Auto) 5.1 x10^3/uL (1.8-7.7) Lymphocytes # (Auto) 2.0 x10^3/uL (1.0-4.8) Monocytes # (Auto) 0.6 x10^3/uL (0.0-1.1) Eosinophils # (Auto) 0.2 x10^3/uL (0.0-0.7) Basophils # (Auto) 0.1 x10^3/uL (0.0-0.2) Sodium Level 141 mmol/L (136-145) Potassium Level 3.7 mmol/L (3.5-5.1) Chloride Level 107 mmol/L (98-107) Carbon Dioxide Level 24 mmol/L (21-32) Anion Gap 10 (6-14) Blood Urea Nitrogen 17 mg/dL (8-26) Creatinine 0.9 mg/dL (0.7-1.3) Estimated GFR (Cockcroft-Gault) 80.6 BUN/Creatinine Ratio 19 (6-20) Glucose Level 193 mg/dL (70-99) Calcium Level 8.3 mg/dL (8.5-10.1) Magnesium Level 2.0 mg/dL (1.8-2.4) Total Bilirubin 0.6 mg/dL (0.2-1.0) Aspartate Amino Transf (AST/SGOT) 19 U/L (15-37) Alanine Aminotransferase (ALT/SGPT) 20 U/L (16-63) Alkaline Phosphatase 82 U/L (46-116) Troponin I Quantitative < 0.017 ng/mL (0.000-0.055) TS-Dwq-A-Type Natriuretic Peptide 5841 pg/mL (0-449) Total Protein 6.9 g/dL (6.4-8.2) Albumin 3.2 g/dL (3.4-5.0) Albumin/Globulin Ratio 0.9 (1.0-1.7) Lipase 30 U/L (73-393) Digoxin Level < 0.2 ng/mL (0.9-2.0) Digoxin Last Dose Date Unk Digoxin Last Dose Time Unk Urine Collection Type Unknown Urine Color Yellow Urine Clarity Clear Urine pH 5.5 (<5.0-8.0) Urine Specific Mongo 1.010 (1.000-1.030) Urine Protein Negative mg/dL (NEG-TRACE) Urine Glucose (UA) Negative mg/dL (NEG) Urine Ketones (Stick) Negative mg/dL (NEG) Urine Blood Negative (NEG) Urine Nitrite Negative (NEG) Urine Bilirubin Negative (NEG) Urine Urobilinogen Dipstick 0.2 mg/dL (0.2 mg/dL) Urine Leukocyte Esterase Negative (NEG) Urine RBC 0 /HPF (0-2) Urine WBC 0 /HPF (0-4) Urine Squamous Epithelial Cells Occ /LPF Urine Bacteria 0 /HPF (0-FEW) Glucose (Fingerstick) 130 mg/dL (70-99) Test 11/14/20 00:10 11/14/20 06:00 11/14/20 06:10 11/14/20 07:47 Troponin I Quantitative < 0.017 ng/mL (0.000-0.055) < 0.017 ng/mL (0.000-0.055) Sodium Level 145 mmol/L (136-145) Potassium Level 3.8 mmol/L (3.5-5.1) Chloride Level 108 mmol/L (98-107) Carbon Dioxide Level 26 mmol/L (21-32) Anion Gap 11 (6-14) Blood Urea Nitrogen 16 mg/dL (8-26) Creatinine 0.9 mg/dL (0.7-1.3) Estimated GFR (Cockcroft-Gault) 80.6 Glucose Level 130 mg/dL (70-99) Calcium Level 8.4 mg/dL (8.5-10.1) Glucose (Fingerstick) 124 mg/dL (70-99) Comment Review of Relevant I have reviewed the following items issa (where applicable) has been applied. Labs Laboratory Tests Test 11/13/20 14:35 11/13/20 15:10 11/13/20 15:54 11/13/20 20:29 White Blood Count 7.9 x10^3/uL (4.0-11.0) Red Blood Count 5.58 x10^6/uL (4.30-5.70) Hemoglobin 15.3 g/dL (13.0-17.5) Hematocrit 45.5 % (39.0-53.0) Mean Corpuscular Volume 82 fL (79-100) Mean Corpuscular Hemoglobin 28 pg (25-35) Mean Corpuscular Hemoglobin Concent 34 g/dL (31-37) Red Cell Distribution Width 15.3 % (11.5-14.5) Platelet Count 204 x10^3/uL (140-400) Neutrophils (%) (Auto) 64 % (31-73) Lymphocytes (%) (Auto) 25 % (24-48) Monocytes (%) (Auto) 8 % (0-9) Eosinophils (%) (Auto) 2 % (0-3) Basophils (%) (Auto) 1 % (0-3) Neutrophils # (Auto) 5.1 x10^3/uL (1.8-7.7) Lymphocytes # (Auto) 2.0 x10^3/uL (1.0-4.8) Monocytes # (Auto) 0.6 x10^3/uL (0.0-1.1) Eosinophils # (Auto) 0.2 x10^3/uL (0.0-0.7) Basophils # (Auto) 0.1 x10^3/uL (0.0-0.2) Sodium Level 141 mmol/L (136-145) Potassium Level 3.7 mmol/L (3.5-5.1) Chloride Level 107 mmol/L (98-107) Carbon Dioxide Level 24 mmol/L (21-32) Anion Gap 10 (6-14) Blood Urea Nitrogen 17 mg/dL (8-26) Creatinine 0.9 mg/dL (0.7-1.3) Estimated GFR (Cockcroft-Gault) 80.6 BUN/Creatinine Ratio 19 (6-20) Glucose Level 193 mg/dL (70-99) Calcium Level 8.3 mg/dL (8.5-10.1) Magnesium Level 2.0 mg/dL (1.8-2.4) Total Bilirubin 0.6 mg/dL (0.2-1.0) Aspartate Amino Transf (AST/SGOT) 19 U/L (15-37) Alanine Aminotransferase (ALT/SGPT) 20 U/L (16-63) Alkaline Phosphatase 82 U/L (46-116) Troponin I Quantitative < 0.017 ng/mL (0.000-0.055) ZS-Dyb-L-Type Natriuretic Peptide 5841 pg/mL (0-449) Total Protein 6.9 g/dL (6.4-8.2) Albumin 3.2 g/dL (3.4-5.0) Albumin/Globulin Ratio 0.9 (1.0-1.7) Lipase 30 U/L (73-393) Digoxin Level < 0.2 ng/mL (0.9-2.0) Digoxin Last Dose Date Unk Digoxin Last Dose Time Unk Urine Collection Type Unknown Urine Color Yellow Urine Clarity Clear Urine pH 5.5 (<5.0-8.0) Urine Specific Mongo 1.010 (1.000-1.030) Urine Protein Negative mg/dL (NEG-TRACE) Urine Glucose (UA) Negative mg/dL (NEG) Urine Ketones (Stick) Negative mg/dL (NEG) Urine Blood Negative (NEG) Urine Nitrite Negative (NEG) Urine Bilirubin Negative (NEG) Urine Urobilinogen Dipstick 0.2 mg/dL (0.2 mg/dL) Urine Leukocyte Esterase Negative (NEG) Urine RBC 0 /HPF (0-2) Urine WBC 0 /HPF (0-4) Urine Squamous Epithelial Cells Occ /LPF Urine Bacteria 0 /HPF (0-FEW) Glucose (Fingerstick) 130 mg/dL (70-99) Test 11/14/20 00:10 11/14/20 06:00 11/14/20 06:10 11/14/20 07:47 Troponin I Quantitative < 0.017 ng/mL (0.000-0.055) < 0.017 ng/mL (0.000-0.055) Sodium Level 145 mmol/L (136-145) Potassium Level 3.8 mmol/L (3.5-5.1) Chloride Level 108 mmol/L (98-107) Carbon Dioxide Level 26 mmol/L (21-32) Anion Gap 11 (6-14) Blood Urea Nitrogen 16 mg/dL (8-26) Creatinine 0.9 mg/dL (0.7-1.3) Estimated GFR (Cockcroft-Gault) 80.6 Glucose Level 130 mg/dL (70-99) Calcium Level 8.4 mg/dL (8.5-10.1) Glucose (Fingerstick) 124 mg/dL (70-99) Laboratory Tests Test 11/13/20 14:35 11/13/20 15:10 11/13/20 15:54 11/13/20 20:29 White Blood Count 7.9 x10^3/uL (4.0-11.0) Red Blood Count 5.58 x10^6/uL (4.30-5.70) Hemoglobin 15.3 g/dL (13.0-17.5) Hematocrit 45.5 % (39.0-53.0) Mean Corpuscular Volume 82 fL (79-100) Mean Corpuscular Hemoglobin 28 pg (25-35) Mean Corpuscular Hemoglobin Concent 34 g/dL (31-37) Red Cell Distribution Width 15.3 % (11.5-14.5) Platelet Count 204 x10^3/uL (140-400) Neutrophils (%) (Auto) 64 % (31-73) Lymphocytes (%) (Auto) 25 % (24-48) Monocytes (%) (Auto) 8 % (0-9) Eosinophils (%) (Auto) 2 % (0-3) Basophils (%) (Auto) 1 % (0-3) Neutrophils # (Auto) 5.1 x10^3/uL (1.8-7.7) Lymphocytes # (Auto) 2.0 x10^3/uL (1.0-4.8) Monocytes # (Auto) 0.6 x10^3/uL (0.0-1.1) Eosinophils # (Auto) 0.2 x10^3/uL (0.0-0.7) Basophils # (Auto) 0.1 x10^3/uL (0.0-0.2) Sodium Level 141 mmol/L (136-145) Potassium Level 3.7 mmol/L (3.5-5.1) Chloride Level 107 mmol/L (98-107) Carbon Dioxide Level 24 mmol/L (21-32) Anion Gap 10 (6-14) Blood Urea Nitrogen 17 mg/dL (8-26) Creatinine 0.9 mg/dL (0.7-1.3) Estimated GFR (Cockcroft-Gault) 80.6 BUN/Creatinine Ratio 19 (6-20) Glucose Level 193 mg/dL (70-99) Calcium Level 8.3 mg/dL (8.5-10.1) Magnesium Level 2.0 mg/dL (1.8-2.4) Total Bilirubin 0.6 mg/dL (0.2-1.0) Aspartate Amino Transf (AST/SGOT) 19 U/L (15-37) Alanine Aminotransferase (ALT/SGPT) 20 U/L (16-63) Alkaline Phosphatase 82 U/L (46-116) Troponin I Quantitative < 0.017 ng/mL (0.000-0.055) UZ-Ytd-O-Type Natriuretic Peptide 5841 pg/mL (0-449) Total Protein 6.9 g/dL (6.4-8.2) Albumin 3.2 g/dL (3.4-5.0) Albumin/Globulin Ratio 0.9 (1.0-1.7) Lipase 30 U/L (73-393) Digoxin Level < 0.2 ng/mL (0.9-2.0) Digoxin Last Dose Date Unk Digoxin Last Dose Time Unk Urine Collection Type Unknown Urine Color Yellow Urine Clarity Clear Urine pH 5.5 (<5.0-8.0) Urine Specific Mongo 1.010 (1.000-1.030) Urine Protein Negative mg/dL (NEG-TRACE) Urine Glucose (UA) Negative mg/dL (NEG) Urine Ketones (Stick) Negative mg/dL (NEG) Urine Blood Negative (NEG) Urine Nitrite Negative (NEG) Urine Bilirubin Negative (NEG) Urine Urobilinogen Dipstick 0.2 mg/dL (0.2 mg/dL) Urine Leukocyte Esterase Negative (NEG) Urine RBC 0 /HPF (0-2) Urine WBC 0 /HPF (0-4) Urine Squamous Epithelial Cells Occ /LPF Urine Bacteria 0 /HPF (0-FEW) Glucose (Fingerstick) 130 mg/dL (70-99) Test 11/14/20 00:10 11/14/20 06:00 11/14/20 06:10 11/14/20 07:47 Troponin I Quantitative < 0.017 ng/mL (0.000-0.055) < 0.017 ng/mL (0.000-0.055) Sodium Level 145 mmol/L (136-145) Potassium Level 3.8 mmol/L (3.5-5.1) Chloride Level 108 mmol/L (98-107) Carbon Dioxide Level 26 mmol/L (21-32) Anion Gap 11 (6-14) Blood Urea Nitrogen 16 mg/dL (8-26) Creatinine 0.9 mg/dL (0.7-1.3) Estimated GFR (Cockcroft-Gault) 80.6 Glucose Level 130 mg/dL (70-99) Calcium Level 8.4 mg/dL (8.5-10.1) Glucose (Fingerstick) 124 mg/dL (70-99) Medications Current Medications Diltiazem HCl (Cardizem Iv Push) 20 mg 1X ONCE IVP Last administered on 11/13/20at 15:50; Start 11/13/20 at 15:15; Stop 11/13/20 at 15:18; Status DC Sodium Chloride 500 ml @ 500 mls/hr 1X ONCE IV Last administered on 11/13/20at 15:49; Start 11/13/20 at 15:30; Stop 11/13/20 at 16:29; Status DC Iohexol (Omnipaque 300 Mg/ml) 75 ml 1X ONCE IV Last administered on 11/13/20at 16:06; Start 11/13/20 at 16:00; Stop 11/13/20 at 16:01; Status DC Info (CONTRAST GIVEN -- Rx MONITORING) 1 each PRN DAILY PRN MC SEE COMMENTS; Start 11/13/20 at 16:00; Stop 11/15/20 at 15:59 Apixaban (Eliquis) 5 mg BID PO Last administered on 11/13/20at 22:03; Start 11/13/20 at 21:00 Atorvastatin Calcium (Lipitor) 10 mg HS PO Last administered on 11/13/20at 22:03; Start 11/13/20 at 21:00 Digoxin (Lanoxin) 125 mcg DAILY PO ; Start 11/14/20 at 09:00 Docusate Sodium (Colace) 100 mg PRN DAILY PRN PO HARD STOOLS; Start 11/13/20 at 18:00 Vitamin D (Vitamin D3) 1,000 unit DAILY PO ; Start 11/14/20 at 09:00 Furosemide (Lasix) 40 mg DAILY PO ; Start 11/14/20 at 09:00 Levothyroxine Sodium (Synthroid) 100 mcg DAILY06 PO Last administered on 11/14/20at 08:13; Start 11/14/20 at 06:00 Sacubitril/ Valsartan (Entresto 24 Mg-26 Mg) 1 tab BID PO Last administered on 11/13/20at 22:03; Start 11/13/20 at 21:00 Metoprolol Tartrate (Lopressor Vial) 2.5 mg PRN Q6HRS PRN IVP TACHYCARDIA; Start 11/13/20 at 18:00 Insulin Human Lispro (HumaLOG) 0-7 UNITS TIDWMEALS SQ ; Start 11/14/20 at 08:00 Dextrose (Dextrose 50%-Water Syringe) 12.5 gm PRN Q15MIN PRN IV SEE COMMENTS; Start 11/13/20 at 18:15 Info (Anti-Coagulation Monitoring By Pharmacy) 1 each PRN DAILY PRN MC PER PROTOCOL; Start 11/14/20 at 08:00 Active Scripts Active Digoxin 125 Mcg Tablet 125 Mcg PO DAILY 30 Days Culturelle (Lactobacillus Rhamnosus Gg) 1 Each Cap.sprink 1 Cap PO BID 30 Days Furosemide 40 Mg Tablet 40 Mg PO DAILY 30 Days Entresto 24 mg-26 mg Tablet (Sacubitril/Valsartan) 1 Each Tablet 1 Tab PO BID 30 Days Dok (Docusate Sodium) 100 Mg Capsule 100 Mg PO PRN DAILY PRN 30 Days Klor-Con 10 (Potassium Chloride) 10 Meq Tablet.er 10 Meq PO DAILYWBKFT 30 Days Eliquis (Apixaban) 5 Mg Tablet 5 Mg PO BID 30 Days Reported Levothyroxine Sodium 100 Mcg Tablet 1 Tab PO DAILY Vitamin D2 (Ergocalciferol (Vitamin D2)) 1,250 Mcg Capsule 1,250 Mcg PO WEEKLY Alendronate Sodium 70 Mg Tablet 1 Tab PO WEEKLY Atorvastatin Calcium 10 Mg Tablet 10 Mg PO HS Vitals/I & O Vital Sign - Last 24 Hours 11/13/20 11/13/20 11/13/20 11/13/20 14:14 14:15 14:44 15:14 Temp 97.4 97.4 Pulse 141 136 120 61 Resp 20 B/P (MAP) 141/87 (105) 141/87 (79) 134/110 (118) 117/58 (77) Pulse Ox 96 96 96 O2 Delivery Room Air Room Air Room Air Room Air 11/13/20 11/13/20 11/13/2011/13/21 15:50 15:50 16:11 16:41 Pulse 128 83 60 80 B/P (MAP) 108/64 101/73 (82) 107/67 (80) 107/66 (80) Pulse Ox 94 96 94 O2 Delivery Room Air Room Air Room Air 11/13/20 11/13/20 11/13/20 11/13/20 17:11 17:41 18:11 18:41 Pulse 81 80 80 84 B/P (MAP) 103/65 (78) 103/70 (81) 116/77 (90) 113/65 (81) Pulse Ox 96 96 97 93 O2 Delivery Room Air Room Air Room Air Room Air 11/13/20 11/13/20 11/13/20 11/13/20 19:11 19:41 20:15 21:00 Temp 98.3 98.3 Pulse 90 86 90 Resp 18 B/P (MAP) 112/68 (83) 107/76 (86) 128/78 (95) Pulse Ox 97 93 98 O2 Delivery Room Air Room Air Room Air Room Air 11/13/20 11/13/20 11/14/20 11/14/20 22:03 22:50 03:19 06:26 Temp 98.0 97.8 97.7 98.0 97.8 97.7 Pulse 90 104 93 94 Resp 16 16 16 B/P (MAP) 128/78 124/61 (82) 122/73 (89) 104/67 (79) Pulse Ox 94 96 93 O2 Delivery Room Air Room Air Room Air Intake and Output 11/13/20 11/13/20 11/14/20 15:00 23:00 07:00 Intake Total 180 ml 0 ml Output Total 0 ml 0 ml Balance 180 ml 0 ml Justicifation of Admission Dx: Justifications for Admission: Justification of Admission Dx: Yes VALENTIN CARLTON MD Nov 14, 2020 08:41
[2020-11-14] MEDS: DIGOXIN 125 MCG TABLET. PO SCH (08:54)
[2020-11-14] MEDS: CHOLECALCIFEROL (VITAMIN D3) 1,000 UNIT TABLET PO SCH (08:54)
[2020-11-14] MEDS: APIXABAN 5 MG TABLET. PO SCH ×2 (08:54→21:08)
[2020-11-14] MEDS: FUROSEMIDE 40 MG TABLET. PO SCH (08:54)
[2020-11-14] MEDS: SACUBITRIL/VALSARTAN 24/26MG TABLET. PO SCH ×2 (08:55→21:08)
[2020-11-14 11:21] VITALS: BP 109/77
--- NOTE | 2020-11-14 11:42 | PDOC2 ---
KATELYNN JOHNSON PATIENT CARE TECHNICIAN INSTRUCTOR 11/14/20 1142: CARDIAC CONSULT DATE OF CONSULT Date of Consult DATE: 11/14/20 TIME: 11:22 REASON FOR CONSULT Reason for Consult: Diaphragmatic pacing REFERRING PHYSICIAN Referring Physician: Dr. Silvestre SOURCE Source: Chart review, Patient HISTORY OF PRESENT ILLNESS HISTORY OF PRESENT ILLNESS This is an 85 yo male who presented secondary to 2-day history of abnormal abdominal wall muscle spasms and cough productive of clear sputum. Patient reports his muscles in his abdomen were twitching/cramping. He denies any dizziness, diaphoresis, palpitations, chest pain, or nausea/vomiting. Does reports some mild shortness of breath. RN reports visible diaphragmatic spasms that appear to be associated with some pacer spikes on telemetry. Is presently AFIB with rate of 115. Not presently pacing. No present muscle spasms. PAST MEDICAL HISTORY Past Medical History Cardiovascular: AFIB, CHF, HTN, Hyperlipidemia, Other (NICM), Chronic LBBB by baseline Pulmonary: Covid-19 recovered, Pneumonia CENTRAL NERVOUS SYSTEM: Other (head trauma requiring craniotomy remotely) GI: No pertinent hx Heme/Onc: No pertinent hx, Other (chronic anticoagulation) Hepatobiliary: No pertinent hx Psych: No pertinent hx Musculoskeletal: Osteoarthritis, osteoporosis Rheumatologic: No pertinent hx Infectious disease: No pertinent hx ENT: No pertinent hx Renal/: No pertinent hx Endocrine: Hypothyroidism, DM2 Dermatology: No pertinent hx PAST SURGICAL HISTORY Past Surgical History Pacemaker (KNOWLEDGE MANAGEMENT ADVISOR-d), Other (craniotomy) FAMILY HISTORY Family History noncontributory to CV SOCIAL HISTORY Social History Smoke: No ALCOHOL: none Drugs: None Lives: with Family CURRENT MEDICATIONS CURRENT MEDICATIONS Current Medications Medications (Trade) Dose Ordered Sig/Arthur Route PRN Reason Start Time Stop Time Status Last Admin Dose Admin Diltiazem HCl (Cardizem Iv Push) 20 mg 1X ONCE IVP 11/13/20 15:15 11/13/20 15:18 DC 11/13/20 15:50 Sodium Chloride 500 ml @ 500 mls/hr 1X ONCE IV 11/13/20 15:30 11/13/20 16:29 DC 11/13/20 15:49 Iohexol (Omnipaque 300 Mg/ml) 75 ml 1X ONCE IV 11/13/20 16:00 11/13/20 16:01 DC 11/13/20 16:06 Apixaban (Eliquis) 5 mg BID PO 11/13/20 21:00 11/14/20 08:54 Atorvastatin Calcium (Lipitor) 10 mg HS PO 11/13/20 21:00 11/13/20 22:03 Digoxin (Lanoxin) 125 mcg DAILY PO 11/14/20 09:00 11/14/20 08:54 Vitamin D (Vitamin D3) 1,000 unit DAILY PO 11/14/20 09:00 11/14/20 08:54 Furosemide (Lasix) 40 mg DAILY PO 11/14/20 09:00 11/14/20 08:54 Levothyroxine Sodium (Synthroid) 100 mcg DAILY06 PO 11/14/20 06:00 11/14/20 08:13 Sacubitril/ Valsartan (Entresto 24 Mg-26 Mg) 1 tab BID PO 11/13/20 21:00 11/14/20 08:55 ALLERGIES ALLERGIES: Coded Allergies: No Known Drug Allergies (Unverified , 01/23/18) ROS Review of System 14 point ROS conducted with pertinent positives noted above in hPI PHYSICAL EXAM PHYSICAL EXAM General: Alert, Oriented X3, Cooperative, No acute distress HEENT: Atraumatic, Mucous membr. moist/pink Lungs: Other (fine crackles) Heart: Other (AFIB- rate 110) Abdomen: Soft, No tenderness Extremities: No cyanosis, No edema Skin: No breakdown, No significant lesion Neuro: Normal speech, Sensation intact Psych/Mental Status: Mental status NL, Mood NL MUSCULOSKELETAL: Osteoarthritic changes both hands VITALS/I&O VITALS/I&O: Vital Signs Date Time Temp Pulse Resp B/P (MAP) Pulse Ox O2 Delivery O2 Flow Rate FiO2 11/14/20 11:21 97.6 103 16 109/77 (88) 96 Room Air 97.6 I & O 11/13/20 11/13/20 11/14/20 15:00 23:00 07:00 Intake Total 180 ml 0 ml Output Total 0 ml 0 ml Balance 180 ml 0 ml LABS Lab: Laboratory Tests Test 11/13/20 14:35 11/13/20 15:10 11/13/20 15:54 11/13/20 20:29 White Blood Count 7.9 x10^3/uL (4.0-11.0) Red Blood Count 5.58 x10^6/uL (4.30-5.70) Hemoglobin 15.3 g/dL (13.0-17.5) Hematocrit 45.5 % (39.0-53.0) Mean Corpuscular Volume 82 fL (79-100) Mean Corpuscular Hemoglobin 28 pg (25-35) Mean Corpuscular Hemoglobin Concent 34 g/dL (31-37) Red Cell Distribution Width 15.3 % (11.5-14.5) H Platelet Count 204 x10^3/uL (140-400) Neutrophils (%) (Auto) 64 % (31-73) Lymphocytes (%) (Auto) 25 % (24-48) Monocytes (%) (Auto) 8 % (0-9) Eosinophils (%) (Auto) 2 % (0-3) Basophils (%) (Auto) 1 % (0-3) Neutrophils # (Auto) 5.1 x10^3/uL (1.8-7.7) Lymphocytes # (Auto) 2.0 x10^3/uL (1.0-4.8) Monocytes # (Auto) 0.6 x10^3/uL (0.0-1.1) Eosinophils # (Auto) 0.2 x10^3/uL (0.0-0.7) Basophils # (Auto) 0.1 x10^3/uL (0.0-0.2) Sodium Level 141 mmol/L (136-145) Potassium Level 3.7 mmol/L (3.5-5.1) Chloride Level 107 mmol/L (98-107) Carbon Dioxide Level 24 mmol/L (21-32) Anion Gap 10 (6-14) Blood Urea Nitrogen 17 mg/dL (8-26) Creatinine 0.9 mg/dL (0.7-1.3) Estimated GFR (Cockcroft-Gault) 80.6 BUN/Creatinine Ratio 19 (6-20) Glucose Level 193 mg/dL (70-99) H Calcium Level 8.3 mg/dL (8.5-10.1) L Magnesium Level 2.0 mg/dL (1.8-2.4) Total Bilirubin 0.6 mg/dL (0.2-1.0) Aspartate Amino Transferase (AST) 19 U/L (15-37) Alanine Aminotransferase (ALT) 20 U/L (16-63) Alkaline Phosphatase 82 U/L (46-116) Troponin I Quantitative < 0.017 ng/mL (0.000-0.055) BO-Qvs-Q-Type Natriuretic Peptide 5841 pg/mL (0-449) H Total Protein 6.9 g/dL (6.4-8.2) Albumin 3.2 g/dL (3.4-5.0) L Albumin/Globulin Ratio 0.9 (1.0-1.7) L Lipase 30 U/L (73-393) L Digoxin Level < 0.2 ng/mL (0.9-2.0) L Digoxin Last Dose Date Unk Digoxin Last Dose Time Unk Urine Collection Type Unknown Urine Color Yellow Urine Clarity Clear Urine pH 5.5 (<5.0-8.0) Urine Specific [place] 1.010 (1.000-1.030) Urine Protein Negative mg/dL (NEG-TRACE) Urine Glucose (UA) Negative mg/dL (NEG) Urine Ketones (Stick) Negative mg/dL (NEG) Urine Blood Negative (NEG) Urine Nitrite Negative (NEG) Urine Bilirubin Negative (NEG) Urine Urobilinogen Dipstick 0.2 mg/dL (0.2 mg/dL) Urine Leukocyte Esterase Negative (NEG) Urine RBC 0 /HPF (0-2) Urine WBC 0 /HPF (0-4) Urine Squamous Epithelial Cells Occ /LPF Urine Bacteria 0 /HPF (0-FEW) Glucose (Fingerstick) 130 mg/dL (70-99) H Test 11/14/20 00:10 11/14/20 06:00 11/14/20 06:10 11/14/20 07:47 Troponin I Quantitative < 0.017 ng/mL (0.000-0.055) < 0.017 ng/mL (0.000-0.055) Sodium Level 145 mmol/L (136-145) Potassium Level 3.8 mmol/L (3.5-5.1) Chloride Level 108 mmol/L (98-107) H Carbon Dioxide Level 26 mmol/L (21-32) Anion Gap 11 (6-14) Blood Urea Nitrogen 16 mg/dL (8-26) Creatinine 0.9 mg/dL (0.7-1.3) Estimated GFR (Cockcroft-Gault) 80.6 Glucose Level 130 mg/dL (70-99) H Calcium Level 8.4 mg/dL (8.5-10.1) L Glucose (Fingerstick) 124 mg/dL (70-99) H Laboratory Tests 11/13/20 14:35 Laboratory Tests 11/13/20 15:10 11/14/20 06:10 ECHOCARDIOGRAM ECHOCARDIOGRAM <Conclusion> Limited ECHO. The Left Ventricle is moderately dilated. Left ventricular systolic function is severely impaired. LV ejection fraction is estimated at 20%. There is severe global hypokinesis of the left ventricle. There is mild concentric left ventricular hypertrophy. There are device leads in the right ventricle and atrium. Doppler and Color Flow revealed mild tricuspid regurgitation. The PA pressure was estimated at 40 mmHg. DATE: 09/04/18 1150 <Conclusion> The left ventricular systolic function is severely impaired. The Ejection Fraction is 15-20%. Pacer lead noted RA/RV. Trace mitral regurgitation. Trace tricuspid regurgitation with an estimated PAP of 22 mmHg. There is no evidence of significant pericardial effusion. DATE: 07/27/20 [id number] 0 HEART CATH HEART CATH FINDINGS 1. Hemodynamics: Left ventricular end-diastolic pressure of 16 mmHg. No pullback gradient across the aortic valve. 2. Coronary angiography: a. The left main coronary artery arose from the left sinus of Valsalva, gave rise to the left anterior descending and left circumflex arteries and did not show any significant stenosis. b. The left anterior descending artery did not show any significant stenosis. c. The left circumflex artery did not show any significant stenosis. d. The right coronary artery was a large and dominant vessel arising from the right sinus of Valsalva that did not show any significant stenosis. Conclusion No significant coronary artery disease Recommendations Optimization of medical therapy for severe nonischemic cardiomyopathy and repeat 2-D echo in 3 months to evaluate the need for AICD implantation. DATE: 01/17/18 0938 ASSESSMENT/PLAN ASSESSMENT/PLAN 1. Diaphragmatic contractions, stimulation. Appear to be associated with pacer spikes on telemetry 2. PAFIB; presenting with RVR. On dig for rate control. Dig level < 0.2. Amiodarone discontinued in past due to concerns for ILD. Recently ran out of digoxin. Was refilled on 11/08/20. 2. Mild acute on chronic systolic CHF; appears compensated 3. Severe NICM; LVEF 15-20%. s/p KNOWLEDGE MANAGEMENT ADVISOR-D (Biotronik). Recent device check (09/23) with normal device function. 13.1% AFIB burden and 97% BiV pacing. Thoracic impedance slightly elevated at 88.2 ohm (baseline 80 ohm) 4. Hypertension; low end 5. Hypothyroidism: on replacement. TSH recently WNL Recommendations Device interrogation Will give Dig bolus IV x1 now Continue Eliquis for stroke prevention. Lasix therapy Entresto as BP allows Supportive care FARIDA THOMPSON MD 11/15/20 1029: CARDIAC CONSULT ASSESSMENT/PLAN ASSESSMENT/PLAN Patient seen and examined 11/14/2020. Agree with SHEAR OPERATOR AUTOMATIC's assessment and plan. Suspect diaphragmatic stimulation from left ventricular lead. We will have patient interrogated and possibly adjusted Agree with digoxin for better AF rate control. Continue Eliquis for stroke prophylaxis Acute on chronic systolic heart failure better compensated. Thank you for your consultation KATELYNN JOHNSON APRN Nov 14, 2020 11:42 FARIDA THOMPSON MD Nov 15, 2020 10:29
--- NOTE | 2020-11-14 14:05 | NUR ---
SS following for discharge planning. SS reviewed pt chart and discussed with pt RN. Pt is from home with son and is currently on room air. Cardiology consulted. SS will continue to follow for discharge planning.
[2020-11-14 14:57] VITALS: BP 103/73
[2020-11-14] MEDS ORDERED: POTASSIUM CHLORIDE 20 MEQ TABLET.ER. PO ONE (16:00)
[2020-11-14] MEDS ORDERED: DIGOXIN IV 500 MCG/2 ML AMPUL. IV ONE (16:00)
[2020-11-14] MEDS ORDERED: FUROSEMIDE 40 MG/4 ML VIAL. IVP ONE (16:00)
[2020-11-14 19:29] VITALS: BP 108/63
[2020-11-14] MEDS: ATORVASTATIN CALCIUM 10 MG TABLET. PO SCH (21:08)
[2020-11-14 22:53] VITALS: BP 105/65
[2020-11-15 03:00] VITALS: BP 108/62
[2020-11-15] MEDS: LEVOTHYROXINE 100 MCG TABLET PO SCH (06:00)
[2020-11-15 07:00] VITALS: BP 113/68
[2020-11-15] MEDS: DIGOXIN 125 MCG TABLET. PO SCH (09:02)
[2020-11-15] MEDS: SACUBITRIL/VALSARTAN 24/26MG TABLET. PO SCH (09:02)
[2020-11-15] MEDS: FUROSEMIDE 40 MG TABLET. PO SCH (09:02)
[2020-11-15] MEDS: CHOLECALCIFEROL (VITAMIN D3) 1,000 UNIT TABLET PO SCH (09:02)
[2020-11-15] MEDS: APIXABAN 5 MG TABLET. PO SCH (09:02)
[2020-11-15] MEDS: INSULIN LISPRO 300 UNITS/3 ML VIAL. SQ SCH ×2 (09:08→12:18)
--- NOTE | 2020-11-15 09:33 | PDOC ---
PROGRESS NOTES Date of Service: DATE: 11/15/20 TIME: 09:32 Chief Complaint Chief Complaint VTE Prophylaxis Ordered VTE Prophylaxis Devices: Yes VTE Pharmacological Prophylaxi: Yes Assessment/Plan Assessment/Plan A/P: Acute abdominal pain - really more abdominal wall spasms, looks like it may be associated with pacer diaphragm triggering. device rep to see Diaphragmatic contractions, stimulation. associated with pacer spikes on telemetry PAFIB; presenting with RVR. On dig for rate control. Dig level < 0.2. Amiodarone discontinued in past due to concerns for ILD. Acute on chronic systolic CHF - likely from acute afib with RVR. with his BP low after cardizem, may not be able to tolerate IV lasix and this is likely due to afib, once rate is controlled likely CHF will improve AFIB - Cardizem bolus helped.. occasionally vpaced. Will DC Cardizem in favor of metoprolol. Cont home eliquis Severe NICM with LVEF 15-20% - s/p [employer] (Biotronik). Cardiology consult. Hypertension - will cont BB if BP allows Hypothyroidism - cont levothyroxine DM2 -sliding scale insulin T2 fracture - incidental finding. No back pain FEN - ADA diet ppx - eliquis FULL CODE Dispo -CVC 7-13 d/w rn Suspect diaphragmatic stimulation from left ventricular lead. pacemaker interrogated and adjusted digoxin for better AF rate control. Continue Eliquis for stroke prophylaxis Acute on chronic systolic heart failure better compensated. d/c planning 34 min History of Present Illness History of Present Illness dentification/Chief Complaint Chief Complaint Abdominal pain Source Source: Caregiver, Chart review, Patient History of Present Illness History of Present Illness Mr Bergeron is an 85 year old male w/ PMHx reduced EF 15-20% CHF s/p AICD (Biotronik), HTN, hypothyroidism, afib who comes to ED for abdominal wall spasms for the past 2 days that are concerning him and his son. No fevers, vo miting, diarrhea. Patient stated states that he has been compliant with his medications. He is notably in accelerated tachcardia with no p-waves, looks like afib RVR, given cardizem ordered by Dr. Rob in ED and HR slows into the 80s, has visible diaphragmatic spasms that look associated with some pacer spikes on telemetry. It doesn't cause patient any severe distress, just occasional spasms and pain. Abdominal radiograph with cardiomegaly and mild left effusion and moderate bilateral infiltrates and left-sided AICD pacemaker noted. CT abdomen pelvis with incidental finding of L2 compression fracture though he has no back pain. Diverticulosis no other acute abdominal findings. Labs with WBC 7.9, Hb 15.3, platelets 2 4, NA 141, K3.7, BUN 17, CR 0.9, glucose 193, mag 2, albumin 3.2, troponin 0, NT proBNP 5841 Admitted for further care. Past Medical History Cardiovascular: AFIB, CHF, HTN, Hyperlipidemia Pulmonary: No pertinent hx CENTRAL NERVOUS SYSTEM: Other GI: No pertinent hx Heme/Onc: No pertinent hx, Other Hepatobiliary: No pertinent hx Psych: No pertinent hx Musculoskeletal: Osteoarthritis Rheumatologic: No pertinent hx Infectious disease: No pertinent hx Renal/: No pertinent hx Endocrine: Hypothyroidism Past Surgical History Past Surgical History: Other Family History Family History: Hypertension Social History Smoke: No ALCOHOL: none Drugs: None Current Medications Current Medications Current Medications Diltiazem HCl (Cardizem Iv Push) 20 mg 1X ONCE IVP Last administered on 11/13/20at 15:50; Start 11/13/20 at 15:15; Stop 11/13/20 at 15:18; Status DC Sodium Chloride 500 ml @ 500 mls/hr 1X ONCE IV Last administered on 11/13/20at 15:49; Start 11/13/20 at 15:30; Stop 11/13/20 at 16:29; Status DC Iohexol (Omnipaque 300 Mg/ml) 75 ml 1X ONCE IV Last administered on 11/13/20at 16:06; Start 11/13/20 at 16:00; Stop 11/13/20 at 16:01; Status DC Info (CONTRAST GIVEN -- Rx MONITORING) 1 each PRN DAILY PRN MC SEE COMMENTS; Start 11/13/20 at 16:00; Stop 11/15/20 at 15:59 Active Scripts Active Digoxin 125 Mcg Tablet 125 Mcg PO DAILY 30 Days Culturelle (Lactobacillus Rhamnosus Gg) 1 Each Cap.sprink 1 Cap PO BID 30 Days Furosemide 40 Mg Tablet 40 Mg PO DAILY 30 Days Entresto 24 mg-26 mg Tablet (Sacubitril/Valsartan) 1 Each Tablet 1 Tab PO BID 30 Days Dok (Docusate Sodium) 100 Mg Capsule 100 Mg PO PRN DAILY PRN 30 Days Klor-Con 10 (Potassium Chloride) 10 Meq Tablet.er 10 Meq PO DAILYWBKFT 30 Days Eliquis (Apixaban) 5 Mg Tablet 5 Mg PO BID 30 Days Reported Levothyroxine Sodium 100 Mcg Tablet 1 Tab PO DAILY Vitamin D2 (Ergocalciferol (Vitamin D2)) 1,250 Mcg Capsule 1,250 Mcg PO WEEKLY Alendronate Sodium 70 Mg Tablet 1 Tab PO WEEKLY Atorvastatin Calcium 10 Mg Tablet 10 Mg PO HS Allergies Allergies: Coded Allergies: No Known Drug Allergies (Unverified , 01/23/18) ROS General: YES: Fatigue, Malaise; No: Chills, Night Sweats, Appetite, Other PSYCHOLOGICAL ROS: No: Anxiety, Behavioral Disorder, Concentration difficultie, Decreased libido, Depression, Disorientation, Hallucinations, Hostility, Irritablity, Memory difficulties, Mood Swings, Obsessive thoughts, Physical abuse, Sexual abuse, Sleep disturbances, Suicidal ideation, Other Eyes: No Blurry vision, No Decreased vision, No Double vision, No Dry eyes, No Excessive tearing, No Eye Pain, No Itchy Eyes, No Loss of vision, No Photophobia, No Scotomata, No Uses contacts, No Uses glasses, No Other HEENT: No: Heacaches, Visual Changes, Hearing change, Nasal congestion, Nasal discharge, Oral lesions, Sinus pain, Sore Throat, Epistaxis, Sneezing, Snoring, Tinnitus, Vertigo, Vocal changes, Other ALLERGY AND IMMUNOLOGY: No: Hives, Insect Bite Sensitivity, Itchy/Watery Eyes, Nasal Congestion, Post Nasal Drip, Seasonal Allergies, Other Hematological and Lymphatic: No: Bleeding Problems, Blood Clots, Blood Transfusions, Brusing, Night Sweats, Pallor, Swollen Lymph Nodes, Other ENDOCRINE: No: Breast Changes, Galactorrhea, Hair Pattern Changes, Hot Flashes, Malaise/lethargy, Mood Swings, Palpitations, Polydipsia/polyuria, Skin Changes, Temperature Intolerance, Unexpected Weight Changes, Other Breast: No New/Changing Breast Lumps, No Nipple changes, No Nipple discharge, No Other Respiratory: No: Cough, Hemoptysis, Orthopnea, Pleuritic Pain, Shortness of breath, SOB with excertion, Sputum Changes, Stridor, Tachypnea, Wheezing, Other Cardiovascular: No Chest Pain, No Palpitations, No Orthopnea, No Paroxysmal Noc. Dyspnea, No Edema, No Lt Headedness, No Other Gastrointestinal: Yes Abdominal Pain; No Nausea, No Vomiting, No Diarrhea, No Constipation, No Melena, No Hematochezia, No Other Genitourinary: No Dysuria, No Frequency, No Incontinence, No Hematuria, No Retention, No Discharge, No Urgency, No Pain, No Flank Pain, No Other, No , No , No , No , No , No , No Musculoskeletal: No Gait Disturbance, No Joint Pain, No Joint Stiffness, No Joint Swelling, No Muscle Pain, No Muscular Weakness, No Pain In:, No Swelling In:, No Other Neurological: No Behavorial Changes, No Bowel/Bladder ControlChng, No Confusion, No Dizziness, No Gait Disturbance, No Headaches, No Impaired Coord/balance, No Memory Loss, No Numbness/Tingling, No Seizures, No Speech Problems, No Tremors, No Visual Changes, No Weakness, No Other Skin: No Dry Skin, No Eczema, No Hair Changes, No Lumps, No Mole Changes, No Mottling, No Nail Changes, No Pruritus, No Rash, No Skin Lesion Changes, No Other, No Acne Vitals Vitals Vital Signs Date Time Temp Pulse Resp B/P (MAP) Pulse Ox O2 Delivery O2 Flow Rate FiO2 11/15/20 09:02 83 113/68 11/15/20 08:00 Room Air 11/15/20 07:00 98.7 16 95 98.7 Physical Exam General: Alert, Oriented X3, Cooperative, mild distress Heart: Regular rate Lungs: Crackles Abdomen: Normal bowel sounds, Soft, No tenderness, No hepatosplenomegaly, No masses, Other Extremities: No clubbing, No cyanosis Labs LABS Laboratory Tests Test 11/14/20 11:29 11/14/20 17:07 11/14/20 20:30 11/15/20 07:35 Glucose (Fingerstick) 177 mg/dL (70-99) 115 mg/dL (70-99) 119 mg/dL (70-99) 162 mg/dL (70-99) Comment Review of Relevant I have reviewed the following items issa (where applicable) has been applied. Labs Laboratory Tests Test 11/13/20 14:35 11/13/20 15:10 11/13/20 15:54 11/13/20 20:29 White Blood Count 7.9 x10^3/uL (4.0-11.0) Red Blood Count 5.58 x10^6/uL (4.30-5.70) Hemoglobin 15.3 g/dL (13.0-17.5) Hematocrit 45.5 % (39.0-53.0) Mean Corpuscular Volume 82 fL (79-100) Mean Corpuscular Hemoglobin 28 pg (25-35) Mean Corpuscular Hemoglobin Concent 34 g/dL (31-37) Red Cell Distribution Width 15.3 % (11.5-14.5) Platelet Count 204 x10^3/uL (140-400) Neutrophils (%) (Auto) 64 % (31-73) Lymphocytes (%) (Auto) 25 % (24-48) Monocytes (%) (Auto) 8 % (0-9) Eosinophils (%) (Auto) 2 % (0-3) Basophils (%) (Auto) 1 % (0-3) Neutrophils # (Auto) 5.1 x10^3/uL (1.8-7.7) Lymphocytes # (Auto) 2.0 x10^3/uL (1.0-4.8) Monocytes # (Auto) 0.6 x10^3/uL (0.0-1.1) Eosinophils # (Auto) 0.2 x10^3/uL (0.0-0.7) Basophils # (Auto) 0.1 x10^3/uL (0.0-0.2) Sodium Level 141 mmol/L (136-145) Potassium Level 3.7 mmol/L (3.5-5.1) Chloride Level 107 mmol/L (98-107) Carbon Dioxide Level 24 mmol/L (21-32) Anion Gap 10 (6-14) Blood Urea Nitrogen 17 mg/dL (8-26) Creatinine 0.9 mg/dL (0.7-1.3) Estimated GFR (Cockcroft-Gault) 80.6 BUN/Creatinine Ratio 19 (6-20) Glucose Level 193 mg/dL (70-99) Calcium Level 8.3 mg/dL (8.5-10.1) Magnesium Level 2.0 mg/dL (1.8-2.4) Total Bilirubin 0.6 mg/dL (0.2-1.0) Aspartate Amino Transf (AST/SGOT) 19 U/L (15-37) Alanine Aminotransferase (ALT/SGPT) 20 U/L (16-63) Alkaline Phosphatase 82 U/L (46-116) Troponin I Quantitative < 0.017 ng/mL (0.000-0.055) SE-Zkb-[id number]-Type Natriuretic Peptide 5841 pg/mL (0-449) Total Protein 6.9 g/dL (6.4-8.2) Albumin 3.2 g/dL (3.4-5.0) Albumin/Globulin Ratio 0.9 (1.0-1.7) Lipase 30 U/L (73-393) Digoxin Level < 0.2 ng/mL (0.9-2.0) Digoxin Last Dose Date Unk Digoxin Last Dose Time Unk Urine Collection Type Unknown Urine Color Yellow Urine Clarity Clear Urine pH 5.5 (<5.0-8.0) Urine Specific [employer] 1.010 (1.000-1.030) Urine Protein Negative mg/dL (NEG-TRACE) Urine Glucose (UA) Negative mg/dL (NEG) Urine Ketones (Stick) Negative mg/dL (NEG) Urine Blood Negative (NEG) Urine Nitrite Negative (NEG) Urine Bilirubin Negative (NEG) Urine Urobilinogen Dipstick 0.2 mg/dL (0.2 mg/dL) Urine Leukocyte Esterase Negative (NEG) Urine RBC 0 /HPF (0-2) Urine WBC 0 /HPF (0-4) Urine Squamous Epithelial Cells Occ /LPF Urine Bacteria 0 /HPF (0-FEW) Glucose (Fingerstick) 130 mg/dL (70-99) Test 11/14/20 00:10 11/14/20 06:00 11/14/20 06:10 11/14/20 07:47 Troponin I Quantitative < 0.017 ng/mL (0.000-0.055) < 0.017 ng/mL (0.000-0.055) Sodium Level 145 mmol/L (136-145) Potassium Level 3.8 mmol/L (3.5-5.1) Chloride Level 108 mmol/L (98-107) Carbon Dioxide Level 26 mmol/L (21-32) Anion Gap 11 (6-14) Blood Urea Nitrogen 16 mg/dL (8-26) Creatinine 0.9 mg/dL (0.7-1.3) Estimated GFR (Cockcroft-Gault) 80.6 Glucose Level 130 mg/dL (70-99) Calcium Level 8.4 mg/dL (8.5-10.1) Glucose (Fingerstick) 124 mg/dL (70-99) Test 11/14/20 11:29 11/14/20 17:07 11/14/20 20:30 11/15/20 07:35 Glucose (Fingerstick) 177 mg/dL (70-99) 115 mg/dL (70-99) 119 mg/dL (70-99) 162 mg/dL (70-99) Laboratory Tests Test 11/14/20 11:29 11/14/20 17:07 11/14/20 20:30 11/15/20 07:35 Glucose (Fingerstick) 177 mg/dL (70-99) 115 mg/dL (70-99) 119 mg/dL (70-99) 162 mg/dL (70-99) Medications Current Medications Diltiazem HCl (Cardizem Iv Push) 20 mg 1X ONCE IVP Last administered on 11/13/20at 15:50; Start 11/13/20 at 15:15; Stop 11/13/20 at 15:18; Status DC Sodium Chloride 500 ml @ 500 mls/hr 1X ONCE IV Last administered on 11/13/20at 15:49; Start 11/13/20 at 15:30; Stop 11/13/20 at 16:29; Status DC Iohexol (Omnipaque 300 Mg/ml) 75 ml 1X ONCE IV Last administered on 11/13/20at 16:06; Start 11/13/20 at 16:00; Stop 11/13/20 at 16:01; Status DC Info (CONTRAST GIVEN -- Rx MONITORING) 1 each PRN DAILY PRN MC SEE COMMENTS; Start 11/13/20 at 16:00; Stop 11/15/20 at 15:59 Apixaban (Eliquis) 5 mg BID PO Last administered on 11/15/20at 09:02; Start 11/13/20 at 21:00 Atorvastatin Calcium (Lipitor) 10 mg HS PO Last administered on 11/14/20at 21:08; Start 11/13/20 at 21:00 Digoxin (Lanoxin) 125 mcg DAILY PO Last administered on 11/15/20 09:02; Start 11/14/20 at 09:00 Docusate Sodium (Colace) 100 mg PRN DAILY PRN PO HARD STOOLS; Start 11/13/20 at 18:00 Vitamin D (Vitamin D3) 1,000 unit DAILY PO Last administered on 11/15/20 09:02; Start 11/14/20 at 09:00 Furosemide (Lasix) 40 mg DAILY PO Last administered on 11/15/20 09:02; Start 11/14/20 at 09:00 Levothyroxine Sodium (Synthroid) 100 mcg DAILY06 PO Last administered on 11/15/20 06:00; Start 11/14/20 at 06:00 Sacubitril/ Valsartan (Entresto 24 Mg-26 Mg) 1 tab BID PO Last administered on 11/15/20at 09:02; Start 11/13/20 at 21:00 Metoprolol Tartrate (Lopressor Vial) 2.5 mg PRN Q6HRS PRN IVP TACHYCARDIA; Start 11/13/20 at 18:00 Insulin Human Lispro (HumaLOG) 0-7 UNITS TIDWMEALS SQ Last administered on 11/15/20at 09:08; Start 11/14/20 at 08:00 Dextrose (Dextrose 50%-Water Syringe) 12.5 gm PRN Q15MIN PRN IV SEE COMMENTS; Start 11/13/20 at 18:15 Info (Anti-Coagulation Monitoring By Pharmacy) 1 each PRN DAILY PRN MC PER PROTOCOL; Start 11/14/20 at 08:00 Digoxin (Lanoxin) 250 mcg 1X ONCE IV Last administered on 11/14/20at 16:58; Start 11/14/20 at 16:00; Stop 11/14/20 at 16:01; Status DC Furosemide (Lasix) 40 mg 1X ONCE IVP Last administered on 11/14/20at 16:59; Start 11/14/20 at 16:00; Stop 11/14/20 at 16:01; Status DC Potassium Chloride (Klor-Con) 20 meq 1X ONCE PO Last administered on 11/14/20at 16:58; Start 11/14/20 at 16:00; Stop 11/14/20 at 16:01; Status DC Active Scripts Active Digoxin 125 Mcg Tablet 125 Mcg PO DAILY 30 Days Culturelle (Lactobacillus Rhamnosus Gg) 1 Each Cap.sprink 1 Cap PO BID 30 Days Furosemide 40 Mg Tablet 40 Mg PO DAILY 30 Days Entresto 24 mg-26 mg Tablet (Sacubitril/Valsartan) 1 Each Tablet 1 Tab PO BID 30 Days Dok (Docusate Sodium) 100 Mg Capsule 100 Mg PO PRN DAILY PRN 30 Days Klor-Con 10 (Potassium Chloride) 10 Meq Tablet.er 10 Meq PO DAILYWBKFT 30 Days Eliquis (Apixaban) 5 Mg Tablet 5 Mg PO BID 30 Days Reported Levothyroxine Sodium 100 Mcg Tablet 1 Tab PO DAILY Vitamin D2 (Ergocalciferol (Vitamin D2)) 1,250 Mcg Capsule 1,250 Mcg PO WEEKLY Alendronate Sodium 70 Mg Tablet 1 Tab PO WEEKLY Atorvastatin Calcium 10 Mg Tablet 10 Mg PO HS Vitals/I & O Vital Sign - Last 24 Hours 11/14/20 11/14/20 11/14/20 11/14/20 11:21 14:57 16:58 19:17 Temp 97.6 98.1 97.6 98.1 Pulse 103 92 92 Resp 16 18 B/P (MAP) 109/77 (88) 103/73 (83) 103/73 Pulse Ox 96 96 O2 Delivery Room Air Room Air Room Air 11/14/20 11/14/20 11/14/20 11/15/20 19:29 21:08 22:53 03:00 Temp 98.2 98.4 98.4 98.2 98.4 98.4 Pulse 88 88 82 92 Resp 16 16 20 B/P (MAP) 108/63 (78) 108/63 105/65 (78) 108/62 (77) Pulse Ox 94 97 95 O2 Delivery Room Air Room Air Room Air 11/15/20 11/15/20 11/15/20 11/15/20 07:00 08:00 09:02 09:02 Temp 98.7 98.7 Pulse 83 83 83 Resp 16 B/P (MAP) 113/68 (83) 113/68 113/68 Pulse Ox 95 O2 Delivery Room Air Room Air Intake and Output 11/14/20 11/14/20 11/15/20 15:00 23:00 07:00 Intake Total 400 ml 320 ml 300 ml Output Total 200 ml 200 ml 0 ml Balance 200 ml 120 ml 300 ml Justicifation of Admission Dx: Justifications for Admission: Justification of Admission Dx: Yes VALENTIN CARLTON MD Nov 15, 2020 09:32
[2020-11-15 11:03] VITALS: BP 111/67
--- NOTE | 2020-11-15 11:16 | NUR ---
SS following up with discharge planning. SS reviewed pt chart and discussed with pt RN. Pt is from home with spouse and is currently on room air. Cardiology consulted. SS will continue to follow for discharge planning.
--- NOTE | 2020-11-15 12:56 | PDOC3 ---
Discharge Summary Date of Admission: Nov 13, 2020 Date of Discharge: Nov 15, 2020 Follow-Up: 3-5 days Admitting Diagnosis comment: History of Present Illness History of Present Illness Mr Bergeron is an 85 year old male w/ PMHx reduced EF 15-20% CHF s/p AICD (Biotronik), HTN, hypothyroidism, afib who comes to ED for abdominal wall spasms for the past 2 days that are concerning him and his son. No fevers, vomiting, diarrhea. Patient stated states that he has been compliant with his medications. He is notably in accelerated tachcardia with no p-waves, looks like afib RVR, given cardizem ordered by Dr. Rob in ED and HR slows into the 80s, has visible diaphragmatic spasms that look associated with some pacer spikes on telemetry. It doesn't cause patient any severe distress, just occasional spasms and pain. Abdominal radiograph with cardiomegaly and mild left effusion and moderate bilateral infiltrates and left-sided AICD pacemaker noted. CT abdomen pelvis with incidental finding of L2 compression fracture though he has no back pain. Diverticulosis no other acute abdominal findings. Labs with WBC 7.9, Hb 15.3, platelets 204, NA 141, K3.7, BUN 17, CR 0.9, glucose 193, mag 2, albumin 3.2, troponin 0, NT proBNP 5841 Admitted for further care. d/c meds see mar d/c diet heart healthy, ADA CONSULTS CARDIOLOGY COMPLICATIONS NONE D/C CONDITION GOOD PROGNOSIS GUARDED DUE TO Cardiomyopathy DISCHARGE DX Assessment/Plan A/P: Acute abdominal pain - from abdominal wall spasms, associated with pacer diaphragm triggering. device rep HAS SEEN Diaphragmatic contractions, stimulation. associated with pacer spikes on telemetry PAFIB; presenting with RVR. On dig for rate control. Dig level < 0.2. Amiodarone discontinued in past due to concerns for ILD. Acute on chronic systolic CHF - likely from acute afib with RVR. with his BP low after cardizem, may not be able to tolerate IV lasix and this is likely due to afib, once rate is controlled likely CHF will improve AFIB - Cardizem bolus helped.. occasionally vpaced. Will DC Cardizem in favor of metoprolol. Cont home eliquis Severe NICM with LVEF 15-20% - s/p MACHINE FEEDER-D (Biotronik). Cardiology consult. Hypertension - will cont BB if BP allows Hypothyroidism - cont levothyroxine DM2 -sliding scale insulin T2 fracture - incidental finding. No back pain FEN - ADA diet ppx - eliquis FULL CODE Dispo -[facility] 7-13 d/w rn Suspect diaphragmatic stimulation from left ventricular lead. pacemaker interrogated and adjusted digoxin for better AF rate control. Continue Eliquis for stroke prophylaxis Acute on chronic systolic heart failure better compensated. CARDIOLOGY OK WITH D/C TODAY PER RN d/c planning 34 min History of Present Illness History of Present Illness dentification/Chief Complaint Chief Complaint Abdominal pain Source Source: Caregiver, Chart review, Patient History of Present Illness History of Present Illness Mr Bergeron is an 85 year old male w/ PMHx reduced EF 15-20% CHF s/p AICD (Biotronik), HTN, hypothyroidism, afib who comes to ED for abdominal wall spasms for the past 2 days that are concerning him and his son. No fevers, vomiting, diarrhea. Patient stated states that he has been compliant with his medications. He is notably in accelerated tachcardia with no p-waves, looks like afib RVR, given cardizem ordered by Dr. Rob in ED and HR slows into the 80s, has visible diaphragmatic spasms that look associated with some pacer spikes on telemetry. It doesn't cause patient any severe distress, just occasional spasms and pain. Abdominal radiograph with cardiomegaly and mild left effusion and moderate bilateral infiltrates and left-sided AICD pacemaker noted. CT abdomen pelvis with incidental finding of L2 compression fracture though he has no back pain. Diverticulosis no other acute abdominal findings. Labs with WBC 7.9, Hb 15.3, platelets 2 4, NA 141, K3.7, BUN 17, CR 0.9, glucose 193, mag 2, albumin 3.2, troponin 0, NT proBNP 5841 Admitted for further care. Past Medical History Cardiovascular: AFIB, CHF, HTN, Hyperlipidemia Pulmonary: No pertinent hx CENTRAL NERVOUS SYSTEM: Other GI: No pertinent hx Heme/Onc: No pertinent hx, Other Hepatobiliary: No pertinent hx Psych: No pertinent hx Musculoskeletal: Osteoarthritis Rheumatologic: No pertinent hx Infectious disease: No pertinent hx Renal/: No pertinent hx Endocrine: Hypothyroidism Past Surgical History Past Surgical History: Other Family History Family History: Hypertension Social History Smoke: No ALCOHOL: none Drugs: None Current Medications Current Medications Current Medications Diltiazem HCl (Cardizem Iv Push) 20 mg 1X ONCE IVP Last administered on 11/13/20at 15:50; Start 11/13/20 at 15:15; Stop 11/13/20 at 15:18; Status DC Sodium Chloride 500 ml @ 500 mls/hr 1X ONCE IV Last administered on 11/13/20at 15:49; Start 11/13/20 at 15:30; Stop 11/13/20 at 16:29; Status DC Iohexol (Omnipaque 300 Mg/ml) 75 ml 1X ONCE IV Last administered on 11/13/20at 16:06; Start 11/13/20 at 16:00; Stop 11/13/20 at 16:01; Status DC Info (CONTRAST GIVEN -- Rx MONITORING) 1 each PRN DAILY PRN MC SEE COMMENTS; Start 11/13/20 at 16:00; Stop 11/15/20 at 15:59 Active Scripts Active Digoxin 125 Mcg Tablet 125 Mcg PO DAILY 30 Days Culturelle (Lactobacillus Rhamnosus Gg) 1 Each Cap.sprink 1 Cap PO BID 30 Days Furosemide 40 Mg Tablet 40 Mg PO DAILY 30 Days Entresto 24 mg-26 mg Tablet (Sacubitril/Valsartan) 1 Each Tablet 1 Tab PO BID 30 Days Dok (Docusate Sodium) 100 Mg Capsule 100 Mg PO PRN DAILY PRN 30 Days Klor-Con 10 (Potassium Chloride) 10 Meq Tablet.er 10 Meq PO DAILYWBKFT 30 Days Eliquis (Apixaban) 5 Mg Tablet 5 Mg PO BID 30 Days Reported Levothyroxine Sodium 100 Mcg Tablet 1 Tab PO DAILY Vitamin D2 (Ergocalciferol (Vitamin D2)) 1,250 Mcg Capsule 1,250 Mcg PO WEEKLY Alendronate Sodium 70 Mg Tablet 1 Tab PO WEEKLY Atorvastatin Calcium 10 Mg Tablet 10 Mg PO HS Allergies Allergies: Coded Allergies: No Known Drug Allergies (Unverified , 01/23/18) ROS General: YES: Fatigue, Malaise; No: Chills, Night Sweats, Appetite, Other PSYCHOLOGICAL ROS: No: Anxiety, Behavioral Disorder, Concentration difficultie, Decreased libido, Depression, Disorientation, Hallucinations, Hostility, Irritablity, Memory difficulties, Mood Swings, Obsessive thoughts, Physical abuse, Sexual abuse, Sleep disturbances, Suicidal ideation, Other Eyes: No Blurry vision, No Decreased vision, No Double vision, No Dry eyes, No Excessive tearing, No Eye Pain, No Itchy Eyes, No Loss of vision, No Photophobia, No Scotomata, No Uses contacts, No Uses glasses, No Other HEENT: No: Heacaches, Visual Changes, Hearing change, Nasal congestion, Nasal discharge, Oral lesions, Sinus pain, Sore Throat, Epistaxis, Sneezing, Snoring, Tinnitus, Vertigo, Vocal changes, Other ALLERGY AND IMMUNOLOGY: No: Hives, Insect Bite Sensitivity, Itchy/Watery Eyes, Nasal Congestion, Post Nasal Drip, Seasonal Allergies, Other Hematological and Lymphatic: No: Bleeding Problems, Blood Clots, Blood Transfusions, Brusing, Night Sweats, Pallor, Swollen Lymph Nodes, Other ENDOCRINE: No: Breast Changes, Galactorrhea, Hair Pattern Changes, Hot Flashes, Malaise/lethargy, Mood Swings, Palpitations, Polydipsia/polyuria, Skin Changes, Temperature Intolerance, Unexpected Weight Changes, Other Breast: No New/Changing Breast Lumps, No Nipple changes, No Nipple discharge, No Other Respiratory: No: Cough, Hemoptysis, Orthopnea, Pleuritic Pain, Shortness of breath, SOB with excertion, Sputum Changes, Stridor, Tachypnea, Wheezing, Other Cardiovascular: No Chest Pain, No Palpitations, No Orthopnea, No Paroxysmal Noc. Dyspnea, No Edema, No Lt Headedness, No Other Gastrointestinal: Yes Abdominal Pain; No Nausea, No Vomiting, No Diarrhea, No Constipation, No Melena, No Hematochezia, No Other Genitourinary: No Dysuria, No Frequency, No Incontinence, No Hematuria, No Retention, No Discharge, No Urgency, No Pain, No Flank Pain, No Other, No , No , No , No , No , No , No Musculoskeletal: No Gait Disturbance, No Joint Pain, No Joint Stiffness, No Joint Swelling, No Muscle Pain, No Muscular Weakness, No Pain In:, No Swelling In:, No Other Neurological: No Behavorial Changes, No Bowel/Bladder ControlChng, No C onfusion, No Dizziness, No Gait Disturbance, No Headaches, No Impaired Coord/balance, No Memory Loss, No Numbness/Tingling, No Seizures, No Speech Problems, No Tremors, No Visual Changes, No Weakness, No Other Skin: No Dry Skin, No Eczema, No Hair Changes, No Lumps, No Mole Changes, No Mottling, No Nail Changes, No Pruritus, No Rash, No Skin Lesion Changes, No Other, No Acne Vitals Vitals Vital Signs Date Time Temp Pulse Resp B/P (MAP) Pulse Ox O2 Delivery O2 Flow Rate FiO2 11/15/20 09:02 83 113/68 11/15/20 08:00 Room Air 11/15/20 07:00 98.7 16 95 98.7 Physical Exam General: Alert, Oriented X3, Cooperative, no distress Heart: Regular rate Lungs: Crackles Abdomen: Normal bowel sounds, Soft, No tenderness, No hepatosplenomegaly, No masses, Extremities: No clubbing, No cyanosis Brief Hospital Course Mr. Bergeron is a 85 old [sex] who presented with [ PACEMAKER MALFUNCTION] CONDITION AT DISCHARGE: Improved Discharge Medications Current Medications Diltiazem HCl (Cardizem Iv Push) 20 mg 1X ONCE IVP Last administered on 11/13/20at 15:50; Start 11/13/20 at 15:15; Stop 11/13/20 at 15:18; Status DC Sodium Chloride 500 ml @ 500 mls/hr 1X ONCE IV Last administered on 11/13/20at 15:49; Start 11/13/20 at 15:30; Stop 11/13/20 at 16:29; Status DC Iohexol (Omnipaque 300 Mg/ml) 75 ml 1X ONCE IV Last administered on 11/13/20at 16:06; Start 11/13/20 at 16:00; Stop 11/13/20 at 16:01; Status DC Info (CONTRAST GIVEN -- Rx MONITORING) 1 each PRN DAILY PRN MC SEE COMMENTS; Start 11/13/20 at 16:00; Stop 11/15/20 at 15:59 Apixaban (Eliquis) 5 mg BID PO Last administered on 11/15/20at 09:02; Start 11/13/20 at 21:00 Atorvastatin Calcium (Lipitor) 10 mg HS PO Last administered on 11/14/20at 21:08; Start 11/13/20 at 21:00 Digoxin (Lanoxin) 125 mcg DAILY PO Last administered on 11/15/20 09:02; Start 11/14/20 at 09:00 Docusate Sodium (Colace) 100 mg PRN DAILY PRN PO HARD STOOLS; Start 11/13/20 at 18:00 Vitamin D (Vitamin D3) 1,000 unit DAILY PO Last administered on 11/15/20 09:02; Start 11/14/20 at 09:00 Furosemide (Lasix) 40 mg DAILY PO Last administered on 11/15/20 09:02; Start 11/14/20 at 09:00 Levothyroxine Sodium (Synthroid) 100 mcg DAILY06 PO Last administered on 11/15/20 06:00; Start 11/14/20 at 06:00 Sacubitril/ Valsartan (Entresto 24 Mg-26 Mg) 1 tab BID PO Last administered on 11/15/20 09:02; Start 11/13/20 at 21:00 Metoprolol Tartrate (Lopressor Vial) 2.5 mg PRN Q6HRS PRN IVP TACHYCARDIA; Start 11/13/20 at 18:00 Insulin Human Lispro (HumaLOG) 0-7 UNITS TIDWMEALS SQ Last administered on 11/15/20at 12:18; Start 11/14/20 at 08:00 Dextrose (Dextrose 50%-Water Syringe) 12.5 gm PRN Q15MIN PRN IV SEE COMMENTS; Start 11/13/20 at 18:15 Info (Anti-Coagulation Monitoring By Pharmacy) 1 each PRN DAILY PRN MC PER PROTOCOL; Start 11/14/20 at 08:00 Digoxin (Lanoxin) 250 mcg 1X ONCE IV Last administered on 11/14/20 16:58; Start 11/14/20 at 16:00; Stop 11/14/20 at 16:01; Status DC Furosemide (Lasix) 40 mg 1X ONCE IVP Last administered on 11/14/20at 16:59; Start 11/14/20 at 16:00; Stop 11/14/20 at 16:01; Status DC Potassium Chloride (Klor-Con) 20 meq 1X ONCE PO Last administered on 11/14/20 16:58; Start 11/14/20 at 16:00; Stop 11/14/20 at 16:01; Status DC Active Scripts Active Digoxin 125 Mcg Tablet 125 Mcg PO DAILY 30 Days Culturelle (Lactobacillus Rhamnosus Gg) 1 Each Cap.sprink 1 Cap PO BID 30 Days Furosemide 40 Mg Tablet 40 Mg PO DAILY 30 Days Entresto 24 mg-26 mg Tablet (Sacubitril/Valsartan) 1 Each Tablet 1 Tab PO BID 30 Days Dok (Docusate Sodium) 100 Mg Capsule 100 Mg PO PRN DAILY PRN 30 Days Klor-Con 10 (Potassium Chloride) 10 Meq Tablet.er 10 Meq PO DAILYWBKFT 30 Days Eliquis (Apixaban) 5 Mg Tablet 5 Mg PO BID 30 Days Reported Levothyroxine Sodium 100 Mcg Tablet 1 Tab PO DAILY Vitamin D2 (Ergocalciferol (Vitamin D2)) 1,250 Mcg Capsule 1,250 Mcg PO WEEKLY Alendronate Sodium 70 Mg Tablet 1 Tab PO WEEKLY Atorvastatin Calcium 10 Mg Tablet 10 Mg PO HS Vital Signs Vital Signs Date Time Temp Pulse Resp B/P (MAP) Pulse Ox O2 Delivery O2 Flow Rate FiO2 11/15/20 11:03 97.8 94 18 111/67 (82) 97 Room Air 97.8 Labs Laboratory Tests Test 11/13/20 14:35 11/13/20 15:10 11/13/20 15:54 11/13/20 20:29 White Blood Count 7.9 x10^3/uL (4.0-11.0) Red Blood Count 5.58 x10^6/uL (4.30-5.70) Hemoglobin 15.3 g/dL (13.0-17.5) Hematocrit 45.5 % (39.0-53.0) Mean Corpuscular Volume 82 fL (79-100) Mean Corpuscular Hemoglobin 28 pg (25-35) Mean Corpuscular Hemoglobin Concent 34 g/dL (31-37) Red Cell Distribution Width 15.3 % (11.5-14.5) Platelet Count 204 x10^3/uL (140-400) Neutrophils (%) (Auto) 64 % (31-73) Lymphocytes (%) (Auto) 25 % (24-48) Monocytes (%) (Auto) 8 % (0-9) Eosinophils (%) (Auto) 2 % (0-3) Basophils (%) (Auto) 1 % (0-3) Neutrophils # (Auto) 5.1 x10^3/uL (1.8-7.7) Lymphocytes # (Auto) 2.0 x10^3/uL (1.0-4.8) Monocytes # (Auto) 0.6 x10^3/uL (0.0-1.1) Eosinophils # (Auto) 0.2 x10^3/uL (0.0-0.7) Basophils # (Auto) 0.1 x10^3/uL (0.0-0.2) Sodium Level 141 mmol/L (136-145) Potassium Level 3.7 mmol/L (3.5-5.1) Chloride Level 107 mmol/L (98-107) Carbon Dioxide Level 24 mmol/L (21-32) Anion Gap 10 (6-14) Blood Urea Nitrogen 17 mg/dL (8-26) Creatinine 0.9 mg/dL (0.7-1.3) Estimated GFR (Cockcroft-Gault) 80.6 BUN/Creatinine Ratio 19 (6-20) Glucose Level 193 mg/dL (70-99) Calcium Level 8.3 mg/dL (8.5-10.1) Magnesium Level 2.0 mg/dL (1.8-2.4) Total Bilirubin 0.6 mg/dL (0.2-1.0) Aspartate Amino Transf (AST/SGOT) 19 U/L (15-37) Alanine Aminotransferase (ALT/SGPT) 20 U/L (16-63) Alkaline Phosphatase 82 U/L (46-116) Troponin I Quantitative < 0.017 ng/mL (0.000-0.055) LF-Yox-N-Type Natriuretic Peptide 5841 pg/mL (0-449) Total Protein 6.9 g/dL (6.4-8.2) Albumin 3.2 g/dL (3.4-5.0) Albumin/Globulin Ratio 0.9 (1.0-1.7) Lipase 30 U/L (73-393) Digoxin Level < 0.2 ng/mL (0.9-2.0) Digoxin Last Dose Date Unk Digoxin Last Dose Time Unk Urine Collection Type Unknown Urine Color Yellow Urine Clarity Clear Urine pH 5.5 (<5.0-8.0) Urine Specific [place] 1.010 (1.000-1.030) Urine Protein Negative mg/dL (NEG-TRACE) Urine Glucose (UA) Negative mg/dL (NEG) Urine Ketones (Stick) Negative mg/dL (NEG) Urine Blood Negative (NEG) Urine Nitrite Negative (NEG) Urine Bilirubin Negative (NEG) Urine Urobilinogen Dipstick 0.2 mg/dL (0.2 mg/dL) Urine Leukocyte Esterase Negative (NEG) Urine RBC 0 /HPF (0-2) Urine WBC 0 /HPF (0-4) Urine Squamous Epithelial Cells Occ /LPF Urine Bacteria 0 /HPF (0-FEW) Glucose (Fingerstick) 130 mg/dL (70-99) Test 11/14/20 00:10 11/14/20 06:00 11/14/20 06:10 11/14/20 07:47 Troponin I Quantitative < 0.017 ng/mL (0.000-0.055) < 0.017 ng/mL (0.000-0.055) Sodium Level 145 mmol/L (136-145) Potassium Level 3.8 mmol/L (3.5-5.1) Chloride Level 108 mmol/L (98-107) Carbon Dioxide Level 26 mmol/L (21-32) Anion Gap 11 (6-14) Blood Urea Nitrogen 16 mg/dL (8-26) Creatinine 0.9 mg/dL (0.7-1.3) Estimated GFR (Cockcroft-Gault) 80.6 Glucose Level 130 mg/dL (70-99) Calcium Level 8.4 mg/dL (8.5-10.1) Glucose (Fingerstick) 124 mg/dL (70-99) Test 11/14/20 11:29 11/14/20 17:07 11/14/20 20:30 11/15/20 07:35 Glucose (Fingerstick) 177 mg/dL (70-99) 115 mg/dL (70-99) 119 mg/dL (70-99) 162 mg/dL (70-99) Test 11/15/20 11:44 Glucose (Fingerstick) 216 mg/dL (70-99) Laboratory Tests Test 11/14/20 17:07 11/14/20 20:30 11/15/20 07:35 11/15/20 11:44 Glucose (Fingerstick) 115 mg/dL (70-99) 119 mg/dL (70-99) 162 mg/dL (70-99) 216 mg/dL (70-99) Allergies Allergies Coded Allergies Type Severity Reaction Last Updated Verified No Known Drug Allergies 01/23/18 No Disposition/Orders: D/C to Home Justicifation of Admission Dx: Justifications for Admission: Justification of Admission Dx: Yes VALENTIN CARLTON MD Nov 15, 2020 12:56
[2020-11-15] MEDS ORDERED: INSU100V35 SQ (12:58)
--- NOTE | 2020-11-15 12:59 | DISCH ---
DISCHARGE INSTRUCTIONS Condition on Discharge Condition on Discharge: Stable Activity After Discharge Activity Instructions for Disc: Activity as tolerated Lifting Instructions after Dis: No heavy lifting, No pulling or pushing, Do not lift >10 pounds Exercise Instruction after Dis: Progress as tolerated Driving Instructions after Dis: Do not drive Weight Bearing Status after Di: No restrictions Diet after Discharge Diet after Discharge: Cardiac, Diabetic No Calorie Level Diet Texture: Regular Liquid Texture: Thin Liquid Swallowing Supervision: None needed Wound Incision Care Wound/Incision Care: Other, see below Checks after Discharge Checks after discharge: Check blood press - daily, Check blood sugar, ac/hs, Weigh Yourself Daily Contacting the DR. after DC Call your doctor for: If your condition worsens Follow-Up Follow up with: PCP THIS WEEK, CARDIOLOGY 2 WEEKS Treatment/Equipment after DC Adaptive Equipment Issued: Flavio Chen THOMAS W MD Nov 15, 2020 12:59
--- NOTE | 2020-11-15 15:13 | PDOC ---
KATELYNN JOHNSON SHEET [employer] LAYER 11/15/20 1513: CARDIO Progress Notes Date and Time Date of Service 11/15/20 Time of Evaluation 1210 Subjective Subjective: No Chest Pain, No shortness of breath, No Palpitations Vitals Vitals Vital Signs Date Time Temp Pulse Resp B/P (MAP) Pulse Ox O2 Delivery O2 Flow Rate FiO2 11/15/20 11:03 97.8 94 18 111/67 (82) 97 Room Air 97.8 Weight Weight [ ] Input and Output Intake and Output Intake and Output 11/15/20 06:59 Intake Total 1020 ml Output Total 400 ml Balance 620 ml Intake Oral 1020 ml Output Urine Total 400 ml Laboratory Labs Laboratory Tests Test 11/14/20 17:07 11/14/20 20:30 11/15/20 07:35 11/15/20 11:44 Glucose (Fingerstick) 115 mg/dL (70-99) 119 mg/dL (70-99) 162 mg/dL (70-99) 216 mg/dL (70-99) Physical Exam HEENT: Neck Supple W Full Motion Chest: Symmetric LUNGS: Clear to Auscultation Heart: irregularly irregular (AFIB ) Abdomen: Soft N/T Extremities: Other (trace bilateral LE edema ) Neurology: alert, oriented, follow commands Assessment Assessment 1. Diaphragmatic stimulation. Device interrogated; configuration changed and output lowered, which resolved abdominal stimulation. 2. PAFIB; presenting with RVR. On dig for rate control. Dig level < 0.2. Amiodarone discontinued in past due to concerns for ILD. Rate now controlled 3. Mild acute on chronic systolic CHF; appears compensated 4. Severe NICM; LVEF 15-20%. s/p MANAGER IT TRAINING-D (Biotronik). Device check with 80% AFIB burden' 5. Hypertension; low end 6. Hypothyroidism: on replacement. TSH recently WNL Recommendations Digoxin for rate contorl Continue Eliquis for stroke prevention. HF optimization with Entresto and Lasix. No BB due to low-end BP Supportive care Follow up in our office with Dr. Elias. Justicifation of Admission Dx: Justifications for Admission: Justification of Admission Dx: Yes FARIDA ELIAS MD 11/15/202034: CARDIO Progress Notes Assessment Assessment Patient seen and examined. Agree with CLINICAL AUDITOR's assessment and plan. Device parameters adjusted to stop diaphragmatic stimulation Continue digoxin for AF rate control. Continue Eliquis for stroke prophylaxis Acute on chronic systolic heart failure better compensated. OK for DC from cardiac standpoint KATELYNN JOHNSON APRN Nov 15, 2020 15:13 FARIDA ELIAS MD Nov 15, 2020 20:35
--- NOTE | 2020-11-15 15:18 | NUR ---
Discharge Note: BAN PHELPS [facility]ULTON Discharge instructions and discharge home medications reviewed with Patient and a copy given. All questions have been answered and understanding verbalized. The following instructions and handouts were given: Insulin Lispro, DM 2 Adult, insulin treatment in diabetes, diabetes and sick day management, Form-Daily record Diabetes, Diabetes and Standards of care, Diabetes FAQ's, Atrial fibrillation, Diabetes meal planning guide. Monica (Urdu speaking) RN, translated and discussed new diabetes diagnosis with patient and patients family. Patient discharged to home with family via private car. IV out, monitor off and placed at nursing station.
== END 2020-11-15 14:45 | disposition home or self-care (01) ==
LOC: ER 13:55 → 2 NORTH 17:41
PROVIDERS: ADMIT Internal Medicine; ATTEND Internal Medicine
DX: I11.0 Hypertensive heart disease with heart failure (principal); I50.23 Acute on chronic systolic (congestive) heart failure; I48.91 Unspecified atrial fibrillation; R10.9 Unspecified abdominal pain; I42.9 Cardiomyopathy, unspecified; E03.9 Hypothyroidism, unspecified; E11.9 Type 2 diabetes mellitus without complications; M48.56XA Collapsed vertebra, not elsewhere classified, lumbar region, initial encounter for fracture; E78.5 Hyperlipidemia, unspecified; M19.90 Unspecified osteoarthritis, unspecified site; I25.10 Atherosclerotic heart disease of native coronary artery without angina pectoris; I48.0 Paroxysmal atrial fibrillation; I42.8 Other cardiomyopathies; J98.11 Atelectasis; K57.90 Diverticulosis of intestine, part unspecified, without perforation or abscess without bleeding; M81.0 Age-related osteoporosis without current pathological fracture; T82.119A Breakdown (mechanical) of unspecified cardiac electronic device, initial encounter; Z79.01 Long term (current) use of anticoagulants; Z95.810 Presence of automatic (implantable) cardiac defibrillator; Z79.4 Long term (current) use of insulin; Z79.899 Other long term (current) drug therapy; Z98.890 Other specified postprocedural states; Y71.2 Prosthetic and other implants, materials and accessory cardiovascular devices associated with adverse incidents
CPT/HCPCS: 36415; 74022; 74177; 80048; 80053; 80162; 81001; 82962; 83690; 83735; 83880; 84484; 85025; 93005; 96361; 96372; 96374; 96375; 99285; G0378; J1160; J1940; J3490; J7040; Q9967; G0379

== ENCOUNTER → 2021-03-07 | Outpatient (CLI) | payer OTHER, MEDICAID ==
[~2021-03-07] MED LIST changes: +AMIO200T53 PO; -AMIO200T6 PO; +DOCU-148 PO; -DOCU-153 PO; +INSU100V35 SQ; -LISI-517 PO; +LISI5TAB15 PO; +REGADENOSON 0.4 MG/5 ML DISP.SYRIN. IV ONE
--- NOTE | 2021-03-07 13:50 | RAD ---
MR#: [id number] Date of Study: 03/07/2021 Ordering Physician: FARIDA THOMPSON, Referring Physician: LEONARDO NICOLAS Tech: RT Jolie Lockwood) (N) APPROVED REPORT Test Type: Pharmacological Stress Nurse/Tech: BERTA BRODERICK Test Indications: CHRONIC SYSTOLIC HEART FAILURE Cardiac History: PPM- SEE EMR Medications: SEE EMR Medical History: DM- SEE EMR Resting ECG: V-PACED Resting Heart Rate: 88 bpm Resting Blood Pressure: 115/60mmHg Pretest Chest Pain: No chest pain Nurse/Tech Notes PPM, RATE IRREGULAR AT TIMES, LUNGS CTA, DENIED CHEST PAIN OR SHORTNESS OF AIR. VSS. Consent: The procedure was explained to the patient in lay terms. Informed consent was witnessed. Jr eout was entered into [employer]. History and Stress Test performed by RT Jolie Richardson) (N) Pharm. Details Pharmacologic stress testing was performed using 0.4mg per 5ml of regadenoson given intravenously ove r 7-10 seconds. Stress Symptoms PT DENIED SYMPTOMS DURING TESTING, BP DROPPED INITIALLY- REBOUNDED AFTER A COUPLE MINUTES. HR REMAINE D IRREGULAR WITH V-PACED SPIKES NOTED. POST EXERCISE Max HR: 149 bpm Max Blood Pressure: 99/46mmHg Blood Pressure response to exercise: Abnormal blood pressure response during stress. Heart Rate response to exercise: PPM- IRREGULAR RATE Chest Pain: No. Arrhythmia: . NO SIGNIFICANT CHANGES NOTED FROM BASELINE EKG INTERPRETATION Stress EKG Conclusion: Baseline EKG showed ventricular paced rhythm with underlying atrial fibrillati on. Nondiagnostic changes at peak stress. No other arrhythmias. Imaging Protocol IMAGE PROTOCOL: Rest Tc-99m/stress Tc-99m 1 day Rest: Stress: Viability: Radiopharm.Tc99m [id number] Sestamibi Mnrf8lSf 30.8mCi Duration 13min. 13min. Img Date 03/07/2021 03/07/2021 Img Time 60 80 Inj-Img Izrd40hwi. 60min. Rest Admin Site:IV - Left AntecubitalAdministrator:RT Jolie Lockwood)(N) Stress Admin Site: IV - Left AntecubitalAdministrator: Trudy Ayala, RT (R)(N) STRESS DATA End Diast. Vol.189.0mlLVEDV index VZD053.0ml End Syst. Vol.139.0mlLVESV index BSA77.0ml Myocardial Ufpz814.0gEject. Zoukzmth17.0% Stress Scores Regional WT3.00Summed WT49.00 Regional WM0.00Summed WM28.00 LV Perfusion Scintigraphic images showed predominantly fixed defect involving the inferior wall, most probably foster phragmatic attenuation artifact but cannot rule out small underlying reversible defect. Correlate cl inically. Wall Motion Severe left ventricle systolic dysfunction with ejection fraction calculated at 20%. LV Perf. Quant 17 Seg. SSS17.00 17 Seg. SRS13.00 17 Seg. SDS8.00 Stress Defect Extent (% LAD)16.90Rest Defect Extent (% LAD)15.60Rev. Defect Extent (% LAD)6.90 Stress Defect Extent (% LCX) 50.00Rest Defect Extent (% LCX)25.00Rev. Defect Extent (% LCX)18.80 Stress Defect Extent (% RCA)45.60Rest Defect Extent (% RCA)70.00Rev. Defect Extent (% RCA)17.80 Stress Defect Extent (% SYBIL)34.10Rest Defect Extent (% SYBIL)31.10Rev. Defect Extent (% SYBIL)14.60 Conclusion 1. Regadenoson cardioisotope stress test showed diaphragmatic attenuation artifact with possible smal l underlying ischemia. 2. Severe left ventricular systolic dysfunction with ejection fraction calculated at 20%. 3. Intermediate risk for cardiac events based on diminished LVEF. Signed by : Farida Thompson, Electronically Approved : 03/07/2021 13:50:22
== END ==
LOC: NM 09:05
PROVIDERS: ATTEND Internal Medicine Cardiovascular Disease
DX: I50.22 Chronic systolic (congestive) heart failure (principal)
CPT/HCPCS: 78452; 93017; A9500; J2785

== ENCOUNTER 2021-07-13 17:12 | Emergency (ER) | payer OTHER, MEDICAID ==
[~2021-07-13] VITALS: Ht 167.6 cm; Wt 68.0 kg
[~2021-07-13 17:12] MED LIST changes: -REGADENOSON 0.4 MG/5 ML DISP.SYRIN. IV ONE
[2021-07-13 18:14] LABS: BASO # 0.1 x10^3/uL (0.0-0.2); BASO % 1 % (0-3); EOS # 0.1 x10^3/uL (0.0-0.7); EOS % 2 % (0-3); HEMOGLOBIN 15.2 g/dL (13.0-17.5); LYMPH # 2.1 x10^3/uL (1.0-4.8); LYMPH % 29 % (24-48); MEAN CORPUSCULAR HEMOGLOBIN 27 pg (25-35); MEAN CORPUSCULAR HGB CONC 33 g/dL (31-37); MEAN CORPUSCULAR VOLUME 82 fL (79-100); MONO # 0.7 x10^3/uL (0.0-1.1); MONO % 9 % (0-9); NEUT # 4.3 x10^3/uL (1.8-7.7); NEUT % 59 % (31-73); PLATELET COUNT 165 x10^3/uL (140-400); RED BLOOD COUNT 5.61 x10^6/uL (4.30-5.70); RED CELL DISTRIBUTION WIDTH 18.9 % (11.5-14.5); WHITE BLOOD COUNT 7.3 x10^3/uL (4.0-11.0)
[2021-07-13] MEDS ORDERED: IV NORMAL SALINE 1000ML BAG 1,000 ML IV ONE (18:15)
[2021-07-13 18:22] LABS: CALCIUM 9.5 mg/dL (8.5-10.1); CREATININE 1.3 mg/dL (0.7-1.3); GFR 52.6
[2021-07-13 18:29] LABS: ALBUMIN 3.5 g/dL (3.4-5.0); ALBUMIN/GLOBULIN RATIO 0.8 (1.0-1.7); MAGNESIUM 2.1 mg/dL (1.8-2.4); TOTAL BILIRUBIN 1.4 mg/dL (0.2-1.0); TOTAL PROTEIN 7.9 g/dL (6.4-8.2)
--- NOTE | 2021-07-13 18:54 | PHYS DOC ---
Past Medical History Past Medical History: A-Fib, CAD, CHF, Heart Disease, Hypertension, Other (ENIO MORRISON) Past Surgical History: Pacemaker Additional Past Surgical Histo: "head" , BIOTRONIC PACEMAKER (ENIO MORRISON) Smoking Status: Never Smoker Alcohol Use: None Drug Use: None (ENIO MORRISON) General Adult EDM: Chief Complaint: MULTIPLE COMPLAINTS HPI: HPI: Patient is a 86 year old male who presents with family from home with chief complaint of decreased appetite and weight loss. Patient denies all complaints and states that "everything is fine." However, his family at bedside states that since he has recovered from COVID-19 a couple of months ago, he has eaten less and lost approximately 40 pounds. Patient denies all other complaints including fever, chills, generalized weakness, abdominal pain, N/V/D, dysuria, hematuria. (ENIO MORRISON) Review of Systems: Review of Systems: Constitutional: Denies fever, chills or generalized weakness Eyes: Denies change in visual acuity, visual field deficits or discharge HENT: Denies ear pain, nasal congestion or sore throat Respiratory: Denies cough or shortness of breath Cardiovascular: Denies chest pain, palpitations or edema GI: Denies abdominal pain, nausea, vomiting, bloody stools or diarrhea : Denies dysuria or hematuria Musculoskeletal: Denies back pain or joint pain Integument: Denies rash or other skin lesion Neurologic: Denies headache, focal weakness or sensory changes (ENIO MORRISON) Heart Score: C/O Chest Pain: No (ENIO MORRISON) Current Medications: Current Medications Medications (Trade) Dose Ordered Sig/Arthur Start Time Stop Time Status Last Admin Dose Admin Sodium Chloride 1,000 ml @ 1,000 mls/hr 1X ONCE 07/13/21 18:15 07/13/21 19:14 07/13/21 18:08 1,000 MLS/HR (ENIO MORRISON) Allergies: Allergies: Allergies Coded Allergies Type Severity Reaction Last Updated Verified No Known Drug Allergies 07/13/21 No (ENIO MORRISON) Physical Exam: PE: Constitutional: Well developed, well nourished, no acute distress, non-toxic appearance, pants appear to be too big and are cinched at the waist. HENT: Normocephalic, atraumatic, bilateral external ears normal, nose normal. Eyes: EOMI, conjunctiva normal, no discharge. Neck: Normal range of motion, no stridor. Skin: Warm, dry, no erythema, no rash. Back: No step-off, no tenderness, no CVA tenderness. Extremities: No tenderness, no cyanosis, no clubbing, ROM intact, no edema, no obvious deformities. Neurologic: Alert and oriented x4, no focal deficits noted. Psychologic: Affect pleasant, good judgment, mood "everything is good." (ENIO MORRISON) Current Patient Data: Labs: Laboratory Tests Test 07/13/21 18:06 07/13/21 19:35 White Blood Count 7.3 x10^3/uL (4.0-11.0) Red Blood Count 5.61 x10^6/uL (4.30-5.70) Hemoglobin 15.2 g/dL (13.0-17.5) Hematocrit 46.0 % (39.0-53.0) Mean Corpuscular Volume 82 fL (79-100) Mean Corpuscular Hemoglobin 27 pg (25-35) Mean Corpuscular Hemoglobin Concent 33 g/dL (31-37) Red Cell Distribution Width 18.9 % (11.5-14.5) Platelet Count 165 x10^3/uL (140-400) Neutrophils (%) (Auto) 59 % (31-73) Lymphocytes (%) (Auto) 29 % (24-48) Monocytes (%) (Auto) 9 % (0-9) Eosinophils (%) (Auto) 2 % (0-3) Basophils (%) (Auto) 1 % (0-3) Neutrophils # (Auto) 4.3 x10^3/uL (1.8-7.7) Lymphocytes # (Auto) 2.1 x10^3/uL (1.0-4.8) Monocytes # (Auto) 0.7 x10^3/uL (0.0-1.1) Eosinophils # (Auto) 0.1 x10^3/uL (0.0-0.7) Basophils # (Auto) 0.1 x10^3/uL (0.0-0.2) Sodium Level 137 mmol/L (136-145) Potassium Level 4.0 mmol/L (3.5-5.1) Chloride Level 102 mmol/L (98-107) Carbon Dioxide Level 24 mmol/L (21-32) Anion Gap 11 (6-14) Blood Urea Nitrogen 23 mg/dL (8-26) Creatinine 1.3 mg/dL (0.7-1.3) Estimated GFR (Cockcroft-Gault) 52.6 BUN/Creatinine Ratio 18 (6-20) Glucose Level 130 mg/dL (70-99) Calcium Level 9.5 mg/dL (8.5-10.1) Magnesium Level 2.1 mg/dL (1.8-2.4) Total Bilirubin 1.4 mg/dL (0.2-1.0) Aspartate Amino Transf (AST/SGOT) 31 U/L (15-37) Alanine Aminotransferase (ALT/SGPT) 36 U/L (16-63) Alkaline Phosphatase 72 U/L (46-116) Total Protein 7.9 g/dL (6.4-8.2) Albumin 3.5 g/dL (3.4-5.0) Albumin/Globulin Ratio 0.8 (1.0-1.7) Urine Collection Type Unknown Urine Color Yellow Urine Clarity Clear Urine pH 6.5 (<5.0-8.0) Urine Specific Snover 1.015 (1.000-1.030) Urine Protein Negative mg/dL (NEG-TRACE) Urine Glucose (UA) 250 mg/dL (NEG) Urine Ketones (Stick) Negative mg/dL (NEG) Urine Blood Negative (NEG) Urine Nitrite Negative (NEG) Urine Bilirubin Negative (NEG) Urine Urobilinogen Dipstick 0.2 mg/dL (0.2 mg/dL) Urine Leukocyte Esterase Negative (NEG) Urine RBC 0 /HPF (0-2) Urine WBC 0 /HPF (0-4) Urine Squamous Epithelial Cells Occ /LPF Urine Bacteria 0 /HPF (0-FEW) Urine Hyaline Casts Occasional /HPF Urine Mucus Slight /LPF 07/13/21 18:06 07/13/21 18:06 Vital Signs: Vital Signs Date Time Temp Pulse Resp B/P (MAP) Pulse Ox O2 Delivery O2 Flow Rate FiO2 07/13/21 17:15 97.6 107 28 109/72 (84) 98 Room Air 97.6 (ENIO MORRISON) Course & Med Decision Making: Course & Med Decision Making Pertinent Labs and Imaging studies reviewed. (See chart for details) Patient is an 86-year-old male who has a couple of months status post COVID-19 infection who presents with decreased appetite and weight loss. Patient has no complaints, however family is concerned about his weight loss and decrease in appetite. Labs are reassuring. Patient and his family are advised to follow-up with her primary care provider regarding his decreased appetite, so that the family doctor might determine if he wants to further evaluate and treat. Questions were answered. Return precautions were provided. Patient and his family understand are agreeable to discharge plan. (ENIO MORRISON) Dragon Disclaimer: Dragon Disclaimer: This electronic medical record was generated, in whole or in part, using a voice recognition dictation system. (ENIO MORRISON) Departure Departure Impression: Primary Impression: Decrease in appetite Additional Impressions: Post-COVID chronic loss of taste Unintentional weight loss Disposition: 01 HOME / SELF CARE / HOMELESS Condition: STABLE Referrals: NARESH HE MD (PCP) Patient Instructions: Health Maintenance, Males Additional Instructions: EMERGENCY DEPARTMENT GENERAL DISCHARGE INSTRUCTIONS Thank you for coming to [facility] Emergency Department (ED) today and trusting us with you care. We trust that you had a positive experience in our Emergency Department. If you wish to speak to the department management, you may call the director at . YOUR FOLLOW UP INSTRUCTIONS ARE FOLLOWS: 1. Follow up with your primary care doctor. If you do not have a primary doctor, please ask for a resource list of physicians or clinics that may be able to assist you with follow up care. 2. The emergency provider has interpreted your imaging studies, if any were ordered. The radiology epic specialist also reviewed them. If there is a change in the findings, you will be notified in 48 hours when at all possible. 3. If a lab test or culture has been done, your results will be reviewed and you will be notified if you need a change in treatment. 4. Follow instructions verbalized to you and refer to the printouts if needed. ADDITIONAL INSTRUCTIONS AND INFORMATION: 1. Your care today has been supervised by a physician who is specially trained in emergency care. Many problems require more than one evaluation for a complete diagnosis and treatment. We recommend that you schedule your follow up appointment as recommended to ensure complete treatment of you illness or injury. If you are unable to obtain follow up care and continue to have a problem, or if your condition worsens, we recommend that you return to the ED. 2. We are not able to safely determine your condition over the phone nor are we able to give sound medical advice over the phone. For these safety reasons, if you call for medical advice we will ask you to come to the ED for further evaluation. 3. If you have any questions regarding these discharge instructions please call the ED at . SAFETY INFORMATION: In the interest of safety, wellness, and injury prevention; we encourage you to wear your seat belt, if you smoke; quite smoking, and we encourage family to use a protective helmet for bicycling and other sporting events that present an increased risk for head injury. IF YOUR SYMPTOMS WORSEN OR NEW SYMPTOMS DEVELOP, OR YOU HAVE CONCERNS ABOUT YOUR CONDITION; OR IF YOUR CONDITION WORSENS WHILE YOU ARE WAITING FOR YOUR FOLLOW UP APPOINTMENT; EITHER CONTACT YOUR PRIMARY CARE DOCTOR, THE PHYSICIAN WHOSE NAME AND NUMBER YOU WERE GIVEN, OR RETURN TO THE ED IMMEDIATELY. Attending Signature Attending Signature I have reviewed the PA/DISEASE EDUCATION SPECIALIST's note and plan of care. I was available for consultation as needed during the patient's visit in the emergency department. I agree with the clinical impression, plan, and disposition. (PERCY VEGA DO) ENIO MORRISON Jul 13, 2021 18:54 PERCY VEGA DO Jul 14, 2021 03:25
[2021-07-13 19:50] LABS: BILIRUBIN,URINE NEGATIVE (NEG); CLARITY,URINE CLEAR; COLOR,URINE YELLOW; NITRITE,URINE NEGATIVE (NEG); PH,URINE 6.5 (<5.0-8.0); PROTEIN,URINE NEGATIVE (NEG-TRACE); UROBILINOGEN,URINE 0.2 mg/dL (0.2 mg/dL)
[2021-07-13 19:51] LABS: BACTERIA,URINE 0 /HPF (0-FEW); RBC,URINE 0 /HPF (0-2); WBC,URINE 0 /HPF (0-4)
[2021-07-13 19:52] LABS: HYALINE CASTS, URINE OCCASIONAL /HPF
[2021-07-13 20:17] VITALS: BP 90/60
== END 2021-07-13 20:30 | disposition home or self-care (01) ==
LOC: ER 17:12
DX: R63.0 Anorexia (principal); R63.4 Abnormal weight loss; R43.9 Unspecified disturbances of smell and taste; U09.9 Post COVID-19 condition, unspecified; I48.91 Unspecified atrial fibrillation; I25.10 Atherosclerotic heart disease of native coronary artery without angina pectoris; I11.0 Hypertensive heart disease with heart failure; I50.9 Heart failure, unspecified; Z95.0 Presence of cardiac pacemaker
CPT/HCPCS: 36415; 80053; 81001; 83735; 85025; 96360; 99283; J7030

== ENCOUNTER 2021-07-31 17:36 | Inpatient (IN) | payer OTHER, MEDICAID ==
[~2021-07-31] VITALS: Ht 167.6 cm; Wt 58.1 kg
[2021-07-31 19:22] LABS: BASO % 1 % (0-3); EOS # 0.1 x10^3/uL (0.0-0.7); EOS % 1 % (0-3); HEMATOCRIT 42.2 % (39.0-53.0); HEMOGLOBIN 13.9 g/dL (13.0-17.5); LYMPH # 1.3 x10^3/uL (1.0-4.8); LYMPH % 19 % (24-48); MEAN CORPUSCULAR HEMOGLOBIN 27 pg (25-35); MEAN CORPUSCULAR HGB CONC 33 g/dL (31-37); MEAN CORPUSCULAR VOLUME 83 fL (79-100); MONO # 0.9 x10^3/uL (0.0-1.1); MONO % 14 % (0-9); NEUT # 4.4 x10^3/uL (1.8-7.7); NEUT % 66 % (31-73); PLATELET COUNT 179 x10^3/uL (140-400); RED CELL DISTRIBUTION WIDTH 19.2 % (11.5-14.5); WHITE BLOOD COUNT 6.8 x10^3/uL (4.0-11.0)
--- NOTE | 2021-07-31 19:31 | PHYS DOC ---
Past Medical History Past Medical History: A-Fib, CAD, CHF, Heart Disease, Hypertension, Other Additional Past Medical Histor: AFIB RVR Past Surgical History: Pacemaker Additional Past Surgical Histo: "head" , BIOTRONIC PACEMAKER Smoking Status: Never Smoker Alcohol Use: None Drug Use: None Adult General Chief Complaint Chief Complaint: SHORTNESS OF BREATH HPI HPI The patient is an 86-year-old male with a history of hypertension, hyperlipidemia, heart failure with reduced ejection fraction of 15 to 20%, status post Biotronik ICD implantation, atrial fibrillation on digoxin, hypothyroidism. He lives at home with his adult son. Mr. Bergeron presents for evaluation of shortness of breath while lying flat and with minimal exertion, progressive over the last 1 week. Son has noticed that he gets tired out while talking as well which is not normal for him. No other focal symptoms and in particular no fevers, nausea or vomiting, upper respirator y congestion/rhinorrhea, cough, sore throat, chest pain of any kind, abdominal pain of any kind, flank pain, midline back pain, dysuria, hematuria, polyuria or oliguria, changes in bowel habits, pain or swelling to arms or legs worse than usual (patient states his peripheral edema is about at baseline for him). Vital signs are appropriate here aside from oxygen saturation on the low side of normal on room air; the patient is in no acute distress. Review of Systems Review of Systems A 12 point review of systems was completed and was negative except where noted in HPI above. Current Medications Current Medications Current Medications Medications (Trade) Dose Ordered Sig/Arthur Start Time Stop Time Status Last Admin Dose Admin Furosemide 100 mg/ Sodium Chloride 100 ml @ 5 mls/hr Q20H 07/31/21 19:45 Allergies Allergies Allergies Coded Allergies Type Severity Reaction Last Updated Verified No Known Drug Allergies 07/13/21 No Physical Exam Physical Exam Elderly male appearing nontoxic and in no acute distress. Head is normocephalic and atraumatic. Neck is supple and nontender. Oropharynx is moist. Lungs with diminished breath sounds and fine crackles at the bilateral bases, no wheezes or other adventitious sounds heard. Normal respiratory effort. There is a normal S1 and S2 without rubs or gallops and capillary refill is appropriate, less than 2 seconds globally. There is an irregular rhythm with a controlled rate. Abdomen is soft, nontender and nondistended. No pulsatile mass. Skin is warm and dry without cyanosis, clubbing or edema. Psychiatrically, the patient demonstrates appropriate mood and affect and is alert. Evaluation of the extremities reveals BUEs and BLEs neurovascularly intact distally with strength out of 5, sensation intact light touch in all nerve distributions, radial, DP and PT pulses 2+ and equal bilaterally, capillary refill less than 2 seconds, hands and feet warm and well-perfused. 2+ pitting edema to the bilateral lower extremities below the level of the mid shins. No calf tenderness or swelling bilaterally. Caesar's test is negative bilaterally. Current Patient Data Vital Signs Vital Signs Date Time Temp Pulse Resp B/P (MAP) Pulse Ox O2 Delivery O2 Flow Rate FiO2 07/31/21 18:20 97.2 120 18 136/87 (103) 95 Room Air 97.2 Lab Values Laboratory Tests Test 07/31/21 19:02 White Blood Count 6.8 x10^3/uL (4.0-11.0) Red Blood Count 5.10 x10^6/uL (4.30-5.70) Hemoglobin 13.9 g/dL (13.0-17.5) Hematocrit 42.2 % (39.0-53.0) Mean Corpuscular Volume 83 fL (79-100) Mean Corpuscular Hemoglobin 27 pg (25-35) Mean Corpuscular Hemoglobin Concent 33 g/dL (31-37) Red Cell Distribution Width 19.2 % (11.5-14.5) H Platelet Count 179 x10^3/uL (140-400) Neutrophils (%) (Auto) 66 % (31-73) Lymphocytes (%) (Auto) 19 % (24-48) L Monocytes (%) (Auto) 14 % (0-9) H Eosinophils (%) (Auto) 1 % (0-3) Basophils (%) (Auto) 1 % (0-3) Neutrophils # (Auto) 4.4 x10^3/uL (1.8-7.7) Lymphocytes # (Auto) 1.3 x10^3/uL (1.0-4.8) Monocytes # (Auto) 0.9 x10^3/uL (0.0-1.1) Eosinophils # (Auto) 0.1 x10^3/uL (0.0-0.7) Basophils # (Auto) 0.0 x10^3/uL (0.0-0.2) Prothrombin Time 18.6 SEC (11.7-14.0) H Prothrombin Time INR 1.6 (0.8-1.1) H Activated Partial Thromboplast Time 41 SEC (24-38) H Sodium Level 140 mmol/L (136-145) Potassium Level 3.9 mmol/L (3.5-5.1) Chloride Level 102 mmol/L (98-107) Carbon Dioxide Level 23 mmol/L (21-32) Anion Gap 15 (6-14) H Blood Urea Nitrogen 20 mg/dL (8-26) Creatinine 1.1 mg/dL (0.7-1.3) Estimated GFR (Cockcroft-Gault) 63.8 BUN/Creatinine Ratio 18 (6-20) Glucose Level 123 mg/dL (70-99) H Calcium Level 9.2 mg/dL (8.5-10.1) Total Bilirubin 1.2 mg/dL (0.2-1.0) H Aspartate Amino Transferase (AST) 54 U/L (15-37) H Alanine Aminotransferase (ALT) 78 U/L (16-63) H Alkaline Phosphatase 138 U/L (46-116) H Troponin I High Sensitivity 33 ng/L (4-75) MD-Vxo-Q-Type Natriuretic Peptide > 52556 pg/mL (0-449) H Total Protein 7.6 g/dL (6.4-8.2) Albumin 3.7 g/dL (3.4-5.0) Albumin/Globulin Ratio 0.9 (1.0-1.7) L Digoxin Level 0.7 ng/mL (0.9-2.0) L Digoxin Last Dose Date Pending Digoxin Last Dose Time Pending Laboratory Tests 07/31/21 19:02 Laboratory Tests 07/31/21 19:02 EKG EKG Atrial fibrillation, rate 100s, no acute ST elevation or depression, EP interpretation. Baseline artifact moderately limits interpretation. Radiology/Procedures Radiology/Procedures EXAM: CHEST ONE VIEW. HISTORY: Shortness of breath. COMPARISON: 10/01/2020. FINDINGS: A frontal view of the chest is obtained. A left-sided pacer/defibrillator has its leads in the right ventricle and a left cardiac vein. Diffuse bilateral interstitial and airspace opacities have decreased mildly since the prior study. Small pleural effusions are suspected. There is no pneumothorax. The heart is mildly enlarged. IMPRESSION: 1. Diffuse interstitial infiltrates have decreased mildly since 10/01/2020. 2. Small pleural effusions. Mild cardiomegaly. Electronically signed by: Ronna Moody MD (07/31/2021 7:50 PM) [facility] DICTATED and SIGNED BY: PALAK MOODY MD DATE: 07/31/211948 Course & Med Decision Making Course & Med Decision Making Work-up as above is consistent with heart failure exacerbation, as his clinical history. Digoxin level a little low. Vital signs remained appropriate on serial reassessments. Patient has a low ejection fraction and blood pressure is a little soft so we will diurese very gently with a low rate Lasix drip. Will bring in for further care under hospitalist Dr. Pineda, who graciously accepts the patient to his service. We will place a cardiology consult. Dragon Disclaimer Dragon Disclaimer This electronic medical record was generated, in whole or in part, using a voice recognition dictation system. Departure Departure Impression: Primary Impression: Acute exacerbation of congestive heart failure Disposition: ADMITTED INPATIENT Condition: STABLE Referrals: NARESH HE MD (PCP) Problem Qualifiers Primary Impression: Acute exacerbation of congestive heart failure Heart failure type: unspecified Qualified Codes: I50.9 - Heart failure, unspecified BERNARD VU MD Jul 31, 2021 19:31
[2021-07-31 19:32] LABS: ANION GAP 15 (6-14); BLOOD UREA NITROGEN 20 mg/dL (8-26); BUN/CREATININE RATIO 18 (6-20); CALCIUM 9.2 mg/dL (8.5-10.1); CARBON DIOXIDE 23 mmol/L (21-32); CHLORIDE 102 mmol/L (98-107); CREATININE 1.1 mg/dL (0.7-1.3); GFR 63.8; GLUCOSE 123 mg/dL (70-99); POTASSIUM 3.9 mmol/L (3.5-5.1); SODIUM 140 mmol/L (136-145)
[2021-07-31 19:35] LABS: PROTHROMBIN TIME PATIENT 18.6 SEC (11.7-14.0)
[2021-07-31 19:39] LABS: ALBUMIN 3.7 g/dL (3.4-5.0); ALBUMIN/GLOBULIN RATIO 0.9 (1.0-1.7); ALK PHOS 138 U/L (46-116); ALT (SGPT) 78 U/L (16-63); AST (SGOT) 54 U/L (15-37); DIG 0.7 ng/mL (0.9-2.0); TOTAL BILIRUBIN 1.2 mg/dL (0.2-1.0); TOTAL PROTEIN 7.6 g/dL (6.4-8.2)
--- NOTE | 2021-07-31 19:53 | RAD ---
EXAM: CHEST ONE VIEW. HISTORY: Shortness of breath. COMPARISON: 10/01/2020. FINDINGS: A frontal view of the chest is obtained. A left-sided pacer/defibrillator has its leads in the right ventricle and a left cardiac vein. Diffuse bilateral interstitial and airspace opacities have decreased mildly since the prior study. Sm all pleural effusions are suspected. There is no pneumothorax. The heart is mildly enlarged. IMPRESSION: 1. Diffuse interstitial infiltrates have decreased mildly since 10/01/2020. 2. Small pleural effusions. Mild cardiomegaly. Electronically signed by: Ronna Moody MD (07/31/2021 7:50 PM) [facility]
[2021-07-31] MEDS ORDERED: ONDANSETRON PF 4 MG/2 ML VIAL. IVP PRN ×2 (20:15→22:30)
[2021-07-31] MEDS ORDERED: ACETAMINOPHEN 325 MG TABLET. PO PRN ×2 (20:15→22:30)
[2021-07-31] MEDS ORDERED: IV DEXTROSE 5% 250 ML BAG. IV PRN (20:30)
[2021-07-31] MEDS ORDERED: FUROSEMIDE 40 MG/4 ML VIAL. IVP ONE (20:30)
[2021-07-31] MEDS ORDERED: DEXTROSE 50% 25 GM / 50ML DISP.SYRIN. IV PRN (20:30)
[2021-07-31] MEDS: ATORVASTATIN CALCIUM 10 MG TABLET. PO SCH (20:40)
[2021-07-31] MEDS: APIXABAN 5 MG TABLET. PO SCH (20:40)
[2021-07-31] MEDS: FUROSEMIDE INJ 100 MG in IV NORMAL SALINE 100ML 100 ML IV SCH (20:41)
[2021-07-31] MEDS ORDERED: SACUBITRIL/VALSARTAN 24/26MG TABLET. PO SCH (21:00)
--- NOTE | 2021-07-31 21:30 | PDOC1 ---
History and Physical Date of Service: DOS: DATE: 07/31/21 TIME: 21:30 Chief Complaint: Chief Complain: SOB History of Present Illness: HPI: Patient is a 86-year-old male presented to the emergency room today due to worsening shortness of breath. Patient has a known history of systolic heart failure EF around 15%. Has noticed he gets short of breath much more than his baseline with very little exertion. Is having some conversational dyspnea. Difficulty with laying flat. Has baseline lower extremity edema. Notable card iac history. Labile blood pressures in the emergency room. Agree with slow Lasix drip overnight. We will try a single dose 40 IV as well and see how he responds. Resting comfortably in the emergency room on room air. Past Medical/Surgical History: PMH/PSH: Past Medical History: A-Fib, CAD, CHF, Heart Disease, Hypertension, Additional Past Medical Histor: AFIB RVR Past Surgical History: Pacemaker Additional Past Surgical Histo: "head" , BIOTRONIC PACEMAKER Smoking Status: Never Smoker Alcohol Use: None Drug Use: None Allergies: Allergies: Coded Allergies: No Known Drug Allergies (Unverified , 07/13/21) Family History: Family History: HTN Current Medications: Current Medications Current Medications Furosemide 100 mg/ Sodium Chloride 100 ml @ 5 mls/hr Q20H IV Last administered on 07/31/21at 20:41; Start 07/31/21 at 19:45 Ondansetron HCl (Zofran) 4 mg PRN Q8HRS PRN IVP NAUSEA/VOMITING; Start 07/31/21 at 20:15; Stop 08/01/21 at 20:14 Acetaminophen (Tylenol) 650 mg PRN Q4HRS PRN PO FEVER > 100.3'F; Start 07/31/21 at 20:15; Stop 08/01/21 at 20:14 Apixaban (Eliquis) 5 mg BID PO Last administered on 07/31/21at 20:40; Start 07/31/21 at 21:00 Atorvastatin Calcium (Lipitor) 10 mg HS PO Last administered on 07/31/21at 20:40; Start 07/31/21 at 21:00 Digoxin (Lanoxin) 125 mcg DAILY PO ; Start 08/01/21 at 09:00 Levothyroxine Sodium (Synthroid) 100 mcg DAILY06 PO ; Start 08/01/21 at 06:00 Potassium Chloride (Klor-Con) 10 meq DAILYWBKFT PO ; Start 08/01/21 at 08:00 Sacubitril/ Valsartan (Entresto 24 Mg-26 Mg) 1 tab BID PO ; Start 07/31/21 at 21:00; Stop 07/31/21 at 20:22; Status DC Insulin Human Lispro (HumaLOG) 0-9 UNITS TIDWMEALS SQ ; Start 08/01/21 at 08:00 Dextrose (Dextrose 50%-Water Syringe) 12.5 gm PRN Q15MIN PRN IV SEE COMMENTS; Start 07/31/21 at 20:30 Dextrose (Iv Dextrose 5%) 250 ml PRN Q15MIN PRN IV SEE COMMENTS; Start 07/31/21 at 20:30 Furosemide (Lasix) 40 mg 1X ONCE IVP ; Start 07/31/21 at 20:30; Stop 07/31/21 at 20:31; Status DC Active Scripts Active Admelog (Insulin Lispro) 100 Unit/1 Ml Vial 0 Units SQ TIDWMEALS 30 Days Digoxin 125 Mcg Tablet 125 Mcg PO DAILY 30 Days Furosemide 40 Mg Tablet 40 Mg PO DAILY 30 Days Entresto 24 mg-26 mg Tablet (Sacubitril/Valsartan) 1 Each Tablet 1 Tab PO BID 30 Days Dok (Docusate Sodium) 100 Mg Capsule 100 Mg PO PRN DAILY PRN 30 Days Klor-Con 10 (Potassium Chloride) 10 Meq Tablet.er 10 Meq PO DAILYWBKFT 30 Days Eliquis (Apixaban) 5 Mg Tablet 5 Mg PO BID 30 Days Reported Levothyroxine Sodium 100 Mcg Tablet 1 Tab PO DAILY Vitamin D2 (Ergocalciferol (Vitamin D2)) 1,250 Mcg Capsule 1,250 Mcg PO WEEKLY Alendronate Sodium 70 Mg Tablet 1 Tab PO WEEKLY Atorvastatin Calcium 10 Mg Tablet 10 Mg PO HS ROS: Review of Systems Review of System REVIEW OF SYSTEMS: GENERAL: Denies weakness SKIN: No bruising, hair changes or rashes. EYES: No blurred, double or loss of vision. NOSE AND THROAT: No history of nosebleeds, hoarseness or sore throat. HEART: No history of palpitations, chest pain or shortness of breath on exertion. LUNGS: Denies cough, hemoptysis, wheezing or shortness of breath. GASTROINTESTINAL: Denies changes in appetite, nausea, vomiting, diarrhea or constipation. GENITOURINARY: No history of frequency, urgency, hesitancy or nocturia. NEUROLOGIC: Denies history of numbness, tingling, or tremor. PSYCHIATRIC: No history of panic, anxiety or depression. ENDOCRINE: No history of heat or cold intolerance, polyuria or polydipsia. EXTREMITIES: Denies joint pain, pain on walking or stiffness. Physical Exam: Vital Signs: Vital Signs Date Time Temp Pulse Resp B/P (MAP) Pulse Ox O2 Delivery O2 Flow Rate FiO2 07/31/21 18:20 97.2 120 18 136/87 (103) 95 Room Air 97.2 Physcial Exam: GEN: No apparent distress. HEENT: Normal cephalic, atraumatic, external auditory canals are patent EYES: Extraocular muscles are intact, pupil are equally round and reactive to light and accommodation MUSCULOSKELETAL: Well developed , well nourished, good range of motion ENDOCRINE: No thyromegaly was palpated LYMPHATICS: No cervical chain or axillary nodes were noted HEMATOPOIETIC: No bruising NECK: Supple, no JVD, no thyromegaly was noted LUNGS: Clear to auscultation in all lung gómez without rhonchi or wheezing HEART: RRR, S!, S2 present. Peripheral pulses intact, no obvious murmurs noted ABDOMEN: Soft, nontender. Positive bowel sounds, no organomegaly, normal bowel sounds EXTREMITIES: Bilateral lower extremity pitting edema NEUROLOGIC: Normal speech and tone. A&O x 3, moves all extremities, no obvious focal deficits PSYCHIATRIC: Normal affect, normal mood. Stable SKIN: No ulcerations or rashes, good skin turgor, no jaundice VASCULAR: Good capillary refill, neurovascular bundle appears to be intact Labs: Labs: Laboratory Tests Test 07/31/21 19:02 White Blood Count 6.8 x10^3/uL (4.0-11.0) Red Blood Count 5.10 x10^6/uL (4.30-5.70) Hemoglobin 13.9 g/dL (13.0-17.5) Hematocrit 42.2 % (39.0-53.0) Mean Corpuscular Volume 83 fL (79-100) Mean Corpuscular Hemoglobin 27 pg (25-35) Mean Corpuscular Hemoglobin Concent 33 g/dL (31-37) Red Cell Distribution Width 19.2 % (11.5-14.5) Platelet Count 179 x10^3/uL (140-400) Neutrophils (%) (Auto) 66 % (31-73) Lymphocytes (%) (Auto) 19 % (24-48) Monocytes (%) (Auto) 14 % (0-9) Eosinophils (%) (Auto) 1 % (0-3) Basophils (%) (Auto) 1 % (0-3) Neutrophils # (Auto) 4.4 x10^3/uL (1.8-7.7) Lymphocytes # (Auto) 1.3 x10^3/uL (1.0-4.8) Monocytes # (Auto) 0.9 x10^3/uL (0.0-1.1) Eosinophils # (Auto) 0.1 x10^3/uL (0.0-0.7) Basophils # (Auto) 0.0 x10^3/uL (0.0-0.2) Prothrombin Time 18.6 SEC (11.7-14.0) Prothromb Time International Ratio 1.6 (0.8-1.1) Activated Partial Thromboplast Time 41 SEC (24-38) Sodium Level 140 mmol/L (136-145) Potassium Level 3.9 mmol/L (3.5-5.1) Chloride Level 102 mmol/L (98-107) Carbon Dioxide Level 23 mmol/L (21-32) Anion Gap 15 (6-14) Blood Urea Nitrogen 20 mg/dL (8-26) Creatinine 1.1 mg/dL (0.7-1.3) Estimated GFR (Cockcroft-Gault) 63.8 BUN/Creatinine Ratio 18 (6-20) Glucose Level 123 mg/dL (70-99) Calcium Level 9.2 mg/dL (8.5-10.1) Total Bilirubin 1.2 mg/dL (0.2-1.0) Aspartate Amino Transf (AST/SGOT) 54 U/L (15-37) Alanine Aminotransferase (ALT/SGPT) 78 U/L (16-63) Alkaline Phosphatase 138 U/L (46-116) Troponin I High Sensitivity 33 ng/L (4-75) RS-Fiv-W-Type Natriuretic Peptide > 51601 pg/mL (0-449) Total Protein 7.6 g/dL (6.4-8.2) Albumin 3.7 g/dL (3.4-5.0) Albumin/Globulin Ratio 0.9 (1.0-1.7) Digoxin Level 0.7 ng/mL (0.9-2.0) Laboratory Tests Test 07/31/21 19:02 White Blood Count 6.8 x10^3/uL (4.0-11.0) Red Blood Count 5.10 x10^6/uL (4.30-5.70) Hemoglobin 13.9 g/dL (13.0-17.5) Hematocrit 42.2 % (39.0-53.0) Mean Corpuscular Volume 83 fL (79-100) Mean Corpuscular Hemoglobin 27 pg (25-35) Mean Corpuscular Hemoglobin Concent 33 g/dL (31-37) Red Cell Distribution Width 19.2 % (11.5-14.5) Platelet Count 179 x10^3/uL (140-400) Neutrophils (%) (Auto) 66 % (31-73) Lymphocytes (%) (Auto) 19 % (24-48) Monocytes (%) (Auto) 14 % (0-9) Eosinophils (%) (Auto) 1 % (0-3) Basophils (%) (Auto) 1 % (0-3) Neutrophils # (Auto) 4.4 x10^3/uL (1.8-7.7) Lymphocytes # (Auto) 1.3 x10^3/uL (1.0-4.8) Monocytes # (Auto) 0.9 x10^3/uL (0.0-1.1) Eosinophils # (Auto) 0.1 x10^3/uL (0.0-0.7) Basophils # (Auto) 0.0 x10^3/uL (0.0-0.2) Prothrombin Time 18.6 SEC (11.7-14.0) Prothromb Time International Ratio 1.6 (0.8-1.1) Activated Partial Thromboplast Time 41 SEC (24-38) Sodium Level 140 mmol/L (136-145) Potassium Level 3.9 mmol/L (3.5-5.1) Chloride Level 102 mmol/L (98-107) Carbon Dioxide Level 23 mmol/L (21-32) Anion Gap 15 (6-14) Blood Urea Nitrogen 20 mg/dL (8-26) Creatinine 1.1 mg/dL (0.7-1.3) Estimated GFR (Cockcroft-Gault) 63.8 BUN/Creatinine Ratio 18 (6-20) Glucose Level 123 mg/dL (70-99) Calcium Level 9.2 mg/dL (8.5-10.1) Total Bilirubin 1.2 mg/dL (0.2-1.0) Aspartate Amino Transf (AST/SGOT) 54 U/L (15-37) Alanine Aminotransferase (ALT/SGPT) 78 U/L (16-63) Alkaline Phosphatase 138 U/L (46-116) Troponin I High Sensitivity 33 ng/L (4-75) OP-Gst-U-Type Natriuretic Peptide > 24736 pg/mL (0-449) Total Protein 7.6 g/dL (6.4-8.2) Albumin 3.7 g/dL (3.4-5.0) Albumin/Globulin Ratio 0.9 (1.0-1.7) Digoxin Level 0.7 ng/mL (0.9-2.0) Assessment/Plan Assessment/Plan Acute on chronic systolic CHF exacerbation EF 15 to 20%, history A. fib CAD hypertension -1 week history worsening shortness of breath -Fluid overloaded on presentation. Low blood pressure as well however -Telemetry admit -Agree with slow Lasix drip overnight. We will challenge him with 40 IV if blood pressures improve -Cardiology consult -Eliquis will serve as DVT prophylaxis -Cardiac diet -Strict ins and out -Remains a full code 17 minutes advance care planning Justifications for Admission Other Justification CHF exacerbation LESLY HERNANDEZ MD Jul 31, 2021 21:30
[2021-07-31] MEDS ORDERED: SACU1TAB PO (22:21)
[2021-07-31] MEDS ORDERED: ELECTROLYTE (NON-ICU) PROTOCOL. MC PRN (22:30)
[2021-07-31] MEDS ORDERED: oxyCODONE/APAP 5/325 1 TAB TABLET PO PRN ×2 (22:30)
[2021-07-31] MEDS ORDERED: CALCIUM CARBONATE 500 MG TAB.CHEW PO PRN (22:30)
[2021-07-31 23:30] VITALS: BP 134/83
[2021-08-01] VITALS (7 sets, daily range): BP systolic 95–110; BP diastolic 60–81
[2021-08-01] MEDS ORDERED: ERGO500089 PO (00:35)
[2021-08-01] MEDS ORDERED: LEVO88TA70 PO (00:35)
[2021-08-01] MEDS ORDERED: EMPA25TA3 PO (00:35)
--- NOTE | 2021-08-01 02:41 | EKG ---
[facility] [address] [place] [address] Test Date: 2021-07-31 Test Time: 18:51:35 Pat Name: ELOY PHELPS Department: Room: [facility] Gender: M Rehab Technician: : 1935 Requested By: BERNARD VU Order Number: [id number] Reading MD: Girma Elias Measurements Intervals [place] Rate: 124 P: CT: QRS: -23 QRSD: 152 T: 134 QT: 336 QTc: 487 Interpretive Statements ATRIAL FIBRILLATION VENTRICULAR PREMATURE COMPLEX(ES) LEFTWARD AXIS NON SPECIFIC INTRAVENTRICULAR BLOCK Electronically Signed On 08-05-2021 21:48:08 CDT by Girma Elias
[2021-08-01 05:53] LABS: BASO # 0.1 x10^3/uL (0.0-0.2); BASO % 1 % (0-3); EOS # 0.1 x10^3/uL (0.0-0.7); EOS % 2 % (0-3); HEMATOCRIT 43.2 % (39.0-53.0); HEMOGLOBIN 14.1 g/dL (13.0-17.5); LYMPH # 1.9 x10^3/uL (1.0-4.8); LYMPH % 23 % (24-48); MEAN CORPUSCULAR HEMOGLOBIN 27 pg (25-35); MEAN CORPUSCULAR HGB CONC 33 g/dL (31-37); MEAN CORPUSCULAR VOLUME 83 fL (79-100); MONO # 0.9 x10^3/uL (0.0-1.1); MONO % 11 % (0-9); NEUT % 63 % (31-73); PLATELET COUNT 172 x10^3/uL (140-400); RED CELL DISTRIBUTION WIDTH 18.6 % (11.5-14.5)
--- NOTE | 2021-08-01 06:27 | NUR ---
The patient, ELOY PHELPS, 86 y/o, M admitted by LESLY HERNANDEZ MD, was given written information regarding hospital policies, unit procedures and contact persons. Valuables were checked and documented. pt alert and oriented, assessment complete and documented. calllight in reach will cont to monitor pt status and safety. pmr
[2021-08-01 06:29] LABS: CALCIUM 9.1 mg/dL (8.5-10.1); GFR 71.2; POTASSIUM 3.8 mmol/L (3.5-5.1)
[2021-08-01] MEDS ORDERED: PERFLUTREN PROTEIN-A MICROSPHR 0.22 MG/ML 3 ML VIAL. IV ONE ×2 (07:00→07:29)
[2021-08-01] MEDS: LEVOTHYROXINE 100 MCG TABLET PO SCH (07:25)
[2021-08-01] MEDS: INSULIN LISPRO 300 UNITS/3 ML VIAL. SQ SCH ×3 (08:00→16:53)
[2021-08-01] MEDS: DIGOXIN 125 MCG TABLET. PO SCH (08:12)
[2021-08-01] MEDS: APIXABAN 5 MG TABLET. PO SCH ×2 (08:12→20:30)
[2021-08-01] MEDS: SENNOSIDES/DOCUSATE 8.6/50MG TABLET. PO SCH ×2 (08:12→20:32)
[2021-08-01] MEDS: POTASSIUM CHLORIDE 10 MEQ TABLET.ER. PO SCH (08:12)
[2021-08-01] MEDS: SACUBITRIL/VALSARTAN 24/26MG TABLET. PO SCH ×2 (08:13→20:31)
--- NOTE | 2021-08-01 10:41 | PDOC2 ---
KATELYNN JOHNSON [address] [employer] 08/01/21 1041: CARDIAC CONSULT DATE OF CONSULT Date of Consult DATE: 08/01/21 TIME: 10:35 REASON FOR CONSULT Reason for Consult: CHF REFERRING PHYSICIAN Referring Physician: Dr. Mijares SOURCE Source: Chart review, Patient HISTORY OF PRESENT ILLNESS HISTORY OF PRESENT ILLNESS This is an 86 yo male who presented secondary to shortness of breath. Patient/son report shortness of breath has been present over the last 2 weeks. Has been progressively worse over the last week. Associated with orthopnea. No chest pain, palpitations, dizziness, diaphoresis, or LE edema. Reports compliance with medication including Lasix therapy. PAST MEDICAL HISTORY Past Medical History Cardiovascular: AFIB, CHF, HTN, Hyperlipidemia, Other (NICM), Chronic LBBB by baseline Pulmonary: Covid-19 recovered, Pneumonia CENTRAL NERVOUS SYSTEM: Other (head trauma requiring craniotomy remotely) GI: No pertinent hx Heme/Onc: No pertinent hx, Other (chronic anticoagulation) Hepatobiliary: No pertinent hx Psych: No pertinent hx Musculoskeletal: Osteoarthritis, osteoporosis Rheumatologic: No pertinent hx Infectious disease: No pertinent hx ENT: No pertinent hx Renal/: No pertinent hx Endocrine: Hypothyroidism, DM2 Dermatology: No pertinent hx PAST SURGICAL HISTORY Past Surgical History Pacemaker (BOX GLUER-d), Other (craniotomy) FAMILY HISTORY Family History: Other (noncontributory to CV) SOCIAL HISTORY Social History Smoke: No ALCOHOL: none Drugs: None Lives: with Family CURRENT MEDICATIONS CURRENT MEDICATIONS Current Medications Medications (Trade) Dose Ordered Sig/Arthur Route PRN Reason Start Time Stop Time Status Last Admin Dose Admin Furosemide 100 mg/ Sodium Chloride 100 ml @ 5 mls/hr Q20H IV 07/31/21 19:45 07/31/21 20:41 Apixaban (Eliquis) 5 mg BID PO 07/31/21 21:00 08/01/21 08:12 Atorvastatin Calcium (Lipitor) 10 mg HS PO 07/31/21 21:00 07/31/21 20:40 Digoxin (Lanoxin) 125 mcg DAILY PO 08/01/21 09:00 08/01/21 08:12 Levothyroxine Sodium (Synthroid) 100 mcg DAILY06 PO 08/01/21 06:00 08/01/21 07:25 Potassium Chloride (Klor-Con) 10 meq DAILYWBKFT PO 08/01/21 08:00 08/01/21 08:12 Senna/Docusate Sodium (Senna Plus) 1 tab BID PO 08/01/21 09:00 08/01/21 08:12 Sacubitril/ Valsartan (Entresto 24 Mg-26 Mg) 1 tab BID PO 08/01/21 09:00 08/01/21 08:13 ALLERGIES ALLERGIES: Coded Allergies: No Known Drug Allergies (Unverified , 07/13/21) ROS Review of System 14 point ROS conducted with pertinent positives noted above in HPI PHYSICAL EXAM General: Alert, Oriented X3, Cooperative, No acute distress HEENT: Atraumatic Lungs: Other (crackles ) Heart: Other (AFIB, rate mildly elevated ) Abdomen: Soft Extremities: No edema Skin: No significant lesion Neuro: Normal speech, Sensation intact Psych/Mental Status: Mental status NL, Mood NL MUSCULOSKELETAL: Osteoarthritic changes both hands VITALS/I&O VITALS/I&O: Vital Signs Date Time Temp Pulse Resp B/P (MAP) Pulse Ox O2 Delivery O2 Flow Rate FiO2 08/01/21 08:13 103 103/77 08/01/21 08:07 19 93 2.0 08/01/21 08:00 Nasal Cannula 08/01/21 07:00 97.9 97.9 I & O 07/31/21 07/31/21 08/01/21 15:00 23:00 07:00 Intake Total 60 ml Output Total 1000 ml Balance -940 ml LABS Lab: Laboratory Tests Test 07/31/21 19:02 08/01/21 00:04 08/01/21 00:15 08/01/21 02:45 White Blood Count 6.8 x10^3/uL (4.0-11.0) Red Blood Count 5.10 x10^6/uL (4.30-5.70) Hemoglobin 13.9 g/dL (13.0-17.5) Hematocrit 42.2 % (39.0-53.0) Mean Corpuscular Volume 83 fL (79-100) Mean Corpuscular Hemoglobin 27 pg (25-35) Mean Corpuscular Hemoglobin Concent 33 g/dL (31-37) Red Cell Distribution Width 19.2 % (11.5-14.5) H Platelet Count 179 x10^3/uL (140-400) Neutrophils (%) (Auto) 66 % (31-73) Lymphocytes (%) (Auto) 19 % (24-48) L Monocytes (%) (Auto) 14 % (0-9) H Eosinophils (%) (Auto) 1 % (0-3) Basophils (%) (Auto) 1 % (0-3) Neutrophils # (Auto) 4.4 x10^3/uL (1.8-7.7) Lymphocytes # (Auto) 1.3 x10^3/uL (1.0-4.8) Monocytes # (Auto) 0.9 x10^3/uL (0.0-1.1) Eosinophils # (Auto) 0.1 x10^3/uL (0.0-0.7) Basophils # (Auto) 0.0 x10^3/uL (0.0-0.2) Prothrombin Time 18.6 SEC (11.7-14.0) H Prothrombin Time INR 1.6 (0.8-1.1) H Activated Partial Thromboplast Time 41 SEC (24-38) H Sodium Level 140 mmol/L (136-145) Potassium Level 3.9 mmol/L (3.5-5.1) Chloride Level 102 mmol/L (98-107) Carbon Dioxide Level 23 mmol/L (21-32) Anion Gap 15 (6-14) H Blood Urea Nitrogen 20 mg/dL (8-26) Creatinine 1.1 mg/dL (0.7-1.3) Estimated GFR (Cockcroft-Gault) 63.8 BUN/Creatinine Ratio 18 (6-20) Glucose Level 123 mg/dL (70-99) H Calcium Level 9.2 mg/dL (8.5-10.1) Total Bilirubin 1.2 mg/dL (0.2-1.0) H Aspartate Amino Transferase (AST) 54 U/L (15-37) H Alanine Aminotransferase (ALT) 78 U/L (16-63) H Alkaline Phosphatase 138 U/L (46-116) H Troponin I High Sensitivity 33 ng/L (4-75) 38 ng/L (4-75) 38 ng/L (4-75) NP-Zms-Q-Type Natriuretic Peptide > 31798 pg/mL (0-449) H Total Protein 7.6 g/dL (6.4-8.2) Albumin 3.7 g/dL (3.4-5.0) Albumin/Globulin Ratio 0.9 (1.0-1.7) L Digoxin Level 0.7 ng/mL (0.9-2.0) L Digoxin Last Dose Date Digoxin Last Dose Time Glucose (Fingerstick) 112 mg/dL (70-99) H Test 08/01/21 05:05 08/01/21 08:08 White Blood Count 8.0 x10^3/uL (4.0-11.0) Red Blood Count 5.20 x10^6/uL (4.30-5.70) Hemoglobin 14.1 g/dL (13.0-17.5) Hematocrit 43.2 % (39.0-53.0) Mean Corpuscular Volume 83 fL (79-100) Mean Corpuscular Hemoglobin 27 pg (25-35) Mean Corpuscular Hemoglobin Concent 33 g/dL (31-37) Red Cell Distribution Width 18.6 % (11.5-14.5) H Platelet Count 172 x10^3/uL (140-400) Neutrophils (%) (Auto) 63 % (31-73) Lymphocytes (%) (Auto) 23 % (24-48) L Monocytes (%) (Auto) 11 % (0-9) H Eosinophils (%) (Auto) 2 % (0-3) Basophils (%) (Auto) 1 % (0-3) Neutrophils # (Auto) 5.0 x10^3/uL (1.8-7.7) Lymphocytes # (Auto) 1.9 x10^3/uL (1.0-4.8) Monocytes # (Auto) 0.9 x10^3/uL (0.0-1.1) Eosinophils # (Auto) 0.1 x10^3/uL (0.0-0.7) Basophils # (Auto) 0.1 x10^3/uL (0.0-0.2) Sodium Level 143 mmol/L (136-145) Potassium Level 3.8 mmol/L (3.5-5.1) Chloride Level 104 mmol/L (98-107) Carbon Dioxide Level 23 mmol/L (21-32) Anion Gap 16 (6-14) H Blood Urea Nitrogen 20 mg/dL (8-26) Creatinine 1.0 mg/dL (0.7-1.3) Estimated GFR (Cockcroft-Gault) 71.2 Glucose Level 97 mg/dL (70-99) Calcium Level 9.1 mg/dL (8.5-10.1) Glucose (Fingerstick) 129 mg/dL (70-99) H Laboratory Tests 07/31/21 19:02 08/01/21 05:05 Laboratory Tests 07/31/21 19:02 08/01/21 05:05 ECHOCARDIOGRAM ECHOCARDIOGRAM <Conclusion> The left ventricular systolic function is severely impaired. The Ejection Fraction is 15-20%. Pacer lead noted RA/RV. Trace mitral regurgitation. Trace tricuspid regurgitation with an estimated PAP of 22 mmHg. There is no evidence of significant pericardial effusion. DATE: 07/27/20 [id number] 0 STRESS TEST STRESS TEST Conclusion 1. Regadenoson cardioisotope stress test showed diaphragmatic attenuation artifact with possible small underlying ischemia. 2. Severe left ventricular systolic dysfunction with ejection fraction calculated at 20%. 3. Intermediate risk for cardiac events based on diminished LVEF. DATE: 03/07/21 [id number] 0 HEART CATH HEART CATH FINDINGS 1. Hemodynamics: Left ventricular end-diastolic pressure of 16 mmHg. No pullback gradient across the aortic valve. 2. Coronary angiography: a. The left main coronary artery arose from the left sinus of Valsalva, gave rise to the left anterior descending and left circumflex arteries and did not show any significant stenosis. b. The left anterior descending artery did not show any significant stenosis. c. The left circumflex artery did not show any significant stenosis. d. The right coronary artery was a large and dominant vessel arising from the right sinus of Valsalva that did not show any significant stenosis. Conclusion No significant coronary artery disease Recommendations Optimization of medical therapy for severe nonischemic cardiomyopathy and repeat 2-D echo in 3 months to evaluate the need for AICD implantation. DATE: 01/17/18 0938 ASSESSMENT/PLAN ASSESSMENT/PLAN 1. Acute on chronic systolic CHF; on Lasix gtt 2. Severe NICM; LVEF 15-20%. s/p BOX GLUER-D (Biotronik). [facility] 2018 without obstructive CAD. 3. PAFIB presenting with RVR; On dig for rate control. Amiodarone discontinued in past due to concerns for ILD. Recent device check normal function, 97% AFIB burden. 4. Hypertension; low end 5. Hypothyroidism: on replacement. 6. Transaminitis; ? due to hypoperfusion Recommendations Diuresis with monitoring of labs Accurate I and O 2Gm Na diet, 2000cc FR Digoxin for rate control; will given dose of IV Dig now with low Dig level Continue Eliquis for stroke prevention. HF optimization with Entresto and Lasix. No BB due to low-end BP Supportive care FARIDA THOMPSON MD 08/02/21 0855: CARDIAC CONSULT ASSESSMENT/PLAN ASSESSMENT/PLAN Patient seen and examined 08/01/2021. Agree with URB[employer] R[employer]EWAL MANAGER's assessment and plan. Continue diuresis for acute on chronic systolic heart failure 2D echo showed LVEF 20% with severe mitral regurgitation s/p biventricular ICD/BOX GLUER-D, stable PAF, presently sinus rhythm Continue Eliquis for stroke prophylaxis Thank you for your consultation KATELYNN JOHNSON APRN Aug 01, 2021 10:41 FARIDA THOMPSON MD Aug 02, 2021 08:55
[2021-08-01] MEDS ORDERED: DIGOXIN IV 500 MCG/2 ML AMPUL. IV ONE (11:15)
--- NOTE | 2021-08-01 11:47 | PDOC ---
[employer] PROGRESS NOTE Date of Service DOS: DATE: 08/01/21 TIME: 11:46 Chief Complaint Chief Complaint Acute on chronic systolic CHF exacerbation EF 15 to 20%, history A. 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 [facility] 2017 without obstructive CAD. Afib with RVR - outpatient dig for rate control. Amiodarone discontinued in past due to concerns for ILD. Recent device check normal function, 97% AFIB burden per cardiology. HTN -on Entresto beta-carley. Hypothyroidism: on replacement. 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 Patient has a known history of systolic heart failure EF around 15%. Has noticed he gets short of breath much more than his baseline with very little exertion. Is having some conversational dyspnea. Difficulty with laying flat. Has baseline lower extremity edema. Notable cardiac history. Labile blood pressures in the emergency room. Admitted with low Lasix drip leighton rncarmen. 08/01: Seen bedside on Lasix gtt. with increased UOP. Discussed with patient and family bedside with county attorney patient Marshallese-speaking only. Still feeling short of breath. Cannot even walk 4 steps and has conversational dyspnea. Given digoxin per cardiology for A. fib. Vitals/I&O Vitals/I&O: Vital Signs Date Time Temp Pulse Resp B/P (MAP) Pulse Ox O2 Delivery O2 Flow Rate FiO2 08/01/21 11:17 103 103/77 08/01/21 11:00 97.6 19 93 Nasal Cannula 2.0 97.6 I & O 07/31/21 07/31/21 08/01/21 15:00 23:00 07:00 Intake Total 60 ml Output Total 1000 ml Balance -940 ml Physical Exam General: Alert, Cooperative Heart: Other (Irregularly irregular) Lungs: Crackles Labs Labs: Laboratory Tests Test 07/31/21 19:02 08/01/21 00:04 08/01/21 00:15 08/01/21 02:45 White Blood Count 6.8 x10^3/uL (4.0-11.0) Red Blood Count 5.10 x10^6/uL (4.30-5.70) Hemoglobin 13.9 g/dL (13.0-17.5) Hematocrit 42.2 % (39.0-53.0) Mean Corpuscular Volume 83 fL (79-100) Mean Corpuscular Hemoglobin 27 pg (25-35) Mean Corpuscular Hemoglobin Concent 33 g/dL (31-37) Red Cell Distribution Width 19.2 % (11.5-14.5) Platelet Count 179 x10^3/uL (140-400) Neutrophils (%) (Auto) 66 % (31-73) Lymphocytes (%) (Auto) 19 % (24-48) Monocytes (%) (Auto) 14 % (0-9) Eosinophils (%) (Auto) 1 % (0-3) Basophils (%) (Auto) 1 % (0-3) Neutrophils # (Auto) 4.4 x10^3/uL (1.8-7.7) Lymphocytes # (Auto) 1.3 x10^3/uL (1.0-4.8) Monocytes # (Auto) 0.9 x10^3/uL (0.0-1.1) Eosinophils # (Auto) 0.1 x10^3/uL (0.0-0.7) Basophils # (Auto) 0.0 x10^3/uL (0.0-0.2) Prothrombin Time 18.6 SEC (11.7-14.0) Prothromb Time International Ratio 1.6 (0.8-1.1) Activated Partial Thromboplast Time 41 SEC (24-38) Sodium Level 140 mmol/L (136-145) Potassium Level 3.9 mmol/L (3.5-5.1) Chloride Level 102 mmol/L (98-107) Carbon Dioxide Level 23 mmol/L (21-32) Anion Gap 15 (6-14) Blood Urea Nitrogen 20 mg/dL (8-26) Creatinine 1.1 mg/dL (0.7-1.3) Estimated GFR (Cockcroft-Gault) 63.8 BUN/Creatinine Ratio 18 (6-20) Glucose Level 123 mg/dL (70-99) Calcium Level 9.2 mg/dL (8.5-10.1) Total Bilirubin 1.2 mg/dL (0.2-1.0) Aspartate Amino Transf (AST/SGOT) 54 U/L (15-37) Alanine Aminotransferase (ALT/SGPT) 78 U/L (16-63) Alkaline Phosphatase 138 U/L (46-116) Troponin I High Sensitivity 33 ng/L (4-75) 38 ng/L (4-75) 38 ng/L (4-75) JH-Qug-X-Type Natriuretic Peptide > 84601 pg/mL (0-449) Total Protein 7.6 g/dL (6.4-8.2) Albumin 3.7 g/dL (3.4-5.0) Albumin/Globulin Ratio 0.9 (1.0-1.7) Digoxin Level 0.7 ng/mL (0.9-2.0) Digoxin Last Dose Date Digoxin Last Dose Time Glucose (Fingerstick) 112 mg/dL (70-99) Test 08/01/21 05:05 08/01/21 08:08 08/01/21 11:18 White Blood Count 8.0 x10^3/uL (4.0-11.0) Red Blood Count 5.20 x10^6/uL (4.30-5.70) Hemoglobin 14.1 g/dL (13.0-17.5) Hematocrit 43.2 % (39.0-53.0) Mean Corpuscular Volume 83 fL (79-100) Mean Corpuscular Hemoglobin 27 pg (25-35) Mean Corpuscular Hemoglobin Concent 33 g/dL (31-37) Red Cell Distribution Width 18.6 % (11.5-14.5) Platelet Count 172 x10^3/uL (140-400) Neutrophils (%) (Auto) 63 % (31-73) Lymphocytes (%) (Auto) 23 % (24-48) Monocytes (%) (Auto) 11 % (0-9) Eosinophils (%) (Auto) 2 % (0-3) Basophils (%) (Auto) 1 % (0-3) Neutrophils # (Auto) 5.0 x10^3/uL (1.8-7.7) Lymphocytes # (Auto) 1.9 x10^3/uL (1.0-4.8) Monocytes # (Auto) 0.9 x10^3/uL (0.0-1.1) Eosinophils # (Auto) 0.1 x10^3/uL (0.0-0.7) Basophils # (Auto) 0.1 x10^3/uL (0.0-0.2) Sodium Level 143 mmol/L (136-145) Potassium Level 3.8 mmol/L (3.5-5.1) Chloride Level 104 mmol/L (98-107) Carbon Dioxide Level 23 mmol/L (21-32) Anion Gap 16 (6-14) Blood Urea Nitrogen 20 mg/dL (8-26) Creatinine 1.0 mg/dL (0.7-1.3) Estimated GFR (Cockcroft-Gault) 71.2 Glucose Level 97 mg/dL (70-99) Calcium Level 9.1 mg/dL (8.5-10.1) Glucose (Fingerstick) 129 mg/dL (70-99) 99 mg/dL (70-99) Assessment and Plan Assessmemt and Plan Problems Medical Problems: (1) Acute exacerbation of congestive heart failure Status: Acute Comment Review of Relevant I have reviewed the following items issa (where applicable) has been applied. Medications: Current Medications Medications (Trade) Dose Ordered Sig/Arthur Route PRN Reason Start Time Stop Time Status Last Admin Dose Admin Furosemide 100 mg/ Sodium Chloride 100 ml @ 5 mls/hr Q20H IV 07/31/21 19:45 07/31/21 20:41 Apixaban (Eliquis) 5 mg BID PO 07/31/21 21:00 08/01/21 08:12 Atorvastatin Calcium (Lipitor) 10 mg HS PO 07/31/21 21:00 07/31/21 20:40 Digoxin (Lanoxin) 125 mcg DAILY PO 08/01/21 09:00 08/01/21 08:12 Levothyroxine Sodium (Synthroid) 100 mcg DAILY06 PO 08/01/21 06:00 08/01/21 07:25 Potassium Chloride (Klor-Con) 10 meq DAILYWBKFT PO 08/01/21 08:00 08/01/21 08:12 Senna/Docusate Sodium (Senna Plus) 1 tab BID PO 08/01/21 09:00 08/01/21 08:12 Sacubitril/ Valsartan (Entresto 24 Mg-26 Mg) 1 tab BID PO 08/01/21 09:00 08/01/21 08:13 Digoxin (Lanoxin) 250 mcg 1X ONCE IV 08/01/21 11:15 08/01/21 11:16 DC 08/01/21 11:17 Justifications for Admission Other Justification CHF exacerbation LESLY CASTANEDA MD Aug 01, 2021 11:47
--- NOTE | 2021-08-01 14:17 | NUR ---
SS following for discharge planning. SS reviewed pt chart and discussed with pt RN. Pt is from home and is currently requiring oxygen at two liters nasal canula. Cardiology following. ECHO ordered. Lasix drip. SS will continue to follow for discharge planning.
[2021-08-01] MEDS: FUROSEMIDE INJ 100 MG in IV NORMAL SALINE 100ML 100 ML IV SCH (15:58)
--- NOTE | 2021-08-01 16:05 | CARD ---
MR#: [id number] Date of Study: 08/01/2021 Ordering Physician: LESLY HERNANDEZ, Referring Physician: LESLY HERNANDEZ, Tech: Nelda Jaramillo [facility] APPROVED REPORT EXAM: Two-dimensional and M-mode echocardiogram with Doppler and color Doppler. Other Information Quality : AverageHR: 104bpm Rhythm : Tachycardia INDICATION Congestive Heart Failure RISK FACTORS Hypertension Hyperlipidemia 2D DIMENSIONS RVDd4.2 (2.9-3.5cm)Left Atrium(2D)5.4 (1.6-4.0cm) IVSd1.0 (0.7-1.1cm)Aortic Root(2D)3.4 (2.0-3.7cm) LVDd6.2 (3.9-5.9cm)LVOT Diameter2.5 (1.8-2.4cm) PWd1.1 (0.7-1.1cm)LVDs5.5 (2.5-4.0cm) FS (%) 9.8 %SV40.2 ml LVEF(%)21.1 (>50%) Aortic Valve AoV Peak Feliz.114.0cm/sAoV VTI18.0cm AO Peak GR.5.2mmHgLVOT Peak Feliz.91.4cm/s AO Mean GR.3mmHgAVA (VMAX)3.81cm2 Mitral Valve MV E Wydnwoys284.7cm/s Pulmonary Valve PV Peak Oedhoooy61.2cm/s Tricuspid Valve TR P. Twlidluj026gq/sTR Peak Gr.55mmHg LEFT VENTRICLE The Left Ventricle is moderately dilated. There is normal left ventricular wall thickness. The ejecti on fraction is severely impaired. Estimated ejection fraction 20%. There is severe global hypokinesis of the left ventricle. Tissue Doppler imaging reveals severe left ventricular diastolic dysfunction. No left ventricle thrombus noted on this study. RIGHT VENTRICLE The right ventricle is borderline dilated. The right ventricle is mildly hypertrophied. The right jeancarlos tricular systolic function is normal. ATRIA The left atrium is severely dilated. The right atrium is moderately dilated. The interatrial septum i s intact with no evidence for an atrial septal defect or patent foramen ovale as noted on 2-D or Dopp ler imaging. AORTIC VALVE The aortic valve is normal in structure and function. Doppler and Color Flow revealed mild aortic reg urgitation. There is no significant aortic valvular stenosis. MITRAL VALVE The mitral valve has annular dilation with malcoaptation. There is no mitral valve stenosis. Doppler and Color-flow revealed severe mitral regurgitation. TRICUSPID VALVE The tricuspid valve is normal in structure and function. Doppler and Color Flow revealed moderate tri cuspid regurgitation. Estimated PAP 70 mmHg. There is no tricuspid valve stenosis. PULMONIC VALVE Doppler and Color Flow revealed moderate pulmonic valvular regurgitation. There is no pulmonic valvul ar stenosis. GREAT VESSELS The aortic root is normal in size. The ascending aorta is normal in size. The IVC is dilated and ren apses <50% with inspiration. PERICARDIAL EFFUSION There is no evidence of significant pericardial effusion. Critical Notification Critical Value: No <Conclusion> The ejection fraction is severely impaired. Estimated ejection fraction 20%. There is severe global hypokinesis of the left ventricle. Doppler and Color-flow revealed severe mitral regurgitation. Doppler and Color Flow revealed moderate tricuspid regurgitation. Estimated PAP 70 mmHg. Doppler and Color Flow revealed moderate pulmonic valvular regurgitation. The IVC is dilated and collapses <50% with inspiration. Signed by : Anastacio Thompson, Electronically Approved : 08/01/2021 16:05:08
[2021-08-01] MEDS: ATORVASTATIN CALCIUM 10 MG TABLET. PO SCH (20:30)
[2021-08-02 02:14] VITALS: BP 88/54
[2021-08-02] MEDS: LEVOTHYROXINE 100 MCG TABLET PO SCH (05:37)
[2021-08-02 07:00] VITALS: BP 101/66
[2021-08-02] MEDS: INSULIN LISPRO 300 UNITS/3 ML VIAL. SQ SCH ×3 (08:00→17:00)
[2021-08-02] MEDS: APIXABAN 5 MG TABLET. PO SCH ×2 (08:47→20:39)
[2021-08-02] MEDS: SACUBITRIL/VALSARTAN 24/26MG TABLET. PO SCH ×2 (08:48→20:41)
[2021-08-02] MEDS: DIGOXIN 125 MCG TABLET. PO SCH (08:49)
[2021-08-02] MEDS: POTASSIUM CHLORIDE 10 MEQ TABLET.ER. PO SCH (08:49)
[2021-08-02] MEDS: SENNOSIDES/DOCUSATE 8.6/50MG TABLET. PO SCH ×2 (08:49→20:39)
[2021-08-02 11:00] VITALS: BP 90/55
[2021-08-02 11:13] LABS: CALCIUM 8.6 mg/dL (8.5-10.1); CREATININE 0.8 mg/dL (0.7-1.3); GFR 92.1; POTASSIUM 3.3 mmol/L (3.5-5.1)
--- NOTE | 2021-08-02 11:28 | PDOC ---
LEW MORRIS EXPEDITER SERVICE ORDER 08/02/21 1128: CARDIO Progress Notes Date and Time Date of Service 08/02/2021 Time of Evaluation 1045 Subjective Subjective: No Chest Pain, No shortness of breath, No Palpitations Vitals Vitals Vital Signs Date Time Temp Pulse Resp B/P (MAP) Pulse Ox O2 Delivery O2 Flow Rate FiO2 08/02/21 08:49 80 101/66 08/02/21 08:00 Nasal Cannula 2.0 08/02/21 07:00 97.2 18 94 97.2 Weight Weight [ ] Input and Output Intake and Output Intake and Output 08/02/21 07:00 Intake Total 740 ml Output Total 3650 ml Balance -2910 ml Intake Oral 680 ml IV Total 60 ml Output Urine Total 3650 ml # Voids 2 # Bowel Movements 1 Laboratory Labs Laboratory Tests Test 08/01/21 16:48 08/01/21 19:19 08/02/21 07:38 08/02/21 10:35 Glucose (Fingerstick) 96 mg/dL (70-99) 118 mg/dL (70-99) 85 mg/dL (70-99) Sodium Level 139 mmol/L (136-145) Potassium Level 3.3 mmol/L (3.5-5.1) Chloride Level 102 mmol/L (98-107) Carbon Dioxide Level 32 mmol/L (21-32) Anion Gap 5 (6-14) Blood Urea Nitrogen 15 mg/dL (8-26) Creatinine 0.8 mg/dL (0.7-1.3) Estimated GFR (Cockcroft-Gault) 92.1 Glucose Level 88 mg/dL (70-99) Calcium Level 8.6 mg/dL (8.5-10.1) Physical Exam HEENT: Neck Supple W Full Motion Chest: Symmetric LUNGS: Other (basilar crackles) Heart: RRR (V paced), murmurs (apical systolic murmur 4/6) Abdomen: Soft N/T Extremities: No Edema, No Calf Tenderness Neurology: alert, oriented, follow commands Assessment Assessment 1. Acute on chronic systolic CHF; on Lasix gtt 2. Severe NICM; LVEF same at 20%. [facility] 2018 without obstructive CAD. 3. PAFIB presenting with RVR; On dig for rate control. Amiodarone discontinued in past due to concerns for ILD. . 4. Hypertension; low end 5. Hypothyroidism: on replacement. 6. Mild Transaminitis 7. Valvular insufficiency: TTE revealed severe MR, moderate TR/PVR 8. BRAKE LINING CURER-D in situ: V paced with underlying AFIB Recent device check normal function, 97% AFIB burden Recommendations DC lasix drip and will start on BID IV dosing. K replacement. BMP and Mg in AM Accurate I and O 2Gm Na diet, 2000cc FR Digoxin for rate control. Will restart BB when BP is consistently better Continue Eliquis for stroke prevention. Would consider for referral for [facility] depending on goals of care. Will need further conversation with son re goals of care. SS consult Supportive care Justicifation of Admission Dx: Justifications for Admission: Justification of Admission Dx: Yes FARIDA THOMPSON MD 08/02/21 1701: CARDIO Progress Notes Assessment Assessment Patient seen and examined. Agree with CASH APPLICATIONS MANAGER's assessment and plan. Continue diuresis for acute on chronic systolic heart failure -agree with changing Lasix from drip to IV twice daily 2D echo showed LVEF 20% with severe mitral regurgitation s/p biventricular ICD/BRAKE LINING CURER-D, stable PAF, presently sinus rhythm Continue Eliquis for stroke prophylaxis We will consider outpatient referral mitral valve clip LEW MORRIS APRN Aug 02, 2021 11:28 FARIAD THOMPSON MD Aug 02, 2021 17:01
--- NOTE | 2021-08-02 11:36 | NUR ---
SS following up with discharge planning. SS reviewed pt chart and discussed with pt RN. Pt is currently requiring oxygen at two liters nasal canula. Pt on IV Lasix. Cardiology following. SS will continue to follow for discharge planning.
[2021-08-02] MEDS ORDERED: POTASSIUM CHLORIDE 20 MEQ TABLET.ER. PO ONE (12:00)
--- NOTE | 2021-08-02 13:35 | PDOC ---
[employer] PROGRESS NOTE Date of Service DOS: DATE: 08/02/21 TIME: 13:33 Chief Complaint Chief Complaint Acute on chronic systolic CHF exacerbation EF 15 to 20%, history A. 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 [facility] 2017 without obstructive CAD. Afib with RVR - outpatient dig for rate control. Amiodarone discontinued in past due to concerns for ILD. Recent device check normal function, 97% AFIB burden per cardiology. HTN -on Entresto beta-carley. Hypothyroidism: on replacement. 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 Patient has a known history of systolic heart failure EF around 15%. Has noticed he gets short of breath much more than his baseline with very little exertion. Is having some conversational dyspnea. Difficulty with laying flat. Has baseline lower extremity edema. Notable cardiac history. Labile blood pressures in the emergency room. Admitted with low Lasix drip leighton roachight. 08/01: Seen bedside on Lasix gtt. with increased UOP. Discussed with patient and family bedside with shipping inspector patient Mongolian-speaking only. Still feeling short of breath. Cannot even walk 4 steps and has conversational dyspnea. Given digoxin per cardiology for A. fib. 08/02: Diuresed 3.5 L. Lasix gtt. transitioned IV twice daily. Symptomatically feels a little improved still with significant conversational dyspnea dyspnea on exertion. Request to be sitting upright in chair. Given this is his fifth hospitalization in the past year for congestive heart failure exacerbation I discussed bedside with his side to consider palliative care in the future. He is going to discuss with his brother and will have family meeting sometime in the near future. Vitals/I&O Vitals/I&O: Vital Signs Date Time Temp Pulse Resp B/P (MAP) Pulse Ox O2 Delivery O2 Flow Rate FiO2 08/02/21 11:00 97.3 80 16 90/55 (67) 95 Nasal Cannula 2.0 97.3 I & O 0 08/01/21 08/01/21 08/02/21 15:00 23:00 07:00 Intake Total 380 ml 100 ml 260 ml Output Total 600 ml 1550 ml 1500 ml Balance -220 ml -1450 ml -1240 ml Physical Exam General: Alert, Cooperative Heart: Other (Irregularly irregular) Lungs: Crackles Abdomen: Soft Extremities: No edema Skin: No significant lesion Labs Labs: Laboratory Tests Test 08/01/21 16:48 08/01/21 19:19 08/02/21 07:38 08/02/21 10:35 Glucose (Fingerstick) 96 mg/dL (70-99) 118 mg/dL (70-99) 85 mg/dL (70-99) Sodium Level 139 mmol/L (136-145) Potassium Level 3.3 mmol/L (3.5-5.1) Chloride Level 102 mmol/L (98-107) Carbon Dioxide Level 32 mmol/L (21-32) Anion Gap 5 (6-14) Blood Urea Nitrogen 15 mg/dL (8-26) Creatinine 0.8 mg/dL (0.7-1.3) Estimated GFR (Cockcroft-Gault) 92.1 Glucose Level 88 mg/dL (70-99) Calcium Level 8.6 mg/dL (8.5-10.1) Magnesium Level 1.9 mg/dL (1.8-2.4) Test 08/02/21 11:26 Glucose (Fingerstick) 83 mg/dL (70-99) Assessment and Plan Assessmemt and Plan Problems Medical Problems: (1) Acute exacerbation of congestive heart failure Status: Acute Comment Review of Relevant I have reviewed the following items issa (where applicable) has been applied. Medications: Current Medications Medications (Trade) Dose Ordered Sig/Arthur Route PRN Reason Start Time Stop Time Status Last Admin Dose Admin Potassium Chloride (Klor-Con) 40 meq 1X ONCE PO 08/02/21 12:00 08/02/21 12:01 DC 08/02/21 11:51 Justifications for Admission Other Justification CHF exacerbation LESLY CASTANEDA MD Aug 02, 2021 13:35
[2021-08-02 15:00] VITALS: BP 90/62
[2021-08-02] MEDS: FUROSEMIDE 40 MG/4 ML VIAL. IVP SCH (15:12)
[2021-08-02 19:00] VITALS: BP 93/61
[2021-08-02] MEDS: ATORVASTATIN CALCIUM 10 MG TABLET. PO SCH (20:39)
[2021-08-02 22:20] VITALS: BP 93/62
[2021-08-03 02:41] VITALS: BP 88/55
[2021-08-03 05:45] LABS: CALCIUM 8.5 mg/dL (8.5-10.1); CREATININE 0.8 mg/dL (0.7-1.3); GFR 92.1; POTASSIUM 3.5 mmol/L (3.5-5.1)
[2021-08-03] MEDS: LEVOTHYROXINE 100 MCG TABLET PO SCH (05:47)
[2021-08-03 07:00] VITALS: BP 98/63
[2021-08-03] MEDS: INSULIN LISPRO 300 UNITS/3 ML VIAL. SQ SCH ×3 (08:00→16:35)
[2021-08-03] MEDS: SACUBITRIL/VALSARTAN 24/26MG TABLET. PO SCH ×2 (09:02→21:00)
[2021-08-03] MEDS: FUROSEMIDE 40 MG/4 ML VIAL. IVP SCH (09:02)
[2021-08-03] MEDS: SENNOSIDES/DOCUSATE 8.6/50MG TABLET. PO SCH ×2 (09:02→20:05)
[2021-08-03] MEDS: POTASSIUM CHLORIDE 10 MEQ TABLET.ER. PO SCH (09:03)
[2021-08-03] MEDS: APIXABAN 5 MG TABLET. PO SCH ×2 (09:03→20:06)
[2021-08-03] MEDS: DIGOXIN 125 MCG TABLET. PO SCH (09:03)
[2021-08-03 11:00] VITALS: BP 94/65
--- NOTE | 2021-08-03 11:22 | PDOC ---
[employer] PROGRESS NOTE Date of Service DOS: DATE: 08/03/21 TIME: 11:20 Chief Complaint Chief Complaint Acute on chronic systolic CHF exacerbation EF 15 to 20%, history A. 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 s/p RIB CHOPPER-D (Biotronik). [facility] 2017 without obstructive CAD. Afib with RVR - outpatient dig for rate control. Amiodarone discontinued in past due to concerns for ILD. Recent device check normal function, 97% AFIB burden per cardiology. HTN -on Entresto beta-carley. Hypothyroidism: on replacement. 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 Patient has a known history of systolic heart failure EF around 15%. Has noticed he gets short of breath much more than his baseline with very little exertion. Is having some conversational dyspnea. Difficulty with laying flat. Has baseline lower extremity edema. Notable cardiac history. Labile blood pressures in the emergency room. Admitted with low Lasix drip leighton rnight. 08/01: Seen bedside on Lasix gtt. with increased UOP. Discussed with patient and family bedside with cash applications analyst patient Palestinian-speaking only. Still feeling short of breath. Cannot even walk 4 steps and has conversational dyspnea. Given digoxin per cardiology for A. fib. 08/02: Diuresed 3.5 L. Lasix gtt. transitioned IV twice daily. Symptomatically feels a little improved still with significant conversational dyspnea dyspnea on exertion. Request to be sitting upright in chair. Given this is his fifth hospitalization in the past year for congestive heart failure exacerbation I discussed bedside with his side to consider palliative care in the future. He is going to discuss with his brother and will have family meeting sometime in the near future. 08/03: Seen bedside. Still with excellent diuresis. Now is off O2. Feels minimally better today. Has not been out of bed and is very weak. Denies chest pain.. Will order therapy. Vitals/I&O Vitals/I&O: Vital Signs Date Time Temp Pulse Resp B/P (MAP) Pulse Ox O2 Delivery O2 Flow Rate FiO2 08/03/21 09:03 80 98/63 08/03/21 08:00 Nasal Cannula 2.0 08/03/21 07:00 92.3 18 95 92.3 I & O 08/02/21 08/02/21 08/03/21 15:00 23:00 07:00 Intake Total 180 ml 280 ml Output Total 500 ml 200 ml 400 ml Balance -320 ml 80 ml -400 ml Physical Exam General: Alert, Cooperative Heart: Other (Irregularly irregular) Lungs: Crackles Abdomen: Soft Extremities: No edema Skin: No significant lesion Labs Labs: Laboratory Tests Test 08/02/21 11:26 08/02/21 17:18 08/02/21 20:12 08/03/21 04:05 Glucose (Fingerstick) 83 mg/dL (70-99) 89 mg/dL (70-99) 111 mg/dL (70-99) Sodium Level 142 mmol/L (136-145) Potassium Level 3.5 mmol/L (3.5-5.1) Chloride Level 103 mmol/L (98-107) Carbon Dioxide Level 29 mmol/L (21-32) Anion Gap 10 (6-14) Blood Urea Nitrogen 16 mg/dL (8-26) Creatinine 0.8 mg/dL (0.7-1.3) Estimated GFR (Cockcroft-Gault) 92.1 Glucose Level 72 mg/dL (70-99) Calcium Level 8.5 mg/dL (8.5-10.1) Magnesium Level 2.0 mg/dL (1.8-2.4) Test 08/03/21 07:22 08/03/21 11:16 Glucose (Fingerstick) 75 mg/dL (70-99) 108 mg/dL (70-99) Assessment and Plan Assessmemt and Plan Problems Medical Problems: (1) Acute exacerbation of congestive heart failure Status: Acute Comment Review of Relevant I have reviewed the following items issa (where applicable) has been applied. Medications: Current Medications Medications (Trade) Dose Ordered Sig/Arthur Route PRN Reason Start Time Stop Time Status Last Admin Dose Admin Potassium Chloride (Klor-Con) 40 meq 1X ONCE PO 08/02/21 12:00 08/02/21 12:01 DC 08/02/21 11:51 Furosemide (Lasix) 40 mg [id number] IVP 08/02/21 16:00 08/03/21 09:02 Justifications for Admission Other Justification CHF exacerbation RIFFEL,CHRISTOPHER S MD Aug 03, 2021 11:22
--- NOTE | 2021-08-03 11:23 | PDOC ---
LEW MORRIS PICTURE COPYIST 08/03/21 1123: CARDIO Progress Notes Date and Time Date of Service 08/03/2021 Time of Evaluation 1100 Subjective Subjective: No Chest Pain, No shortness of breath, No Palpitations Vitals Vitals Vital Signs Date Time Temp Pulse Resp B/P (MAP) Pulse Ox O2 Delivery O2 Flow Rate FiO2 08/03/21 09:03 80 98/63 08/03/21 08:00 Nasal Cannula 2.0 08/03/21 07:00 92.3 18 95 92.3 Weight Weight [ ] Input and Output Intake and Output Intake and Output 08/03/21 07:00 Intake Total 460 ml Output Total 1100 ml Balance -640 ml Intake Oral 460 ml Output Urine Total 1100 ml Laboratory Labs Laboratory Tests Test 08/02/21 11:26 08/02/21 17:18 08/02/21 20:12 08/03/21 04:05 Glucose (Fingerstick) 83 mg/dL (70-99) 89 mg/dL (70-99) 111 mg/dL (70-99) Sodium Level 142 mmol/L (136-145) Potassium Level 3.5 mmol/L (3.5-5.1) Chloride Level 103 mmol/L (98-107) Carbon Dioxide Level 29 mmol/L (21-32) Anion Gap 10 (6-14) Blood Urea Nitrogen 16 mg/dL (8-26) Creatinine 0.8 mg/dL (0.7-1.3) Estimated GFR (Cockcroft-Gault) 92.1 Glucose Level 72 mg/dL (70-99) Calcium Level 8.5 mg/dL (8.5-10.1) Magnesium Level 2.0 mg/dL (1.8-2.4) Test 08/03/21 07:22 Glucose (Fingerstick) 75 mg/dL (70-99) Physical Exam HEENT: Neck Supple W Full Motion Chest: Symmetric LUNGS: Other (basilar crackles) Heart: RRR (V paced), murmurs (apical systolic murmur 4/6) Abdomen: Soft N/T Extremities: No Edema, No Calf Tenderness Neurology: alert, oriented, follow commands Assessment Assessment 1. Acute on chronic systolic CHF: better compensated 2. Severe NICM; LVEF same at 20%. [facility] 2017 without obstructive CAD. 3. PAFIB presenting with RVR; On dig for rate control. Amiodarone discontinued in past due to concerns for ILD. . 4. Hypertension; low end 5. Hypothyroidism: on replacement. 6. Mild Transaminitis 7. Valvular insufficiency: TTE revealed severe MR, moderate TR/PVR 8. BARBED WIRE MACHINE OPERATOR-D in situ: V paced with underlying AFIB Recent device check normal function, 97% AFIB burden Recommendations Continue lasix therapy and will change to PO. I dont think he will be able to tolerate the entresto, will recheck BP after dose. K replacement Continue digoxin for rate control. Unable to start on BB due to low marginal BP He is high risk for readmission with multiple comorbid issues. Remains in full code. Will need to discuss further re hospice/palliative care route If son and pt continues pursue aggressive measures then will refer to [facility] advance HF clinic and also referral for Continue Eliquis for stroke prevention. Justicifation of Admission Dx: Justifications for Admission: Justification of Admission Dx: Yes FARIDA THOMPSON MD 08/04/21 0955: CARDIO Progress Notes Assessment Assessment Patient seen and examined 08/03/21. Agree with SERVICE SUPPORT REPRESENTATIVE's assessment and plan. Acute on chronic systolic heart failure better compensated - agree with changing lasix to PO 2D echo showed LVEF 20% with severe mitral regurgitation s/p biventricular ICD/BARBED WIRE MACHINE OPERATOR-D, stable PAF, presently sinus rhythm Continue Eliquis for stroke prophylaxis Plan outpatient referral for mitral valve clip LEW MORRIS PICTURE COPYIST Aug 03, 2021 11:23 FARIDA THOMPSON MD Aug 04, 2021 09:55
[2021-08-03 11:55] LABS: ALBUMIN 3.3 g/dL (3.4-5.0); DIRECT BILIRUBIN 0.6 mg/dL (0.0-0.2); TOTAL BILIRUBIN 2.3 mg/dL (0.2-1.0); TOTAL PROTEIN 6.7 g/dL (6.4-8.2)
[2021-08-03] MEDS ORDERED: POTASSIUM CHLORIDE 20 MEQ TABLET.ER. PO ONE (12:00)
--- NOTE | 2021-08-03 13:40 | RAD ---
EXAM: CHEST ONE VIEW. HISTORY: Congestive heart failure. COMPARISON: 07/31/2021. FINDINGS: A frontal view of the chest is obtained. A left-sided pacemaker has its leads in a left car diac vein and the right ventricle. Basilar and subpleural predominant interstitial opacities have improved since the prior study but not completely resolved. There are small bilateral pleural effusions. There is no pneumothorax. The hear t is moderately enlarged. There are atherosclerotic calcifications of the aorta. IMPRESSION: 1. Improved mild pulmonary edema, likely superimposed interstitial change. Electronically signed by: Ronna Moody MD (08/03/2021 1:38 PM) [id number]
[2021-08-03 15:00] VITALS: BP 88/55
--- NOTE | 2021-08-03 15:06 | NUR ---
SS following up with discharge planning. SS reviewed pt chart and discussed with pt RN. Pt is currently on room air. Cardiology following PT/OT ordered. Per request, SS contacted pt's family to discuss palliative care services. Pt's family declined information at this time. SS will continue to follow for discharge planning.
[2021-08-03 19:00] VITALS: BP 87/60
[2021-08-03] MEDS: ATORVASTATIN CALCIUM 10 MG TABLET. PO SCH (20:05)
--- NOTE | 2021-08-03 21:55 | NUR ---
Dr. Pineda contacted and alerted of BP 87/60 and this RN going to hold night dose of Entreso. Okay to hold this dose one time per physician. No need to alert cardiology at this time for holding one dose.
[2021-08-03 22:54] VITALS: BP 87/59
[2021-08-04 02:32] VITALS: BP 91/60
[2021-08-04] MEDS: LEVOTHYROXINE 100 MCG TABLET PO SCH (06:05)
[2021-08-04 07:00] VITALS: BP 96/65
[2021-08-04] MEDS: POTASSIUM CHLORIDE 10 MEQ TABLET.ER. PO SCH (08:00)
[2021-08-04] MEDS: INSULIN LISPRO 300 UNITS/3 ML VIAL. SQ SCH ×2 (08:00→12:00)
[2021-08-04] MEDS: SACUBITRIL/VALSARTAN 24/26MG TABLET. PO SCH (08:31)
[2021-08-04] MEDS: APIXABAN 5 MG TABLET. PO SCH (08:31)
[2021-08-04] MEDS: SENNOSIDES/DOCUSATE 8.6/50MG TABLET. PO SCH (08:32)
[2021-08-04] MEDS: DIGOXIN 125 MCG TABLET. PO SCH (08:32)
--- NOTE | 2021-08-04 08:34 | PDOC ---
[employer] PROGRESS NOTE Date of Service DOS: DATE: 08/04/21 TIME: 08:33 Chief Complaint Chief Complaint Acute on chronic systolic CHF exacerbation EF 15 to 20%, history A. 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 [facility] 2017 without obstructive CAD. Afib with RVR - outpatient dig for rate control. Amiodarone discontinued in past due to concerns for ILD. Recent device check normal function, 97% AFIB burden per cardiology. HTN -on Entresto beta-carley. Hypothyroidism: on replacement. 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 Patient has a known history of systolic heart failure EF around 15%. Has noticed he gets short of breath much more than his baseline with very little exertion. Is having some conversational dyspnea. Difficulty with laying flat. Has baseline lower extremity edema. Notable cardiac history. Labile blood pressures in the emergency room. Admitted with low Lasix drip over night. 08/01: Seen bedside on Lasix gtt. with increased UOP. 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 Still feeling short of breath. Cannot even walk 4 steps and has conversational dyspnea. Given digoxin per cardiology for A. fib. 08/02: Diuresed 3.5 L. Lasix gtt. transitioned IV twice daily. Symptomatically feels a little improved still with significant conversational dyspnea dyspnea on exertion. Request to be sitting upright in chair. Given this is his fifth hospitalization in the past year for congestive heart failure exacerbation I discussed bedside with his side to consider palliative care in the future. He is going to discuss with his brother and will have family meeting sometime in the near future. 08/03: Seen bedside. Still with excellent diuresis. Now is off O2. Feels minimally better today. Has not been out of bed and is very weak. Denies chest pain.. Will order therapy. 08/04: Currently off oxygen. Still with dyspnea on exertion. Therapy recommends further skilled services. After discussion with sons they will go home with home health with option for transition to palliative care. Continue home digoxin and Entresto. Unfortunately his blood pressure is too low to tolerate beta-carley still with 97% A. fib burden based on interrogation which I interpreted with cardiology. Vitals/I&O Vitals/I&O: Vital Signs Date Time Temp Pulse Resp B/P (MAP) Pulse Ox O2 Delivery O2 Flow Rate FiO2 08/04/21 08:32 80 96/65 08/04/21 07:00 98.6 18 94 Room Air 98.6 08/03/21 08:00 2.0 I & O 08/03/21 08/03/21 08/04/21 15:00 23:00 07:00 Intake Total 250 ml 300 ml 0 ml Output Total 200 ml 600 ml 250 ml Balance 50 ml -300 ml -250 ml Physical Exam General: Alert, Cooperative Heart: Other (Irregularly irregular) Lungs: Crackles Abdomen: Soft Extremities: No edema Skin: No significant lesion Labs Labs: Laboratory Tests Test 08/03/21 11:16 08/03/21 16:28 08/03/21 20:23 08/04/21 07:57 Glucose (Fingerstick) 108 mg/dL (70-99) 128 mg/dL (70-99) 168 mg/dL (70-99) 82 mg/dL (70-99) Assessment and Plan Assessmemt and Plan Problems Medical Problems: (1) Acute exacerbation of congestive heart failure Status: Acute Comment Review of Relevant I have reviewed the following items issa (where applicable) has been applied. Medications: Current Medications Medications (Trade) Dose Ordered Sig/Arthur Route PRN Reason Start Time Stop Time Status Last Admin Dose Admin Potassium Chloride (Klor-Con) 20 meq 1X ONCE PO 08/03/21 12:00 08/03/21 12:01 DC 08/03/21 11:41 Furosemide (Lasix) 40 mg DAILY PO 08/04/21 09:00 08/04/21 08:32 Justifications for Admission Other Justification CHF exacerbation LESLY CASTANEDA MD Aug 04, 2021 08:33
[2021-08-04] MEDS ORDERED: FUROSEMIDE 40 MG TABLET. PO SCH (09:00)
[2021-08-04 11:00] VITALS: BP 94/64
--- NOTE | 2021-08-04 13:28 | PDOC ---
LEW MORRIS BUSINESS ADMINISTRATOR 08/04/21 1328: CARDIO Progress Notes Date and Time Date of Service 08/04/2021 Time of Evaluation 1320 Subjective Subjective: No Chest Pain, No shortness of breath, No Palpitations Vitals Vitals Vital Signs Date Time Temp Pulse Resp B/P (MAP) Pulse Ox O2 Delivery O2 Flow Rate FiO2 08/04/21 11:00 89 18 94/64 (74) 97 Room Air 08/04/21 08:00 2.0 08/04/21 07:00 98.6 98.6 Weight Weight [ ] Input and Output Intake and Output Intake and Output 08/04/21 07:00 Intake Total 550 ml Output Total 1050 ml Balance -500 ml Intake Oral 550 ml Output Urine Total 1050 ml Laboratory Labs Laboratory Tests Test 08/03/21 16:28 08/03/21 20:23 08/04/21 07:57 08/04/21 11:01 Glucose (Fingerstick) 128 mg/dL (70-99) 168 mg/dL (70-99) 82 mg/dL (70-99) 110 mg/dL (70-99) Physical Exam HEENT: Neck Supple W Full Motion Chest: Symmetric LUNGS: Other (basilar crackles) Heart: RRR (V paced with underlying afib), murmurs (apical systolic murmur 08/09) Abdomen: Soft N/T Extremities: No Edema, No Calf Tenderness Neurology: alert, oriented, follow commands Assessment Assessment 1. Acute on chronic systolic CHF: better compensated 2. Severe NICM; LVEF same at 20%. [facility] 2018 without obstructive CAD. 3. PAFIB presenting with RVR; On dig for rate control. Amiodarone discontinued in past due to concerns for ILD. rate controlled 4. Hypertension; low end 5. Hypothyroidism: on replacement. 6. Mild Transaminitis 7. Valvular insufficiency: TTE revealed severe MR, moderate TR/PVR 8. 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 Unable to start on BB due to low marginal BP He is high risk for readmission with multiple comorbid issues. Remains in full code. Will need to discuss further re hospice/palliative care route If son and pt continues pursue aggressive measures then will refer to [facility] advance HF clinic and also referral for Continue Eliquis for stroke prevention. Referral for outpt palliative care Follow up with Dr. Elias September 13 8:45 AM Justicifation of Admission Dx: Justifications for Admission: Justification of Admission Dx: Yes NANCIE GOLDBERG MD 08/04/21 1740: CARDIO Progress Notes Assessment Assessment Patient seen and examined He is feeling better today. I agree with our nurse practitioners assessment and plan. 1. Acute on chronic systolic CHF: better compensated. Continuing Lasix and Entresto. 2. Severe NICM; LVEF same at 20%. [facility] 2018 without obstructive CAD. 3. PAFIB presenting with RVR; On dig for rate control. Amiodarone discontinued in past due to concerns for ILD. rate controlled 4. Hypertension; low end 5. Hypothyroidism: on replacement. 6. Mild Transaminitis 7. Valvular insufficiency: TTE revealed severe MR, moderate TR/PVR 8. KENNEL ASSISTANT-D in situ: V paced with underlying AFIB Recent device check normal function, 97% AFIB burden LEW MORRIS BUSINESS ADMINISTRATOR Aug 04, 2021 13:28 NANCIE GOLDBERG MD Aug 04, 2021 17:40
--- NOTE | 2021-08-04 14:38 | NUR ---
SS following up with discharge planning. SS reviewed pt chart and discussed with pt RN. Pt is currently on room air. Cardiology following. PT/OT recommended home with home healthcare. Palliative longterm health requested. Referrals phoned and faxed to [facility], ; fax [phone], and [facility], ; fax [phone]. Physician notified. SS will continue to follow for discharge planning. Addendum: 08/04/21 at 1619 by GREGORIO BAKER SS Pt accepted for Palliative services with [facility]. Discharge orders received and sent to [facility]. Pt's RN notified.
[2021-08-04 14:42] VITALS: BP 91/58
--- NOTE | 2021-08-04 15:32 | SNU/HH DC ---
DISCHARGE WITH HOME HEALTH DISCHARGE INFORMATION: Discharge Date: Aug 04, 2021 Final Diagnosis: Problems Medical Problems: (1) Acute exacerbation of congestive heart failure Status: Acute Condition on Discharge: Stable CODE STATUS: Code Status: Full HOME HEALTH: Face to Face: I certify this patient is under my care and that I, or a nurse practitioner or physician's respiratory therapist assistant working with me, had a face to face encounter that meets the physician face to face encounter requirements with this patient on 08/04/2021. Medical Complications: CHF, HTN Intermediate For: Assess Cardiopulm Status RN For Eval/Treatment: Yes Physical Therapy For: Evalulation/Treatment Occupational Therapy For: Evaluation/Treatment Pt Meets Homebound Status: Extreme weakness w/ amb., Fatigue w/ amb., Limited distance walking POST DISCHARGE ORDERS: Activity Instructions for Disc: Activity as tolerated Weight Bearing Status after Di: As tolerated DIET AFTER DISCHARGE: Cardiac Wound/Incision Care: Other, see below CHECKS AFTER DISCHARGE: Checks after discharge: Check blood press - daily, Check blood sugar, ac/hs FOLLOW-UP: Additional Instructions: Follow up with Dr. Elias September 13 8:45 AM Call to follow up with cardiology [id number] [facility] [place] [address] TREATMENT/EQUIPMENT ORDERS: Adaptive Equipment Issued: Flavio Chen CERTIFICATION STATEMENT: Certification Statement: Certification Statement: Based on the above finding, I certify that this patient is confined to the home and needs intermittent alf care, physical therapy and/or speech therapy, or continues to need occupational therapy.~ This patient is under my care, and I have initiated the establishment of the plan of care.~ This patient will be followed by myself or a community physician who will periodically review the plan of care. Home Meds Active Scripts Sacubitril/Valsartan (Entresto 24 mg-26 mg Tablet) 1 Each Tablet, 1 TAB PO BID for heart failure for 30 Days, #60 TAB Prov:LESLY HERNANDEZ MD 07/31/21 Digoxin (DIGOXIN) 125 Mcg Tablet, 125 MCG PO DAILY for heart rate for 30 Days, #30 TAB Prov:LAVERN CORTES MD 10/04/20 Furosemide (FUROSEMIDE) 40 Mg Tablet, 40 MG PO DAILY for heart failure for 30 Days, #30 TAB Prov:VALENTIN CARLTON MD 08/19/20 Docusate Sodium (DOK) 100 Mg Capsule, 100 MG PO PRN DAILY PRN for HARD STOOLS for 30 Days, #30 CAP Prov:VALENTIN CARLTON MD 07/29/20 Potassium Chloride (KLOR-CON 10) 10 Meq Tablet.er, 10 MEQ PO DAILYWBKFT for HEART for 30 Days, #30 TAB.SR Prov:VALENTIN CARLTON MD 07/29/20 Apixaban (ELIQUIS) 5 Mg Tablet, 5 MG PO BID for a fib for 30 Days, #60 TAB Prov:HO TREJO MD 05/16/18 Reported Medications Ergocalciferol (Vitamin D2) (Vitamin D2) 1,250 Mcg Capsule, 38402 INTLU PO WEEKLY for supplement, CAP 08/01/21 Empagliflozin (JARDIANCE) 25 Mg Tablet, 10 MG PO DAILY for Type 2 diabetes, TAB 08/01/21 Levothyroxine Sodium (SYNTHROID) 88 Mcg Tablet, 88 MCG PO DAILYAC for THYROID SUPPLEMENT, #30 TAB 0 Refills 08/01/21 Atorvastatin Calcium (ATORVASTATIN CALCIUM) 10 Mg Tablet, 10 MG PO HS for FOR CHOLESTEROL, #30 TAB 0 Refills 01/15/18 LESLY CASTANEDA MD Aug 04, 2021 15:32
--- NOTE | 2021-08-04 15:37 | PDOC3 ---
Discharge Summary Visit Information Date of Admission: Jul 31, 2021 Date of Discharge: Aug 04, 2021 Admitting Diagnosis: Acute CHF, acute afib Final Diagnosis Problems Medical Problems: (1) Acute exacerbation of congestive heart failure Status: Acute Brief Hospital Course Allergies Allergies Coded Allergies Type Severity Reaction Last Updated Verified No Known Drug Allergies 07/13/21 No Vital Signs Vital Signs Date Time Temp Pulse Resp B/P (MAP) Pulse Ox O2 Delivery O2 Flow Rate FiO2 08/04/21 14:42 80 91/58 (69) 98 Room Air 08/04/21 11:00 18 08/04/21 08:00 2.0 08/04/21 07:00 98.6 98.6 Lab Results Laboratory Tests Test 08/02/21 17:18 08/02/21 20:12 08/03/21 04:05 08/03/21 04:26 Glucose (Fingerstick) 89 mg/dL (70-99) 111 mg/dL (70-99) Sodium Level 142 mmol/L (136-145) Potassium Level 3.5 mmol/L (3.5-5.1) Chloride Level 103 mmol/L (98-107) Carbon Dioxide Level 29 mmol/L (21-32) Anion Gap 10 (6-14) Blood Urea Nitrogen 16 mg/dL (8-26) Creatinine 0.8 mg/dL (0.7-1.3) Estimated GFR (Cockcroft-Gault) 92.1 Glucose Level 72 mg/dL (70-99) Calcium Level 8.5 mg/dL (8.5-10.1) Magnesium Level 2.0 mg/dL (1.8-2.4) Total Bilirubin 2.3 mg/dL (0.2-1.0) Direct Bilirubin 0.6 mg/dL (0.0-0.2) Aspartate Amino Transf (AST/SGOT) 31 U/L (15-37) Alanine Aminotransferase (ALT/SGPT) 52 U/L (16-63) Alkaline Phosphatase 112 U/L (46-116) Total Protein 6.7 g/dL (6.4-8.2) Albumin 3.3 g/dL (3.4-5.0) Test 08/03/21 07:22 08/03/21 11:16 08/03/21 16:28 08/03/21 20:23 Glucose (Fingerstick) 75 mg/dL (70-99) 108 mg/dL (70-99) 128 mg/dL (70-99) 168 mg/dL (70-99) Test 08/04/21 07:57 08/04/21 11:01 Glucose (Fingerstick) 82 mg/dL (70-99) 110 mg/dL (70-99) Laboratory Tests Test 08/03/21 16:28 08/03/21 20:23 08/04/21 07:57 08/04/21 11:01 Glucose (Fingerstick) 128 mg/dL (70-99) 168 mg/dL (70-99) 82 mg/dL (70-99) 110 mg/dL (70-99) Brief Hospital Course Mr Bergeron is a 86-year-old male presented to the emergency room today due to worsening shortness of breath. Patient has a known history of systolic heart failure EF around 15%. Has noticed he gets short of breath much more than his baseline with very little exertion. Is having some conversational dyspnea. Difficulty with laying flat. Has baseline lower extremity edema. Notable cardiac history. Labile blood pressures in the emergency room. Admitted with low Lasix drip overnight. 08/01: Seen bedside on Lasix gtt. with increased UOP. 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 Still feeling short of breath. Cannot even walk 4 steps and has conversational dyspnea. Given digoxin per cardiology for A. fib. 08/02: Diuresed 3.5 L. Lasix gtt. transitioned IV twice daily. Symptomatically feels a little improved still with significant conversational dyspnea dyspnea on exertion. Request to be sitting upright in chair. Given this is his fifth hospitalization in the past year for congestive heart failure exacerbation I discussed bedside with his side to consider palliative care in the future. He is going to discuss with his brother and will have family meeting sometime in the near future. 08/03: Seen bedside. Still with excellent diuresis. Now is off O2. Feels minimally better today. Has not been out of bed and is very weak. Denies chest pain.. Will order therapy. 08/04: Currently off oxygen. Still with dyspnea on exertion. Therapy recommends further skilled services. After discussion with sons they will go home with home health with option for transition to palliative care. Continue home digoxin and Entresto. Unfortunately his blood pressure is too low to tolerate beta-carley still with 97% A. fib burden based on interrogation which I interpreted with cardiology. EF 20% on echo and has severe mitral regurgitation Consults: Cardiology Problem list: Acute on chronic systolic CHF exacerbation EF 15 to 20%, history A. fib CAD hypertension Nonischemic cardiomyopathy - LVEF 15-20%. 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 [facility] 2018 without obstructive CAD. Afib with RVR - outpatient dig for rate control. Amiodarone discontinued in past due to concerns for ILD. Recent device check normal function, 97% AFIB burden per cardiology. HTN -on Entresto beta-carley. Hypothyroidism: on replacement. 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 Unable to start on BB due to low marginal BP High risk for readmission. His home health includes palliative care Continue Eliquis for stroke prevention. Referral for outpt palliative care Greater than 30 minutes spent on d/c home with home health Discharge Information Condition at Discharge: Improved Follow Up: Weeks (1) Disposition/Orders: D/C to Home w/ HH Scheduled Apixaban (Eliquis) 5 Mg Tablet, 5 MG PO BID for a fib for 30 Days, #60 Prescribed by: HO TREJO MD on 05/16/18 1410 Last Action: Reviewed on 08/01/2134 by ROSA MONTERO Atorvastatin Calcium (Atorvastatin Calcium) 10 Mg Tablet, 10 MG PO HS for FOR CHOLESTEROL, #30 Ref 0 (Reported) Entered as Reported by: ELIZA UMAÑA on 01/15/18 0853 Last Action: Reviewed on 08/01/2134 by ROSA MONTERO Digoxin (Digoxin) 125 Mcg Tablet, 125 MCG PO DAILY for heart rate for 30 Days, #30 Prescribed by: LAVERN CORTES MD on 10/04/20 8380 Last Action: Reviewed on 08/01/2134 by ROSA MONTERO Empagliflozin (Jardiance) 25 Mg Tablet, 10 MG PO DAILY for Type 2 diabetes, (Reported) Entered as Reported by: ROSA MONTERO on 08/01/2134 Last Action: New Order on 08/01/2134 by ROSA MONTERO Ergocalciferol (Vitamin D2) (Vitamin D2) 1,250 Mcg Capsule, 50,000 INTLU PO WEEKLY for supplement, (Reported) Entered as Reported by: ROSA MONTERO on 08/01/2134 Last Action: New Order on 08/01/2134 by ROSA MONTERO Furosemide (Furosemide) 40 Mg Tablet, 40 MG PO DAILY for heart failure for 30 Days, #30 Prescribed by: VALENTIN CARLTON MD on 08/19/20 1041 Last Action: Reviewed on 08/01/2134 by ROSA MONTERO Levothyroxine Sodium (Synthroid) 88 Mcg Tablet, 88 MCG PO DAILYAC for THYROID SUPPLEMENT, #30 Ref 0 (Reported) Entered as Reported by: ROSA MONTERO on 08/01/2134 Last Action: New Order on 08/01/2134 by ROSA MONTERO Potassium Chloride (Klor-Con 10) 10 Meq Tablet.er, 10 MEQ PO DAILYWBKFT for HEART for 30 Days, #30 Prescribed by: VALENTIN CARLTON MD on 07/29/207 Last Action: Reviewed on 08/01/2134 by ROSA MONTERO Sacubitril/Valsartan (Entresto 24 mg-26 mg Tablet) 1 Each Tablet, 1 TAB PO BID for heart failure for 30 Days, #60 Prescribed by: LESLY HERNANDEZ MD on 07/31/212220 Last Action: Reviewed on 08/01/2134 by ROSA MONTERO Scheduled PRN Docusate Sodium (Dok) 100 Mg Capsule, 100 MG PO PRN DAILY PRN for HARD STOOLS for 30 Days, #30 Prescribed by: VALENTIN CARLTON MD on 07/29/20 4367 Last Action: Reviewed on 08/01/2134 by ROSA MONTERO Justicifation of Admission Dx: Justifications for Admission: Justification of Admission Dx: Yes LESLY CASTANEDA MD Aug 04, 2021 15:37
== END 2021-08-04 16:25 | disposition home health service (06) | DRG 291 ==
LOC: ER 17:36 → ED HOLD 19:30 → 6 SOUTH 22:17
PROVIDERS: ADMIT Student in an Organized Health Care Education/Training Program; ATTEND Student in an Organized Health Care Education/Training Program
DX: I11.0 Hypertensive heart disease with heart failure (principal); I50.23 Acute on chronic systolic (congestive) heart failure; I48.0 Paroxysmal atrial fibrillation; E03.9 Hypothyroidism, unspecified; E11.9 Type 2 diabetes mellitus without complications; E78.5 Hyperlipidemia, unspecified; I25.10 Atherosclerotic heart disease of native coronary artery without angina pectoris; I34.0 Nonrheumatic mitral (valve) insufficiency; I42.8 Other cardiomyopathies; K76.1 Chronic passive congestion of liver; M81.0 Age-related osteoporosis without current pathological fracture; Z51.5 Encounter for palliative care; Z82.49 Family history of ischemic heart disease and other diseases of the circulatory system; M19.90 Unspecified osteoarthritis, unspecified site
CPT/HCPCS: 36415; 71045; 80048; 80053; 80076; 80162; 82962; 83735; 83880; 84484; 85025; 85610; 85730; 93005; 93306; J1160; J1815; J1940; 99285-25; C8929; G0378

== ENCOUNTER 2021-09-01 12:00 | Inpatient (IN) | payer OTHER, MEDICAID ==
[~2021-09-01] VITALS: Ht 162.6 cm; Wt 58.8 kg
[~2021-09-01 12:00] MED LIST changes: +EMPA25TA3 PO; +LEVO88TA70 PO
[2021-09-01] MEDS ORDERED: FUROSEMIDE 100 MG/10 ML VIAL. IVP ONE (12:45)
[2021-09-01 12:53] LABS: BASO # 0.1 x10^3/uL (0.0-0.2); BASO % 1 % (0-3); EOS # 0.1 x10^3/uL (0.0-0.7); EOS % 2 % (0-3); HEMATOCRIT 42.3 % (39.0-53.0); HEMOGLOBIN 14.2 g/dL (13.0-17.5); LYMPH # 1.6 x10^3/uL (1.0-4.8); LYMPH % 17 % (24-48); MEAN CORPUSCULAR HEMOGLOBIN 29 pg (25-35); MEAN CORPUSCULAR HGB CONC 34 g/dL (31-37); MEAN CORPUSCULAR VOLUME 85 fL (79-100); MONO # 1.2 x10^3/uL (0.0-1.1); MONO % 13 % (0-9); NEUT # 6.4 x10^3/uL (1.8-7.7); NEUT % 68 % (31-73); PLATELET COUNT 210 x10^3/uL (140-400); RED BLOOD COUNT 4.99 x10^6/uL (4.30-5.70); RED CELL DISTRIBUTION WIDTH 16.9 % (11.5-14.5); WHITE BLOOD COUNT 9.5 x10^3/uL (4.0-11.0)
[2021-09-01 13:09] LABS: CALCIUM 8.9 mg/dL (8.5-10.1); GFR 71.2; POTASSIUM 4.1 mmol/L (3.5-5.1)
[2021-09-01 13:23] LABS: ALBUMIN 3.4 g/dL (3.4-5.0); ALBUMIN/GLOBULIN RATIO 0.8 (1.0-1.7); TOTAL BILIRUBIN 1.9 mg/dL (0.2-1.0); TOTAL PROTEIN 7.9 g/dL (6.4-8.2)
--- NOTE | 2021-09-01 13:30 | RAD ---
XR CHEST 1V History: Reason: SOB, orthopnea / Spl. Instructions: / History: Comparison: August 03, 2021 Findings: Moderate interstitial thickening with multifocal ill-defined opacities. Small bilateral pleural effus ions, left greater than right. Enlarged cardiac size. No pneumothorax. Stable left-sided pacemaker/IC D. Impression: 1. Moderate interstitial thickening with patchy opacities, represent pulmonary edema infection. 2. Small bilateral pleural effusions, left greater than right. Electronically signed by: Tejas Carl DO (09/01/2021 1:28 PM) [id number]
--- NOTE | 2021-09-01 13:57 | PHYS DOC ---
Past Medical History Past Medical History: A-Fib, Anxiety, CAD, CHF, Heart Disease, Hypertension, Other Additional Past Medical Histor: AFIB RVR (ENIO MORRISON) Past Surgical History: Pacemaker Additional Past Surgical Histo: "head" , BIOTRONIC PACEMAKER (ENIO MORRISON) Smoking Status: Never Smoker Alcohol Use: None Drug Use: None (ENIO MORRISON) General Adult EDM: Chief Complaint: SHORTNESS OF BREATH HPI: HPI: Patient is a 86 year old male with past medical history that includes congestive heart failure and atrial fibrillation who presents with shortness of breath that began two weeks ago and has worsened over the past 4 days. Patient states that he is having difficulty with inspiration and that it is painful. Additionally, he states he cannot lay flat, as it makes his shortness of breath worse. Patient reports associated generalized weakness. He denies substernal chest pain, palpitations, cough, sputum production. (ENIO MORRISON) Review of Systems: Review of Systems: Constitutional: Denies fever or chills Eyes: Denies change in visual acuity, visual field deficits or discharge HENT: Denies ear pain, nasal congestion or sore throat Respiratory: Denies cough or shortness of breath Cardiovascular: See HPI GI: Denies abdominal pain, nausea, vomiting, bloody stools or diarrhea : Denies dysuria or hematuria Musculoskeletal: Denies back pain or joint pain Integument: Denies rash or other skin lesion Neurologic: Denies headache, focal weakness or sensory changes (ENIO MORRISON) Heart Score: C/O Chest Pain: N/A (ENIO MORRISON) Current Medications: Current Medications Medications (Trade) Dose Ordered Sig/Arthur Start Time Stop Time Status Last Admin Dose Admin Furosemide (Lasix) 80 mg 1X ONCE 09/01/21 12:45 09/01/21 12:46 DC 09/01/21 12:48 80 MG (ENIO MORRISON) Allergies: Allergies: Allergies Coded Allergies Type Severity Reaction Last Updated Verified No Known Drug Allergies 07/13/21 No (ENIO MORRISON) Physical Exam: PE: Constitutional: Well developed, well nourished, no acute distress, non-toxic appearance. HENT: Normocephalic, atraumatic, bilateral external ears normal, nose normal. Eyes: EOMI, conjunctiva normal, no discharge. Neck: Normal range of motion, no stridor. Cardiovascular: Heart regular rate and rhythm. Lungs & Thorax: Tachypnic, equal thoracic expansion, bilateral bases decreased breath sounds. Skin: Warm, dry, no erythema, no rash. Extremities: No cyanosis, no clubbing, ROM intact, trace edema bilateral ankles. Neurologic: Alert and oriented x4, normal motor function, normal sensory function, no focal deficits noted. (ENIO MORRISON) Current Patient Data: Labs: Laboratory Tests Test 09/01/21 12:15 White Blood Count 9.5 x10^3/uL (4.0-11.0) Red Blood Count 4.99 x10^6/uL (4.30-5.70) Hemoglobin 14.2 g/dL (13.0-17.5) Hematocrit 42.3 % (39.0-53.0) Mean Corpuscular Volume 85 fL (79-100) Mean Corpuscular Hemoglobin 29 pg (25-35) Mean Corpuscular Hemoglobin Concent 34 g/dL (31-37) Red Cell Distribution Width 16.9 % (11.5-14.5) H Platelet Count 210 x10^3/uL (140-400) Neutrophils (%) (Auto) 68 % (31-73) Lymphocytes (%) (Auto) 17 % (24-48) L Monocytes (%) (Auto) 13 % (0-9) H Eosinophils (%) (Auto) 2 % (0-3) Basophils (%) (Auto) 1 % (0-3) Neutrophils # (Auto) 6.4 x10^3/uL (1.8-7.7) Lymphocytes # (Auto) 1.6 x10^3/uL (1.0-4.8) Monocytes # (Auto) 1.2 x10^3/uL (0.0-1.1) H Eosinophils # (Auto) 0.1 x10^3/uL (0.0-0.7) Basophils # (Auto) 0.1 x10^3/uL (0.0-0.2) Sodium Level 132 mmol/L (136-145) L Potassium Level 4.1 mmol/L (3.5-5.1) Chloride Level 97 mmol/L (98-107) L Carbon Dioxide Level 24 mmol/L (21-32) Anion Gap 11 (6-14) Blood Urea Nitrogen 19 mg/dL (8-26) Creatinine 1.0 mg/dL (0.7-1.3) Estimated GFR (Cockcroft-Gault) 71.2 BUN/Creatinine Ratio 19 (6-20) Glucose Level 119 mg/dL (70-99) H Calcium Level 8.9 mg/dL (8.5-10.1) Magnesium Level 2.0 mg/dL (1.8-2.4) Total Bilirubin 1.9 mg/dL (0.2-1.0) H Aspartate Amino Transferase (AST) 28 U/L (15-37) Alanine Aminotransferase (ALT) 28 U/L (16-63) Alkaline Phosphatase 137 U/L (46-116) H Troponin I High Sensitivity 24 ng/L (4-75) QL-Ztm-B-Type Natriuretic Peptide 88649 pg/mL (0-449) H Total Protein 7.9 g/dL (6.4-8.2) Albumin 3.4 g/dL (3.4-5.0) Albumin/Globulin Ratio 0.8 (1.0-1.7) L Laboratory Tests 09/01/21 12:15 Laboratory Tests 09/01/21 12:15 Vital Signs: Vital Signs Date Time Temp Pulse Resp B/P (MAP) Pulse Ox O2 Delivery O2 Flow Rate FiO2 09/01/21 13:15 87 28 96 Nasal Cannula 2.0 09/01/21 12:20 97.7 110/81 (91) 97.7 (ENIO MORRISON) EKG: EKG: EKG Interpreted by Dr. Vega at 1220: Atrial fibrillation with RVR 130 bpm with no ectopic beats. QT 330 ms/QTc 493 ms. No STEMI. \\ EKG Interpreted by Dr. Vega at 1419: Paced rhythm 95 bpm with no ectopic beats. QT 384 ms/QTc 486 ms. No STEMI. (ENIO MORRISON) Radiology/Procedures: Radiology/Procedures: PROCEDURE: PORTABLE CHEST 1V XR CHEST 1V History: Reason: SOB, orthopnea / Spl. Instructions: / History: Comparison: August 03, 2021 Findings: Moderate interstitial thickening with multifocal ill-defined opacities. Small bilateral pleural effusions, left greater than right. Enlarged cardiac size. No pneumothorax. Stable left-sided pacemaker/ICD. Impression: 1. Moderate interstitial thickening with patchy opacities, represent pulmonary edema infection. 2. Small bilateral pleural effusions, left greater than right. Electronically signed by: Tejas Carl DO (09/01/2021 1:28 PM) [id number] (ENIO MORRISON) Course & Med Decision Making: Course & Med Decision Making Pertinent Labs and Imaging studies reviewed. (See chart for details) Patient is an 86-year-old male who appears to be in congestive heart failure exacerbation. Work-up today will include labs, chest x-ray, urinalysis. Patient was given 80 Lasix IV. Patient admitted graciously to Dr. Reilly. Patient is sierra leone[place] speaking. Interview and exam were conducted in [place] with good understanding and fluid communication. (ENIO MORRISON) Dragon Disclaimer: Dragon Disclaimer: This electronic medical record was generated, in whole or in part, using a voice recognition dictation system. (ENIO MORRISON) Departure Departure Impression: Primary Impression: Acute exacerbation of congestive heart failure Qualified Codes: I50.9 - Heart failure, unspecified Additional Impression: Atrial fibrillation with RVR Disposition: ADMITTED INPATIENT Admitting Physician: SUAD Ley) (ENIO MORRISON) Condition: GUARDED Referrals: NARESH HE MD (PCP) Attending Signature Attending Signature I have reviewed the PA/ART HISTORY PROFESSOR's note and plan of care. I was available for consultation as needed during the patient's visit in the emergency department. I agree with the clinical impression, plan, and disposition. (PERCY VEGA DO) ENIO MORRISON Sep 01, 2021 13:57 PERCY VEGA DO September 05, 2021 23:34
[2021-09-02] MEDS ORDERED: MAG (00:30)
[2021-09-02] MEDS ORDERED: LORA0.5T96 PO (00:30)
[2021-09-02 02:09] VITALS: BP 98/58
[2021-09-02 07:00] VITALS: BP 107/63
--- NOTE | 2021-09-02 10:18 | PDOC1 ---
History and Physical Date of Admission Date of Admission DATE: 09/02/21 TIME: 10:12 Identification/Chief Complaint Chief Complaint Shortness of breath Source Source: Caregiver, Chart review History of Present Illness History of Present Illness Patient is a 86-year-old Czech-speaking male who presents to the ED with complaints of shortness of breath and cough for the past 2 weeks. He denies associated fever, nausea, shortness of breath, or diarrhea. He was recently admitted on 07/31/2021 for systolic congestive heart failure exacerbation with ejection fraction of 20%. He was diuresed with some improvement and he was discharged home with home health and recommended to transition to palliative care. Since that time his son reports that his shortness of breath has returned with nonproductive cough. Labs on admission showed sodium 132, proBNP 29,241. Chest x-ray showed moderate interstitial thickening with patchy opacities, represent pulmonary edema. He has been admitted for further medical management. Past Medical History Cardiovascular: AFIB, CHF, HTN, Hyperlipidemia Pulmonary: No pertinent hx CENTRAL NERVOUS SYSTEM: Other GI: No pertinent hx Heme/Onc: No pertinent hx, Other Hepatobiliary: No pertinent hx Psych: No pertinent hx Musculoskeletal: Osteoarthritis Rheumatologic: No pertinent hx Infectious disease: No pertinent hx Renal/: No pertinent hx Endocrine: Hypothyroidism Past Surgical History Past Surgical History: Other Family History Family History: Other Social History Smoke: No ALCOHOL: none Drugs: None Current Medications Current Medications Current Medications Furosemide (Lasix) 80 mg 1X ONCE IVP Last administered on 09/01/21at 12:48; St art 09/01/21 at 12:45; Stop 09/01/21 at 12:46; Status DC Active Scripts Active Entresto 24 mg-26 mg Tablet (Sacubitril/Valsartan) 1 Each Tablet 1 Tab PO BID 30 Days Digoxin 125 Mcg Tablet 125 Mcg PO DAILY 30 Days Furosemide 40 Mg Tablet 40 Mg PO DAILY 30 Days Klor-Con 10 (Potassium Chloride) 10 Meq Tablet.er 10 Meq PO DAILYWBKFT 30 Days Eliquis (Apixaban) 5 Mg Tablet 5 Mg PO BID 30 Days Reported [mag cap] 20 Mg DAILY Ativan (Lorazepam) 0.5 Mg Tablet 0.5 Mg PO PRN Q8HRS PRN Vitamin D2 (Ergocalciferol (Vitamin D2)) 1,250 Mcg Capsule 50,000 Intlu PO WEEKLY Jardiance (Empaglifozin) 25 Mg Tablet 10 Mg PO DAILY Synthroid (Levothyroxine Sodium) 88 Mcg Tablet 88 Mcg PO DAILYAC Atorvastatin Calcium 10 Mg Tablet 10 Mg PO HS Allergies Allergies: Coded Allergies: No Known Drug Allergies (Unverified , 07/13/21) ROS Review of System GENERAL: No history of weight change, weakness or fevers. SKIN: No bruising, hair changes or rashes. EYES: No blurred, double or loss of vision. NOSE AND THROAT: No history of nosebleeds, hoarseness or sore throat. HEART: Denies chest pain, denies palpitations. LUNGS: Cough and shortness of breath. Denies hemoptysis.. GASTROINTESTINAL: Denies nausea, vomiting, abdominal pain. GENITOURINARY: Denies dysuria, frequency, urgency, hematuria. NEUROLOGIC: Denies history of numbness, tingling, tremor or weakness. PSYCHIATRIC: Denies anxiety, denies depression. ENDOCRINE: No history of heat or cold intolerance, polyuria or polydipsia. EXTREMITIES: Denies muscle weakness, joint pain, pain on walking or stiffness. Physical Exam Physical Exam General: Alert, Oriented X3, Cooperative, mild distress HEENT: Atraumatic, EOMI Lungs: Bibasilar rales Heart: RRR, no rubs Cardiovascular: S1, S2, S3 Abdomen: Normal bowel sounds, Soft, No tenderness Extremities: 1+ bilateral leg edema Skin: No breakdown, No significant lesion Neuro: Normal speech, Sensation intact Psych/Mental Status: Mental status NL, Mood NL Vitals Vitals Vital Signs Date Time Temp Pulse Resp B/P (MAP) Pulse Ox O2 Delivery O2 Flow Rate FiO2 09/02/21 07:00 98.3 80 18 107/63 (78) 98 Nasal Cannula 2.0 98.3 Labs Labs Laboratory Tests Test 09/01/21 12:15 White Blood Count 9.5 x10^3/uL (4.0-11.0) Red Blood Count 4.99 x10^6/uL (4.30-5.70) Hemoglobin 14.2 g/dL (13.0-17.5) Hematocrit 42.3 % (39.0-53.0) Mean Corpuscular Volume 85 fL (79-100) Mean Corpuscular Hemoglobin 29 pg (25-35) Mean Corpuscular Hemoglobin Concent 34 g/dL (31-37) Red Cell Distribution Width 16.9 % (11.5-14.5) Platelet Count 210 x10^3/uL (140-400) Neutrophils (%) (Auto) 68 % (31-73) Lymphocytes (%) (Auto) 17 % (24-48) Monocytes (%) (Auto) 13 % (0-9) Eosinophils (%) (Auto) 2 % (0-3) Basophils (%) (Auto) 1 % (0-3) Neutrophils # (Auto) 6.4 x10^3/uL (1.8-7.7) Lymphocytes # (Auto) 1.6 x10^3/uL (1.0-4.8) Monocytes # (Auto) 1.2 x10^3/uL (0.0-1.1) Eosinophils # (Auto) 0.1 x10^3/uL (0.0-0.7) Basophils # (Auto) 0.1 x10^3/uL (0.0-0.2) Sodium Level 132 mmol/L (136-145) Potassium Level 4.1 mmol/L (3.5-5.1) Chloride Level 97 mmol/L (98-107) Carbon Dioxide Level 24 mmol/L (21-32) Anion Gap 11 (6-14) Blood Urea Nitrogen 19 mg/dL (8-26) Creatinine 1.0 mg/dL (0.7-1.3) Estimated GFR (Cockcroft-Gault) 71.2 BUN/Creatinine Ratio 19 (6-20) Glucose Level 119 mg/dL (70-99) Calcium Level 8.9 mg/dL (8.5-10.1) Magnesium Level 2.0 mg/dL (1.8-2.4) Total Bilirubin 1.9 mg/dL (0.2-1.0) Aspartate Amino Transf (AST/SGOT) 28 U/L (15-37) Alanine Aminotransferase (ALT/SGPT) 28 U/L (16-63) Alkaline Phosphatase 137 U/L (46-116) Troponin I High Sensitivity 24 ng/L (4-75) GA-Xpa-A-Type Natriuretic Peptide 90711 pg/mL (0-449) Total Protein 7.9 g/dL (6.4-8.2) Albumin 3.4 g/dL (3.4-5.0) Albumin/Globulin Ratio 0.8 (1.0-1.7) Laboratory Tests Test 09/01/21 12:15 White Blood Count 9.5 x10^3/uL (4.0-11.0) Red Blood Count 4.99 x10^6/uL (4.30-5.70) Hemoglobin 14.2 g/dL (13.0-17.5) Hematocrit 42.3 % (39.0-53.0) Mean Corpuscular Volume 85 fL (79-100) Mean Corpuscular Hemoglobin 29 pg (25-35) Mean Corpuscular Hemoglobin Concent 34 g/dL (31-37) Red Cell Distribution Width 16.9 % (11.5-14.5) Platelet Count 210 x10^3/uL (140-400) Neutrophils (%) (Auto) 68 % (31-73) Lymphocytes (%) (Auto) 17 % (24-48) Monocytes (%) (Auto) 13 % (0-9) Eosinophils (%) (Auto) 2 % (0-3) Basophils (%) (Auto) 1 % (0-3) Neutrophils # (Auto) 6.4 x10^3/uL (1.8-7.7) Lymphocytes # (Auto) 1.6 x10^3/uL (1.0-4.8) Monocytes # (Auto) 1.2 x10^3/uL (0.0-1.1) Eosinophils # (Auto) 0.1 x10^3/uL (0.0-0.7) Basophils # (Auto) 0.1 x10^3/uL (0.0-0.2) Sodium Level 132 mmol/L (136-145) Potassium Level 4.1 mmol/L (3.5-5.1) Chloride Level 97 mmol/L (98-107) Carbon Dioxide Level 24 mmol/L (21-32) Anion Gap 11 (6-14) Blood Urea Nitrogen 19 mg/dL (8-26) Creatinine 1.0 mg/dL (0.7-1.3) Estimated GFR (Cockcroft-Gault) 71.2 BUN/Creatinine Ratio 19 (6-20) Glucose Level 119 mg/dL (70-99) Calcium Level 8.9 mg/dL (8.5-10.1) Magnesium Level 2.0 mg/dL (1.8-2.4) Total Bilirubin 1.9 mg/dL (0.2-1.0) Aspartate Amino Transf (AST/SGOT) 28 U/L (15-37) Alanine Aminotransferase (ALT/SGPT) 28 U/L (16-63) Alkaline Phosphatase 137 U/L (46-116) Troponin I High Sensitivity 24 ng/L (4-75) KQ-Qfj-J-Type Natriuretic Peptide 92112 pg/mL (0-449) Total Protein 7.9 g/dL (6.4-8.2) Albumin 3.4 g/dL (3.4-5.0) Albumin/Globulin Ratio 0.8 (1.0-1.7) Images Images PATIENT: ELOY PINTOACCOUNT: [id number] : 1935 LOCATION: ER AGE: 86 SEX: M EXAM STATUS: PRE ER ORD. PHYSICIAN: ENIO MORRISON REASON: SOB, orthopnea PROCEDURE: PORTABLE CHEST 1V XR CHEST 1V History: Reason: SOB, orthopnea / Spl. Instructions: / History: Comparison: August 03, 2021 Findings: Moderate interstitial thickening with multifocal ill-defined opacities. Small bilateral pleural effusions, left greater than right. Enlarged cardiac size. No pneumothorax. Stable left-sided pacemaker/ICD. Impression: 1. Moderate interstitial thickening with patchy opacities, represent pulmonary edema infection. 2. Small bilateral pleural effusions, left greater than right. VTE Prophylaxis Ordered VTE Prophylaxis Devices: No VTE Pharmacological Prophylaxi: Yes Assessment/Plan Assessment/Plan Acute respiratory failure with hypoxia Acute systolic CHF exacerbation CAD History A. fib History of HTN Plan: Consultation placed to cardiology Telemetry Strict I's and O's, fluid restriction Recent echocardiogram on 08/01/2021 showed severe global hypokinesis of left ventricle, severely impaired EF at 20%, estimated PAP 70 mmHg. Daily IV Lasix Would likely benefit from milrinone gtt Currently hypotensive, likely IV albumin if further hypotension noted Had lengthy discussion with his son at bedside, at bedside, daughter and granddaughter by phone; they agreed to not perform any aggressive maneuvers if his heart were to stop or he would stop breathing, given his advanced age. FEN - Cardiac diet PPX - Eliquis DNR/surrogate decision-maker is his son Dispo - inpatient for above Critical care time 32 minutes spent reviewing charts, reviewing labs, reviewing imaging, and discussion with son and at bedside. Justifications for Admission Other Justification CHF exacerbation ELLA CHAUHAN MD Sep 02, 2021 10:18
[2021-09-02] MEDS ORDERED: LORazepam 0.5 MG TABLET PO PRN (10:30)
[2021-09-02] MEDS: EMPAGLIFLOZIN 10 MG TABLET. PO SCH (10:54)
[2021-09-02] MEDS: DIGOXIN 125 MCG TABLET. PO SCH (10:54)
[2021-09-02] MEDS: POTASSIUM CHLORIDE 10 MEQ TABLET.ER. PO SCH (10:55)
[2021-09-02 11:00] VITALS: BP 96/67
[2021-09-02] MEDS: FUROSEMIDE 40 MG/4 ML VIAL. IVP SCH (14:43)
[2021-09-02] MEDS ORDERED: FUROSEMIDE 40 MG/4 ML VIAL. IVP ONE (14:45)
[2021-09-02 15:00] VITALS: BP 98/64
--- NOTE | 2021-09-02 16:39 | PDOC ---
CARDIOLOGY PROGRESS NOTE SUBJECTIVE: Pleasant 86-year-old male well-known to our service who comes into the hospital with recurrent heart failure symptoms. He was previously seen approximately 4 weeks ago and he presents back again as he has had worsening shortness of breath over the last 2 weeks. The patient denies any chest pain. He reports com pliance his medications. Most information was obtained from the patient's son. Patient is and Persian-speaking only. OBJECTIVE: Vital Signs/I&O: Vital Signs Date Time Temp Pulse Resp B/P (MAP) Pulse Ox O2 Delivery O2 Flow Rate FiO2 09/02/21 11:00 97.9 80 18 96/67 (77) 96 Nasal Cannula 2.0 97.9 I & O 09/01/21 09/01/21 09/02/21 15:00 23:00 07:00 Intake Total 200 ml Output Total 400 ml Balance -200 ml Objective: GEN.: Moderate distress from dyspnea. HEENT: Head is normocephalic, atraumatic NECK: Supple. LUNGS: Decreased breath sounds bilaterally HEART: Irregular heart tones, moderate MR murmur noted ABDOMEN: Soft, nontender. Positive bowel sounds. EXTREMITIES: Mild 1+ edema with diminished pedal pulses NEUROLOGIC: Normal speech, normal tone PSYCHIATRIC: Normal affect, normal mood. SKIN: No ulcerations CURRENT MEDICATIONS: Current Medications Medications (Trade) Dose Ordered Sig/Arthur Route PRN Reason Start Time Stop Time Status Last Admin Dose Admin Digoxin (Lanoxin) 125 mcg DAILY PO 09/02/21 11:00 09/02/21 10:54 Empaglifozin (Jardiance) 10 mg DAILY PO 09/02/21 11:00 09/02/21 10:54 Potassium Chloride (Klor-Con) 10 meq DAILYWBKFT PO 09/02/21 11:00 09/02/21 10:55 Furosemide (Lasix) 40 mg DAILY IVP 09/02/21 14:30 09/02/21 14:43 DIAGNOSTIC TESTING: Labs reviewed ASSESSMENT: 1. Acute on chronic systolic heart failure 2. Severe mitral regurgitation 3. Chronic atrial fibrillation 4. 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 Start patient on milrinone therapy. Continue diuretics 2. We will plan for a right heart catheterization on Saturday and based on findings we will likely transfer patient to [facility] for advanced heart failure therapy with consideration for MitraClip placement. Justicifation of Admission Dx: Justifications for Admission: Justification of Admission Dx: Yes ARSH SIMPSON MD Sep 02, 2021 16:38
[2021-09-02] MEDS: MILRINONE 20MG/100ML PREMIX 100 ML IV PRN (17:10)
[2021-09-02 19:45] VITALS: BP 109/63
[2021-09-02] MEDS: APIXABAN 5 MG TABLET. PO SCH (21:04)
[2021-09-02] MEDS: ATORVASTATIN CALCIUM 10 MG TABLET. PO SCH (21:05)
[2021-09-02] MEDS: SACUBITRIL/VALSARTAN 24/26MG TABLET. PO SCH (21:05)
[2021-09-02 22:55] VITALS: BP 119/71
[2021-09-03 03:13] VITALS: BP 85/52
[2021-09-03 07:00] VITALS: BP 116/83
[2021-09-03] MEDS: LEVOTHYROXINE 88 MCG TABLET PO SCH (08:41)
[2021-09-03] MEDS: EMPAGLIFLOZIN 10 MG TABLET. PO SCH (08:41)
[2021-09-03] MEDS: SACUBITRIL/VALSARTAN 24/26MG TABLET. PO SCH ×2 (08:41→20:53)
[2021-09-03] MEDS: POTASSIUM CHLORIDE 10 MEQ TABLET.ER. PO SCH (08:42)
[2021-09-03] MEDS: FUROSEMIDE 40 MG/4 ML VIAL. IVP SCH (08:42)
[2021-09-03] MEDS: APIXABAN 5 MG TABLET. PO SCH ×2 (08:42→20:53)
[2021-09-03] MEDS: DIGOXIN 125 MCG TABLET. PO SCH (08:42)
[2021-09-03 11:00] VITALS: BP 102/56
--- NOTE | 2021-09-03 11:58 | PDOC ---
[employer] PROGRESS NOTE Date of Service DOS: DATE: 09/03/21 TIME: 11:55 Chief Complaint Chief Complaint Acute respiratory failure with hypoxia Acute systolic CHF exacerbation CAD History A. fib History of HTN History of Present Illness History of Present Illness 09/03: Afebrile. Breathing on 2 L nasal cannula. Initiated on milrinone gtt and with diuresis with IV Lasix. Plan for right heart cath likely on Saturday. If not then the stent he may discharge home. If complicated he may have to transfer to . Discussed with RN. Vitals/I&O Vitals/I&O: Vital Signs Date Time Temp Pulse Resp B/P (MAP) Pulse Ox O2 Delivery O2 Flow Rate FiO2 09/03/21 08:42 80 85/52 09/03/21 08:00 Nasal Cannula 2.0 09/03/21 07:00 97.7 20 100 97.7 I & O 09/02/21 09/02/21 09/03/21 15:00 23:00 07:00 Intake Total 240 ml 0 ml Output Total 250 ml 200 ml 225 ml Balance -250 ml 40 ml -225 ml Physical Exam General: Alert, Cooperative Heart: Regular rate Lungs: Crackles Abdomen: Soft, No tenderness Extremities: No clubbing Skin: No rashes Assessment and Plan Assessmemt and Plan Problems Medical Problems: (1) Acute exacerbation of congestive heart failure Status: Acute Comment Review of Relevant I have reviewed the following items issa (where applicable) has been applied. Medications: Current Medications Medications (Trade) Dose Ordered Sig/Arthur Route PRN Reason Start Time Stop Time Status Last Admin Dose Admin Apixaban (Eliquis) 5 mg BID PO 09/02/21 21:00 09/03/21 08:42 Atorvastatin Calcium (Lipitor) 10 mg HS PO 09/02/21 21:00 09/02/21 21:05 Levothyroxine Sodium (Synthroid) 88 mcg DAILYAC PO 09/03/21 07:30 09/03/21 08:41 Sacubitril/ Valsartan (Entresto 24 Mg-26 Mg) 1 tab BID PO 09/02/21 21:00 09/02/21 21:05 Furosemide (Lasix) 40 mg DAILY IVP 09/02/21 14:30 09/03/21 08:42 Milrinone Lactate/ Dextrose 100 ml @ 2.378 mls/ hr CONT PRN IV SEE I/O RECORD 09/02/21 17:00 09/02/21 17:10 Justifications for Admission Other Justification CHF exacerbation ELLA CHAUHAN MD September 03, 2021 11:58
[2021-09-03 15:00] VITALS: BP 108/64
[2021-09-03 19:52] VITALS: BP 103/64
[2021-09-03] MEDS: ATORVASTATIN CALCIUM 10 MG TABLET. PO SCH (20:53)
--- NOTE | 2021-09-03 22:20 | PDOC ---
CARDIOLOGY PROGRESS NOTE SUBJECTIVE: No new issues. Feels better. Has diuresed. OBJECTIVE: Vital Signs/I&O: Vital Signs Date Time Temp Pulse Resp B/P (MAP) Pulse Ox O2 Delivery O2 Flow Rate FiO2 09/03/21 20:53 84 103/64 09/03/21 19:52 98.2 16 98 Nasal Cannula 2.0 98.2 I & O 09/02/21 09/02/21 09/03/21 15:00 23:00 07:00 Intake Total 240 ml 0 ml Output Total 250 ml 200 ml 225 ml Balance -250 ml 40 ml -225 ml Objective: GEN.: No apparent distress. Alert and oriented. HEENT: Head is normocephalic, atraumatic NECK: Supple. LUNGS: Clear to auscultation. HEART: RRR, S1, S2 present. Peripheral pulses intact ABDOMEN: Soft, nontender. Positive bowel sounds. EXTREMITIES: Without any cyanosis. NEUROLOGIC: Normal speech, normal tone PSYCHIATRIC: Normal affect, normal mood. SKIN: No ulcerations CURRENT MEDICATIONS: Current Medications Medications (Trade) Dose Ordered Sig/Arthur Route PRN Reason Start Time Stop Time Status Last Admin Dose Admin Levothyroxine Sodium (Synthroid) 88 mcg DAILYAC PO 09/03/21 07:30 09/03/21 08:41 DIAGNOSTIC TESTING: Labs reviewed ASSESSMENT: ASSESSMENT: 1. Acute on chronic systolic heart failure 2. Severe mitral regurgitation 3. Chronic atrial fibrillation 4. 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 Continue same. Depending on symptoms tmrw, consider [facility] and [facility] transfer for mitraclip, otherwise, outpt eval. Thanks Discussed with family at bedside, Justicifation of Admission Dx: Justifications for Admission: Justification of Admission Dx: Yes ARSH SIMPSON MD September 03, 2021 22:20
[2021-09-03 22:43] VITALS: BP 111/67
[2021-09-04 02:54] VITALS: BP 110/60
--- NOTE | 2021-09-04 06:11 | EKG ---
[facility] [address] [place] [address] Test Date: 2021-09-01 Test Time: 14:14:10 Pat Name: ELOY PINTO Department: Room: Gender: M Drawer In: : 1935 Requested By: ENIO MORRISON Order Number: [id number] Reading MD: Measurements Intervals Doyle Rate: 95 P: TX: QRS: -26 QRSD: 148 T: 138 QT: 384 QTc: 486 Interpretive Statements IRREGULAR RHYTHM, NO P-WAVE FOUND LEFTWARD AXIS NON SPECIFIC INTRAVENTRICULAR BLOCK QRS(T) CONTOUR ABNORMALITY CONSIDER ANTEROLATERAL MYOCARDIAL DAMAGE ABNORMAL ECG RI6.02 No previous ECG available for comparison
[2021-09-04 07:00] VITALS: BP 103/62
[2021-09-04] MEDS: MILRINONE 20MG/100ML PREMIX 100 ML IV PRN (08:22)
[2021-09-04] MEDS: APIXABAN 5 MG TABLET. PO SCH ×2 (08:23→20:59)
[2021-09-04] MEDS: POTASSIUM CHLORIDE 10 MEQ TABLET.ER. PO SCH (08:23)
[2021-09-04] MEDS: SACUBITRIL/VALSARTAN 24/26MG TABLET. PO SCH ×2 (08:23→20:59)
[2021-09-04] MEDS: EMPAGLIFLOZIN 10 MG TABLET. PO SCH (08:23)
[2021-09-04] MEDS: DIGOXIN 125 MCG TABLET. PO SCH (08:23)
[2021-09-04] MEDS: LEVOTHYROXINE 88 MCG TABLET PO SCH (08:24)
[2021-09-04] MEDS: FUROSEMIDE 40 MG/4 ML VIAL. IVP SCH (08:24)
--- NOTE | 2021-09-04 10:30 | PDOC ---
KATELYNN JOHNSON APRN 09/04/21 1030: CARDIO Progress Notes Date and Time Date of Service 09/04/21 Time of Evaluation 1020 Subjective Subjective: No Chest Pain, No Palpitations, No Dizziness, Other (SOA improved ) Vitals Vitals Vital Signs Date Time Temp Pulse Resp B/P (MAP) Pulse Ox O2 Delivery O2 Flow Rate FiO2 09/04/21 08:23 85 103/62 09/04/21 08:00 Nasal Cannula 2.0 09/04/21 07:00 97.1 18 99 97.1 Weight Weight [ ] Input and Output Intake and Output Intake and Output 09/04/21 07:00 Intake Total 1100 ml Output Total 2000 ml Balance -900 ml Intake Oral 1100 ml Output Urine Total 2000 ml Physical Exam HEENT: Neck Supple W Full Motion Chest: Symmetric LUNGS: Other (diminished ) Heart: irregularly irregular (v-pace with underlying SR) Abdomen: Soft N/T Extremities: No Edema Neurology: alert, oriented, follow commands Assessment Assessment 1. Acute on chronic systolic CHF; improved s/p IV diuresis 2. Severe NICM; LVEF at 20%. [facility] 2018 without obstructive CAD. on milrinone 3. Severe mitral regurgitation 4. Persistent AFIB; On dig for rate control. Amiodarone discontinued in past due to concerns for ILD. rate controlled 5. GENETIC TECHNOLOGIST-D in situ: V paced with underlying AFIB. Recent device check normal function, 97% AFIB burden 6. Hypertension; low end 7. Hypothyroidism: on replacement. Recommendations HF optimization Continue milrinone, Lasix, and Entresto Monitor I and O, renal function Digoxin for rate control. Unable to start on BB due to low marginal BP Eliquis for stroke prevention. Referral for possible mitraclip. Possibly expedited on an outpatient basis pending clinical course Justicifation of Admission Dx: Justifications for Admission: Justification of Admission Dx: Yes FARIDA THOMPSON MD 09/04/21 7085: CARDIO Progress Notes Assessment Assessment Patient seen and examined. Agree with CLAIMS SUPPORT SPECIALIST's assessment and plan. Acute on chronic systolic heart failure better compensated with diuresis and inotropic support with milrinone infusion Persistent atrial fibrillation rate controlled Severe mitral regurgitation with recurrent hospital admissions If patient and family want aggressive measures, we will consider mitral valve clip peripheral KATELYNN JOHNSON APRN September 04, 2021 10:30 FARIDA THOMPSON MD September 04, 2021 13:59
[2021-09-04 10:46] VITALS: BP 119/65
--- NOTE | 2021-09-04 13:52 | PDOC ---
[facility] PROGRESS NOTE Date of Service DOS: DATE: 09/04/21 TIME: 13:50 Chief Complaint Chief Complaint Acute respiratory failure with hypoxia Acute systolic CHF exacerbation CAD History A. fib History of HTN History of Present Illness History of Present Illness 09/04: Afebrile, on room air. Continues on milrinone gtt and IV Lasix. If he continues to improve with diuresis may hold off on heart cath. Discussed with family at bedside. 09/03: Afebrile. Breathing on 2 L nasal cannula. Initiated on milrinone gtt and with diuresis with IV Lasix. Plan for right heart cath likely on Saturday. If not then the stent he may discharge home. If complicated he may have to transfer to . Discussed with RN. Vitals/I&O Vitals/I&O: Vital Signs Date Time Temp Pulse Resp B/P (MAP) Pulse Ox O2 Delivery O2 Flow Rate FiO2 09/04/21 10:46 96.6 86 18 119/65 (83) 97 Room Air 96.6 09/04/21 08:00 2.0 I & O 09/03/21 09/03/21 09/04/21 15:00 23:00 07:00 Intake Total 660 ml 440 ml 0 ml Output Total 1500 ml 500 ml Balance -840 ml -60 ml 0 ml Physical Exam General: Alert, Cooperative Heart: Regular rate Lungs: Crackles Abdomen: Soft, No tenderness Extremities: No clubbing Skin: No rashes Assessment and Plan Assessmemt and Plan Problems Medical Problems: (1) Acute exacerbation of congestive heart failure Status: Acute Comment Review of Relevant I have reviewed the following items issa (where applicable) has been applied. Justifications for Admission Other Justification CHF exacerbation ELLA CHAUHAN MD September 04, 2021 13:52
[2021-09-04 15:00] VITALS: BP 87/54
--- NOTE | 2021-09-04 16:52 | NUR ---
SS following for discharge planning. SS reviewed pt chart and discussed with pt RN. Pt is from home with spouse and is currently requiring oxygen at two liters nasal canula. Pt on Milrinone drip and IV Lasix. Heart cath held today. SS will continue to follow for discharge planning.
[2021-09-04 19:18] VITALS: BP 109/56
[2021-09-04] MEDS: ATORVASTATIN CALCIUM 10 MG TABLET. PO SCH (20:59)
[2021-09-04 22:21] VITALS: BP 94/51
[2021-09-05 02:19] VITALS: BP 82/48
[2021-09-05 05:05] LABS: CALCIUM 8.8 mg/dL (8.5-10.1); CREATININE 0.9 mg/dL (0.7-1.3); GFR 80.4; POTASSIUM 3.6 mmol/L (3.5-5.1)
[2021-09-05] MEDS: LEVOTHYROXINE 88 MCG TABLET PO SCH (06:26)
[2021-09-05 07:00] VITALS: BP 94/59
[2021-09-05] MEDS: POTASSIUM CHLORIDE 10 MEQ TABLET.ER. PO SCH (08:32)
[2021-09-05] MEDS: SACUBITRIL/VALSARTAN 24/26MG TABLET. PO SCH ×2 (08:32→21:00)
[2021-09-05] MEDS: APIXABAN 5 MG TABLET. PO SCH (08:32)
[2021-09-05] MEDS: EMPAGLIFLOZIN 10 MG TABLET. PO SCH (08:33)
[2021-09-05] MEDS: FUROSEMIDE 40 MG/4 ML VIAL. IVP SCH (08:33)
[2021-09-05] MEDS: DIGOXIN 125 MCG TABLET. PO SCH (08:33)
--- NOTE | 2021-09-05 09:27 | PDOC ---
KATELYNN JOHNSON DIRECTOR OF LEADERSHIP DEVELOPMENT 09/05/21 0927: CARDIO Progress Notes Date and Time Date of Service Time of Evaluation 1215 Subjective Subjective: No Chest Pain, No shortness of breath, No Palpitations, No Dizziness Vitals Vitals Vital Signs Date Time Temp Pulse Resp B/P (MAP) Pulse Ox O2 Delivery O2 Flow Rate FiO2 09/05/21 08:33 90 94/59 09/05/21 07:00 18 98 Nasal Cannula 2.0 09/05/21 02:19 97.6 97.6 Weight Weight [ ] Input and Output Intake and Output Intake and Output 09/05/21 06:59 Intake Total 760 ml Output Total 1650 ml Balance -890 ml Intake Oral 660 ml IV Total 100 ml Output Urine Total 1650 ml # Bowel Movements 1 Laboratory Labs Laboratory Tests Test 09/05/21 04:25 Sodium Level 139 mmol/L (136-145) Potassium Level 3.6 mmol/L (3.5-5.1) Chloride Level 101 mmol/L (98-107) Carbon Dioxide Level 29 mmol/L (21-32) Anion Gap 9 (6-14) Blood Urea Nitrogen 16 mg/dL (8-26) Creatinine 0.9 mg/dL (0.7-1.3) Estimated GFR (Cockcroft-Gault) 80.4 Glucose Level 85 mg/dL (70-99) Calcium Level 8.8 mg/dL (8.5-10.1) Physical Exam HEENT: Neck Supple W Full Motion Chest: Symmetric LUNGS: Other (diminished ) Heart: irregularly irregular (v-pace with underlying SR) Abdomen: Soft N/T Extremities: No Edema Neurology: alert, oriented, follow commands Assessment Assessment 1. Acute on chronic systolic CHF; improved s/p IV diuresis. appears compensated 2. Severe NICM; LVEF at 20%. [facility] 2018 without obstructive CAD. on milrinone 3. Severe mitral regurgitation 4. Persistent AFIB; On dig for rate control. Amiodarone discontinued in past due to concerns for ILD. rate controlled 5. GEOLOGIST-D in situ: V paced with underlying AFIB. Recent device check normal function, 97% AFIB burden 6. Hypertension; low end 7. Hypothyroidism: on replacement. Recommendations HF optimization Continue Lasix and Entresto Titrate off milrinone Digoxin for rate control. Unable to start on BB due to low marginal BP Hold Eliquis Will plan for RHC tomorrow and consider inpatient versus expedited outpatient transfer to for possibly Mitraclip Supportive care NPO p MN Justicifation of Admission Dx: Justifications for Admission: Justification of Admission Dx: Yes FARIDA THOMPSON MD 09/06/21 0617: CARDIO Progress Notes Assessment Assessment Patient seen and examined. Agree with STRADDLE BUG DRIVER's assessment and plan. Acute on chronic systolic heart failure better compensated with diuresis and inotropic support with milrinone infusion Persistent atrial fibrillation rate controlled Severe mitral regurgitation with recurrent hospital admissions Plan RHC and consider mitral valve clip peripheral to [facility] KATELYNN JOHNSON APRN September 05, 2021 09:27 FARIDA THOMPSON MD September 06, 2021 06:17
[2021-09-05 10:47] VITALS: BP 87/52
--- NOTE | 2021-09-05 12:07 | PDOC ---
[facility] [facility] PROGRESS NOTE Date of Service DOS: DATE: 09/05/21 TIME: 12:02 Chief Complaint Chief Complaint Acute respiratory failure with hypoxia Acute systolic CHF exacerbation CAD History A. fib History of HTN History of Present Illness History of Present Illness 09/05: Patient seen and evaluated. Son is present and helps with translation. Patient is breathing better on milrinone gtt. -900 mL fluid off today. Will discuss with cardiology about transfer to or doing surgery on mitral valve as outpatient follow-up. 09/04: Afebrile, on room air. Continues on milrinone gtt and IV Lasix. If he continues to improve with diuresis may hold off on heart cath. Discussed with family at bedside. 09/03: Afebrile. Breathing on 2 L nasal cannula. Initiated on milrinone gtt and with diuresis with IV Lasix. Plan for right heart cath likely on Saturday. If not then the stent he may discharge home. If complicated he may have to transfer to . Discussed with RN. Vitals/I&O Vitals/I&O: Vital Signs Date Time Temp Pulse Resp B/P (MAP) Pulse Ox O2 Delivery O2 Flow Rate FiO2 09/05/21 10:47 97.1 85 18 87/52 (64) 98 Nasal Cannula 2.0 97.1 I & O 09/04/21 09/04/21 09/05/21 15:00 23:00 07:00 Intake Total 280 ml 380 ml 100 ml Output Total 1000 ml 650 ml Balance -720 ml -270 ml 100 ml Physical Exam General: Alert, Cooperative Heart: Regular rate Lungs: Crackles Abdomen: Soft, No tenderness Extremities: No clubbing Skin: No rashes Labs Labs: Laboratory Tests Test 09/05/21 04:25 Sodium Level 139 mmol/L (136-145) Potassium Level 3.6 mmol/L (3.5-5.1) Chloride Level 101 mmol/L (98-107) Carbon Dioxide Level 29 mmol/L (21-32) Anion Gap 9 (6-14) Blood Urea Nitrogen 16 mg/dL (8-26) Creatinine 0.9 mg/dL (0.7-1.3) Estimated GFR (Cockcroft-Gault) 80.4 Glucose Level 85 mg/dL (70-99) Calcium Level 8.8 mg/dL (8.5-10.1) Assessment and Plan Assessmemt and Plan Problems Medical Problems: (1) Acute exacerbation of congestive heart failure Status: Acute Comment Review of Relevant I have reviewed the following items issa (where applicable) has been applied. Justifications for Admission Other Justification CHF exacerbation ELLA CHAUHAN MD September 05, 2021 12:07
--- NOTE | 2021-09-05 14:12 | NUR ---
SS following up with discharge planning. SS reviewed pt chart and discussed with pt RN. Pt is currently requiring oxygen at two liters nasal canula. Pt on IV Lasix and Milrinone drip. Per cardiology, pt having right heart cath tomorrow. Dr. Elias to make decision on [facility] transfer and to contact [facility] after right heart cath. Physician notified. SS will continue to follow for discharge planning.
[2021-09-05 15:00] VITALS: BP 79/53
[2021-09-05 19:00] VITALS: BP 93/57
[2021-09-05] MEDS: ATORVASTATIN CALCIUM 10 MG TABLET. PO SCH (20:40)
[2021-09-05 23:00] VITALS: BP 93/61
[2021-09-06 03:00] VITALS: BP 76/48
[2021-09-06] MEDS: LEVOTHYROXINE 88 MCG TABLET PO SCH (05:44)
[2021-09-06 07:00] VITALS: BP 93/68
[2021-09-06 07:07] LABS: CALCIUM 8.9 mg/dL (8.5-10.1); CREATININE 0.8 mg/dL (0.7-1.3); GFR 92.1; POTASSIUM 3.5 mmol/L (3.5-5.1)
[2021-09-06] MEDS: POTASSIUM CHLORIDE 10 MEQ TABLET.ER. PO SCH (08:00)
[2021-09-06] MEDS: SACUBITRIL/VALSARTAN 24/26MG TABLET. PO SCH (09:00)
[2021-09-06] MEDS: FUROSEMIDE 40 MG TABLET. PO SCH ×2 (09:00→14:35)
[2021-09-06] MEDS: DIGOXIN 125 MCG TABLET. PO SCH (09:00)
[2021-09-06] MEDS: EMPAGLIFLOZIN 10 MG TABLET. PO SCH (09:00)
[2021-09-06 10:40] VITALS: BP 103/67
[2021-09-06] MEDS ORDERED: LIDOCAINE 1% Multi-Dose 20 ML VIAL. ONE (10:59)
[2021-09-06] MEDS ORDERED: MIDAZOLAM HCL/PF 2 MG/2 ML VIAL. ONE (11:40)
[2021-09-06] MEDS ORDERED: fentaNYL PF VIAL 100 MCG/2 ML VIAL ONE (11:40)
[2021-09-06] MEDS ORDERED: fentaNYL PF VIAL 100 MCG/2 ML VIAL IV ONE (12:15)
[2021-09-06] MEDS ORDERED: MIDAZOLAM HCL/PF 2 MG/2 ML VIAL. IV ONE (12:15)
[2021-09-06] MEDS ORDERED: LIDOCAINE 1% Multi-Dose 20 ML VIAL. INJ ONE (12:15)
[2021-09-06 12:24] VITALS: BP 98/65
--- NOTE | 2021-09-06 12:27 | PDOC ---
[facility] [facility] PROGRESS NOTE Date of Service DOS: DATE: 09/06/21 TIME: 12:23 Chief Complaint Chief Complaint Acute respiratory failure with hypoxia Acute systolic CHF exacerbation CAD History A. fib History of HTN History of Present Illness History of Present Illness 09/06: Patient seen with family at bedside. He is scheduled for RHC today. Pending results we will consider inpatient versus expedited outpatient transfer to for possibly mitral valve clip. 09/05: Patient seen and evaluated. Son is present and helps with translation. Patient is breathing better on milrinone gtt. -900 mL fluid off today. Will discuss with cardiology about transfer to or doing surgery on mitral valve as outpatient follow-up. 09/04: Afebrile, on room air. Continues on milrinone gtt and IV Lasix. If he continues to improve with diuresis may hold off on heart cath. Discussed with family at bedside. 09/03: Afebrile. Breathing on 2 L nasal cannula. Initiated on milrinone gtt and with diuresis with IV Lasix. Plan for right heart cath likely on Saturday. If not then the stent he may discharge home. If complicated he may have to transfer to . Discussed with RN. Vitals/I&O Vitals/I&O: Vital Signs Date Time Temp Pulse Resp B/P (MAP) Pulse Ox O2 Delivery O2 Flow Rate FiO2 09/06/21 12:18 99 Nasal Cannula 3.0 09/06/21 10:40 97.0 83 18 103/67 (79) 97.0 I & O 09/05/21 09/05/21 09/06/21 15:00 23:00 07:00 Intake Total 521 ml 360 ml 50 ml Output Total 650 ml 200 ml Balance -129 ml 360 ml -150 ml Physical Exam General: Alert, Cooperative Heart: Regular rate Lungs: Crackles Abdomen: Soft, No tenderness Extremities: No clubbing Skin: No rashes Labs Labs: Laboratory Tests Test 09/06/21 06:30 09/06/21 09:40 Sodium Level 135 mmol/L (136-145) Potassium Level 3.5 mmol/L (3.5-5.1) Chloride Level 99 mmol/L (98-107) Carbon Dioxide Level 27 mmol/L (21-32) Anion Gap 9 (6-14) Blood Urea Nitrogen 11 mg/dL (8-26) Creatinine 0.8 mg/dL (0.7-1.3) Estimated GFR (Cockcroft-Gault) 92.1 Glucose Level 94 mg/dL (70-99) Calcium Level 8.9 mg/dL (8.5-10.1) SARS-CoV-2 Antigen (Rapid) Negative (NEGATIVE) Assessment and Plan Assessmemt and Plan Problems Medical Problems: (1) Acute exacerbation of congestive heart failure Status: Acute Comment Review of Relevant I have reviewed the following items issa (where applicable) has been applied. Medications: Current Medications Medications (Trade) Dose Ordered Sig/Arthur Route PRN Reason Start Time Stop Time Status Last Admin Dose Admin Heparin Sodium/ Sodium Chloride (HEPARIN for ARTERIAL LINE FLUSH) 2,000 unit 1X ONCE IART 09/06/21 12:15 09/06/21 12:16 DC 09/06/21 12:05 Midazolam HCl (Versed) 1 mg 1X ONCE IV 09/06/21 12:15 09/06/21 12:16 DC 09/06/21 11:42 Fentanyl Citrate (Fentanyl 2ml Vial) 25 mcg 1X ONCE IV 09/06/21 12:15 09/06/21 12:16 DC 09/06/21 11:42 Lidocaine HCl (Lidocaine 1% 20ml Vial) 20 ml 1X ONCE INJ 09/06/21 12:15 09/06/21 12:16 DC 09/06/21 11:42 Justifications for Admission Other Justification CHF exacerbation ELLA CHAUHAN MD September 06, 2021 12:27
--- NOTE | 2021-09-06 12:49 | CARD ---
MR#: [id number] Date of Study: 09/06/2021 Ordering Physician: KATELYNN JOHNSON, Referring Physician: KATELYNN JOHNSON, Tech: Hue Ogden APPROVED REPORT Technologist: Hue Ogden Nurse: Antonio Jerry Procedure(s) performed: Right heart catheterization fl time: 20.2 mins dose: 35 gycm2 moderate sedation: 38 mins HISTORY : previous CHF. INDICATION The indication(s) include : Recurrent acute on chronic systolic heart failure. CASE TECHNIQUE IV conscious sedation was used throughout procedure with appropriate monitoring and was performed in the presence of a registered nurse who was an independent trained observer other than the physician p erforming the procedure. Specimen(s) Removed: No Estimated Blood loss: 20 cc's. PROCEDURE NARRATIVE After explaining the risk, benefits and alternative options, informed consent was obtained from patie nt. Patient was brought to the cardiac Orthopedic Surgeon and his right groin was prepped and draped in the us ual fashion. 10 cc of 2% lidocaine was infiltrated into the skin and subcutaneous tissues for local anesthesia. Venous access was obtained in the right common femoral vein and 8 Khmer sheath was inse rted. Initial attempts to advance a 7.5 Khmer Paris-Corey catheter into the pulmonary artery were uns uccessful despite using a 0.025 guidewire. Attempts using 6 Khmer multipurpose catheter were unsucc essful as well. Subsequently, a 6 Khmer IM catheter was used to direct a 0.014 inch command ES guid ewire into the pulmonary artery and the catheter was then exchanged to the Paris-Corey catheter. Intra cardiac pressures, oxygen saturations and cardiac output by David method measured. Patient tolerated the procedure well. Hemostasis was achieved using manual compression. There were no immediate compl ications. FINDINGS 1. Intracardiac pressures mean right atrial pressure 13 mmHg, right ventricular pressure 52/8 mmHg, pulmonary artery pressure 45/23 mmHg, mean PA pressure 33 mmHg and mean pulmonary capillary wedge pre ssure 33 mmHg. Elevated left and right-sided filling pressures consistent with acute on chronic syst olic heart failure. 2. Oxygen saturations: Right atrium 77.8%, pulmonary artery 75%, arterial saturation 99%. No eviden ce of intracardiac shunt. 3. Cardiac output by David method 4.2 L/min Conclusion Elevated left and right-sided filling pressures consistent with acute on chronic systolic heart failu re No evidence of intracardiac shunt Recommendations Optimization of medical therapy with more aggressive diuresis. Signed by : Girma Elias, Electronically Approved : 09/06/2021 12:49:14
--- NOTE | 2021-09-06 14:26 | NUR ---
SS following up with discharge planning. SS reviewed pt chart and discussed with pt RN. Pt is currently requiring oxygen at three liters nasal canula. Pt had heart cath today. Cardiology contacted and requested transfer to . SS contacted transfer team, , and spoke with Melquiades in the transfer team. Records faxed to [phone]. Currently awaiting acceptance decision. Packet, ambulance form, and transfer form on the chart. Pt's RN notified. SS will continue to follow for discharge planning. Addendum: 09/06/21 at 1622 by GREGORIO BAKER SS Pt accepted at for transfer. Accepting physician Dr. Trevizo. Bed# [id number]. Report# [phone]. Pt will discharge today and go to by [facility] ambulance, . Pt's RN, pt, and pt's family notified.
[2021-09-06 14:43] VITALS: BP 84/52
--- NOTE | 2021-09-06 17:56 | NUR ---
Discharge Note: [facility] Discharge instructions and discharge home medications reviewed with Patient and a copy given. All questions have been answered and understanding verbalized. Discontinued lines and drains: motor vehicle light assembler removed Patient discharged to [facility]
--- NOTE | 2021-09-07 15:39 | PDOC3 ---
Discharge Summary Visit Information Date of Admission: Sep 02, 2021 Date of Discharge: September 06, 2021 Final Diagnosis Problems Medical Problems: (1) Acute exacerbation of congestive heart failure Status: Acute Brief Hospital Course Allergies Allergies Coded Allergies Type Severity Reaction Last Updated Verified No Known Drug Allergies 07/13/21 No Vital Signs Vital Signs Date Time Temp Pulse Resp B/P (MAP) Pulse Ox O2 Delivery O2 Flow Rate FiO2 09/06/21 14:43 97.0 80 18 84/52 (63) 98 Nasal Cannula 2.0 97.0 Lab Results Laboratory Tests Test 09/06/21 06:30 09/06/21 09:40 Sodium Level 135 mmol/L (136-145) Potassium Level 3.5 mmol/L (3.5-5.1) Chloride Level 99 mmol/L (98-107) Carbon Dioxide Level 27 mmol/L (21-32) Anion Gap 9 (6-14) Blood Urea Nitrogen 11 mg/dL (8-26) Creatinine 0.8 mg/dL (0.7-1.3) Estimated GFR (Cockcroft-Gault) 92.1 Glucose Level 94 mg/dL (70-99) Calcium Level 8.9 mg/dL (8.5-10.1) SARS-CoV-2 Antigen (Rapid) Negative (NEGATIVE) Brief Hospital Course Mr. Vogel is a 86 old male who presented with severe systolic CHF. Consultation was placed to cardiology. Patient has a known EF of 20% with severe mitral valve regurgitation. He was placed on milrinone and IV Lasix for aggressive diuresis. He had a heart catheterization that showed elevated left and right sided filling pressures, consistent with acute on chronic systolic CHF, but no evidence of intracardiac shunt. He was recommended to optimize his medical therapy with more aggressive diuresis. His vein access technician here at [facility] was in contact with [facility] and transferred for consideration of MitraClip placement. Discharge Information Condition at Discharge: Stable Disposition/Orders: D/C to Another Facility Scheduled Apixaban (Eliquis) 5 Mg Tablet, 5 MG PO BID for a fib for 30 Days, #60 Prescribed by: HO TREJO MD on 05/16/18 1410 Last Action: Continued on 09/02/21 1026 by ELLA CHAUHAN MD Atorvastatin Calcium (Atorvastatin Calcium) 10 Mg Tablet, 10 MG PO HS for FOR CHOLESTEROL, #30 Ref 0 (Reported) Entered as Reported by: ELIZA UMAÑA on 01/15/18 0853 Last Action: Continued on 09/02/21 102 by ELLA CHAUHAN MD Digoxin (Digoxin) 125 Mcg Tablet, 125 MCG PO DAILY for heart rate for 30 Days, #30 Prescribed by: LAVERN CORTES MD on 10/04/20 1550 Last Action: Continued on 09/02/21 102 by ELLA CHAUHAN MD Empagliflozin (Jardiance) 25 Mg Tablet, 10 MG PO DAILY for Type 2 diabetes, (Reported) Entered as Reported by: ROSA MONTERO on 08/01/2134 Last Action: Continued on 09/02/21 102 by ELLA CHAUHAN MD Ergocalciferol (Vitamin D2) (Vitamin D2) 1,250 Mcg Capsule, 50,000 INTLU PO WEEKLY for supplement, (Reported) Entered as Reported by: ROSA MONTERO on 08/01/2134 Furosemide (Furosemide) 40 Mg Tablet, 40 MG PO DAILY for heart failure for 30 Days, #30 Prescribed by: VALENTIN CARLTON MD on 08/19/20 1041 Levothyroxine Sodium (Synthroid) 88 Mcg Tablet, 88 MCG PO DAILYAC for THYROID SUPPLEMENT, #30 Ref 0 (Reported) Entered as Reported by: ROSA MONTERO on 08/01/2134 Last Action: Continued on 09/02/211025 by ELLA CHAUHAN MD Potassium Chloride (Klor-Con 10) 10 Meq Tablet.er, 10 MEQ PO DAILYWBKFT for HEART for 30 Days, #30 Prescribed by: VALENTIN CARLTON MD on 07/29/20 1507 Last Action: Continued on 09/02/21 1026 by ELLA CHAUHAN MD Sacubitril/Valsartan (Entresto 24 mg-26 mg Tablet) 1 Each Tablet, 1 TAB PO BID for heart failure for 30 Days, #60 Prescribed by: LESLY HERNANDEZ MD on 07/31/211 Last Action: Continued on 09/02/211025 by ELLA CHAUHAN MD [mag cap] , 20 MG DAILY, (Reported) Entered as Reported by: Reece Padilla on 09/02/2129 Last Action: New Order on 09/02/2129 by Reece Padilla Scheduled PRN Lorazepam (Ativan) 0.5 Mg Tablet, 0.5 MG PO PRN Q8HRS PRN for ANXIETY, (Reported) Entered as Reported by: Reece Padilla on 09/02/21 0030 Last Action: Continued on 09/02/21 1026 by ELLA CHAUHAN MD Justicifation of Admission Dx: Justifications for Admission: Justification of Admission Dx: Yes ELLA CHAUHAN MD September 07, 2021 15:39
== END 2021-09-06 17:57 | disposition short-term general hospital (02) | DRG 286 ==
LOC: ER 12:00 → 6 SOUTH 14:02
PROVIDERS: ADMIT Family Medicine; ATTEND Family Medicine
PROC: 4A023N6 Measurement of Cardiac Sampling and Pressure, Right Heart, Percutaneous Approach (ICD-10-PCS; principal; 2021-09-06)
PROC: B2111ZZ Fluoroscopy of Multiple Coronary Arteries using Low Osmolar Contrast (ICD-10-PCS; 2021-09-06)
DX: I11.0 Hypertensive heart disease with heart failure (principal); I50.23 Acute on chronic systolic (congestive) heart failure; J96.01 Acute respiratory failure with hypoxia; I48.19 Other persistent atrial fibrillation; I42.8 Other cardiomyopathies; E03.9 Hypothyroidism, unspecified; E11.9 Type 2 diabetes mellitus without complications; Z20.822 Contact with and (suspected) exposure to COVID-19; E78.5 Hyperlipidemia, unspecified; I25.10 Atherosclerotic heart disease of native coronary artery without angina pectoris; I34.0 Nonrheumatic mitral (valve) insufficiency; Z79.01 Long term (current) use of anticoagulants; Z79.84 Long term (current) use of oral hypoglycemic drugs; Z79.890 Hormone replacement therapy; Z79.899 Other long term (current) drug therapy; F41.9 Anxiety disorder, unspecified; M19.90 Unspecified osteoarthritis, unspecified site
CPT/HCPCS: 36415; 71045; 80048; 80053; 83735; 83880; 84484; 85025; 87426; 93005; 93451; 99152; 99153; C1773; C1894; J1644; J1940; J2250; J2260; J3010; J3490; 99285-25; G0378